=== PATIENT | male | born 1970 | race Caucasian/White ===

== ENCOUNTER 2017-04-02 12:58 | Inpatient (IN) | payer MEDICARE ==
[~2017-04-02] VITALS: Ht 152.4 cm; Wt 82.4 kg
[~2017-04-02 12:58] MED LIST: ARAVA10 MG PO; ASCORBIC ACID500 MG PO; CATAFLAM50 MG PO; DEXILANT60 MG PO; DULERA 100 MCG8.8 GM INH; ENBREL50 MG/ML SQ; EXALGO16 MG PO; GALZIN50 MG PO; HYDROCODONE-APA1 TAB PO; NIFEDIPINE ER60 MG PO; PREDNISONE5 MG PO; PROAIR HFA8.5 GM INH; RELPAX20 MG PO; SILVADENE CREAM50 GM TP; SOMA350 MG PO; TEKTURNA300 MG PO; VALIUM10 MG PO; VIBRAMYCIN 100100 MG PO; VITAMIN A10000 UNIT PO; VITAMIN B-12; ZESTRIL40 MG PO
[2017-04-02 14:36] LABS: UDS - AMPHET NEGATIVE QUAL (NEGATIVE); UDS - BARB NEGATIVE QUAL (NEGATIVE); UDS - BENZO POSITIVE QUAL (NEGATIVE); UDS - COCAINE NEGATIVE QUAL (NEGATIVE); UDS - METH NEGATIVE QUAL (NEGATIVE); UDS - OPIATE POSITIVE QUAL (NEGATIVE); UDS - PCP NEGATIVE QUAL (NEGATIVE); UDS - THC NEGATIVE QUAL (NEGATIVE)
[2017-04-02 14:37] LABS: INR 1.02 (0.85-1.17); PROTIME 13.3 SECONDS (11.6-15.0)
[2017-04-02 14:47] LABS: APPEARANCE CLEAR (CLEAR); BILIRUBIN NEGATIVE (NEGATIVE); COLOR DK YELLOW (YELLOW); GLUCOSE NEGATIVE (NEGATIVE); KETONE NEGATIVE (NEGATIVE); LEUKOCYTE ESTERASE TRACE (NEGATIVE); NITRITE NEGATIVE (NEGATIVE); PROTEIN NEGATIVE (NEGATIVE); SPECIFIC GRAVITY 1.015 (1.005-1.020); UROBILINOGEN NORMAL (NORMAL)
[2017-04-02 14:49] LABS: BACTERIA FEW /hpf (NONE SEEN); RED CELLS - URINE 0-5 /hpf (0-5); WHITE CELLS - URINE 0-5 /hpf (0-5)
[2017-04-02 14:59] LABS: ALBUMIN 3.3 g/dL (3.4-5.0); ALKALINE PHOSPHATASE 104 U/L (46-116); ALT (SGPT) 36 U/L (10-68); CALC OSMOLALITY 298 mosm/kg (275-300); CARBON DIOXIDE 23.4 mmol/L (21.0-32.0); CHLORIDE - SERUM 107 mmol/L (98-107); CREATININE - SERUM 2.7 mg/dL (0.6-1.3); POTASSIUM - SERUM 4.6 mmol/L (3.5-5.1); PROTEIN - SERUM 6.3 g/dL (6.4-8.2); SODIUM 143 mmol/L (136-145); UREA NITROGEN 58 mg/dL (7-18); eGFR NON AFRICAN AMERICAN 27 mL/min (90-120)
[2017-04-02 15:01] LABS: GLUCOSE 69 mg/dL (74-106)
[2017-04-02 15:19] LABS: ACETAMINOPHEN 0.4 ug/mL (10.0-30.0)
[2017-04-02 15:21] LABS: CREATINE KINASE 961 UL (21-232); TROPONIN-I < 0.017 ng/mL (0.000-0.060)
[2017-04-02 15:22] LABS: CKMB 9.8 U/L (0.0-3.6)
[2017-04-02 15:26] LABS: HEMATOCRIT 36.3 % (42.0-54.0); HEMOGLOBIN 12.1 g/dL (13.5-17.5); LYMPHOCYTES 11.3 % (15-50); MCH 31.8 pg (26.0-34.0); MCHC 33.3 g/dL (31.0-37.0); MCV 95.5 fL (80.0-100.0); MEAN PLATELET VOLUME 9.5 fL (7.4-10.4); NEUTROPHILS 81.5 % (40-80); PLATELET COUNT 306 10x3/uL (130-400); RDW 16.7 % (11.5-14.5); WBC 15.4 10x3/uL (4.8-10.8)
--- NOTE | 2017-04-02 18:15 | NUR ---
PT TO ROOM 2203 FROM ER. AT BEDSIDE.DR CRAFT HERE TO SEE PATIENT.ORIENTATION TO ROOM ,CALL LIGHT IN REACH.
--- NOTE | 2017-04-02 18:25 | NUR ---
REPORT TO GILBERTO IN ICU
--- NOTE | 2017-04-02 18:35 | NUR ---
PT TO ICU VIA BED ORDERED
[2017-04-02 19:15] VITALS: BP 125/80
--- NOTE | 2017-04-02 19:15 | NUR ---
PT ARRIEVED TO THE UNIT. HOOKED UP TO THE MONITOR AND POSITIONED FOR COMFORT.
--- NOTE | 2017-04-02 19:30 | NUR ---
ASSESSMENT COMPLETED. PT IS ALERT AND ORIENTATED X4. PUPILS 3 AND REACTIVE. LUNGS HAVE EXPIRATORY WHEEZESON THE KATIUSKA AND DINISHED IN BOTH LOWER LOBES.RUL ARE CLEAR TO ASCULTATION. AFIB RHYTHM WITH PALP PULSES IN THE UPPER EXTREMITIES. PT HAS HAD BILAT BKA'S. THE LEFT STUMP HAS A SORE ON IT WITH SOME SCABS AND YELLOWISH COLOR. VSS. WILL CONTINUE TO MONITOR PT.
[2017-04-02 20:00] VITALS: BP 110/90
[2017-04-02 21:00] VITALS: BP 115/88
--- NOTE | 2017-04-02 21:00 | NUR ---
FAMILY AT BEDSIDE. UPDATE GIVEN WILL CONTINUE TO MONITOR.
[2017-04-02 22:00] VITALS: BP 121/76
[2017-04-02 23:00] VITALS: BP 125/80
--- NOTE | 2017-04-02 23:00 | NUR ---
REASSESSMENT COMPLETED. NO CHANGES. VSS . WILL CONTINUE TO MONITOR.
[2017-04-03] VITALS (15 sets, daily range): BP systolic 103–128; BP diastolic 69–85; Ht 152.4 cm; Wt 82.4 kg
--- NOTE | 2017-04-03 01:00 | NUR ---
PT RESTING WITH NO APPEARENT STRESS. VSS. WILL CONTINUE TO MONITOR.
--- NOTE | 2017-04-03 03:00 | NUR ---
REASSESSMENT COMPLETED. PT POSITIONED FOR COMFORT WILL CONTINUE TO MONITOR.
[2017-04-03 04:13] LABS: BASOPHILS 0.2 % (0-2); HEMOGLOBIN 11.7 g/dL (13.5-17.5); LYMPHOCYTES 9.8 % (15-50); MCH 31.2 pg (26.0-34.0); MCHC 31.6 g/dL (31.0-37.0); MEAN PLATELET VOLUME 9.7 fL (7.4-10.4); MONOCYTES 9.2 % (2-11); NEUTROPHILS 78.8 % (40-80); PLATELET COUNT 326 10x3/uL (130-400); RBC 3.75 10x6/uL (4.20-6.10); RDW 17.2 % (11.5-14.5); WBC 12.5 10x3/uL (4.8-10.8)
[2017-04-03 04:17] LABS: MCV 98.7 fL (80.0-100.0)
[2017-04-03 04:52] LABS: CALCIUM 8.1 mg/dL (8.5-10.1); CARBON DIOXIDE 24.5 mmol/L (21.0-32.0); CHLORIDE - SERUM 108 mmol/L (98-107); MAGNESIUM - SERUM 2.4 mg/dL (1.8-2.4); PHOSPHOROUS 2.8 mg/dL (2.5-4.9); SODIUM 141 mmol/L (136-145)
[2017-04-03 04:57] LABS: CALC OSMOLALITY 287 mosm/kg (275-300); CKMB 3.6 U/L (0.0-3.6); CREATINE KINASE 495 UL (21-232); CREATININE - SERUM 1.2 mg/dL (0.6-1.3); GLUCOSE 120 mg/dL (74-106); POTASSIUM - SERUM 5.3 mmol/L (3.5-5.1); UREA NITROGEN 30 mg/dL (7-18); eGFR NON AFRICAN AMERICAN 69 mL/min (90-120)
--- NOTE | 2017-04-03 05:00 | NUR ---
PT ALSEEP WITH NO DISTRESS. VSS. WILL CONTINUE TO MONITOR.
--- NOTE | 2017-04-03 07:00 | NUR ---
PATIENT IS SLEEPING AT THIS TIME. CALL LIGHT WITHIN REACH, AND BED IN LOW POSITION.
[2017-04-03] MEDS ORDERED: PREDNISONE1 MG PO (07:29)
[2017-04-03] MEDS ORDERED: PROAIR HFA8.5 GM INH (07:35)
[2017-04-03] MEDS ORDERED: MYRBETRIQ50 MG PO (07:35)
[2017-04-03] MEDS ORDERED: ARAVA10 MG PO (07:36)
--- NOTE | 2017-04-03 08:45 | NUR ---
PATIENT COMPLAINT OF PAIN, 10 OUT OF 10 ON PAIN SCALE PATIENT STATES IT IS FROM HIS RHEUMATIOD ARTHRITIS. NORCO GIVEN PER ORDER.
--- NOTE | 2017-04-03 09:41 | NUR ---
PATIENT SLEEPING AROUSES EASILY TO VERBAL STIMULI. ADMIT ASSESSMENT COMPLETE. PATIENT IS AT BEDSIDE. PATIENT DENIES ANY PAIN RELIEF WITH PAIN MED. PATIENT REPOSISITONED SELF INTERVENTION FOR PAIN RELIEF.
--- NOTE | 2017-04-03 11:30 | NUR ---
PATIENT IS SLEEPING WITH SNORING RESPIRATION NOTED. CALL LIGHT WITHIN REACH AND BED IN LOW POSITION.
--- NOTE | 2017-04-03 12:10 | NUR ---
AT BEDSIDE. PATIENT IS SITTING UP IN BED. LUNCH TRAY GIVEN PAITENT HAS 6 20 OZ BOTTLES OF MT. DEW ON BEDSIDE TABLE. EXPLAINED TO PATIENT THAT THE CAFFINE IS NOT GOOD FOR HIS HEART RATE. PATIENT CONTINUES TO DRINK THEM.
[2017-04-03 13:36] LABS: CALC OSMOLALITY 284 mosm/kg (275-300); CALCIUM 8.1 mg/dL (8.5-10.1); CARBON DIOXIDE 26.7 mmol/L (21.0-32.0); CHLORIDE - SERUM 106 mmol/L (98-107); CREATININE - SERUM 1.1 mg/dL (0.6-1.3); GLUCOSE 115 mg/dL (74-106); POTASSIUM - SERUM 4.9 mmol/L (3.5-5.1); SODIUM 141 mmol/L (136-145); UREA NITROGEN 22 mg/dL (7-18); eGFR NON AFRICAN AMERICAN 77 mL/min (90-120)
--- NOTE | 2017-04-03 14:20 | NUR ---
PATIENT IS SLEEPING WITH SNORING RESPIRATIONS NOTED. V/S ARE WITHIN NORMAL LIMITS. CM IS SR @94. IV INFUSING WITHOUT REDNESS OR EDEMA NOTED.
--- NOTE | 2017-04-03 14:39 | NUR ---
SALINE LOCK FROM LEFT WRIST REMOVED DUE TO REDNESS AND TENDERNESS. PRESSURE APPLIED WITH 2X2 AND TAPE.
--- NOTE | 2017-04-03 17:15 | NUR ---
PATIENT STATES THAT THE PAIN IS NOT ANY BETTER. HAD PATIENT TO REPOSITION WITH PILLOWS.
--- NOTE | 2017-04-03 18:31 | NUR ---
PATIENT IS ASKING ABOUT HIS HYDROMORPHONE THAT HE TAKES AT HOME, AND IF IT IS ORDERED FOR HIM HERE. WILL CHECK ON THIS FOR PATIENT. PATIENT CONSUMED 100% OF DINNER.
--- NOTE | 2017-04-03 20:00 | NUR ---
SHIFT ASSESSMENT COMPLETED SEE FLOWSHEET. PT AAOX4. AWARE OF TRANSFER ORDERS AND PENDING TRANSFER. PT NOT WEARING O2 AT THIS TIME AND SPO2 98% ON ROOM AIR. STATES THE OXYGEN WAS OFF. NOTE O2 BEING DELIVERED AT 2L VIA N/C DRAPED ON BEDSIDE TABLE. TURNED OFF AND LEFT PT ON ROOM AIR. LEFT FA PIV DRESSING REMOVED AND IV SITE CLEANED WITH ALCOHOL AND NEW TELFA PLACED OVER SITE. IV POLE RELOCATED TO SIDE OF BED THAT IV IS ON TO REDUCE TENSION ON IV. NO LEAKAGE TENDERNESS OR REDNESS NOTED AT THIS TIME. PT DOES HAVE DRESSING TO LEFT STUMP AND HE STATES HE IS SUPPOSED TO HAVE STEM CELL SURGERY ON SUNDAY WITH DR. GILMAN. STATES HE HAD THIS PROCEDURE DONE ON THE RIGHT STUMP IN THE PAST YEAR. PT IS A BILAT BKA AMPUTEE. STATES HE HAS PROTHESIS AND W/C AT HOME AND DOES OWN TRANSFERS AND IS VERY INDEPENDENT. PT DOES NOT HAVE HIS EQUIPMENT HERE AT THE HOSPITAL AND IS AT THIS TIME CONFINED TO THE BED. PT GIVEN EXTRA PILLOWS FOR COMFORT AND DENIES ANY FURTHER NEEDS. PT IS BEING MONITORED PER STANDARD ICU PROTOCOL FOR PT'S WITH TRANSFER ORDERS. ALL LINES AND IVF VERIFIED AND ARE CURRENT LINES DUE TO BE CHANGED ON 04/04/17. ALL ALARMS SET AND VERIFIED
--- NOTE | 2017-04-03 21:00 | NUR ---
AT BEDSIDE UPDATE GIVEN AND CODE WORD ESTABLISHED.
--- NOTE | 2017-04-03 21:59 | NUR ---
NEW TUGING HUNG FOR ABT AND IVF. LABELED AND DATED
--- NOTE | 2017-04-03 22:44 | NUR ---
PT SITTING UP IN BED DOING RESPIRATORY TREATMENT.
--- NOTE | 2017-04-03 23:00 | NUR ---
PT SLEEPING AT THIS TIME. RESP REG AND NOISY. EASILY AWAKEN FOR VS. NO C/O NO EVIDENCE OF DISTRESS. CALL LIGHT IN REACH
--- NOTE | 2017-04-04 02:15 | NUR ---
CALL RECEIVED FROM SECURITY CODE VERIFIED UPDATE GIVEN. PT SLEEPING WELL AT THIS TIME
[2017-04-04 03:00] VITALS: BP 111/76
--- NOTE | 2017-04-04 03:02 | NUR ---
PT GIVEN MEDS FOR CHRONIC PAIN RECORDED ON NOV. PT STATES HE HASNT SLEPT ALL NIGHT BUT HAVE OBSERVED PT ASLEEP MOST OF THE NIGHT. HAS BEEN AWAKE FOR LAST 15-20 MIN.
--- NOTE | 2017-04-04 03:38 | NUR ---
RADIOLOGY AT BEDSIDE TO PERFORM AM PCXR.
[2017-04-04 04:23] LABS: BASOPHILS 0.2 % (0-2); EOSINOPHILS 1.2 % (0-7); HEMOGLOBIN 11.5 g/dL (13.5-17.5); IMMATURE GRANULOCYTES 1.5 % (0-5); LYMPHOCYTES 12.6 % (15-50); MCH 31.2 pg (26.0-34.0); MCHC 31.9 g/dL (31.0-37.0); MCV 97.6 fL (80.0-100.0); MEAN PLATELET VOLUME 9.5 fL (7.4-10.4); MONOCYTES 11.2 % (2-11); NEUTROPHILS 73.3 % (40-80); PLATELET COUNT 290 10x3/uL (130-400); RBC 3.69 10x6/uL (4.20-6.10); RDW 16.3 % (11.5-14.5); WBC 10.3 10x3/uL (4.8-10.8)
[2017-04-04 04:38] LABS: CALC OSMOLALITY 276 mosm/kg (275-300); CALCIUM 8.6 mg/dL (8.5-10.1); CARBON DIOXIDE 28.6 mmol/L (21.0-32.0); CHLORIDE - SERUM 102 mmol/L (98-107); CREATINE KINASE 182 UL (21-232); CREATININE - SERUM 0.9 mg/dL (0.6-1.3); GLUCOSE 159 mg/dL (74-106); MAGNESIUM - SERUM 1.9 mg/dL (1.8-2.4); PHOSPHOROUS 2.8 mg/dL (2.5-4.9); SODIUM 137 mmol/L (136-145); eGFR NON AFRICAN AMERICAN > 90 mL/min (90-120)
[2017-04-04 04:42] LABS: UREA NITROGEN 13 mg/dL (7-18)
--- NOTE | 2017-04-04 06:00 | NUR ---
IN ROOM WITH PT. UPDATE GIVEN QUESTIONS ANSWERED. PT DENIES FURTHER NEEDS. CALL LIGHT IN REACH
[2017-04-04 07:00] VITALS: BP 109/77
[2017-04-04 11:00] VITALS: BP 151/78
--- NOTE | 2017-04-04 13:16 | NUR ---
WOUND CARE CONSULT: PATIENT IS BILATERAL BKA, WEARS PROTHESIS WHEN UP AND ABOUT. NON HEALING WOUND TO LEFT STUMP AT HEALED INCISION LINE. PATIENT REPORTS THAT HE HAS BEEN DEALING WITH THIS SINCE APRIL 2016. WOUND IS 0.5 CM X 0.5 CM WITH TUNNELING 0.5 CM IN THE 6 OCLOCK POSITION. SKIN AROUND THE WOUND IS WHITE (LIKE IT HAS BEEN VERY WET). WOUND BED IS DRY, NO DRAINAGE. 4 X 4 PLACED OVER WOUND AND SECRUED WITH MEDIPORE TAPE UNTIL IODOFOAM COMES. WOUND CARE TO FOLLOW NEEDED.
--- NOTE | 2017-04-04 14:25 | NUR ---
WND CARE DONE TO L RESIDULE LYMB. PT JOVANY WELL.
[2017-04-04 15:00] VITALS: BP 135/84
[2017-04-04 20:00] VITALS: BP 122/86
--- NOTE | 2017-04-04 20:00 | NUR ---
REPORT WAS RECEIVED AND CARE ASSUMED. INITIAL SHIFT ASSESSMENT COMPLETED SEE FLOWSHEET. PT HAS BEEN ABLE TO TRANSFER SELF TO CHAIR AND WITH 'S ASSISTANCE HAS HAD COMPLETE BATH AND LINEN CHANGE. PT DOES HAVE TRANSFER ORDERS AND ICU PROTOCOL FOR PT'S WITH TRANSFER ORDERS IS BEING FOLLOWED. ALL ALARMS ARE SET AND VERIFIED. IVF AND IV LINES ARE DATED LABELED AND ARE CURRENT. IV TUBING DUE TO BE CHANGED 04/06/2017 IV SITE WNL AND WAS SITED TODAY PER TSERING MOLINA RN.
--- NOTE | 2017-04-04 21:00 | NUR ---
HS MEDS GIVEN WITHOUT DIFFICULTY NOTED. PT TEACHING DONE PRIOR TO ADMINISTRATION AND PT WAS ABLE TO CORRECTLY STATE REASON FOR EACH MEDICATION GIVEN. FSBS 115. HS SNACK PROVIDED AND PT ATE 100% REMAINS AT BEDSIDE
[2017-04-04 23:00] VITALS: BP 148/76
--- NOTE | 2017-04-04 23:00 | NUR ---
PT SLEEPING INTERMITTENTLY. HAS BEEN NOTIFIED NOT EXPECTING TRANSFER FROM ICU TONIGHT. PT VERBALIZES UNDERSTANDING. NO ACUTE DISTRESS. CONTINUE TO MONITOR PER PROTOCOL
--- NOTE | 2017-04-05 01:00 | NUR ---
RESP REG AND NONLABORED
--- NOTE | 2017-04-05 03:00 | NUR ---
PT SLEEPING WITH SNORING RESPIRATIONS. NONLABORED
[2017-04-05 03:15] VITALS: BP 113/91
--- NOTE | 2017-04-05 04:00 | NUR ---
ARTILLERY OFFICER AT BEDSIDE FOR AM LAB DRAW.
[2017-04-05 04:40] LABS: BASOPHILS 0.4 % (0-2); EOSINOPHILS 1.6 % (0-7); HEMATOCRIT 38.8 % (42.0-54.0); HEMOGLOBIN 12.5 g/dL (13.5-17.5); IMMATURE GRANULOCYTES 2.1 % (0-5); LYMPHOCYTES 10.7 % (15-50); MCH 31.6 pg (26.0-34.0); MCHC 32.2 g/dL (31.0-37.0); MEAN PLATELET VOLUME 10.1 fL (7.4-10.4); MONOCYTES 14.1 % (2-11); NEUTROPHILS 71.1 % (40-80); RBC 3.96 10x6/uL (4.20-6.10); RDW 16.1 % (11.5-14.5); WBC 9.4 10x3/uL (4.8-10.8)
[2017-04-05 04:44] LABS: PLATELET COUNT 354 10x3/uL (130-400)
[2017-04-05 04:49] LABS: CALC OSMOLALITY 275 mosm/kg (275-300); CALCIUM 8.9 mg/dL (8.5-10.1); CARBON DIOXIDE 25.3 mmol/L (21.0-32.0); CHLORIDE - SERUM 102 mmol/L (98-107); CREATININE - SERUM 0.8 mg/dL (0.6-1.3); GLUCOSE 128 mg/dL (74-106); POTASSIUM - SERUM 5.4 mmol/L (3.5-5.1); SODIUM 137 mmol/L (136-145); UREA NITROGEN 12 mg/dL (7-18); eGFR NON AFRICAN AMERICAN > 90 mL/min (90-120)
[2017-04-05 07:00] VITALS: BP 138/94
--- NOTE | 2017-04-05 10:38 | NUR ---
NUTRITION MONITORING & EVAL CHART REVIEWED, PT TOLERATING MECH SOFT DIET. WILL CONTINUE TO PROVIDE DIET, MONITOR PO INTAKE. RD FOLLOWING
[2017-04-05 11:00] VITALS: BP 146/102
[2017-04-05 15:00] VITALS: BP 146/98
--- NOTE | 2017-04-05 15:56 | NUR ---
B/P 150/100, CALLED TO DR CRAFT AND REC'D MED ORDERS FOR B/P.
--- NOTE | 2017-04-05 19:42 | NUR ---
REC FROM ICU VIA WC. ALERT/ORIENTED X 4. PROSTHETIC'S NOTED OF BOTH LOWER LEGS. AMBULATED WITH STEADY GAIT FROM WC TO BED AND AROUND ROOM. IV IN R FA INTACT SL. DENIES ANY NEEDS. HIS IS PRESENT IN ROOM.
[2017-04-05 20:00] VITALS: BP 128/83
[2017-04-06] VITALS: BP 134/83
--- NOTE | 2017-04-06 00:20 | NUR ---
SITTING ON SIDE OF BED. WANTING TO CHANGE LEFT STUMP WOUND HIMSELF.
--- NOTE | 2017-04-06 00:48 | NUR ---
REC FROM [facility], [place] VIA AMBULANCE/STRETCHER. ALERT/ORIENTED X 4. ON 02 AT 2L. RR 28, DEEP AND RAPID. IV IN RT AC SL. EMT STATED LEVAQUIN STARTED AT [facility] FINISHED EN ROUTE. DENIES PAIN. REQUESTED A SANDWICH/SODA. ORIENTED TO ROOM AND CALL LIGHT. ORDERS FAXED FROM [facility] NOTED.
--- NOTE | 2017-04-06 05:55 | NUR ---
SITTING UP IN BED. ADMIN PO SCHED MED. DENIES ANY NEEDS OR DISCOMFORTS.
[2017-04-06 06:02] LABS: BASOPHILS 1.1 % (0-2); EOSINOPHILS 1.8 % (0-7); HEMATOCRIT 39.5 % (42.0-54.0); HEMOGLOBIN 12.8 g/dL (13.5-17.5); LYMPHOCYTES 12.4 % (15-50); MCH 31.6 pg (26.0-34.0); MCHC 32.4 g/dL (31.0-37.0); MCV 97.5 fL (80.0-100.0); MONOCYTES 11.9 % (2-11); NEUTROPHILS 62.8 % (40-80); PLATELET COUNT 406 10x3/uL (130-400); RBC 4.05 10x6/uL (4.20-6.10); RDW 16.2 % (11.5-14.5)
[2017-04-06 06:06] LABS: WBC 14.1 10x3/uL (4.8-10.8)
[2017-04-06 06:22] LABS: ALBUMIN 3.2 g/dL (3.4-5.0); ALKALINE PHOSPHATASE 110 U/L (46-116); ALT (SGPT) 41 U/L (10-68); BILIRUBIN - TOTAL 0.29 mg/dL (0.2-1.3); CALCIUM 8.6 mg/dL (8.5-10.1); CARBON DIOXIDE 24.2 mmol/L (21.0-32.0); CHLORIDE - SERUM 102 mmol/L (98-107); GLUCOSE 123 mg/dL (74-106); POTASSIUM - SERUM 4.7 mmol/L (3.5-5.1); PROTEIN - SERUM 7.5 g/dL (6.4-8.2); SODIUM 137 mmol/L (136-145); eGFR NON AFRICAN AMERICAN 77 mL/min (90-120)
[2017-04-06 06:24] LABS: CALC OSMOLALITY 275 mosm/kg (275-300); CREATININE - SERUM 1.1 mg/dL (0.6-1.3); UREA NITROGEN 16 mg/dL (7-18)
--- NOTE | 2017-04-06 07:38 | NUR ---
PT SITTING UP IN BED CONVERSING WITH FAMILY MEMEBER AT BEDSIDE. DENIES NEEDS AT THIS TIME WILL CONTINUE TO MONITOR.
[2017-04-06 07:47] VITALS: BP 124/81
[2017-04-06 07:55] LABS: MAGNESIUM - SERUM 1.5 mg/dL (1.8-2.4); PHOSPHOROUS 3.4 mg/dL (2.5-4.9)
--- NOTE | 2017-04-06 10:49 | NUR ---
PT SLEEPING IN BED WITH SIG OTHER AND CHILD IN BED WITH HIM. RR EVEN AND UNLABORED. NO S/S DISTRESS NOTED.
[2017-04-06 11:43] VITALS: BP 121/58
[2017-04-06] MEDS ORDERED: LEVAQUIN500 MG PO (12:41)
[2017-04-06] MEDS ORDERED: LOPRESSOR25 MG PO (12:41)
--- NOTE | 2017-04-06 16:11 | NUR ---
WENT OVER DISCHARGE PAPER WORK WITH PT AND PT VERBALIZED UNDERSTANDING SCRIPTS PROVIDED TO PT REMOVED IV WITH CATHETER TIP INTACT WHEELED PT TO FRONT ENTRANCE WHERE HE WAS PICKED UP BY
== END 2017-04-06 16:15 | disposition home or self-care (01) | DRG 190 ==
LOC: D.ER 12:58 → D.ICU 16:30 → D.MS 16:30 → D.ICU 19:20 → D.M2 04-05 19:41
PROVIDERS: Emergency Medicine; Nurse Practitioner Family; ADMIT Family Medicine
DX: J44.0 Chronic obstructive pulmonary disease with (acute) lower respiratory infection (principal); G92 Toxic encephalopathy; J18.9 Pneumonia, unspecified organism; N17.9 Acute kidney failure, unspecified; F17.203 Nicotine dependence unspecified, with withdrawal; T50.995A Adverse effect of other drugs, medicaments and biological substances, initial encounter; I10 Essential (primary) hypertension; E16.2 Hypoglycemia, unspecified; F11.90 Opioid use, unspecified, uncomplicated; D64.9 Anemia, unspecified; T87.89 Other complications of amputation stump; Y83.8 Other surgical procedures as the cause of abnormal reaction of the patient, or of later complication, without mention of misadventure at the time of the procedure; M06.9 Rheumatoid arthritis, unspecified; J31.0 Chronic rhinitis; Z89.512 Acquired absence of left leg below knee; Z89.511 Acquired absence of right leg below knee

== ENCOUNTER → 2017-05-02 11:56 | Outpatient (CLI) | payer MEDICARE ==
[2017-04-03 10:49] VITALS: BMI 32.8
[~2017-05-02 11:56] MED LIST changes: +LEVAQUIN500 MG PO; +LOPRESSOR25 MG PO; +MYRBETRIQ50 MG PO; +PREDNISONE1 MG PO
== END | disposition home or self-care (01) ==
LOC: D.LAB 11:56
DX: T87.89 Other complications of amputation stump (principal)

== ENCOUNTER 2017-05-07 05:17 | Day surgery (SDC) | payer MEDICARE ==
[2017-05-02 12:28] LABS: BASOPHILS 0.2 % (0-2); EOSINOPHILS 0.5 % (0-7); HEMATOCRIT 42.1 % (42.0-54.0); IMMATURE GRANULOCYTES 4.5 % (0-5); LYMPHOCYTES 9.1 % (15-50); MCH 32.6 pg (26.0-34.0); MCHC 33.3 g/dL (31.0-37.0); MCV 97.9 fL (80.0-100.0); MEAN PLATELET VOLUME 9.3 fL (7.4-10.4); MONOCYTES 7.8 % (2-11); NEUTROPHILS 77.9 % (40-80); RDW 16.5 % (11.5-14.5); WBC 17.9 10x3/uL (4.8-10.8)
[2017-05-02 12:32] LABS: CALC OSMOLALITY 269 mosm/kg (275-300); CALCIUM 8.3 mg/dL (8.5-10.1); CARBON DIOXIDE 27.1 mmol/L (21.0-32.0); CHLORIDE - SERUM 98 mmol/L (98-107); CREATININE - SERUM 1.6 mg/dL (0.6-1.3); GLUCOSE 84 mg/dL (74-106); POTASSIUM - SERUM 4.2 mmol/L (3.5-5.1); SODIUM 133 mmol/L (136-145); UREA NITROGEN 27 mg/dL (7-18); eGFR NON AFRICAN AMERICAN 50 mL/min (90-120)
[2017-05-02 12:39] LABS: C-REACTIVE PROTEIN < 0.2 mg/dL (0.0-0.9)
[2017-05-02 12:42] LABS: PLATELET COUNT 283 10x3/uL (130-400)
[2017-05-02 13:47] LABS: ERYTHROCYTE SEDIMENTATION RATE 11 mm/hr (0-15)
[2017-05-04 11:01] LABS: BASOPHILS 0.2 % (0-2); EOSINOPHILS 0.6 % (0-7); HEMATOCRIT 42.3 % (42.0-54.0); HEMOGLOBIN 13.5 g/dL (13.5-17.5); LYMPHOCYTES 8.2 % (15-50); MCH 32.3 pg (26.0-34.0); MCHC 31.9 g/dL (31.0-37.0); MEAN PLATELET VOLUME 9.5 fL (7.4-10.4); PLATELET COUNT 250 10x3/uL (130-400); RBC 4.18 10x6/uL (4.20-6.10); RDW 16.8 % (11.5-14.5); WBC 13.8 10x3/uL (4.8-10.8)
[2017-05-04 11:12] LABS: MCV 101.2 fL (80.0-100.0)
[2017-05-04 11:23] LABS: ANION GAP 11.3 mmol/L (8-16); CALCIUM 8.2 mg/dL (8.5-10.1); CARBON DIOXIDE 27.2 mmol/L (21.0-32.0); CREATININE - SERUM 1.2 mg/dL (0.6-1.3); POTASSIUM - SERUM 4.5 mmol/L (3.5-5.1)
[~2017-05-07] VITALS: Ht 175.3 cm; Wt 82.6 kg
[~2017-05-07 05:17] MED LIST changes: +BACLOFEN10 MG PO; +CIALIS5 MG PO; +PEPCID AC20 MG PO; +VOLTAREN100 GM TOPICAL
[2017-05-07] MEDS ORDERED: ARAVA10 MG PO (09:20)
[2017-05-07 09:26] VITALS: BP 136/88; Ht 175.3 cm; Wt 82.6 kg
--- NOTE | 2017-05-07 11:56 | NUR ---
PT WARNED OF POSSIBILITY OF BOVIE BURN UNDER WEDDING RING BUT CHOSE TO KEEP IT ON
--- NOTE | 2017-05-10 19:16 | OP ---
PATIENT NAME: LYNETTE SHEETS JR MEDICAL RECORD: [id number] :72 LOCATION:D.OPS ADMISSION DATE: SURGEON: BRADFORD GILMAN MD DATE OF OPERATION: 05/07/2017 PREOPERATIVE DIAGNOSIS: Nonhealing ulcer, left below-knee amputation stump. POSTOPERATIVE DIAGNOSIS: Nonhealing ulcer, left below-knee amputation stump. PROCEDURES: 1. I&D of nonhealing ulcer. 2. Application of Neox graft into the nonhealing ulcer. SURGEON: Bradford Gilman MD. ANESTHESIA: General. INTRAOPERATIVE COMPLICATIONS: None. SUMMARY OF PATHOLOGIC FINDINGS: The patient had a nonhealing graft that undermined, did not appear overtly infected; however, this is not healed now for several months. OPERATIVE SUMMARY IN DETAIL: After obtaining the appropriate consents as well as anesthetic consultation, evaluation and clearance, the patient was brought to the operating room and placed on the operating table in supine position.. After general laryngeal mask was administered, the patient's left lower extremity and stump were prepped and draped in a routine sterile fashion. The small circular ulcer was incised to make it approximately 1.5 cm across and the underlying granulation tissue that had poor healing quality was excised in its entirety and then the wound was irrigated. Following this, the Neox graft was sewn in underneath the skin flaps made using 3-0 Monocryl. Having completed this, sterile dressings were applied. The patient was awakened, taken to recovery room in stable condition. All final needle and sponge counts were correct. TRANSINT:[id number] Voice Confirmation ID: [id number] DOCUMENT ID: [id number] BRADFORD GILMAN MD at 1916 CC: [id number] DICTATION DATE: 05/07/17 1153 TEACHERS ASSISTANT: 05/07/17 1311 [facility] 05/07/17 [id number] [place] [address]
== END 2017-05-07 13:45 | disposition home or self-care (01) ==
LOC: D.OPS 05:17 → D.PAN 11:00 → D.OPS 11:00
PROVIDERS: Anesthesiology; Orthopaedic Surgery
DX: T87.89 Other complications of amputation stump (principal); L97.821 Non-pressure chronic ulcer of other part of left lower leg limited to breakdown of skin; Z01.812 Encounter for preprocedural laboratory examination

== ENCOUNTER 2017-11-16 17:32 | Inpatient (IN) | payer MEDICARE ==
[~2017-11-16] VITALS: Ht 175.3 cm; Wt 72.7 kg
--- NOTE | ~2017-11-16 | OP ---
PATIENT NAME: LYNETTE SHEETS JR MEDICAL RECORD: [id number] :72 LOCATION:[facility] ADMISSION DATE:11/17/17 SURGEON: MAC CACERES MD DATE OF OPERATION: 11/19/2017 PROCEDURE: Left heart catheterization, selective coronary angiography, right femoral approach. CATHETERS: A 5-Chinese sheath, 5/4 left and right Mary, 5/4 pig. The procedure was well tolerated and the patient returned to rae, sheath removed. ExoSeal device was placed. FINDINGS: Left ventriculography in 30-degree STEINBERG view shows global hypokinesis. Overall, function mildly reduced to 40% to 45%. CORONARY ANATOMY: LEFT MAIN: Left main is free of disease. LAD: Free of disease in the diagonal system. CIRCUMFLEX: Free of disease in the marginal system. 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 PLAN: Intervention momentarily. DESCRIPTION OF PROCEDURE: A 5-Chinese sheath was changed for a 6-Chinese sheath. A hockey stick guide catheter provided excellent guide catheter support followed by 300 cm Whisper wire. Stent deployed was a 3.5 x 12 mm Integrity, nondrug-eluting stent, up to 18 atmospheres for 45 seconds. Final injection shows excellent resolution, no significant residual. Nice tacking of the dissection/fissured plaque. Sheath closed with ExoSeal device. Plavix was loaded in the lab. TRANSINT:[id number] Voice Confirmation ID: [id number] DOCUMENT ID: [id number] MAC CACERES MD at 0920 CC: [id number] DICTATION DATE: 11/19/17 1007 ASSISTANT PROFESSOR OF EDUCATION: 11/19/17 1122 [facility] IN 11/19/17 [facility] [address] [id number]
--- NOTE | ~2017-11-16 | EC ---
PATIENT:LYNETTE SHEETS JR DATE OF SERVICE: 11/17/17 SEX: M MEDICAL RECORD: [id number] DATE OF : 72 LOCATION:[facility] AGE OF PATIENT: 46 ADMISSION DATE: 11/17/17 REFERRING PHYSICIAN: INTERPRETING PHYSICIAN: MAC CACERES MD ECHOCARDIOGRAM REPORT ECHO CHARGES 4 ECHO COMPLETE CLINICAL DIAGNOSIS: CHEST PAIN /ABN EKG ECHOCARDIOGRAPHIC MEASUREMENTS (adult normal given) AC root (d.<3.7cm) 4.2 cm LV Septum d (<1.2 cm> 1.7 cm Valve Excursion 1.9 cm LV Septum (systole) 1.8 cm Left Atria (s.<4.0cm> 4.0 cm LVPW d(<1.2cm) 1.8 cm RV (d.<2.3cm) 3.7 cm LVPW (sytole) 2.0 cm LV diastole(<5.6CM) 5.9 cm MV E-F(>70mm/sec) cm LV systole 4.3 cm LVOT Diameter 2.3 cm MV exc.(>10mm) 1.8 cm Est.ejection fraction (50-75%) % Pericardial Effusion N DOPPLER: LVIT cm/sec A 57.0 cm/sec E 66.0 cm/sec LA cm/sec RVSP 23 mmHg LVOT 97 cm/sec AOP1/2T m/s Asc. Ao 112 cm/sec RVOT 85 cm/sec RA cm/sec PA 109 cm/sec AV Gradient Peak 5.02 mmHg AV Mean 2.54 mmHg AV Area 3.5 cm MV Gradient Peak 2.81 mmHg MV Mean 1.19 mmHg MV Area cm COMMENTS: Paunch Trimmer: 2 TYRA HERCULES Nail Mill Worker: 3 Dr. Miller TAPE# PACS DATE OF SERVICE: 11/17/2017 Adequate 2D echo, color flow and spectral Doppler, and M-mode. LVH is present. LV internal dimension is normal. Wall motion is normal. EF is greater than 55%. Aortic valve is tricuspid. No stenosis by Doppler interrogation. The left atrium is upper limits of normal at 4.0 cm. Mitral valve shows no prolapse. Trace MR. Right-sided chamber is grossly normal. Trace TR. ECHOCARDIOGRAM REPORT [id number] LYNETTE SHEETS JR TRANSINT:[id number] Voice Confirmation ID: [id number] DOCUMENT ID: [id number] MAC CACERES MD at 0919 CC: [id number] DICTATION DATE: 11/17/171421 WASTEWATER PROJECT ENGINEER: 11/17/17 2328 [facility] [place] 11/19/17 [id number] [place] [id number]
--- NOTE | ~2017-11-16 | HEMODYNAMI ---
PATIENT:LYNETTE SHEETS JR MEDICAL RECORD: [id number] : 72 [facility] [id number] ADMISSION DATE: 11/17/17 Generatedon:11/19/201710:05 Patient name: LYNETTE SHEETS Patient #: [id number] SSN: : 1970 Date of study: 11/19/2017 Page: Of Hemodynamic Procedure Report Patient Data Patient Demographics Procedure consent was obtained First Name: LYNETTE Gender: Male Last Name: SUDEEP Suffix: Jr Cordova Initial: GRADY : 1970 Patient #: [id number] Age: 46 year(s) Race: Unknown Additional ID: [id number] Contact details Address: [address] [place] [address] State: [place] City: [place] Zip code: [address] Past Medical History Allergies Allergen Reaction Date Comments Reported Morphine 11/19/2017 Sulfa drugs 11/19/2017 Codeine 11/19/2017 Other allergy 11/19/2017 See chart for full list Admission Admission Data Admission Date: 11/17/2017 Admission Time: 16:27 Room #: D.2101 Procedure Procedure Types Cath Procedure Diagnostic Procedure C [facility] w/Coronaries Sedation Charges Moderate Sedation up to 15 minutes PCI Procedure Coronary Stent Coronary Stent Initial Procedure Description Procedure Date Procedure Date: 11/19/2017 Procedure Start Time: 9:47 Procedure End Time: 10:05 Procedure Staff Name Function Pablito Cunha MD Performing Physician Lucia Piper RT Monitor Chadd Hector RN Nurse Brayan Curry RT Scrub Procedure Data Cath Procedure Fluoroscopy Diagnostic fluoroscopy Total fluoroscopy Time: 2.6 time: 2.6 min min Diagnostic fluoroscopy Total fluoroscopy dose: 695 dose: 695 mGy mGy Contrast Material Contrast Material Type Amount (ml) Isovue 300 102 Entry Location Entry Primary Successful Side Size Upsize Upsize Entry Closure Succes sful Closure Location (Fr) 1 (Fr) 2 (Fr) Remarks Device Remarks Femoral Right 5 Fr 6 Fr artery Short Estimated blood loss: 10 ml Diagnostic catheters Device Type Used For End Catheter Placement MULTIPACK JL 4.0 5Fr Left Coronary catheter Angiography MULTIPACK 3DRC 5Fr Right Coronary catheter Angiography MULTIPACK Pigtail 5 Fr LV Angiography catheter Procedure Complications No complications Procedure Medications Medication Administration Route Dosage 0.9% NaCl I.V. 100 ml/hr Oxygen NC 2 l/min Heparin Flush Bag added to field 2 bags (1000units/500ml NS) Lidocaine 2% added to field 20 Versed I.V. 2 mg Fentanyl I.V. 100 mcg Heparin Bolus I.V. 5000 units Integrilin (Bolus I.V. 7.9 ml 2mg/ml) Integrilin (Bolus wasted 2.1 ml 2mg/ml) Plavix P.O. 600 mg Hemodynamics Rest Heart Rate: 69 (bpm) Pressure Samples Time Site Value (mmHg) Purpose Heart Use Rate(bpm) 9:52 LV 119/19,20 EDP 69 9:52 AO 121/77(98) Pullback 69 9:52 LV 121/19,22 Pullback 69 Gradients Valve Time Site 1 Site 2 Mean SEP/DFP Peak To Heart Use (mmHg) (sec/min) Peak Rate (mmHg) (bpm) Aortic 9:52 LV AO 0 69 121/19,22 121/77(98) Calculations Valve P-P Mean Valve Index Valve Source Name Gradient Area Flow (cm2) Aortic 0 0 Snapshots Pre Cath Intra NCS Post Cath Vital Signs Time Heart Resp SPO2 etCO2 NIBP (mmHg) Rhythm Pain Sedation Rate (ipm) (%) (mmHg) Status Level (bpm) 9:16:56 68 19 98 0 122/82(104) NSR 0 (11) 10(A) , No pain 9:21:34 71 13 99 23.1 130/89(105) NSR 0 (11) 10(A) , No pain 9:26:17 68 13 99 35.8 126/84(102) NSR 0 (11) 10(A) , No pain 9:30:58 71 19 99 20.9 137/88(107) NSR 0 (11) 10(A) , No pain 9:35:40 64 15 92 0 141/85(106) NSR 0 (11) 10(A) , No pain 9:40:25 69 17 94 0 141/76(108) NSR 0 (11) 10(A) , No pain 9:45:49 68 18 93 0 125/96(114) NSR 0 (11) 10(A) , No pain 9:50:31 68 15 98 27.6 133/81(100) NSR 0 (11) 10(A) , No pain 9:55:16 72 15 98 22.4 137/81(108) NSR 0 (11) 10(A) , No pain 9:59:59 55 18 96 44 136/79(101) NSR 0 (11) 10(A) , No pain 10:04:43 71 8 99 28.3 137/87(106) NSR 0 (11) 10(A) , No pain Medications Time Medication Route Dose Verified Delivered Reason Notes Effectiveness by by 9:21:44 0.9% NaCl I.V. 100 Chadd Chadd Per physician ml/hr Krunal Hector RN, RN 9:21:54 Oxygen NC 2 Chadd Chadd Per physician l/min Krunal Hector RN, RN 9:22:08 Heparin Flush added 2 Chadd Chadd used for Bag to bags Krunal Hector procedure (1000units/500ml field BRODY RN NS) 9:22:22 Lidocaine 2% added 20ml Chadd Chadd for local to vial Krunal Hector anesthetic field RONN BRODY 9:34:59 Versed I.V. 2 mg Chadd Chadd for sedation Krunal Hector RN, RN 9:35:09 Fentanyl I.V. 100 Chadd Chadd for sedation mcg Krunal Hector RN, RN 9:54:59 Heparin Bolus I.V. 5000 Chadd Chadd for units Krunal Hector anticoagulation RN RN 9:56:12 Integrilin I.V. 7.9 Chadd Chadd for (Bolus 2mg/ml) ml Krunal Hector antiplatelet RN RN therapy 9:56:26 Integrilin wasted 2.1 Chadd Chadd to sharp's (Bolus 2mg/ml) ml Krunal Hector RN, RN 10:02:15 Plavix P.O. 600 Chadd Chadd for mg Krunal Hector antiplatelet RN RN therapy Procedure Log Time Note 8:06:25 Time tracking: Regular hours 8:06:29 Plan of Care:Hemodynamics will remain stable., Cardiac rhythm will remain stable., Comfort level will be maintained., Respiratory function will remain adequate., Patient/ family verbilizes understanding of procedure., Procedure tolerated without complication., Recovers from procedure without complications.. 8:58:11 Chadd Hector RN sent for patient. Start room use. 9:10:14 Patient received from PCU to CCL 1 Alert and oriented. Tansferred to table in Supine position. 9:10:15 Warm blankets applied, and hitesh hugger turned on for patient comfort. 9:10:15 Correct patient and procedure confirmed by team. 9:10:17 Signed procedure consent form obtained from patient. 9:10:18 ECG and BP/O2 sat monitors applied to patient. 9:10:19 Full Disclosure recording started 9:15:59 Vital chart was started 9:17:51 Baseline sample Acquired. 9:17:54 Rhythm: sinus rhythm 9:18:14 H&P Date Dictated: 11/18/2017 Within 30 days and on chart.. 9:18:16 Pre-procedure instructions explained to patient. 9:18:16 Pre-op teaching completed and patient verbalized understanding. 9:18:20 Family in waiting room. 9:18:21 Patient NPO since Midnight. 9:18:31 Patient allergic to Morphine 9:18:37 Patient allergic to Sulfa drugs 9:18:47 Patient allergic to Codeine 9:19:10 Patient allergic to Other allergySee chart for full list 9:19:15 Is the patient allergic to Iodine/contrast media? No. 9:19:16 Is patient on blood thinner?No 9:19:18 Patient diabetic? No. 9:19:21 Previous problem with sedation/anesthesia? No ? 9:19:21 Snore? Yes 9:19:22 Sleep apnea? No 9:19:23 Deviated septum? No 9:19:24 Opens mouth fully? Yes 9:19:25 Sticks out tongue? Yes 9:19:29 Airway obstruction? Yes Asthma 9:19:32 Dentures? No ? 9:19:53 Patient has bilateral AKAs. 9:19:57 Patient pain scale 0/10 ?. 9:20:07 IV patent on arrival in right wrist with 0.9% NaCl at KVO. 9:20:09 Lab results completed and on chart. 9:20:12 Right groin area was prepped with chlora-prep and draped in sterile fashion 9:20:13 Alarms reviewed by Diane Malagon 9:20:13 Sharps counted by scrub and verified by R.N. 9:20:16 Use device set Femoral Dx 9:20:17 ACIST Syringe (50957) opened to sterile field. 9:20:18 Bag Decanter (2002S) opened to sterile field. 9:20:18 Medline Cath Pack ([id number]) opened to sterile field. 9:20:18 SHEATH 5FR [place] (NIF316) opened to sterile field. 9:20:19 DIAGNOSTIC WIRE .035 260cm J wire (224977) opened to sterile field. 9:20:23 ACIST Hand Control (57178) opened to sterile field. 9:20:24 ACIST Manifold (31418) opened to sterile field. 9:20:25 DIAGNOSTIC Multipack 5Fr catheter set ([id number]) opened to sterile field. 9:20:25 Tegaderm 4 x 4 (1626W) opened to sterile field. 9:20:26 PERCUTANEOUS ENTRY 19GA needle opened to sterile field. 9:21:44 0.9% NaCl 100 ml/hr I.V. was administered by Chadd Hector RN; Per physician; 9:21:54 Oxygen 2 l/min NC was administered by Chadd Hector RN; Per physician; 9:22:08 Heparin Flush Bag (1000units/500ml NS) 2 bags added to field was administered by Chadd Hector RN; used for procedure; 9:22:22 Lidocaine 2% 20ml vial added to field was administered by Chadd Hector RN; for local anesthetic; 9:29:02 Final Timeout: patient, procedure, and site verified with staff and physician. All members of the team are in agreement. 9:29:05 Right groin site verified by team. 9:29:07 Physical assessment completed. ASA score P 2 - A patient with mild systemic disease as per Pablito Cunha MD. 9:29:10 Sedation plan: IV Moderate Sedation Medication:Versed, Fentanyl 9:30:19 Zero performed for pressure channel P1 9:34:59 Versed 2 mg I.V. was administered by Chadd Hector RN; for sedation; 9:35:09 Fentanyl 100 mcg I.V. was administered by Chadd Hector RN; for sedation; 9:47:51 Procedure started. 9:47:54 Local anesthetic to right femoral artery with Lidocaine 2% by Pablito Cunha MD.INITIAL ACCESS ONLY 9:48:22 A 5 Fr sheath was inserted into the Right Femoral artery 9:49:05 A MULTIPACK JL 4.0 5Fr catheter was advanced over the wire and used for Left Coronary Angiography. 9:49:52 Catheter removed. 9:49:58 A MULTIPACK 3DRC 5Fr catheter was advanced over the wire and used for Right Coronary Angiography. 9:50:59 Catheter removed. 9:51:[address] DALY PCI 9:51:10 INFLATOR Merit BasixCompak (PT0016) opened to sterile field. 9:51:10 SHEATH 6FR [place] (ESD231) opened to sterile field. 9:51:12 WHISPER 300cm guide wire ([id number]) opened to sterile field. 9:51:23 A MULTIPACK Pigtail 5 Fr catheter was advanced over the wire and used for LV Angiography. 9:52:25 LV gram done using STEINBERG 9:52:27 Injector settings: Ml/sec: 10, Volume: 20, 9:52:32 EF : 40 % 9:52:36 LV hemodynamics recorded. 9:52:39 Catheter removed. 9:54:05 GUIDE 6FR HS I catheter (LA6HSI) opened to sterile field. 9:54:15 Sheath upsized to a 6 Fr Short. 9:54:21 6 Fr HS I guide catheter was inserted over the wire 9:54:59 Heparin Bolus 5000 units I.V. was administered by Chadd Hector RN; for anticoagulation; 9:55:47 Whisper wire advanced. 9:56:12 Integrilin (Bolus 2mg/ml) 7.9 ml I.V. was administered by Chadd Hector RN; for antiplatelet therapy; 9:56:26 Integrilin (Bolus 2mg/ml) 2.1 ml wasted was administered by Chadd Hector RN; to sharp's; 9:57:34 Inflation Number: 1 A INTEGRITY OTW 3.5 X 12 stent ([id number]) was prepped and advanced across the Mid RCA. The stent was deployed at 14 SERGIO for 0:20 (min:sec). 9:58:28 Inflation number: 2 The stent balloon was then re-inflated across the Mid RCA to 18 SERGIO for 0:22 (min:sec). 9:58:52 Stent catheter was removed intact over wire. 9:58:57 Wire removed. 9:59:03 Guide catheter removed. 9:59:10 Procedure ended.(Physican Out) 9:59:20 Fluoroscopy time 02.60 minutes. 9:59:23 Flurop Dose total: 695 9:59:23 Fluoroscopy dose: 695 mGy 9:59:26 Contrast amount:Isovue 300 102ml. 9:59:27 Sharps counted by scrub and verified by R.N. 9:59:29 Insertion/operative site no bleeding no hematoma. 9:59:33 Post-op/insertion site Right Femoral artery dressed using a 4 x 4 and Tegaderm. 9:59:36 Post right femoral artery:stable, clean and dry 9:59:38 Post Procedure Pulses reassessed and unchanged 9:59:42 Post-procedure physical assessment completed. ASA score P 2 - A patient with mild systemic disease as per Pablito Cunha MD. 9:59:45 Post procedure rhythm: unchanged. 9:59:48 Estimated blood loss: 10 ml 10:00:46 Post procedure instruction explained to patient.Patient verbalizes understanding. 10:00:46 Patient needs reinforcement of post procedure teaching. 10:01:18 Procedure type changed to Cath procedure, Diagnostic procedure, LHC, LHC w/Coronaries, Sedation Charges, Moderate Sedation up to 15 minutes, PCI procedure, Coronary Stent, Coronary Stent Initial 10:01:24 Procedure Complication : No complications 10:01:28 See physician's report for complete and final results. 10:02:15 Plavix 600 mg P.O. was administered by Chadd Hector RN; for antiplatelet therapy; 10:02:17 EXOSEAL 6Fr (EX600) opened to sterile field. 10:02:48 Procedure and supply charges have been captured, reviewed, submitted and are correct. 10:04:58 Vital chart was stopped 10:05:00 Report given to Pre/Post Procedure Room. 10:05:05 Patient transfered to Pre/Post Procedure Room with Stretcher. 10:05:12 Procedure ended. 10:05:12 Full Disclosure recording stopped 10:05:18 End room use (Document Last) Intervention Summary Intervention Notes Time ActionType Lesion and Equipment Action# Pressure Duration Attributes Used 9:57:34 Place stent Mid RCA INTEGRITY 1 14 00:20 OTW 3.5 X 12 stent ([id number]) 9:58:28 Reinflate Mid RCA INTEGRITY 2 18 00:22 stent OTW 3.5 X balloon 12 stent ([id number]) Device Usage Item Name Manufacture Quantity Catalog Hospital Part Current Minimal Lot# / Number Charge Number Stock Stock Serial# Code ACIST Acist 1 81921 766741 594878 358968 20 Syringe Medical (68040) Systems Inc Bag Decanter Microtek 1 2001S 284426 80611 029495 5 () Medical Inc. Medline Cath Cardinal 1 [id number] 438007 25995 243486 5 Paice ([id number]) SHEATH 5FR Terumo 1 JYB089 399510 036915 780811 40 [place] (RVM954) DIAGNOSTIC St Terrance 1 023396 357440 950785 841296 30 WIRE .035 260cm J wire (795799) ACIST Hand Acist 1 21366 883966 135286 329459 5 Control Medical (74100) Systems Inc ACIST Acist 1 27051 017999 368787 374576 5 Manifold Medical (32898) Systems Inc DIAGNOSTIC Cardinal 1 BN5740 117943 62327 612099 30 Multipack Health 5Fr catheter set (KI4713) Tegaderm 4 x 3M 1 1626W 050517 091314 739334 5 4 (1626W) PERCUTANEOUS [facility] 1 V92880 035989 918739 5 ENTRY 19GA needle MULTIPACK JL Cardinal 1 685129 5 4.0 5Fr Health catheter MULTIPACK Cardinal 1 248748 5 3DRC 5Fr Health catheter INFLATOR Merit 1 QE2516 237684 218527 805327 15 [employer] Medical BasixCompak (ZP7838) SHEATH 6FR Terumo 1 XVU640 654190 442565 949890 40 [place] (IAU074) WHISPER Perez 1 [id number] 605629 289981 641118 5 300cm guide Vascular wire ([id number]) MULTIPACK Cardinal 1 878715 5 Pigtail 5 Fr Health catheter GUIDE 6FR HS Medtronic 1 LA6HSI 640618 54375 589280 1 I catheter (LA6HSI) INTEGRITY Medtronic 1 [id number] 293687 068388 7 [id number] OTW 3.5 X 12 stent ([id number]) EXOSEAL 6Fr Cardinal 1 EX600 890341 870061 507549 10 (EX600) Health Signature Audit [place] Stage Time Signature Unsigned Intra-Procedure 11/19/2017 Lucia 10:05:31 AM Counts RT(R) Signatures Monitor : Lucia Signature : Counts RT Date : Time : [address] [place] [address]
--- NOTE | ~2017-11-16 | EC ---
PATIENT:LYNETTE SHEETS JR DATE OF SERVICE: 11/17/17 SEX: M MEDICAL RECORD: [id number] DATE OF : [birth year] [facility]GE [facility] PATIENT: 46 ADMISSION DATE: 11/17/17 REFERRING PHYSICIAN: INTERPRETING PHYSICIAN: JEREMIE STEELE MD ECHOCARDIOGRAM REPORT ECHO CHARGES 4 ECHO COMPLETE CLINICAL DIAGNOSIS: CHEST PAIN /ABN EKG ECHOCARDIOGRAPHIC MEASUREMENTS (adult normal given) AC root (d.<3.7cm) 4.2 cm LV Septum d (<1.2 cm> 1.7 cm Valve Excursion 1.9 cm LV Septum (systole) 1.8 cm Left Atria (s.<4.0cm> 4.0 cm LVPW d(<1.2cm) 1.8 cm RV (d.<2.3cm) 3.7 cm LVPW (sytole) 2.0 cm LV diastole(<5.6CM) 5.9 cm MV E-F(>70mm/sec) cm LV systole 4.3 cm LVOT Diameter 2.3 cm MV exc.(>10mm) 1.8 cm Est.ejection fraction (50-75%) % Pericardial Effusion N DOPPLER: LVIT cm/sec A 57.0 cm/sec E 66.0 cm/sec LA cm/sec RVSP 23 mmHg LVOT 97 cm/sec AOP1/2T m/s Asc. Ao 112 cm/sec RVOT 85 cm/sec RA cm/sec PA 109 cm/sec AV Gradient Peak 5.02 mmHg AV Mean 2.54 mmHg AV Area 3.5 cm MV Gradient Peak 2.81 mmHg MV Mean 1.19 mmHg MV Area cm COMMENTS: Mutuel Clerk: 2 TYRA HERCULES Director Talent: 3 Dr. Miller TAPE# PACS DATE OF SERVICE: 11/19/2017 PROCEDURE: Transthoracic echocardiogram. FINDINGS: 1. Left ventricle is shown to have left ventricular hypertrophy, inflow characteristics are normal. There is no regional wall motion abnormalities. EF is 55% to 60%. 2. Left atrium is mildly dilated. 3. The aortic valve is normal. ECHOCARDIOGRAM REPORT [id number] LYNETTE SHEETS JR 4. The mitral valve is normal. 5. Tricuspid valve has mild tricuspid regurgitation. Normal RVSP. CONCLUSIONS: The patient has evidence of mild hypertensive heart disease. Otherwise normal echocardiogram. TRANSINT:[id number] Voice Confirmation ID: [id number] DOCUMENT ID: [id number] JEREMIE STEELE MD at 1214 CC: [id number] DICTATION DATE: 11/19/17 1200 COLD PRESS OPERATOR: 11/19/17 1212 DIS IN 11/19/17 [facility] [address] [place] [address]
--- NOTE | ~2017-11-16 | CN ---
PATIENT NAME:ELÍAS SHEETS JR MEDICAL RECORD: [id number] : 72 LOCATION:[facility] ADMIT DATE: 11/17/17 ACCOUNT: [id number] CONSULTING PHYSICIAN: MAC CACERES MD REFERRING PHYSICIAN: MARVIN DURAND MD DATE OF CONSULTATION: 11/18/2017 Cardiology Consultation HISTORY OF PRESENT ILLNESS: Elías Sheets is a 46-year-old gentleman with known history of coronary artery disease, has history of hypertension, bilateral AKAs and admitted with chest pain, abnormal ECG, has strong family history of coronary artery disease. He does have history of hypertension, history of obstructive pulmonary disease. We are asked to see him concerning his cardiovascular status. PAST MEDICAL HISTORY: Includes: 1. History of hypertension. 2. Bilateral AKAs. 3. Chronic pain. ALLERGIES: NEOSPORIN, BACITRACIN, POLYMYXIN, VIAGRA. MEDICATIONS: Include albuterol ProAir 2 puffs q.4 hours, baclofen 10 t.i.d., nifedipine 60 b.i.d., Cialis 30 every day, Bealeton 10/325 every day, Relpax 40 every day, Voltaren ointment, Valium 10 t.i.d., Dexilant 60 every day, prednisone 10 b.i.d., Arava 20 mg p.o. every day. REVIEW OF SYSTEMS: The patient reports easy bruising but reports no swollen glands. The patient reports no fever, no night sweats, no significant weight gain, no significant weight loss. No significant exercise tolerance. The patient reports no dry eyes, no irritation, no vision change. Patient reports no difficulty hearing and no ear pain. Patient reports no frequent nose bleeds or nose and sinus problems. Patient reports on arm pain on exertion. No shortness of breath while lying down. No history of heart murmur. Patient reports no cough, no wheezing or coughing up blood. Patient reports no abdominal pain, no vomiting. Normal appetite. No diarrhea and not vomiting blood. No nausea and no constipation. Patient reports no incontinence. No difficulty urinating. No hematuria. No increased frequency. Patient reports no muscle aches. No weakness, no arthralgias, no back pain. No swelling of the extremities. Patient reports no abnormal mole, no jaundice, no rashes. Reports no loss of consciousness. No weakness and no numbness. No seizures, dizziness, or headaches. The patient reports no depression, no sleep disturbance, feeling safe in a relationship and no alcohol abuse. Patient reports on fatigue. Reports no runny nose or sinus pressure. No itching, no hives, and no frequent sneezing. PHYSICAL EXAMINATION: GENERAL: Middle-aged gentleman in no acute distress. VITAL SIGNS: Blood pressure 112/67, pulse 78 and regular. HEENT: Normocephalic, atraumatic. NECK: No JVD or bruit. HEART: Regular. LUNGS: Mcknight are clear. ABDOMEN: Soft, nontender. CONSULT REPORT [id number] ELÍAS SHEETS JR EXTREMITIES: Lower extremity has well healed scars. IMPRESSION: Acute coronary syndrome, chest pain with ECG changes inferiorly. Enzymes negative at this point. PLAN: For angiography, intervention based on the above. TRANSINT:[id number] Voice Confirmation ID: [id number] DOCUMENT ID: [id number] MAC CACERES MD at 0920 CC: [id number] DICTATION DATE: 11/18/17 1017 DIGITAL MARKETER: 11/18/17 1446 DIS IN 11/19/17 [facility] [address] [place] [address]
[2017-11-16 18:39] LABS: ALBUMIN 3.7 g/dL (3.4-5.0); ALKALINE PHOSPHATASE 116 U/L (46-116); ALT (SGPT) 26 U/L (10-68); BILIRUBIN - TOTAL 0.48 mg/dL (0.2-1.3); CALC OSMOLALITY 272 mosm/kg (275-300); CALCIUM 8.5 mg/dL (8.5-10.1); CARBON DIOXIDE 24.3 mmol/L (21.0-32.0); CHLORIDE - SERUM 102 mmol/L (98-107); CREATININE - SERUM 1.2 mg/dL (0.6-1.3); GLUCOSE 129 mg/dL (74-106); POTASSIUM - SERUM 4.4 mmol/L (3.5-5.1); PROTEIN - SERUM 6.9 g/dL (6.4-8.2); SODIUM 135 mmol/L (136-145); UREA NITROGEN 16 mg/dL (7-18); eGFR NON AFRICAN AMERICAN 69 mL/min (90-120)
[2017-11-16 18:45] LABS: BASOPHILS 0.1 % (0-2); EOSINOPHILS 0.3 % (0-7); HEMATOCRIT 53.8 % (42.0-54.0); HEMOGLOBIN 17.9 g/dL (13.5-17.5); IMMATURE GRANULOCYTES 0.8 % (0-5); LYMPHOCYTES 5.2 % (15-50); MCH 32.3 pg (26.0-34.0); MCHC 33.3 g/dL (31.0-37.0); MCV 97.1 fL (80.0-100.0); MEAN PLATELET VOLUME 10.2 fL (7.4-10.4); MONOCYTES 7.8 % (2-11); NEUTROPHILS 85.8 % (40-80); PLATELET COUNT 244 10x3/uL (130-400); RBC 5.54 10x6/uL (4.20-6.10); RDW 14.6 % (11.5-14.5); WBC 18.4 10x3/uL (4.8-10.8)
[2017-11-16 18:51] LABS: CHOL - HDL RATIO 6.4 ratio (2.3-4.9); CHOLESTEROL, TOTAL 212 mg/dL (0-200); CKMB 2.6 U/L (0.0-3.6); CREATINE KINASE 127 UL (21-232); HDL CHOLESTEROL 33 mg/dL (32-96); LDL CHOLESTEROL 135 mg/dL (0-100); LDL-HDL RATIO 4.1 ratio (1.5-3.5); TRIGLYCERIDE 222 mg/dL (30-200)
[2017-11-16 18:52] LABS: TROPONIN-I < 0.017 ng/mL (0.000-0.060)
[2017-11-16 23:00] VITALS: BP 103/73
[2017-11-17 01:19] VITALS: BP 103/71; BMI 23.6
[2017-11-17 05:48] VITALS: BP 89/44
[2017-11-17 08:47] LABS: BASOPHILS 0.5 % (0-2); EOSINOPHILS 1.9 % (0-7); HEMATOCRIT 51.3 % (42.0-54.0); IMMATURE GRANULOCYTES 2.3 % (0-5); LYMPHOCYTES 22.8 % (15-50); MCH 32.4 pg (26.0-34.0); MCHC 33.1 g/dL (31.0-37.0); MCV 97.9 fL (80.0-100.0); MONOCYTES 10.3 % (2-11); NEUTROPHILS 62.2 % (40-80); PLATELET COUNT 236 10x3/uL (130-400); RBC 5.24 10x6/uL (4.20-6.10); RDW 14.7 % (11.5-14.5)
[2017-11-17 08:50] LABS: WBC 10.2 10x3/uL (4.8-10.8)
[2017-11-17 08:58] LABS: CALC OSMOLALITY 282 mosm/kg (275-300); CALCIUM 8.5 mg/dL (8.5-10.1); CARBON DIOXIDE 27.2 mmol/L (21.0-32.0); CHLORIDE - SERUM 106 mmol/L (98-107); CREATININE - SERUM 1.4 mg/dL (0.6-1.3); GLUCOSE 101 mg/dL (74-106); POTASSIUM - SERUM 4.3 mmol/L (3.5-5.1); SODIUM 141 mmol/L (136-145); UREA NITROGEN 17 mg/dL (7-18); eGFR NON AFRICAN AMERICAN 58 mL/min (90-120)
[2017-11-17 08:59] LABS: TROPONIN-I < 0.017 ng/mL (0.000-0.060)
[2017-11-17 09:08] VITALS: BP 115/84
[2017-11-17 10:24] VITALS: Ht 175.3 cm; Wt 72.7 kg
[2017-11-17 11:52] VITALS: BP 115/84
[2017-11-17] MEDS ORDERED: PREDNISONE10 MG PO (11:52)
[2017-11-17] MEDS ORDERED: DEXILANT60 MG PO (11:53)
[2017-11-17] MEDS ORDERED: VALIUM10 MG PO (11:55)
[2017-11-17] MEDS ORDERED: NIFEDIPINE ER60 MG PO (11:55)
[2017-11-17 14:11] LABS: APPEARANCE CLEAR (CLEAR); BILIRUBIN NEGATIVE (NEGATIVE); COLOR YELLOW (YELLOW); GLUCOSE NEGATIVE (NEGATIVE); KETONE NEGATIVE (NEGATIVE); NITRITE NEGATIVE (NEGATIVE); PH 5.5 (5.0-6.0); PROTEIN NEGATIVE (NEGATIVE); SPECIFIC GRAVITY 1.015 (1.005-1.020); UROBILINOGEN NORMAL (NORMAL)
[2017-11-17 14:15] LABS: BACTERIA FEW /hpf (NONE SEEN); EPITHELIAL CELLS OCC /hpf (0-5); RED CELLS - URINE 0-5 /hpf (0-5); WHITE CELLS - URINE OCC /hpf (0-5)
[2017-11-17 14:21] LABS: UDS - AMPHET NEGATIVE QUAL (NEGATIVE); UDS - BARB NEGATIVE QUAL (NEGATIVE); UDS - BENZO POSITIVE QUAL (NEGATIVE); UDS - COCAINE NEGATIVE QUAL (NEGATIVE); UDS - OPIATE POSITIVE QUAL (NEGATIVE); UDS - PCP NEGATIVE QUAL (NEGATIVE); UDS - THC NEGATIVE QUAL (NEGATIVE)
[2017-11-17 16:32] VITALS: BP 139/90
[2017-11-17 20:00] VITALS: BP 135/90
[2017-11-18 04:00] VITALS: BP 94/44
[2017-11-18 07:16] LABS: BASOPHILS 0.3 % (0-2); EOSINOPHILS 0.8 % (0-7); HEMATOCRIT 50.8 % (42.0-54.0); HEMOGLOBIN 17.1 g/dL (13.5-17.5); IMMATURE GRANULOCYTES 2.3 % (0-5); LYMPHOCYTES 10.2 % (15-50); MCH 32.6 pg (26.0-34.0); MCHC 33.7 g/dL (31.0-37.0); MCV 96.8 fL (80.0-100.0); MEAN PLATELET VOLUME 10.3 fL (7.4-10.4); MONOCYTES 9.1 % (2-11); NEUTROPHILS 77.3 % (40-80); PLATELET COUNT 232 10x3/uL (130-400); RBC 5.25 10x6/uL (4.20-6.10); RDW 14.4 % (11.5-14.5)
[2017-11-18 07:27] LABS: CALCIUM 8.2 mg/dL (8.5-10.1); CARBON DIOXIDE 24.4 mmol/L (21.0-32.0); CHLORIDE - SERUM 103 mmol/L (98-107); CREATININE - SERUM 1.1 mg/dL (0.6-1.3); POTASSIUM - SERUM 4.3 mmol/L (3.5-5.1); SODIUM 137 mmol/L (136-145); eGFR NON AFRICAN AMERICAN 77 mL/min (90-120)
[2017-11-18 07:37] LABS: CALC OSMOLALITY 275 mosm/kg (275-300); GLUCOSE 156 mg/dL (74-106); UREA NITROGEN 10 mg/dL (7-18)
[2017-11-18 08:59] VITALS: BP 112/67
[2017-11-18 13:10] VITALS: BP 109/69
[2017-11-18 15:55] VITALS: BP 109/69
[2017-11-18 20:15] VITALS: BP 141/94
[2017-11-19 01:33] VITALS: BP 119/80
[2017-11-19 05:53] VITALS: BP 107/75
[2017-11-19 07:25] LABS: BASOPHILS 0.6 % (0-2); EOSINOPHILS 1.5 % (0-7); HEMATOCRIT 51.6 % (42.0-54.0); HEMOGLOBIN 17.4 g/dL (13.5-17.5); IMMATURE GRANULOCYTES 2.1 % (0-5); LYMPHOCYTES 25.9 % (15-50); MCH 32.6 pg (26.0-34.0); MCHC 33.7 g/dL (31.0-37.0); MCV 96.8 fL (80.0-100.0); MEAN PLATELET VOLUME 10.1 fL (7.4-10.4); MONOCYTES 9.7 % (2-11); NEUTROPHILS 60.2 % (40-80); PLATELET COUNT 233 10x3/uL (130-400); RBC 5.33 10x6/uL (4.20-6.10); RDW 14.7 % (11.5-14.5); WBC 10.7 10x3/uL (4.8-10.8)
[2017-11-19 07:35] LABS: ANION GAP 12.6 mmol/L (8-16); CALCIUM 8.4 mg/dL (8.5-10.1); CARBON DIOXIDE 26.4 mmol/L (21.0-32.0); CREATININE - SERUM 1.2 mg/dL (0.6-1.3)
[2017-11-19 08:07] VITALS: BP 120/90
[2017-11-19] MEDS ORDERED: PLAVIX75 MG PO (10:41)
[2017-11-19] MEDS ORDERED: BAYER CHEWABLE81 MG PO (10:41)
== END 2017-11-19 14:40 | disposition home or self-care (01) | DRG 249 ==
LOC: D.ER 17:32 → D.EDHOLD 21:49 → OBSVTIME 21:49 → D.M2 21:49 → D.EDHOLD 21:49 → D.M2 22:47 → OBSVTIME 23:00 → D.M2 11-17 16:26 → D.CLR 11-19 10:46
PROVIDERS: Emergency Medicine; Internal Medicine Interventional Cardiology; Internal Medicine Nephrology
PROC: B2111ZZ Fluoroscopy of Multiple Coronary Arteries using Low Osmolar Contrast (ICD-10-PCS; 2017-11-19)
PROC: B2151ZZ Fluoroscopy of Left Heart using Low Osmolar Contrast (ICD-10-PCS; 2017-11-19)
PROC: 02703DZ Dilation of Coronary Artery, One Artery with Intraluminal Device, Percutaneous Approach (ICD-10-PCS; principal; 2017-11-19 08:58)
PROC: 4A023N7 Measurement of Cardiac Sampling and Pressure, Left Heart, Percutaneous Approach (ICD-10-PCS; 2017-11-19 08:58)
DX: I25.42 Coronary artery dissection (principal); N17.9 Acute kidney failure, unspecified; E87.1 Hypo-osmolality and hyponatremia; Z89.612 Acquired absence of left leg above knee; Z89.611 Acquired absence of right leg above knee; K21.9 Gastro-esophageal reflux disease without esophagitis; I10 Essential (primary) hypertension; I07.1 Rheumatic tricuspid insufficiency; E78.5 Hyperlipidemia, unspecified; Z87.891 Personal history of nicotine dependence

== ENCOUNTER 2018-02-15 23:11 | Emergency (ER) | payer MEDICARE ==
[2017-11-17 10:24] VITALS: BMI 23.6
[~2018-02-15 23:11] MED LIST changes: +BAYER CHEWABLE81 MG PO; +PLAVIX75 MG PO; +PREDNISONE10 MG PO
[2018-02-15 23:35] LABS: BASOPHILS 0.3 % (0-2); EOSINOPHILS 0.5 % (0-7); HEMOGLOBIN 16.5 g/dL (13.5-17.5); IMMATURE GRANULOCYTES 5.5 % (0-5); LYMPHOCYTES 5.1 % (15-50); MCV 96.9 fL (80.0-100.0); MEAN PLATELET VOLUME 9.4 fL (7.4-10.4); MONOCYTES 9.3 % (2-11); NEUTROPHILS 79.3 % (40-80); RBC 5.16 10x6/uL (4.20-6.10); RDW 14.5 % (11.5-14.5)
[2018-02-15 23:41] LABS: PLATELET COUNT 334 10x3/uL (130-400)
[2018-02-15 23:53] LABS: ALBUMIN 2.8 g/dL (3.4-5.0); ALKALINE PHOSPHATASE 109 U/L (46-116); ALT (SGPT) 55 U/L (10-68); BILIRUBIN - TOTAL 0.35 mg/dL (0.2-1.3); CALC OSMOLALITY 283 mosm/kg (275-300); CALCIUM 8.6 mg/dL (8.5-10.1); CARBON DIOXIDE 28.7 mmol/L (21.0-32.0); CHLORIDE - SERUM 105 mmol/L (98-107); CREATININE - SERUM 1.2 mg/dL (0.6-1.3); POTASSIUM - SERUM 3.9 mmol/L (3.5-5.1); PROTEIN - SERUM 7.4 g/dL (6.4-8.2); SODIUM 141 mmol/L (136-145); UREA NITROGEN 10 mg/dL (7-18); eGFR NON AFRICAN AMERICAN 69 mL/min (90-120)
[2018-02-15 23:54] LABS: GLUCOSE 167 mg/dL (74-106)
[2018-02-16 00:02] LABS: CHOL - HDL RATIO 6.5 ratio (2.3-4.9); CHOLESTEROL, TOTAL 176 mg/dL (0-200); CKMB 0.8 U/L (0.0-3.6); CREATINE KINASE 68 UL (21-232); HDL CHOLESTEROL 27 mg/dL (32-96); LDL CHOLESTEROL 121 mg/dL (0-100); LDL-HDL RATIO 4.5 ratio (1.5-3.5); TRIGLYCERIDE 141 mg/dL (30-200)
[2018-02-16 00:10] LABS: TROPONIN-I < 0.017 ng/mL (0.000-0.060)
== END 2018-02-16 00:51 | disposition home or self-care (01) ==
LOC: D.ER 23:11
PROVIDERS: Family Medicine
DX: R07.9 Chest pain, unspecified (principal); I44.4 Left anterior fascicular block; I10 Essential (primary) hypertension; Z89.512 Acquired absence of left leg below knee; Z89.511 Acquired absence of right leg below knee

== ENCOUNTER 2018-02-22 15:29 | Emergency (ER) | payer MEDICARE ==
[~2018-02-22] VITALS: Ht 175.3 cm; Wt 84.1 kg
[2018-02-22 15:38] VITALS: Ht 175.3 cm; Wt 84.1 kg
[2018-02-22 16:21] LABS: BASOPHILS 0.2 % (0-2); EOSINOPHILS 0.3 % (0-7); HEMATOCRIT 46.1 % (42.0-54.0); HEMOGLOBIN 15.1 g/dL (13.5-17.5); IMMATURE GRANULOCYTES 1.5 % (0-5); LYMPHOCYTES 11.7 % (15-50); MCH 31.1 pg (26.0-34.0); MCHC 32.8 g/dL (31.0-37.0); MCV 95.1 fL (80.0-100.0); MEAN PLATELET VOLUME 9.8 fL (7.4-10.4); MONOCYTES 9.7 % (2-11); NEUTROPHILS 76.6 % (40-80); PLATELET COUNT 350 10x3/uL (130-400); RBC 4.85 10x6/uL (4.20-6.10); RDW 14.3 % (11.5-14.5); WBC 8.9 10x3/uL (4.8-10.8)
[2018-02-22 16:49] LABS: ALBUMIN 2.7 g/dL (3.4-5.0); ALKALINE PHOSPHATASE 95 U/L (46-116); ALT (SGPT) 32 U/L (10-68); BILIRUBIN - TOTAL 0.28 mg/dL (0.2-1.3); C-REACTIVE PROTEIN 1.6 mg/dL (0.0-0.9); CALC OSMOLALITY 287 mosm/kg (275-300); CALCIUM 8.8 mg/dL (8.5-10.1); CARBON DIOXIDE 25.4 mmol/L (21.0-32.0); CHLORIDE - SERUM 108 mmol/L (98-107); CKMB 1.1 U/L (0.0-3.6); CREATINE KINASE 46 UL (21-232); CREATININE - SERUM 1.3 mg/dL (0.6-1.3); GLUCOSE 170 mg/dL (74-106); POTASSIUM - SERUM 3.4 mmol/L (3.5-5.1); PROTEIN - SERUM 7.1 g/dL (6.4-8.2); SODIUM 143 mmol/L (136-145); TROPONIN-I < 0.017 ng/mL (0.000-0.060); UREA NITROGEN 10 mg/dL (7-18); eGFR NON AFRICAN AMERICAN 63 mL/min (90-120)
[2018-02-22 18:05] LABS: APPEARANCE CLEAR (CLEAR); BILIRUBIN NEGATIVE (NEGATIVE); COLOR YELLOW (YELLOW); GLUCOSE NEGATIVE (NEGATIVE); KETONE NEGATIVE (NEGATIVE); NITRITE NEGATIVE (NEGATIVE); PROTEIN NEGATIVE (NEGATIVE); UROBILINOGEN NORMAL (NORMAL)
[2018-02-22 18:14] LABS: UDS - AMPHET NEGATIVE QUAL (NEGATIVE); UDS - BARB POSITIVE QUAL (NEGATIVE); UDS - BENZO POSITIVE QUAL (NEGATIVE); UDS - COCAINE NEGATIVE QUAL (NEGATIVE); UDS - OPIATE POSITIVE QUAL (NEGATIVE); UDS - PCP NEGATIVE QUAL (NEGATIVE); UDS - THC NEGATIVE QUAL (NEGATIVE)
[2018-02-22] MEDS ORDERED: ZOFRAN ODT4 MG/UDTAB PO (20:51)
[2018-02-23 06:12] VITALS: BP 159/89
== END 2018-02-22 21:16 | disposition home or self-care (01) ==
LOC: D.ER 15:29
PROVIDERS: Family Medicine
DX: R07.9 Chest pain, unspecified (principal); K21.9 Gastro-esophageal reflux disease without esophagitis; I10 Essential (primary) hypertension; Z89.512 Acquired absence of left leg below knee; Z89.511 Acquired absence of right leg below knee; N42.9 Disorder of prostate, unspecified; M06.9 Rheumatoid arthritis, unspecified

== ENCOUNTER 2018-03-04 09:17 | Outpatient (CLI) | payer MEDICARE ==
[~2018-03-04] VITALS: Ht 175.3 cm; Wt 85.0 kg
--- NOTE | ~2018-03-04 | OP ---
PATIENT NAME: LYNETTE SHEETS JR MEDICAL RECORD: [id number] :72 LOCATION:D[facility]CAT ADMISSION DATE: SURGEON: GOPI PINTO MD DATE OF OPERATION: 03/04/2018 PROCEDURES: 1. PTCA stent LAD. 2. Intravascular ultrasound. 3. Left heart catheterization. 4. Selective coronary angiography. 5. Left ventriculogram. INDICATION: Angina and coronary artery disease. PROCEDURE IN DETAIL: After informed consent was obtained and after a detailed description of the risks, benefits as well as alternative therapies, the patient elected to proceed with angiogram and angioplasty. The right femoral area was prepped and draped in normal sterile fashion. Right femoral artery was cannulated via modified Seldinger technique with placement of 6-Arabic sheath. All catheters exchanged through this sheath. FINDINGS: The left ventriculogram was performed in standard 30-degree STEINBERG view, reveals global hypokinesis throughout all segments. Overall ejection fraction in the 40% range. SELECTIVE CORONARY ANGIOGRAPHY: 1. Left main showed no significant angiographic disease. 2. Left anterior descending has a long area of greater than 75% stenosis confirmed by intravascular ultrasound. 3. Left circumflex has mild irregularities, but no flow-limiting stenosis. 4. The right coronary has previously placed stent that is widely patent with no significant restenosis. No disease elsewise. PTCA STENT OF THE LAD: The stent used was a 3.5 x 26 mm Integrity. Result was 0% residual stenosis. OVERALL IMPRESSION: Successful percutaneous transluminal coronary angioplasty stent of the left anterior descending going from 75% initial stenosis to 0% residual. TRANSINT:[id number] Voice Confirmation ID: [id number] DOCUMENT ID: [id number] GOPI PINTO MD at 1005 CC: [id number] DICTATION DATE: 03/04/18 1243 [employer]OWER [employer] CONTR[employer] SPECIALIST: 03/04/18 1512 [facility] CLI 03/04/18 [place] [id number]
--- NOTE | ~2018-03-04 | HEMODYNAMI ---
PATIENT:LYNETTE SHEETS JR MEDICAL RECORD: [id number] : 72 LOCATION:[facility] ADMISSION DATE: 03/04/18 Generatedon:03/04/201812:51 Patient name: LYNETTE SHEETS Patient #: [id number] SSN: : 1970 Date of study: 03/04/2018 Page: Of Hemodynamic Procedure Report Patient Data Patient Demographics Procedure consent was obtained First Name: LYNETTE Gender: Male Last Name: SUDEEP Suffix: Jr Cordova Initial: GRADY : 1970 Patient #: [id number] Age: 47 year(s) Race: Unknown Additional ID: [id number] Contact details Address: [address] [place] [address] State: [place] City: [place] Zip code: [address] Past Medical History Allergies Allergen Reaction Date Comments Reported Morphine 11/19/2017 Sulfa drugs 11/19/2017 Codeine 11/19/2017 Other allergy 11/19/2017 See chart for full list Admission Admission Data Admission Date: 03/04/2018 Admission Time: 9:17 Admit Source: Other Lab Results Lab Result Date: 03/04/2018 Lab Result Time: 6:00 Biochemistry Name Units Result Min Max BUN mg/dl 10 --(-*--)-- 7 18 Creatinine mg/dl 0.9 --(-*--)-- 0.6 1.3 CBC Name Units Result Min Max Hematocrit % 47.3 --(-*--)-- 42 54 Hemoglobin g/dl 15.3 --(-*--)-- 13.5 17.5 Procedure Procedure Types Cath Procedure Diagnostic Procedure LHC [facility] w/Coronaries FFR/IVUS Intra-Coronary IVUS Initial PCI Procedure Coronary Stent Coronary Stent Initial Procedure Description Procedure Date Procedure Date: 03/04/2018 Procedure Start Time: 12:30 Procedure Staff Name Function Aquiles Cerna MD Performing Physician Jean Claude Feldman RT Monitor Brayan Curry RT Scrub Kirk Quintanilla RN Nurse Procedure Data Cath Procedure Fluoroscopy Diagnostic fluoroscopy Total fluoroscopy Time: 2.1 time: 2.1 min min Diagnostic fluoroscopy Total fluoroscopy dose: dose: 321.38 mGy 321.38 mGy Contrast Material Contrast Material Type Amount (ml) Isovue 370 89 Entry Location Entry Primary Successful Side Size Upsize Upsize Entry Closure Succes sful Closure Location (Fr) 1 (Fr) 2 (Fr) Remarks Device Remarks Femoral Right 5 Fr 6 Fr Exoseal artery Short Estimated blood loss: 10 ml Diagnostic catheters Device Type Used For End Catheter Placement MULTIPACK Pigtail 5 Fr Procedure catheter MULTIPACK JL 4.0 5Fr Procedure catheter MULTIPACK 3DRC 5Fr Procedure catheter Procedure Complications No complications Procedure Medications Medication Administration Route Dosage Oxygen NC 2 l/min Lidocaine 2% added to field 20 Heparin Flush Bag added to field 2 bags (1000units/500ml NS) 0.9% NaCl I.V. 100 ml/hr Versed I.V. 2 mg Fentanyl I.V. 50 mcg Heparin Bolus I.V. 4000 units Versed I.V. 1 mg Fentanyl I.V. 50 mcg Hemodynamics Rest HGB: 15.3 (g/dl) Heart Rate: 72 (bpm) Snapshots Pre Cath Intra NCS Post Cath Vital Signs Time Heart Resp SPO2 etCO2 NIBP (mmHg) Rhythm Pain Sedation Rate (ipm) (%) (mmHg) Status Level (bpm) 12:25:35 70 22 97 20.3 Measuring NSR 0 (11) 10(A) , No pain 12:26:59 73 21 100 20 155/94(0) NSR 0 (11) 10(A) , No pain 12:31:17 67 15 99 24.9 149/89(110) NSR 0 (11) 10(A) , No pain 12:35:37 75 13 98 25.5 151/96(115) NSR 0 (11) 10(A) , No pain 12:39:53 77 19 98 38.3 141/98(118) NSR 0 (11) 10(A) , No pain 12:43:49 79 22 96 23.3 143/99(134) NSR 0 (11) 10(A) , No pain 12:48:05 74 9 96 33.8 145/94(132) NSR 0 (11) 10(A) , No pain Medications Time Medication Route Dose Verified Delivered Reason Notes Effectiveness by by 12:23:36 Oxygen NC 2 Aquiles Buffie used for l/min Eryn Quintanilla RN procedure 12:23:42 Lidocaine 2% added 20ml Aquiles Aqiules for local to vial Eryn Cerna MD anesthetic field 12:23:48 Heparin Flush added 2 Aquiles Aquiles used for Bag to bags Eryn Cerna MD procedure (1000units/500ml field NS) 12:23:59 0.9% NaCl I.V. 100 Aquiles Buffie Per physician ml/hr Eryn Quintanilla RN 12:29:37 Versed I.V. 2 mg Aquiles Buffie for sedation Eryn Quintanilla RN 12:29:44 Fentanyl I.V. 50 Aquiles Buffie for sedation mcg Eryn Quintanilla RN 12:35:34 Heparin Bolus I.V. 4000 Aquiles Buffie for verifi ed units Eryn Quintanilla RN anticoagulation with dr cerna 12:36:43 Versed I.V. 1 mg Aquiles Buffie for sedation Eryn Quintanilla RN 12:36:47 Fentanyl I.V. 50 Aquiles Buffie for sedation mcg Eryn Quintanilla RN Procedure Log Time Note 12:00:05 Informed consent obtained and on chart 12:00:10 Admit Source: Other 12:00:13 Brayan Curry RT(R) sent for patient. Start room use. 12:00:29 Diagnostic Cath status Elective 12:00:31 Time tracking: Regular hours (M-F 7:00 - 5:00) 12:00:34 Plan of Care:Hemodynamics will remain stable., Cardiac rhythm will remain stable., Comfort level will be maintained., Respiratory function will remain adequate., Patient/ family verbilizes understanding of procedure., Procedure tolerated without complication., Recovers from procedure without complications.. 12:00:49 H&P Date Dictated: 02/26/2018 Within 30 days and on chart., H&P Addendum completed by physician on day of procedure. (MUST COMPLETE FOR ALL OUTPATIENTS). 12:02:11 Lab Result : BUN 10 mg/dl 12:02:11 Lab Result : Creatinine 0.9 mg/dl 12:02:11 Lab Result : Hemoglobin 15.3 g/dl 12:02:11 Lab Result : Hematocrit 47.3 % 12:02:13 Lab results completed and on chart. 12:13:39 Patient received from Pre/Post Procedure Room to CCL 3 Alert and oriented. Tansferred to table in Supine position. 12:13:40 Warm blankets applied, and hitesh hugger turned on for patient comfort. 12:13:40 Correct patient and procedure confirmed by team. 12:13:41 ECG and BP/O2 sat monitors applied to patient. 12::42 Pre-procedure instructions explained to patient. 12::42 Pre-op teaching completed and patient verbalized understanding. 12:13:43 Family in waiting room. 12::44 Patient NPO since Midnight. 12:23:36 Oxygen 2 l/min NC was administered by Kirk Quintanilla RN; used for procedure; 12::42 Lidocaine 2% 20ml vial added to field was administered by Aquiles Cerna MD; for local anesthetic; ::46 Baseline sample Acquired. 12::46 Vital chart was started 12:23:48 Heparin Flush Bag (1000units/500ml NS) 2 bags added to field was administered by Aquiles Cerna MD; used for procedure; 12::49 Rhythm: sinus rhythm 12::49 Full Disclosure recording started 12:23:53 Is the patient allergic to Iodine/contrast media? No. 12::55 Is patient on blood thinner?Yes 12::57 ACC The patient was administered the following blood thiners within the last 24 hours: ACCPlavix 12:23:57 Patient diabetic? No. 12:23:59 0.9% NaCl 100 ml/hr I.V. was administered by Kirk Quintanilla RN; Per physician; 12:23:59 Previous problem with sedation/anesthesia? No ? 12:24:00 Snore? Yes 12:24:01 Sleep apnea? No 12:24:02 Deviated septum? No 12:24:03 Opens mouth fully? Yes 12:24:03 Sticks out tongue? Yes 12:24:05 Airway obstruction? No ? 12:24:07 Dentures? Yes out 12:24:20 Patient pain scale 0/10 ?. 12:24:23 IV patent on arrival in left antecubital with 0.9% NaCl at [facility]. 12:24:27 Right groin area was prepped with chlora-prep and draped in sterile fashion 12::28 Alarms reviewed by R. N. 12:24:28 Sharps counted by scrub and verified by R.N. 12:24:31 Use device set Femoral Dx 12:24:31 ACIST Syringe (49512) opened to sterile field. 12:24:32 Bag Decanter (2002S) opened to sterile field. 12:24:33 Medline Cath Pack ([id number]) opened to sterile field. 12:24:34 DIAGNOSTIC WIRE .035 260cm J wire ([id number]) opened to sterile field. 12:24:35 ACIST Hand Control (63871) opened to sterile field. 12:24:35 ACIST Manifold (85169) opened to sterile field. 12:24:37 Tegaderm 4 x 4 (1626W) opened to sterile field. 12:24:37 DIAGNOSTIC Multipack 5Fr catheter set ([id number]) opened to sterile field. 12:24:38 SHEATH Prelude 5Fr 0.035 ([id number]-5W-27-035) opened to sterile field. 12::44 Physician arrived :44 --------ALL STOP TIME OUT------ :44 Final Timeout: patient, procedure, and site verified with staff and physician. All members of the team are in agreement. 12::46 Right groin site verified by team. 12::48 Physical assessment completed. ASA score P 2 - A patient with mild systemic disease as per Aquiles Cerna MD. 12:24:50 Sedation plan: IV Moderate Sedation Medication:Versed, Fentanyl 12::37 Versed 2 mg I.V. was administered by Kirk Quintanilla RN; for sedation; ::44 Fentanyl 50 mcg I.V. was administered by Kirk Quintanilla RN; for sedation; 12:30:15 Zero performed for pressure channel P1 12::48 Local anesthetic to right femoral artery with Lidocaine 2% by Aquiles Cerna MD.INITIAL ACCESS ONLY 12:30:56 A 5 Fr sheath was inserted into the Right Femoral artery 12:31:03 A MULTIPACK Pigtail 5 Fr catheter was advanced over the wire and used for Procedure. 12:31:17 LV gram done using STEINBERG 12::19 Injector settings: Ml/sec: 10, Volume: 20, 12:31:39 EF : 35 % 12:31:44 A MULTIPACK JL 4.0 5Fr catheter was advanced over the wire and used for Procedure. 12:31:49 LCA angiography performed. 12:33:04 CHOICE PT Extra Support 182cm wire ([id number]) opened to sterile field. 12:33:05 INFLATOR Merit BasixCompak (ZC5217) opened to sterile field. 12:33:23 SHEATH Prelude 6Fr 0.035 (AGC-0O-96-035) opened to sterile field. 12:33:54 Catheter exchanged over wire. 12:34:16 A MULTIPACK 3DRC 5Fr catheter was advanced over the wire and used for Procedure. 12:34:21 RCA angiography performed. 12:34:22 Catheter removed. 12:34:30 Sheath upsized to a 6 Fr Short. 12:35:09 GUIDE 6FR EBU 3.5 catheter ([id number]) opened to sterile field. 12:35:17 6 Fr ebu 3.5 guide catheter was inserted over the wire 12:35:22 choice pt wire advanced. 12:35:23 Wire advanced across lesion. 12:35:28 IVUS catheter advanced over wire. 12:35:34 Heparin Bolus 4000 units I.V. was administered by Kirk Quintanilla RN; for anticoagulation; verified with dr cerna 12:35:49 [place] Telida Eagleye IVUS Catheter (46440M) opened to sterile field. 12:36:15 IVUS pass to LAD lesion performed. 12:36:43 Versed 1 mg I.V. was administered by Kirk Quintanilla RN; for sedation; 12:36:47 Fentanyl 50 mcg I.V. was administered by Kirk Quintanilla RN; for sedation; 12:36:52 IVUS catheter removed over wire. 12:38:52 Place stent Inflation Number: 1 A INTEGRITY RX 3.5 x 26 stent ([id number]) was prepped and advanced across the Mid LAD. The stent was deployed at 15 SERGIO for 0:10 (min:sec). 12:40:01 Stent catheter was removed intact over wire. 12:40:01 Wire removed. 12:40:03 Guide catheter removed. 12:40:08 EXOSEAL 6Fr (EX600) opened to sterile field. 12:42:58 Sheath removed intact; hemostasis achieved with Exoseal to the Right Femoral artery. 12:43:00 Procedure ended.(Physican Out) 12:46:10 Fluoroscopy time 02.10 minutes. 12:46:16 Flurop Dose total: 321.38 12:46:16 Fluoroscopy dose: 321.38 mGy 12:46:23 Contrast amount:Isovue 370 89ml. 12:46:27 Sharps counted by scrub and verified by R.N. 12:46:28 Insertion/operative site no bleeding no hematoma. 12:46:30 Post-op/insertion site Right Femoral artery dressed using a 4 x 4 and Tegaderm. 12:46:34 Post right femoral artery:stable, soft, clean and dry 12:46:35 Post Procedure Pulses reassessed and unchanged 12:46:38 Post-procedure physical assessment completed. ASA score P 2 - A patient with mild systemic disease as per Aquiles Cerna MD. 12:46:40 Post procedure rhythm: unchanged. 12:46:44 Estimated blood loss: 10 ml 12:46:45 Post procedure instruction explained to patient.Patient verbalizes understanding. 12:46:45 Patient needs reinforcement of post procedure teaching. 12:46:57 Procedure type changed to Cath procedure, Diagnostic procedure, LHC, LHC w/Coronaries, FFR/IVUS, Intra-Coronary IVUS Initial, PCI procedure, Coronary Stent, Coronary Stent Initial 12:48:29 Procedure and supply charges have been captured, reviewed, submitted and are correct. 12:49:32 Procedure Complication : No complications 12:49:33 Vital chart was stopped 12:49:34 See physician's report for complete and final results. 12:49:36 Report given to Pre/Post Procedure Room. 12:49:38 Patient transfered to Pre/Post Procedure Room with Stretcher. 12:49:48 End room use (Document Last) Intervention Summary Intervention Notes Time ActionType Lesion and Equipment Action# Pressure Duration Attributes Used 12:38:52 Place stent Mid LAD INTEGRITY RX 1 15 00:10 3.5 x 26 stent ([id number]) Device Usage Item Name Manufacture Quantity Catalog Number Hospital Part Current Minimal Lot# / Charge Number Stock Stock Serial# Code ACIST Syringe Acist 1 91854 593988 988746 208191 20 (17149) KitOrder Inc Bag Decanter Microtek 1 105292 05279 227803 5 () Medical Inc. Medline Cath Cardinal 1 [id number] 394492 93851 453955 5 Grupo A ([id number]) DIAGNOSTIC WIRE St Terrance 1 577656 560048 453970 949399 30 .035 260cm J wire (287958) ACIST Hand Acist 1 78868 606682 526013 411002 5 Control (92689) Medical Systems Inc ACIST Manifold Acist 1 53877 769353 416349 411188 5 (57013) Medical Systems Inc Tegaderm 4 x 4 3M 1 1626W 409253 886770 627469 5 (1626W) DIAGNOSTIC Cardinal 1 [id number] 381095 42526 518115 30 Multipack 5Fr Health catheter set (NJ4579) SHEATH Prelude Merit 1 OPI-8L-[id number] 103837 773511 082675 5 5Fr 0.035 Medical (QXS-8J-78-035) MULTIPACK Cardinal 1 002370 5 Pigtail 5 Fr Health catheter MULTIPACK JL Cardinal 1 845398 5 4.0 5Fr Health catheter CHOICE PT Extra [place] 1 [id number] 474932 448349 972531 5 Support 182cm Scientific wire ([id number]) INFLATOR Merit Merit 1 KG6264 439004 653699 735101 15 BasixCompak Medical (RC4438) SHEATH Prelude Merit 1 YMF-1J-63-35 291833 5593871 323952 5 6Fr 0.035 Medical (NXG-5N-09-035) MULTIPACK 3DRC Cardinal 1 838840 5 5Fr catheter Health GUIDE 6FR EBU Medtronic 1 [id number] 165385 68204 657393 3 3.5 catheter ([id number]) [place] 1 55442V 528427 134311 353016 8 Telida Eagleye IVUS Catheter (25282P) INTEGRITY RX Medtronic 1 [id number] 212304 904536 591008 5 [id number] 3.5 x 26 stent ([id number]) EXOSEAL 6Fr Cardinal 1 EX600 654578 682606 048891 10 (EX600) Health Signature Audit [place] Stage Time Signature Unsigned Intra-Procedure 03/04/2018 Jean Claude Feldman 12:50:59 PM RT(R) Signatures Monitor : Jean Claude Feldman RT Signature : Date : Time : [address] [place] [address]
[~2018-03-04 09:17] MED LIST changes: +ZOFRAN ODT4 MG/UDTAB PO
[2018-03-04] MEDS ORDERED: CARDURA2 MG PO (10:13)
[2018-03-04] MEDS ORDERED: FLOMAX0.4 MG PO (10:13)
[2018-03-04 10:19] VITALS: BP 138/67; Ht 175.3 cm; Wt 85.0 kg
[2018-03-04 10:36] LABS: BASOPHILS 0.4 % (0-2); EOSINOPHILS 0.2 % (0-7); HEMATOCRIT 47.3 % (42.0-54.0); HEMOGLOBIN 15.3 g/dL (13.5-17.5); IMMATURE GRANULOCYTES 5.8 % (0-5); LYMPHOCYTES 5.3 % (15-50); MCHC 32.3 g/dL (31.0-37.0); MCV 95.9 fL (80.0-100.0); MEAN PLATELET VOLUME 9.9 fL (7.4-10.4); NEUTROPHILS 76.3 % (40-80); PLATELET COUNT 294 10x3/uL (130-400); RBC 4.93 10x6/uL (4.20-6.10); RDW 15.3 % (11.5-14.5); WBC 15.7 10x3/uL (4.8-10.8)
[2018-03-04 10:58] LABS: CALC OSMOLALITY 277 mosm/kg (275-300); CALCIUM 8.7 mg/dL (8.5-10.1); CARBON DIOXIDE 27.1 mmol/L (21.0-32.0); CHLORIDE - SERUM 104 mmol/L (98-107); CREATININE - SERUM 0.9 mg/dL (0.6-1.3); SODIUM 139 mmol/L (136-145); UREA NITROGEN 10 mg/dL (7-18); eGFR NON AFRICAN AMERICAN > 90 mL/min (90-120)
[2018-03-04 11:05] LABS: GLUCOSE 118 mg/dL (74-106)
== END 2018-03-04 17:00 ==
LOC: D.CATH 09:17
PROVIDERS: Internal Medicine Interventional Cardiology
DX: I25.119 Atherosclerotic heart disease of native coronary artery with unspecified angina pectoris (principal); I10 Essential (primary) hypertension; Z01.812 Encounter for preprocedural laboratory examination

== ENCOUNTER → 2018-03-21 12:42 | Outpatient (CLI) | payer MEDICARE ==
[2018-03-04 10:19] VITALS: BMI 27.6
[~2018-03-21 12:42] MED LIST changes: +CARDURA2 MG PO; +FLOMAX0.4 MG PO
== END | disposition home or self-care (01) ==
LOC: D.MRI 12:42
DX: M54.5 Low back pain (principal)

== ENCOUNTER → 2018-10-29 14:35 | Outpatient (CLI) | payer MEDICARE ==
[2018-03-04 10:19] VITALS: BMI 27.6
== END | disposition home or self-care (01) ==
LOC: D.MRI 10-24 13:30
DX: S83.511A Sprain of anterior cruciate ligament of right knee, initial encounter (principal); X58.XXXA Exposure to other specified factors, initial encounter

== ENCOUNTER → 2019-01-29 17:04 | Outpatient (CLI) | payer MEDICARE ==
[2018-03-04 10:19] VITALS: BMI 27.6
== END | disposition home or self-care (01) ==
LOC: D.LABREF 17:04
PROVIDERS: ATTEND Urology
DX: D72.829 Elevated white blood cell count, unspecified (principal); R31.9 Hematuria, unspecified

== ENCOUNTER → 2019-02-03 13:02 | Outpatient (CLI) | payer MEDICARE ==
[2018-03-04 10:19] VITALS: BMI 27.6
== END | disposition home or self-care (01) ==
LOC: D.CT 13:02
PROVIDERS: ATTEND Urology
DX: R31.21 Asymptomatic microscopic hematuria (principal)

== ENCOUNTER → 2019-02-12 17:53 | Outpatient (CLI) | payer MEDICARE | END | disposition home or self-care (01) | LOC: D.LABREF 17:53 | DX: N39.0 Urinary tract infection, site not specified (principal) ==

== ENCOUNTER → 2019-02-26 17:54 | Outpatient (CLI) | payer MEDICARE ==
[2018-03-04 10:19] VITALS: BMI 27.6
== END | disposition home or self-care (01) ==
LOC: D.LABREF 17:54
PROVIDERS: ATTEND Urology
DX: D72.829 Elevated white blood cell count, unspecified (principal); R31.9 Hematuria, unspecified

== ENCOUNTER → 2019-03-07 17:56 | Outpatient (CLI) | payer MEDICAID ==
[2018-03-04 10:19] VITALS: BMI 27.6
[~2019-03-07 17:56] MED LIST changes: +CIPRO500 MG PO; +LISINOPRIL40 MG PO; +MOBIC7.5 MG PO; +NIFEDIPINE TAB 60M PO; +NITROQUICK0.4 MG SL; +NUCYNTA100 MG PO; +ROBAXIN500 MG PO
== END | disposition home or self-care (01) ==
LOC: D.LABREF 17:56
PROVIDERS: ATTEND Urology
DX: N39.0 Urinary tract infection, site not specified (principal)

== ENCOUNTER 2019-03-18 05:50 | Day surgery (SDC) | payer MEDICARE ==
[2019-03-17 11:36] LABS: CALC OSMOLALITY 280 mosm/kg (275-300); CALCIUM 8.9 mg/dL (8.5-10.1); CARBON DIOXIDE 27.6 mmol/L (21.0-32.0); CHLORIDE - SERUM 102 mmol/L (98-107); CREATININE - SERUM 1.1 mg/dL (0.6-1.3); GLUCOSE 99 mg/dL (74-106); POTASSIUM - SERUM 4.2 mmol/L (3.5-5.1); SODIUM 139 mmol/L (136-145); UREA NITROGEN 21 mg/dL (7-18); eGFR NON AFRICAN AMERICAN 76 mL/min (90-120)
[~2019-03-18] VITALS: Ht 175.3 cm; Wt 84.8 kg
[~2019-03-18 05:50] MED LIST changes: -CIPRO500 MG PO; -MOBIC7.5 MG PO; -NITROQUICK0.4 MG SL; -NUCYNTA100 MG PO; -ROBAXIN500 MG PO
[2019-03-18] MEDS ORDERED: MOBIC7.5 MG PO (06:23)
[2019-03-18 06:24] VITALS: BP 112/87; Ht 175.3 cm; Wt 84.8 kg
[2019-03-18 07:02] LABS: HEMATOCRIT 46.5 % (42.0-54.0); HEMOGLOBIN 15.8 g/dL (13.5-17.5); MCH 32.6 pg (26.0-34.0); MCV 96.1 fL (80.0-100.0); MEAN PLATELET VOLUME 9.9 fL (7.4-10.4); RBC 4.84 10x6/uL (4.20-6.10); RDW 16.1 % (11.5-14.5); WBC 10.7 10x3/uL (4.8-10.8)
--- NOTE | 2019-03-18 09:02 | NUR ---
0850 DR. LAKESHIA HORTON AND GIVES RESULTS 0900 URINAL PROVIDED TO VOID FL DIET SERVED.
--- NOTE | 2019-03-18 09:47 | OP ---
PATIENT NAME: LYNETTE SHEETS JR MEDICAL RECORD: [id number] :72 LOCATION:D.[facility] ADMISSION DATE: SURGEON: ALEXIS ASHER MD DATE OF OPERATION: 03/18/2019 SURGEON: Alexis Asher MD CNC MACHINIST: CHRISTINE Orozco CRNA DIAGNOSES: Microscopic hematuria, interstitial cystitis. PROCEDURE: Cystoscopy, hydrodistention of the bladder to 500 mL and intravesical Rimso instillation. FINDINGS: Single ureteral orifices bilaterally with no bladder tumors. Diffuse bladder inflammation. The prostatic urethra shows no obstruction and there are no urethral strictures. ESTIMATED BLOOD LOSS: None. CLINICAL HISTORY: This is a 48-year-old male with a rather confusing history suggestive of recurrent urinary tract infections. He did have a UTI at his initial visit with Klebsiella, which we treated with Cipro. The last urine culture showed no growth. He had a CT scan for microscopic hematuria, which showed some renal cysts in both kidneys, but otherwise no abnormalities in the kidneys. He has a history of a previous TURP and urethritis. He complains of a slow urine flow as well as urinary frequency and symptoms of a UTI. Therefore, I brought him to the OR with the view to performing cystoscopy to check for any bladder outlet obstruction such as a urethral stricture or bladder neck stenosis. He is allergic to large number of medications, but he is not allergic to Ancef. He was given Ancef electrician front to the OR. DESCRIPTION OF PROCEDURE: The patient was given IV sedation. He was then placed into lithotomy position and prepped and draped. A 17-Hungarian cystoscope with 30-degree lens was used for visualization. The findings are as outlined above. It is clear that he does not have any obstruction at all. His problem seems to be from bladder inflammation. I continued to distend the bladder to 500-600 mL of normal saline. After about 2 minutes, the bladder was emptied. The scope was removed. We then inserted a 14-Hungarian red rubber catheter into the bladder and through the lumen of the catheter we instilled 50 mL of Rimso solution. The catheter was then removed, leaving the solution in the bladder. I will see the patient in followup in 2 weeks' time. TRANSINT:[id number] Voice Confirmation ID: [id number] DOCUMENT ID: [id number] ALEXIS ASHER MD at 0947 CC: [id number] DICTATION DATE: 03/18/19 0841 COMPENSATOR: 03/18/19 0927 REG [facility] [address] [id number]
== END 2019-03-18 10:00 | disposition home or self-care (01) ==
LOC: D.OPS 05:50 → D.PAN 07:55 → D.OPS 07:55 → D.PAN 08:00 → D.OPS 08:00
PROVIDERS: Anesthesiology; ATTEND Urology
DX: N30.81 Other cystitis with hematuria (principal); Z01.812 Encounter for preprocedural laboratory examination

== ENCOUNTER → 2019-04-09 10:14 | Outpatient (CLI) | payer MEDICARE ==
[2019-03-18 06:24] VITALS: BMI 27.6
[~2019-04-09 10:14] MED LIST changes: +CIPRO500 MG PO; +MOBIC7.5 MG PO
== END | disposition home or self-care (01) ==
LOC: D.HCCARDIO 10:00
PROVIDERS: ATTEND Internal Medicine Interventional Cardiology
DX: I25.10 Atherosclerotic heart disease of native coronary artery without angina pectoris (principal)

== ENCOUNTER 2019-04-10 16:07 | Emergency (ER) | payer MEDICARE ==
[~2019-04-10] VITALS: Ht 175.3 cm; Wt 87.7 kg
[~2019-04-10 16:07] MED LIST changes: -CIPRO500 MG PO
[2019-04-10 16:25] VITALS: Ht 175.3 cm; Wt 87.7 kg
[2019-04-10 16:53] LABS: BASOPHILS 0.1 % (0-2); EOSINOPHILS 0.2 % (0-7); HEMATOCRIT 46.2 % (42.0-54.0); HEMOGLOBIN 15.4 g/dL (13.5-17.5); IMMATURE GRANULOCYTES 4.4 % (0-5); LYMPHOCYTES 6.6 % (15-50); MCH 32.4 pg (26.0-34.0); MCHC 33.3 g/dL (31.0-37.0); MCV 97.3 fL (80.0-100.0); MEAN PLATELET VOLUME 9.6 fL (7.4-10.4); MONOCYTES 7.2 % (2-11); NEUTROPHILS 81.5 % (40-80); RBC 4.75 10x6/uL (4.20-6.10); RDW 15.5 % (11.5-14.5); WBC 14.3 10x3/uL (4.8-10.8)
[2019-04-10 16:59] LABS: PLATELET COUNT 211 10x3/uL (130-400)
[2019-04-10 17:07] LABS: APPEARANCE CLEAR (CLEAR); BILIRUBIN NEGATIVE (NEGATIVE); COLOR STRAW (YELLOW); GLUCOSE NEGATIVE (NEGATIVE); KETONE NEGATIVE (NEGATIVE); NITRITE NEGATIVE (NEGATIVE); PROTEIN NEGATIVE (NEGATIVE); SPECIFIC GRAVITY 1.005 (1.005-1.020); UROBILINOGEN NORMAL (NORMAL)
[2019-04-10 17:08] LABS: BACTERIA MANY /hpf (NONE SEEN); EPITHELIAL CELLS 0-5 /hpf (0-5); WHITE CELLS - URINE 25-50 /hpf (0-5)
[2019-04-10 17:14] LABS: ALBUMIN 3.2 g/dL (3.4-5.0); ANION GAP 12.9 mmol/L (8-16); BILIRUBIN - TOTAL 0.4 mg/dL (0.2-1.3); CARBON DIOXIDE 26.9 mmol/L (21.0-32.0); CREATININE - SERUM 1.4 mg/dL (0.6-1.3); POTASSIUM - SERUM 4.8 mmol/L (3.5-5.1); PROTEIN - SERUM 6.6 g/dL (6.4-8.2)
[2019-04-10 17:21] LABS: LIPASE 315 U/L (73-393); PRO BNP 39 pg/mL (0-125); THYROID STIMULATING HORMONE 0.12 uIU/mL (0.36-3.74)
[2019-04-10 17:22] LABS: TROPONIN-I < 0.017 ng/mL (0.000-0.060)
[2019-04-10 17:50] LABS: UDS - AMPHET NEGATIVE QUAL (NEGATIVE); UDS - BARB NEGATIVE QUAL (NEGATIVE); UDS - BENZO POSITIVE QUAL (NEGATIVE); UDS - COCAINE NEGATIVE QUAL (NEGATIVE); UDS - OPIATE POSITIVE QUAL (NEGATIVE); UDS - PCP NEGATIVE QUAL (NEGATIVE); UDS - THC NEGATIVE QUAL (NEGATIVE)
[2019-04-10 18:30] LABS: T4 THYROXIN - FREE 0.69 ng/dL (0.76-1.46)
[2019-04-10] MEDS ORDERED: CIPRO500 MG PO (18:36)
[2019-04-10 19:35] VITALS: BP 121/74
--- NOTE | 2019-04-22 08:35 | ST ---
PATIENT:LYNETTE SHEETS JR MEDICAL RECORD: [id number] SEX: M LOCATION:D.ER ORDER #: ADMISSION DATE: 04/10/19 AGE OF PATIENT: 48 REFERRING PHYSICIAN: INTERPRETING PHYSICIAN: GOPI PINTO MD DATE OF SERVICE: 04/10/2019 PROCEDURE: Nuclear stress test. INDICATION: Angina and coronary artery disease, hypertension, and shortness of breath. He was exercised on standard Lexiscan protocol with 33 mCi of sestamibi injected at peak stress, 11 mCi were used previously for rest images. FINDINGS: Gated SPECT reveals preserved ejection fraction at 57% with good wall thickening and brightening throughout all segments. SPECT imaging Cardiolite was used as myocardial perfusion agent. There is reversible ischemia anteriorly, inferiorly, and laterally. There is moderate degree of reversibility in the basal, mid, apical anterior segments as well of the basal, mid, apical inferior segments and mild amount of reversibility throughout the lateral segments. OVERALL IMPRESSION: This is a high risk markedly abnormal nuclear stress test, reversible ischemia anteriorly, inferiorly as well as laterally suggestive of multivessel coronary artery disease. We will proceed with coronary angiography as followup study. TRANSINT:[id number] Voice Confirmation ID: [id number] DOCUMENT ID: [id number] GOPI PINTO MD at 0835 CC: KELSIE KELLOGG [id number] DICTATION DATE: 04/11/19 1512 CONDITIONING COACH: 04/12/19 0442 [facility] [place] [facility] 04/10/19 [facility] [address] [place] [id number]
== END 2019-04-10 19:32 | disposition home or self-care (01) ==
LOC: D.ER 16:07
PROVIDERS: Family Medicine
DX: N39.0 Urinary tract infection, site not specified (principal); N28.9 Disorder of kidney and ureter, unspecified; E03.9 Hypothyroidism, unspecified; I10 Essential (primary) hypertension

== ENCOUNTER 2019-04-20 20:43 | Inpatient (IN) | payer MEDICARE ==
[~2019-04-20] VITALS: Ht 175.3 cm; Wt 86.6 kg
--- NOTE | ~2019-04-20 | HEMODYNAMI ---
PATIENT:LYNETTE SHEETS JR MEDICAL RECORD: [id number] : 72 LOCATION:[facility] [id number] [facility] [id number] ADMISSION DATE: 04/20/19 Generatedon:04/22/20198:39 Patient name: LYNETTE SHEETS Patient #: [id number] SSN: [id number] : 1970 Date of study: 04/22/2019 Page: Of Hemodynamic Procedure Report Patient Data Patient Demographics Procedure consent was obtained First Name: LYNETTE Gender: Male Last Name: SUDEEP Suffix: Jr Cordova Initial: GRADY : 1970 Patient #: [id number] Age: 48 year(s) Race: SSN: [id number] Additional ID: [id number] Contact details [address]: [address] [place] [address] State: [place] City: [place] Zip code: [address] Past Medical History Allergies Allergen Reaction Date Comments Reported Morphine 11/19/2017 Sulfa drugs 11/19/2017 Codeine 11/19/2017 Other allergy 11/19/2017 See chart for full list Admission Admission Data Admission Date: 04/20/2019 Admission Time: 22:56 Arrival Date: 04/20/2019 Arrival Time: 22:56 Admit Source: Emergency Insurance Payor: Medicare, department Medicaid Room #: D.2112 Height (in.): 69 BSA: 2.03 (m2) Height (cm.): 175.26 BMI: 28.5 (kg/m2) Weight (lbs.): 193 Weight (kg.): 87.54 Lab Results Lab Result Date: 04/22/2019 Lab Result Time: 0:00 Biochemistry Name Units Result Min Max BUN mg/dl 18 --(---*)-- 7 18 Creatinine mg/dl 1.1 --(--*-)-- 0.6 1.3 CBC Name Units Result Min Max Hemoglobin g/dl 14.7 --(-*--)-- 13.5 17.5 Procedure Procedure Types Cath Procedure Diagnostic Procedure [facility] Procedure Description Procedure Date Procedure Date: 04/22/2019 Procedure Start Time: 8:28 Procedure End Time: 8:39 Procedure Staff Name Function Aquiles Cerna MD Performing Physician Virginia Arizmendi RT Monitor Brayan Curry RT Scrub Génesis Browne RT Scrub Abiola Parry RN Nurse Procedure Data Cath Procedure Fluoroscopy Diagnostic fluoroscopy Total fluoroscopy Time: 0.8 time: 0.8 min min Diagnostic fluoroscopy Total fluoroscopy dose: 345 dose: 345 mGy mGy Contrast Material Contrast Material Type Amount (ml) Isovue 300 47 Entry Location Entry Primary Successful Side Size Upsize Upsize Entry Closure Succes sful Closure Location (Fr) 1 (Fr) 2 (Fr) Remarks Device Remarks Femoral Right 6 Fr Exoseal artery Short Estimated blood loss: 10 ml Diagnostic catheters Device Type Used For End Catheter Placement MULTIPACK Pigtail 5 Fr Procedure catheter MULTIPACK JL 4.0 5Fr Procedure catheter MULTIPACK 3DRC 5Fr Procedure catheter Procedure Complications No complications Procedure Medications Medication Administration Route Dosage 0.9% NaCl I.V. 100 ml/hr Oxygen etCO2 Nasal cannula 2 l/min Lidocaine 2% added to field 20 Heparin Flush Bag added to field 2 bags (1000units/500ml NS) Benadryl I.V. 50 mg Plavix P.O. 75 mg Versed I.V. 2 mg Fentanyl I.V. 50 mcg Fentanyl I.V. 50 mcg Hemodynamics Rest BSA: 2.03 (m2) O2 Consumption: Estimated: 237.94 (ml/min) O2 Consumption indexed : Estimated:117.21 (ml/min/m) Heart Rate: 62 (bpm) Pressure Samples Time Site Value (mmHg) Purpose Heart Use Rate(bpm) 8:31 AO 149/85(111) Snapshot 64 Snapshots Pre Cath Intra NCS Post Cath Vital Signs Time Heart Resp SPO2 etCO2 NIBP (mmHg) Rhythm Pain Sedation Rate (ipm) (%) (mmHg) Status Level (bpm) 8:11:30 61 14 100 29.2 151/94(114) NSR 0 (11) 10(A) , No pain 8:15:30 62 13 98 25 147/92(117) NSR 0 (11) 10(A) , No pain 8:19:27 62 10 97 11.9 156/93(114) NSR 0 (11) 10(A) , No pain 8:23:29 62 11 98 24.7 159/94(119) NSR 0 (11) 10(A) , No pain 8:27:28 63 10 98 28.5 141/90(122) NSR 0 (11) 10(A) , No pain 8:31:57 64 10 99 35.9 159/95(124) NSR 0 (11) 10(A) , No pain 8:35:54 62 9 94 35.2 160/91(120) NSR 0 (11) 10(A) , No pain Medications Time Medication Route Dose Verified Delivered Reason Notes Ef fectiveness by by 8:10:18 0.9% NaCl I.V. 100 Aquiles Abiola used for ml/hr Eryn Parry hedge fund trader 8:10:25 Oxygen etCO2 2 Aquiles Abiola used for Nasal l/min Eryn Parry procedure cannula RN 8:10:30 Lidocaine 2% added 20ml Aquiles Aquiles for local to vial Eryn Cerna MD anesthetic field 8:10:35 Heparin Flush added 2 Aquiles Aquiles used for Bag to bags Eryn Cerna MD procedure (1000units/500ml field NS) 8:10:42 Benadryl I.V. 50 mg Aquiles Abiola used for Eryn Parry hedge fund trader 8:10:53 Plavix P.O. 75 mg Aquiles Abiola for Eryn Parry antiplatelet RN therapy 8:22:43 Versed I.V. 2 mg Aquiles Abiola for sedation Eryn Parry RN 8:22:55 Fentanyl I.V. 50 Aquiles Abiola for sedation mcg Eryn Parry RN 8:27:04 Fentanyl I.V. 50 Aquiles Abiola for sedation mcg Eryn Parry orthopedics teacher Log Time Note 7:32:15 Informed consent obtained and on chart 7:32:38 Diagnostic Cath Status : Elective 7:35:21 Admit Source: Emergency department 7:35:26 Arrival Date: 04/20/2019 10:56:00 PM 7:35:39 Insurance Payor : Medicare, Medicaid 7:35:47 Patient Height : 69 inches 7:36:00 Patient Weight : 193 lbs 7:38:51 Lab Result : BUN 18 mg/dl 7:38:51 Lab Result : Hemoglobin 14.7 g/dl 7:38:51 Lab Result : Creatinine 1.1 mg/dl 7:39:22 ACC Patient presents with Stable Angina CCS Anginal Class 3--Marked limitation of physical activity, angina occurs with ordinary activity.. 7:39:31 Procedure Status Urgent Heart Cath (IP). 7:39:44 Brayan Curry RT(R) sent for patient. Start room use. 7:39:45 Time tracking: Regular hours (M-F 7:00 - 5:00) 7:39:51 Plan of Care:Hemodynamics will remain stable., Cardiac rhythm will remain stable., Comfort level will be maintained., Respiratory function will remain adequate., Patient/ family verbilizes understanding of procedure., Procedure tolerated without complication., Recovers from procedure without complications.. 8:02:11 Patient received from Med II to CCL 2 Alert and oriented. Tansferred to table in Supine position. 8:02:16 Warm blankets applied, and hitesh hugger turned on for patient comfort. 8:02:16 Correct patient and procedure confirmed by team. 8:02:17 ECG and BP/O2 sat monitors applied to patient. 8:10:18 0.9% NaCl 100 ml/hr I.V. was administered by Abiola Parry RN; used for procedure; 8:10:25 Oxygen 2 l/min etCO2 Nasal cannula was administered by Abiola Parry RN; used for procedure; 8:10:30 Lidocaine 2% 20ml vial added to field was administered by Aquiles Cerna MD; for local anesthetic; 8:10:35 Heparin Flush Bag (1000units/500ml NS) 2 bags added to field was administered by Aquiles Cerna MD; used for procedure; 8:10:39 Vital chart was started 8:10:42 Benadryl 50 mg I.V. was administered by Abiola Parry RN; used for procedure; 8:10:53 Plavix 75 mg P.O. was administered by Abiola Parry RN; for antiplatelet therapy; 8:19:13 Baseline sample Acquired. 8:19:17 Rhythm: sinus rhythm 8:19:19 Full Disclosure recording started 8:19:51 H&P Date Dictated: 04/20/2019 Within 30 days and on chart.. 8:19:52 Pre-procedure instructions explained to patient. 8:19:52 Pre-op teaching completed and patient verbalized understanding. 8:19:53 Family in patients room. 8:19:54 Patient NPO since Midnight. 8:19:56 Is the patient allergic to Iodine/contrast media? No. 8:19:58 Is patient on blood thinner?Yes 8:20:00 ACC The patient was administered the following blood thiners within the last 24 hours: ACCPlavix 8:20:03 Patient diabetic? No. 8:20:05 Previous problem with sedation/anesthesia? No ? 8:20:05 Snore? Yes 8:20:07 Sleep apnea? No 8:20:07 Deviated septum? No 8:20:08 Opens mouth fully? Yes 8:20:09 Sticks out tongue? Yes 8:20:11 Airway obstruction? No ? 8:20:14 Dentures? Yes OUT 8:20:20 Unable to obtain distal pulses due to below the knee amputee. 8:20:22 Patient pain scale 0/10 ?. 8:20:29 IV patent on arrival in left forearm with 0.9% NaCl at O. 8:20:31 Lab results completed and on chart. 8:20:35 Right groin area was prepped with chlora-prep and draped in sterile fashion 8:20:36 Alarms reviewed by R. N. 8:20:36 Sharps counted by scrub and verified by R.N. 8:20:45 Use device set Femoral Dx 8:20:48 Tegaderm 4 x 4 (1626W) opened to sterile field. 8:20:49 ACIST Manifold (94524) opened to sterile field. 8:20:49 ACIST Hand Control (44103) opened to sterile field. 8:20:51 ACIST Syringe (14171) opened to sterile field. 8:20:51 Bag Decanter (2001S) opened to sterile field. 8:20:52 Medline Cath Pack ([id number]) opened to sterile field. 8:20:54 DIAGNOSTIC Multipack 5Fr catheter set (GJ1797) opened to sterile field. 8:20:55 EMERALD Guide Wire (408-482) opened to sterile field. 8:21:31 2) 60-89 Mildly reduced kidney function, and other findings (as for stage 1) point to kidney disease. 8:21:36 Maximum allowable contrast dose (3.7 X eGFR X 0.75)211 ml. 8:: --------ALL STOP TIME OUT------ :: Final Timeout: patient, procedure, and site verified with staff and physician. All members of the team are in agreement. 8::43 Right groin site verified by team. 8::47 Fire Safety Assessment: A--An alcohol-based skin anteseptic being used preoperatively., C--Open oxygen or nitrous oxide is being used., D--An ESU, laser, or fiber-optic light is being used. 8::51 Sedation plan: IV Moderate Sedation Medication:Versed, Fentanyl 8::43 Versed 2 mg I.V. was administered by Abiola Parry RN; for sedation; 8::55 Fentanyl 50 mcg I.V. was administered by Abiola Parry RN; for sedation; 8:27:04 Fentanyl 50 mcg I.V. was administered by Abiola Parry RN; for sedation; 8:28:39 Procedure started. 8:28:45 Local anesthetic to right femoral artery with Lidocaine 2% by Aquiles Cerna MD.INITIAL ACCESS ONLY 8:29:25 A 6 Fr Short sheath was inserted into the Right Femoral artery 8:29:48 SHEATH 6FR [place] (OPG654) opened to sterile field. 8:30:04 A MULTIPACK Pigtail 5 Fr catheter was advanced over the wire and used for Procedure. 8:30:05 Zero performed for pressure channel P1 8:30:43 LV angiography performed. 8:30:45 LV gram done using STEINBERG 8:30:52 EF : 50 % 8:30:55 Injector settings: Ml/sec: 10, Volume: 20, 8:30:58 Catheter removed. 8:31:02 A MULTIPACK JL 4.0 5Fr catheter was advanced over the wire and used for Procedure. 8:31:26 LCA angiography performed. 8:31:49 Catheter removed. 8:31:55 A MULTIPACK 3DRC 5Fr catheter was advanced over the wire and used for Procedure. 8:32:22 RCA angiography performed. 8:33:40 Catheter removed. 8:33:47 EXOSEAL 6Fr (EX600) opened to sterile field. 8:34:00 Sheath removed intact; hemostasis achieved with Exoseal to the Right Femoral artery. 8:34:08 Procedure ended.(Physican Out) 8:34:23 Fluoroscopy time 00.80 minutes. 8:34:28 Flurop Dose total: 345 8:34:28 Fluoroscopy dose: 345 mGy 8:34:32 Dose Area Product 52037 mGy/cm. 8:34:35 Contrast amount:Isovue 300 47ml. 8:34:37 Maximum allowable dose exceeded? No. 8:34:38 Sharps counted by scrub and verified by R.N. 8:34:41 Insertion/operative site no bleeding no hematoma. 8:34:43 Post-op/insertion site Right Femoral artery dressed using a 4 x 4 and Tegaderm. 8:34:46 Post Procedure Pulses reassessed and unchanged 8:35:30 Post-procedure physical assessment completed. ASA score P 2 - A patient with mild systemic disease as per Aquiles Cerna MD. 8:35:32 Post procedure rhythm: unchanged. 8:37:59 Estimated blood loss: 10 ml 8:38:02 Post procedure instruction explained to patient.Patient verbalizes understanding. 8:38:02 Patient needs reinforcement of post procedure teaching. 8:38:21 Procedure and supply charges have been captured, reviewed, submitted and are correct. 8:38:24 Procedure Complication : No complications 8:38:54 Vital chart was stopped 8:38:54 See physician's report for complete and final results. 8:38:57 Report given to Pre/Post Procedure Room. 8:39:02 Patient transfered to Pre/Post Procedure Room with Stretcher. 8:39:09 Procedure ended. 8:39:09 Full Disclosure recording stopped 8:39:12 End room use (Document Last) Device Usage Item Name Manufacture Quantity Catalog Hospital Part Current Minimal L ot# / Number Charge Number Stock Stock Serial# Code Tegaderm 4 3M 1 1626W [id number] 780304 209258 5 x 4 (1626W) ACIST Acist 1 69980 491761 482617 927618 5 Manifold Medical (44063) Systems Inc ACIST Hand Acist 1 99361 649003 236511 528859 5 Control Medical (21960) Systems Inc ACIST Acist 1 98839 529070 281125 340383 20 Syringe Medical (82207) Systems Inc Bag Microtek 1 2001S 080833 43110 972574 5 Decanter Medical Inc. () Medline Medline 1 [id number] 358576 14003 352755 5 Cath Pack ([id number]) DIAGNOSTIC Cardinal 1 FR3725 394428 88089 824774 30 Multipack Health 5Fr catheter set (OZ0846) EMERALD Cardinal 1 960-304 238751 650664 706141 5 Guide Wire Health (269-187) SHEATH 6FR Terumo 1 BFU606 122277 857552 342465 40 [place] (ZTV609) MULTIPACK Cardinal 1 083753 5 Pigtail 5 Health Fr catheter MULTIPACK Cardinal 1 594059 5 JL 4.0 5Fr Health catheter MULTIPACK Cardinal 1 185879 5 3DRC 5Fr Health catheter EXOSEAL 6Fr Cardinal 1 EX600 006855 567144 765289 10 (EX600) Health Signature Audit [place] Stage Time Signature Unsigned Intra-Procedure 04/22/2019 Brayan Curry 8:39:52 AM RT(R) Signatures Performing Physician : Signature : Aquiles Cerna MD Date : Time : Monitor : Virginia Arizmendi RT Signature : Date : Time : Nurse : Abiola Parry RN Signature : Date : Time : [facility] [address] [place] [address]
[~2019-04-20 20:43] MED LIST changes: +CIPRO500 MG PO
[2019-04-20] MEDS ORDERED: PLAVIX75 MG PO (20:56)
[2019-04-20 21:13] VITALS: BP 115/69
[2019-04-20 21:18] LABS: BASOPHILS 0.3 % (0-2); EOSINOPHILS 0.8 % (0-7); HEMATOCRIT 44.5 % (42.0-54.0); HEMOGLOBIN 14.7 g/dL (13.5-17.5); IMMATURE GRANULOCYTES 4.5 % (0-5); LYMPHOCYTES 12.4 % (15-50); MCV 96.7 fL (80.0-100.0); MEAN PLATELET VOLUME 9.2 fL (7.4-10.4); MONOCYTES 7.9 % (2-11); NEUTROPHILS 74.1 % (40-80); PLATELET COUNT 204 10x3/uL (130-400)
[2019-04-20 21:24] LABS: APTT 26.2 SECONDS (22.8-39.4); INR 1.09 (0.85-1.17); PROTIME 13.6 SECONDS (11.6-15.0)
--- NOTE | 2019-04-20 21:34 | NUR ---
PT STATES HAS ALREADY HAD HIS ASA AND PLAVIX TODAY. PT DENIES CHEST PAINS AT THIS TIME.
[2019-04-20 21:37] LABS: ALKALINE PHOSPHATASE 81 U/L (46-116); ALT (SGPT) 27 U/L (10-68); BILIRUBIN - TOTAL 0.43 mg/dL (0.2-1.3); CALC OSMOLALITY 279 mosm/kg (275-300); CALCIUM 8.2 mg/dL (8.5-10.1); CARBON DIOXIDE 26.4 mmol/L (21.0-32.0); CHLORIDE - SERUM 103 mmol/L (98-107); CREATININE - SERUM 1.1 mg/dL (0.6-1.3); GLUCOSE 170 mg/dL (74-106); POTASSIUM - SERUM 4.1 mmol/L (3.5-5.1); PROTEIN - SERUM 6.4 g/dL (6.4-8.2); SODIUM 137 mmol/L (136-145); UREA NITROGEN 18 mg/dL (7-18); eGFR NON AFRICAN AMERICAN 76 mL/min (90-120)
[2019-04-20 21:47] LABS: CKMB 1.8 U/L (0.0-3.6); CREATINE KINASE 78 UL (21-232); MAGNESIUM - SERUM 1.9 mg/dL (1.8-2.4)
[2019-04-20 21:50] LABS: TROPONIN-I 0.116 ng/mL (0.000-0.060)
--- NOTE | 2019-04-20 22:15 | NUR ---
PT CON'T TO DENY PAIN AT THIS TIME. WILL MONITOR.
[2019-04-20 22:22] VITALS: BP 121/71
--- NOTE | 2019-04-20 22:43 | NUR ---
PT GIVEN NITRO X 1 FOR CHEST PAINS THAT HAVE "STARTED BACK".
--- NOTE | 2019-04-20 22:48 | NUR ---
DR PINTO IN TO SEE PATIENT.
--- NOTE | 2019-04-20 22:58 | NUR ---
PT STATES NOW NOT HAVING PAIN.
--- NOTE | 2019-04-21 00:10 | NUR ---
RECEIVED FROM ER, PT IS A&O, BILATERAL BKA, PT AMBULATES WITH PROSTHETICS, TELEMTRY IS ON PT, IV-L.WRIST-SL, DENIES ANY NEEDS AT THIS TIME, BED IS LOW, SRX1, CALL LIGHT IN REACH. WILL CONTINUE PLAN OF CARE
--- NOTE | 2019-04-21 01:25 | NUR ---
CONSENTS FOR CATH AND BLOOD SIGNED
[2019-04-21] MEDS ORDERED: BACLOFEN10 MG PO (02:49)
[2019-04-21 03:23] VITALS: BP 147/81; Ht 175.3 cm; Wt 86.6 kg
[2019-04-21 04:00] VITALS: BP 110/74
[2019-04-21 09:42] VITALS: BP 140/93
[2019-04-21 20:00] VITALS: BP 105/66
--- NOTE | 2019-04-21 20:30 | NUR ---
FAMILY MEMBERS VISITING. CALL LIGHT IN REACH.
[2019-04-22] VITALS: BP 141/76
--- NOTE | 2019-04-22 01:50 | NUR ---
REST IN BED, FAMILY MEMBERS AT BED SIDE. CALL LIGHT IN REACH.
--- NOTE | 2019-04-22 02:15 | NUR ---
PT C/O CHEST PAIN, AT A LEVEL OF 6. 0.4MG NITROGLYCERIN GIVEN ORDERED. CONTINUE MONITOR CLOSELY.
--- NOTE | 2019-04-22 02:20 | NUR ---
PT STATES:" HE HAS NO CHEST PAIN, AFTER 0.4MG NITROGLYCERIN GIVEN." CONTINUE MONITOR CLOSELY.
[2019-04-22 04:00] VITALS: BP 145/85
--- NOTE | 2019-04-22 07:05 | NUR ---
BEDSIDE SHIFT REPORTING, PATIENT IS SLEEPING IN THE BED, THE SPOUSE IS ALSO IN THE BED, VISITOR ASLEEP IN BEDSIDE CHAIR. LIGHTS OFF, RADIO AND FAN ON. URINAL ON BEDSIDE TABLE
--- NOTE | 2019-04-22 08:40 | NUR ---
PT RECEIVED VIA STRETCHER FROM SLING OPERATOR FOR RECOVERY. PT SLEEPING BUT AWAKES TO VERBAL STIMULI. IV PATENT INFUSING VIA L ARM PER ORDERS. HR NSR RATE 63, BP128/86, O2 SAT 97 ON 2L/NC. R GROIN W 6FR EXOCELE, DRESSING CDI NO BLEEDING OR HEMATOMA NOTED. LEG PINK AND WARM. PT BILATERAL BTK AMPUTEE. PT INSTRUCTED TO KEEP R LEG STRAIGHT AND HEAD ON PILLOW, HE VERBALIZED UNDERSTANDING. DENIES PAIN OR DISCOMFORT AT THIS TIME. CALL LIGHT IN REACH.
--- NOTE | 2019-04-22 09:00 | NUR ---
PT SLEEPING, SIPS OF WATER GIVEN, DENIES NAUSEA. HR 61, BP 134/92. R GROIN DRESSING CDI NO BLEEDING OR SWELLING NOTED. NO FAMILY AT BEDSIDE AT PRESENT. CALL LIGHT IN REACH
--- NOTE | 2019-04-22 09:31 | NUR ---
PT RESTING COMFORTABLY W/O COMPLAINTS. R GROIN SOFT, DRESSING CDI NO BLEEDING OR SWELLING NOTED. CALL LIGHT IN REACH
--- NOTE | 2019-04-22 09:44 | NUR ---
02 REMOVED, SAT 98 ON ROOM AIR. R GROIN SOFT, DRESSING CDI NO BLEEDING OR SWELLING NOTED. HOB ELEVATED SLIGHTLY. SANDWICH AND COFFEE SERVED. PT DENIES PAIN OR OTHER NEEDS AT THIS TIME. CALL LIGHT IN REACH
--- NOTE | 2019-04-22 09:53 | HP ---
PATIENT: LYNETTE SHEETS JR MEDICAL RECORD: [id number] ACCOUNT: [id number] LOCATION:[facility] : 72 ADMISSION DATE: 04/22/19 PCP: ADDY KELLOGG MD HISTORY AND PHYSICAL EXAMINATION DIAGNOSES: 1. Non-Q-wave myocardial infarction. 2. Coronary artery disease. 3. Recent percutaneous transluminal coronary angioplasty stent left anterior descending. 4. Hypertension. 5. Smoking history. 6. Chronic obstructive pulmonary disease. HISTORY OF PRESENT ILLNESS: Mr. Sheets presents with continued episodes of chest discomfort. He presented last week with unstable anginal symptomatology, found to have significant disease of the LAD. In review of his cath film, he has a very unusual place in his RCA that very well be an ulcerated plaque. He continues to have episodes of chest pain, multiple episodes each day. His troponin is positive. His EKG is with no acute changes. PHYSICAL EXAMINATION: GENERAL APPEARANCE: Well-nourished, well-developed, appears stated age. Level of distress, comfortable. PSYCHIATRIC: Mental status, alert, normal affect. Orientation, oriented to time, place and person. EYES: Lids and conjunctiva, noninjected. No discharge, no pallor. ENT: Lips, teeth, gums, normal dentition. Oropharynx, no cyanosis, no pallor. NECK: Carotid arteries, bilateral normal upstroke, no bruits, no thrills. JUGULAR VEINS: No jugular venous pressure or distention. CERVICAL LYMPH NODES: Nontender, nonenlarged. THYROID: Not enlarged. Nontender. No nodules. LUNGS: Respiratory effort, unlabored. CHEST: Normal curvature. No thoracic deformity. No chest wall tenderness. Percussion, resonant. Auscultation, clear. No wheezes, no rales, no rhonchi. CARDIOVASCULAR: Precordial exam, nondisplaced. No heaves or pericardial thrills. Rate and rhythm, regular. Heart sounds, normal S1, normal S2. No S3, no gallop, no rub. Systolic murmur, not heard. Diastolic murmur, not heard. EXTREMITIES: No cyanosis, no edema. Peripheral pulses, full and equal in all extremities, except as noted. No bruits appreciated. ABDOMEN: Soft, nondistended. Normal aorta. No bruit. Nontender. No masses. Liver, nontender, no hepatomegaly. Spleen, nontender, no splenomegaly. MUSCULOSKELETAL: No joint tenderness. No joint swelling. No erythema. NEUROLOGICAL: Normal gait, normal strength, normal tone. SKIN: Warm and dry. OVERALL IMPRESSION: Non-Q-wave myocardial infarction with continued chest pain despite PTCA stent of the LAD. He very well may have an ulcerated plaque in the RCA. At this time, we will repeat coronary angiography with intravascular ultrasound, evaluation of the RCA to see if this is hemodynamically significant. It does not appear to be significant angiographically, but this very well may be a complex ulcerated plaque. If that is the case, we will proceed with transcatheter revascularization of the RCA due to continued symptomatology and a non-Q-wave myocardial infarction. HISTORY AND PHYSICAL [id number] LYNETTE SHEETS JR TRANSINT:[id number] Voice Confirmation ID: [id number] DOCUMENT ID: [id number] GOPI PINTO MD at 0953 CC: [id number] DICTATION DATE: 04/20/192353 COATING MIXER: 04/21/19 0040 ADM IN [facility] [address] [place] [address]
--- NOTE | 2019-04-22 09:53 | DS ---
PATIENT:LYNETTE LIU JR :72 MEDICAL RECORD: [id number] DISCHARGE SUMMARY ADMISSION DATE: 04/22/19 DISCHARGE DATE: DISCHARGE DIAGNOSES: 1. Angina. 2. Elevated troponin. 3. Coronary artery disease. 4. Previous multivessel percutaneous transluminal coronary angioplasty stent. 5. Hypertension. 6. Chronic obstructive pulmonary disease. HOSPITAL COURSE: Mr. Liu presents with continued chest discomfort. He recently underwent PTCA stent of the RCA, relook coronary angiography revealed no significant new disease, wide patency of the previously placed stents. Discharged home to continue medical management of the coronary artery disease and cardiac risk factors. TRANSINT:[id number] Voice Confirmation ID: [id number] DOCUMENT ID: [id number] GOPI PINTO MD at 0953 CC: [id number] DICTATION DATE: 04/22/19 0839 PROPOSAL WRITER: 04/22/19 0928 ADM IN [place] [id number] [place] [address]
--- NOTE | 2019-04-22 09:53 | OP ---
PATIENT NAME: LYNETTE SHEETS JR MEDICAL RECORD: [id number] :72 LOCATION:[facility] ADMISSION DATE:04/22/19 SURGEON: GOPI PINTO MD DATE OF OPERATION: 04/22/2019 PROCEDURES: 1. Left heart catheterization. 2. Selective coronary angiography. 3. Left ventriculogram. INDICATION: Angina, elevated troponin, coronary artery disease, previous multivessel PTCA stent, COPD, hypertension. PROCEDURE IN DETAIL: After informed consent was obtained and after a detailed description of risks, benefits as well as alternative therapies, the patient elected to proceed with angiogram and heart catheterization. The right femoral area was prepped and draped in normal sterile fashion. Right femoral artery was cannulated via modified Seldinger technique with placement of 6-Kyrgyz sheath. All catheters exchanged through this sheath. FINDINGS: Left ventriculogram was performed in standard 30-degree STEINBERG view, reveals good cardiac wall motion throughout all segments. Overall ejection fraction 50%. SELECTIVE CORONARY ANGIOGRAPHY: 1. Left main is with no significant angiographic disease. 2. Left anterior descending has previously placed stents, these are widely patent. 3. Left circumflex has moderate irregularities, but no flow-limiting stenosis. 4. The right coronary artery has previously placed stents, these are widely patent. OVERALL IMPRESSION: Wide patency of the previously placed stents with no significant restenosis. No disease elsewise. Continue medical management of the coronary artery disease and cardiac risk factors. TRANSINT:[id number] Voice Confirmation ID: [id number] DOCUMENT ID: [id number] GOPI PITNO MD at 0953 CC: [id number] DICTATION DATE: 04/22/19 0838 MATERIAL SCHEDULER: 04/22/19 0854 ADM IN [facility] [address] [id number]
--- NOTE | 2019-04-22 10:20 | NUR ---
IV REMOVED W CATH INTACT. MONITORS REMOVED. R GROIN SOFT, DRESSING CDI NO BLEEDING OR SWELLING NOTED. DR PINTO IN ROOM DISCUSSING PROCEDURE RESULTS AND PLAN OF CARE. PT UP TO DRESS FOR DISCHARGE W ASSIST OF . 700CC URINE EMPTIED FROM URINAL.
--- NOTE | 2019-04-22 10:39 | NUR ---
PT DISCHARGED TO PRIVATE VEHICLE WITH ALL BELONGINGS.
== END 2019-04-22 10:35 | disposition home or self-care (01) | DRG 282 ==
LOC: D.ER 20:43 → D.M2 22:56 → OBSVTIME 22:56 → D.CLR 04-22 08:45
PROVIDERS: Emergency Medicine; ADMIT Internal Medicine Interventional Cardiology; ATTEND Internal Medicine Interventional Cardiology
PROC: B2151ZZ Fluoroscopy of Left Heart using Low Osmolar Contrast (ICD-10-PCS; 2019-04-22)
PROC: 4A023N7 Measurement of Cardiac Sampling and Pressure, Left Heart, Percutaneous Approach (ICD-10-PCS; 2019-04-22)
PROC: B2111ZZ Fluoroscopy of Multiple Coronary Arteries using Low Osmolar Contrast (ICD-10-PCS; principal; 2019-04-22 11:30)
DX: I21.4 Non-ST elevation (NSTEMI) myocardial infarction (principal); I10 Essential (primary) hypertension; J44.9 Chronic obstructive pulmonary disease, unspecified; Z87.891 Personal history of nicotine dependence; I25.119 Atherosclerotic heart disease of native coronary artery with unspecified angina pectoris

== ENCOUNTER 2019-05-31 15:48 | Emergency (ER) | payer MEDICARE ==
[~2019-05-31] VITALS: Ht 175.3 cm; Wt 85.5 kg
[2019-05-31 15:52] VITALS: Ht 175.3 cm; Wt 85.5 kg
[2019-05-31 17:03] VITALS: BP 152/90
== END 2019-05-31 17:03 | disposition home or self-care (01) ==
LOC: D.ER 15:48
DX: M54.5 Low back pain (principal); Q05.9 Spina bifida, unspecified

== ENCOUNTER 2019-06-18 08:57 | Emergency (ER) | payer MEDICARE ==
[~2019-06-18] VITALS: Ht 175.3 cm; Wt 85.5 kg
[2019-06-18 09:00] VITALS: Ht 175.3 cm; Wt 85.5 kg
[2019-06-18 09:32] LABS: ALBUMIN 3.5 g/dL (3.4-5.0); ALKALINE PHOSPHATASE 97 U/L (46-116); ALT (SGPT) 30 U/L (10-68); BILIRUBIN - TOTAL 0.76 mg/dL (0.2-1.3); CALC OSMOLALITY 289 mosm/kg (275-300); CALCIUM 8.2 mg/dL (8.5-10.1); CARBON DIOXIDE 27.1 mmol/L (21.0-32.0); CHLORIDE - SERUM 106 mmol/L (98-107); CREATININE - SERUM 2.2 mg/dL (0.6-1.3); GLUCOSE 66 mg/dL (74-106); PROTEIN - SERUM 6.8 g/dL (6.4-8.2); SODIUM 142 mmol/L (136-145); UREA NITROGEN 39 mg/dL (7-18); eGFR NON AFRICAN AMERICAN 34 mL/min (90-120)
[2019-06-18 09:36] LABS: APTT 23.7 SECONDS (22.8-39.4); BASOPHILS 0.3 % (0-2); EOSINOPHILS 0.6 % (0-7); HEMATOCRIT 50.1 % (42.0-54.0); HEMOGLOBIN 16.4 g/dL (13.5-17.5); IMMATURE GRANULOCYTES 2.2 % (0-5); INR 0.98 (0.85-1.17); LYMPHOCYTES 8.1 % (15-50); MCH 31.1 pg (26.0-34.0); MCHC 32.7 g/dL (31.0-37.0); MCV 95.1 fL (80.0-100.0); MEAN PLATELET VOLUME 9.9 fL (7.4-10.4); MONOCYTES 6.5 % (2-11); NEUTROPHILS 82.3 % (40-80); PLATELET COUNT 218 10x3/uL (130-400); PROTIME 12.5 SECONDS (11.6-15.0); RBC 5.27 10x6/uL (4.20-6.10); RDW 15.9 % (11.5-14.5); WBC 11.8 10x3/uL (4.8-10.8)
[2019-06-18 09:43] LABS: CKMB 7.5 U/L (0.0-3.6); CREATINE KINASE 508 UL (21-232); MAGNESIUM - SERUM 2.8 mg/dL (1.8-2.4); TROPONIN-I 0.052 ng/mL (0.000-0.060)
[2019-06-18] MEDS ORDERED: ROBAXIN500 MG PO (10:37)
[2019-06-18] MEDS ORDERED: ARAVA10 MG PO (10:38)
[2019-06-18] MEDS ORDERED: CARDURA2 MG PO (10:39)
[2019-06-18] MEDS ORDERED: NITROQUICK0.4 MG SL (10:41)
[2019-06-18] MEDS ORDERED: NUCYNTA100 MG PO (11:09)
[2019-06-18 12:02] VITALS: BP 121/75
== END 2019-06-18 12:00 | disposition home or self-care (01) ==
LOC: D.ER 08:57
PROVIDERS: Emergency Medicine
DX: R07.9 Chest pain, unspecified (principal)

== ENCOUNTER 2019-06-19 11:11 | Inpatient (IN) | payer MEDICARE ==
[2019-06-19] VITALS (25 sets, daily range): BP systolic 67–101; BP diastolic 50–79; BMI 26.2
[~2019-06-19] VITALS: Ht 175.3 cm; Wt 83.6 kg
[~2019-06-19 11:11] MED LIST changes: +NITROQUICK0.4 MG SL; +NUCYNTA100 MG PO; +ROBAXIN500 MG PO
[2019-06-19 12:01] LABS: BASOPHILS 0.1 % (0-2); EOSINOPHILS 0 % (0-7); HEMOGLOBIN 16.6 g/dL (13.5-17.5); IMMATURE GRANULOCYTES 1.1 % (0-5); LYMPHOCYTES 4.6 % (15-50); MCH 31.4 pg (26.0-34.0); MCHC 33.2 g/dL (31.0-37.0); MCV 94.5 fL (80.0-100.0); MEAN PLATELET VOLUME 9.9 fL (7.4-10.4); MONOCYTES 3.7 % (2-11); NEUTROPHILS 90.5 % (40-80); PLATELET COUNT 196 10x3/uL (130-400); RBC 5.29 10x6/uL (4.20-6.10); RDW 16.4 % (11.5-14.5); WBC 11.4 10x3/uL (4.8-10.8)
[2019-06-19 12:16] LABS: APPEARANCE CLEAR (CLEAR); BILIRUBIN NEGATIVE (NEGATIVE); COLOR YELLOW (YELLOW); GLUCOSE NEGATIVE (NEGATIVE); KETONE NEGATIVE (NEGATIVE); NITRITE NEGATIVE (NEGATIVE); PROTEIN 1+ mg/dL (NEGATIVE); SPECIFIC GRAVITY 1.025 (1.005-1.020); UROBILINOGEN NORMAL (NORMAL)
[2019-06-19 12:18] LABS: BACTERIA MODERATE /hpf (NEGATIVE); EPITHELIAL CELLS NSEEN /hpf (0-5); RED CELLS - URINE 0-5 /hpf (0-5); WHITE CELLS - URINE 0-5 /hpf (NEGATIVE)
[2019-06-19 12:19] LABS: AMORPHOUS SEDIMENT >1+ /lpf (NONE SEEN)
[2019-06-19 12:37] LABS: ALBUMIN 2.9 g/dL (3.4-5.0); BILIRUBIN - TOTAL 0.59 mg/dL (0.2-1.3); CARBON DIOXIDE 20.6 mmol/L (21.0-32.0); PROTEIN - SERUM 5.7 g/dL (6.4-8.2)
[2019-06-19 12:41] LABS: ANION GAP 22.6 mmol/L (8-16)
[2019-06-19 12:43] LABS: POTASSIUM - SERUM 6.2 mmol/L (3.5-5.1); TROPONIN-I 0.074 ng/mL (0.000-0.060)
--- NOTE | 2019-06-19 13:11 | NUR ---
LACTIC ACID 2.[address] MCCLELLAN
[2019-06-19 13:59] LABS: CHOL - HDL RATIO 1.8 ratio (2.3-4.9); LDL-HDL RATIO 0.5 ratio (1.5-3.5)
--- NOTE | 2019-06-19 14:00 | NUR ---
K+ REPORTED TO MD. 6.6.
[2019-06-19 14:01] LABS: POTASSIUM - SERUM 6.6 mmol/L (3.5-5.1)
[2019-06-19 14:25] LABS: CKMB 2.8 U/L (0.0-3.6); CREATINE KINASE 258 UL (21-232)
[2019-06-19 14:26] LABS: TROPONIN-I 0.073 ng/mL (0.000-0.060)
--- NOTE | 2019-06-19 15:17 | NUR ---
REPORT TO RONN Villalta
--- NOTE | 2019-06-19 15:50 | NUR ---
PT RECEIVED. FROM THE ER AT THIS TIME. DR BARTON AT BEDSIDE NEW ORDERS RECIEVED. VSS WILL CONTINUE TO MONITOR
[2019-06-19 15:55] LABS: APTT 29.7 SECONDS (22.8-39.4); INR 1.3 (0.85-1.17); PROTIME 15.6 SECONDS (11.6-15.0)
--- NOTE | 2019-06-19 15:59 | NUR ---
CARDIOLOGY PAGED REGAURDING CONSULT. AWAITING CALL BACK.
--- NOTE | 2019-06-19 16:04 | NUR ---
PT RECEIVED TO ROOM 2303. FAMILY AT BEDSIDE. ASSESSMENT COMPLETED PER FLOWSHEET, SEE FLOWSHEET FOR ADDITIONAL INFORMATION. WILL CONT TO MONITOR.
--- NOTE | 2019-06-19 16:14 | NUR ---
FAMILY CALLED GIVEN RAEATE.
--- NOTE | 2019-06-19 16:18 | MORECARE ---
CASE MANAGEMENT DISCHARGE SUMMARY PATIENT: LYNETTE SHEETS JR UNIT: [id number] ADM DATE: 06/19/19 AGE: 48 : 72 SEX: M ROOM/BED: D.2303 AUTHOR: EDOUARD CHANEL PHYSICIAN: REFERRING PHYSICIAN: AYLA BARTON DO DATE OF SERVICE: 06/19/19 Discharge Plan Patient Name: LYNETTE SHEETS [facility] [facility] 1970 Planned Disposition: Anticipated Discharge Date: 06/23/19 Discharge Date: Expected LOS: 4 Initial Reviewer: [email or web address] Initial Review Date: 06/19/2019 Generated: 06/19/19 5:17 pm Patient Name: LYNETTE SHEETS Page [phone] at 1618 All edits/amendments must be made on the electronic document DICTATION DATE: 06/19/191616 VENEER SPLICER: SALAS 06/19/191616 RPT#: [id number] DC DATE: STATUS: ADM IN [facility] [address] [place] [address] END OF REPORT
--- NOTE | 2019-06-19 16:27 | MORECARE ---
CASE MANAGEMENT DISCHARGE SUMMARY PATIENT: LYNETTE SHEETS JR UNIT: [id number] ADM DATE: 06/19/19 AGE: 48 : 72 SEX: M ROOM/BED: D.2303 AUTHOR: EDOUARD CHANEL PHYSICIAN: REFERRING PHYSICIAN: AYLA BARTON DO DATE OF SERVICE: 06/19/19 Discharge Plan Patient Name: LYNETTE SHEETS Facility: [facility]:[place] : 1970 Planned Disposition: Anticipated Discharge Date: 06/23/19 Discharge Date: Expected LOS: 4 Initial Reviewer: [email or web address] Initial Review Date: 06/19/2019 Generated: 06/19/19 5:26 pm DCP- Discharge Planning Updated by [email or web address]: Dania Graham on 06/19/19 3:[address] DC PLAN: Return home with his . ANTICIPATED DC NEEDS: Denied known dc needs at time of assessment in the ER. CM met with patient and his to complete initial dc planning assessment. CM educated patient on the CM role and verbal consent given by patient to complete assessment. CM verified patient's address, phone number, and emergency contact phone numbers. Patient lives at home with his who assists him with cooking meals. Patient's in room unable to stay awake during assessment, continuously falling asleep. At discharge patient plans to return home and feels this is a safe discharge. CM discussed availability of home health, rehab services, and medical equipment. Patient denied known discharge needs at this time. Patient reports his will transport him home at time of discharge. CM will continue to follow and will assist as needed with dc plans/needs. DCPIA - Discharge Planning Initial Assessment Updated by [email or web address]: Dania Graham on 06/19/19 4:18 pm * Is the patient Alert and Oriented? Yes * PCP Dr. Joseph * Pharmacy [facility] * Preadmission Environment Home with Family * ADLs Partial Dependent * Equipment Glucometer Nebulizer Shower Chair Wheelchair * List name and contact numbers for known caregivers / representatives who currently or will assist patient after discharge: Lisa Sheets - - [phone] * Verbal permission to speak to the caregivers and representatives has been obtained from the patient. Yes * Community resources currently utilized None * Additional services required to return to the preadmission environment? No * Can the patient safely return to the preadmission environment? Yes * Has this patient been hospitalized within the prior 30 days at any hospital? No Last DP export: 06/19/19 3:18 p Patient Name: LYNETTE SHEETS Page [phone] at 1627 All edits/amendments must be made on the electronic document DICTATION DATE: 06/19/191625 ASSISTANT NEWS DIRECTOR: SALAS 06/19/191625 RPT#: [id number] DC DATE: STATUS: ADM IN [facility] [address] [place] [address] END OF REPORT
--- NOTE | 2019-06-19 17:00 | NUR ---
ORAL CARE GIVEN. NO NEEDS AT THIS TIME. WILL CONT TO MONITOR.
--- NOTE | 2019-06-19 19:00 | NUR ---
REPORT REC'D, ASSUMED PT'S CARE. ASSESSMENT COMPLETED PER FLOW SHEETS. PT ALERT AND ORIENTED TO NAME, PLACE, CONFUSED TO TIME AND SITUATION. REORIENTED. ST ON CM WITH HR TO 110BPM, LUNG SOUNDS CLEAR TO ULB WITH DIMINISHED TO LLB, TACHEPNIC TO 28RR, UNLABORED. O2SAT 97% VIA 2L NC. C/O PAIN TO ABD 8/10 ON SCALE. REPOSIIONED FOR COMFORT. ABD DISTENDED AND TIGHT. BILAT BKA NOTED. WILL CONT TO MONITOR.
[2019-06-19 19:37] LABS: CALC OSMOLALITY 301 mosm/kg (275-300); CHLORIDE - SERUM 107 mmol/L (98-107); CREATINE KINASE 196 UL (21-232); CREATININE - SERUM 4.8 mg/dL (0.6-1.3); GLUCOSE 139 mg/dL (74-106); SODIUM 141 mmol/L (136-145); TROPONIN-I 0.053 ng/mL (0.000-0.060); UREA NITROGEN 66 mg/dL (7-18); eGFR NON AFRICAN AMERICAN 14 mL/min (90-120)
[2019-06-19 19:42] LABS: POTASSIUM - SERUM 5.4 mmol/L (3.5-5.1)
--- NOTE | 2019-06-19 21:15 | NUR ---
PT C/O THAT NEED TO VOID, BUT UNABLE. BLADDER SCAN SHOWS 46ML. PT REQUESTED VALENCIA CATH TO BE ABLE TO URINATE. MD WILL NOTIFIED OF PT'S CONCERN.
[2019-06-19 23:00] LABS: UDS - AMPHET NEGATIVE QUAL (NEGATIVE); UDS - BARB POSITIVE QUAL (NEGATIVE); UDS - BENZO POSITIVE QUAL (NEGATIVE); UDS - COCAINE NEGATIVE QUAL (NEGATIVE); UDS - OPIATE POSITIVE QUAL (NEGATIVE); UDS - PCP NEGATIVE QUAL (NEGATIVE); UDS - THC NEGATIVE QUAL (NEGATIVE)
--- NOTE | 2019-06-19 23:00 | NUR ---
REASSESSMENT COMPLETED PER FLOWSHEETS. PT RESTING QUIETLY AT THIS TIME. NO ACUTE CHANGED NOTED IN PT'S CONDITION. CONT TO MONITOR.
[2019-06-20] VITALS (92 sets, daily range): BP systolic 74–125; BP diastolic 50–107; Ht 175.3 cm; Wt 83.6 kg
--- NOTE | 2019-06-20 01:00 | NUR ---
PT RESTING QUIETLY WITHOUT DISTRESS, CONT LEVOPHED DRIP PER ORDER TO KEEP SBP> 90S. NO NEEDS VOICES AT THIS TIME. CPOC.
[2019-06-20 02:34] LABS: BASOPHILS 0.1 % (0-2); EOSINOPHILS 0.3 % (0-7); HEMATOCRIT 45.8 % (42.0-54.0); HEMOGLOBIN 15.1 g/dL (13.5-17.5); IMMATURE GRANULOCYTES 1.9 % (0-5); LYMPHOCYTES 7.4 % (15-50); MCH 30.9 pg (26.0-34.0); MCV 93.7 fL (80.0-100.0); NEUTROPHILS 85.3 % (40-80); PLATELET COUNT 198 10x3/uL (130-400); RBC 4.89 10x6/uL (4.20-6.10); RDW 16.3 % (11.5-14.5); WBC 11.7 10x3/uL (4.8-10.8)
--- NOTE | 2019-06-20 03:00 | NUR ---
REASSESSMENT COMPLETED. SEE FLOWSHEETS FOR ALL FINDINGS. NO ACUTE CHANGES IN PT'S STATUS NOTED. CONT TO MONITOR.
[2019-06-20 03:11] LABS: ALBUMIN 2.2 g/dL (3.4-5.0); ALKALINE PHOSPHATASE 67 U/L (46-116); BILIRUBIN - TOTAL 0.52 mg/dL (0.2-1.3); CALCIUM 7.1 mg/dL (8.5-10.1); CARBON DIOXIDE 24.6 mmol/L (21.0-32.0); CHLORIDE - SERUM 105 mmol/L (98-107); CKMB 1.2 U/L (0.0-3.6); CREATINE KINASE 156 UL (21-232); CREATININE - SERUM 4.7 mg/dL (0.6-1.3); MAGNESIUM - SERUM 2.2 mg/dL (1.8-2.4); PHOSPHOROUS 5.8 mg/dL (2.5-4.9); PROTEIN - SERUM 5.6 g/dL (6.4-8.2); SODIUM 140 mmol/L (136-145); TROPONIN-I 0.034 ng/mL (0.000-0.060); UREA NITROGEN 71 mg/dL (7-18); eGFR NON AFRICAN AMERICAN 14 mL/min (90-120)
[2019-06-20 03:14] LABS: ALT (SGPT) 16 U/L (10-68); CALC OSMOLALITY 305 mosm/kg (275-300); GLUCOSE 208 mg/dL (74-106)
--- NOTE | 2019-06-20 03:35 | NUR ---
PT C/O PAIN TO ABDOMEN 8/10 ON SCALE. DILAUDID 0.5MG IVP GIVEN PER ORDER. REPOSITIONED FOR COMFORT. CPOC.
--- NOTE | 2019-06-20 04:15 | NUR ---
I&O COMPLETED TO CHART.
--- NOTE | 2019-06-20 07:22 | NUR ---
BEDSIDE REPORT RECEIVED. ASSESSMENT COMPLETED PER FLOWSHEET, SEE FLOWSHEET FOR ADDITIONAL INFORMATION. VSS. NO NEEDS NOTED AT THIS TIME. WILL CONT TO MONITOR.
[2019-06-20 08:21] LABS: LIPASE 881 U/L (73-393)
[2019-06-20 08:25] LABS: AMYLASE - SERUM 417 U/L (25-115)
--- NOTE | 2019-06-20 09:00 | NUR ---
ORAL CARE GIVEN, AT BEDSIDE. NO NEEDS OR DISTRESS NOTED AT THIS TIME. VSS. WILL CONT TO MONITOR.
--- NOTE | 2019-06-20 11:00 | NUR ---
PT TURNED INDEPENDENTLY TO RIGHT SIDE. PT C/O DRY MOUTH, LEMON SWABS GIVEN. AT BEDSIDE. NO NEEDS OR DISTRESS NOTED AT THIS TIME. VSS. WILL CONT TO MONITOR.
--- NOTE | 2019-06-20 13:00 | NUR ---
PT STATES "GIVE ME MY PAPERS, I'M LEAVING THIS PLACE AMA. GIVE ME MY PAPERS". PLAN CONSULTANT AND NOTIFIED. WILL CONT TO MONITOR.
--- NOTE | 2019-06-20 13:30 | NUR ---
SPOKE WITH PT ABOUT ALL OPTIONS, PT HAS DECIDED TO STAY. NO NEEDS OR DISTRESS NOTED AT THIS TIME. VSS. WILL CONT TO MONITOR.
[2019-06-20 13:47] LABS: INR 1.34 (0.85-1.17)
--- NOTE | 2019-06-20 15:00 | NUR ---
PT DID OWN ORAL CARE, NO NEEDS OR DISTRESS NOTED AT THIS TIME. VSS. WILL CONT TO MONITOR.
--- NOTE | 2019-06-20 17:00 | NUR ---
CHG BEDBATH GIVEN, COMPLETE LINEN CHANGE COMPLETED. NO NEEDS OR DISTRESS NOTED AT THIS TIME. VSS. WILL CONT TO MONITOR.
--- NOTE | 2019-06-20 20:21 | NUR ---
PATIENT RESTLESS, SLURRING WORDS AND IS DISORIENTED TO TIME. SPOUSE AT BEDSIDE. PATIENT PULLED OFF STAT LOCK TO VALENCIA THAT WAS REPLACED AT BEGINNING OF SHIFT. PATIENT DENIES DOING THIS. VSS. DRESSING TO IV IN LT FOREARM REPLACED. IVS INFUSING WITHOUT SIGNS OF INFILTRATION. BED LOWERED/LOCKED. VALENCIA SECURED BELOW BLADDER AND TUBING FREE OF LOOPS. WILL CONTINUE TO MONITOR.
[2019-06-21] VITALS (41 sets, daily range): BP systolic 93–161; BP diastolic 55–101
--- NOTE | 2019-06-21 04:45 | NUR ---
WENT TO PATIENT ROOM, PATIENT HAD RIPPED IV OUT, LEVOPHED MEDICATION WAS NOT INFUSING. PATIENT HAD PULLED ACTUARIAL CONSULTANT LEADS OFF AND PULSE OXIMETRY OFF. REORIENTED PATIENT, REPOSITIONED PATIENT, IV MEDICATION SWITCHED TO OTHER IV SITE TO INFUSE. PATIENT WAS PLACED BACK ON ACTUARIAL CONSULTANT. LINENS WERE CHANGED. PATIENT TOLERATED WELL. INFILTRATED IV CATHETER REMOVED, CATHETER INTACT, NO BLEEDING NOTED AND BANDAGE APPLIED. ANOTHER BLOOD PRESSURE WAS TAKEN, READING HIGHER THAN PREVIOUS BLOOD PRESSURES. IV MEDICATION LEVOPHED DRIP WAS TITRATED DOWN ACCORDING TO PROTOCOL. CALL LIGHT WITHIN REACH. WILL CONTINUE TO MONITOR.
[2019-06-21 05:03] LABS: BASOPHILS 0.2 % (0-2); EOSINOPHILS 0.1 % (0-7); HEMATOCRIT 43.4 % (42.0-54.0); HEMOGLOBIN 14.2 g/dL (13.5-17.5); IMMATURE GRANULOCYTES 0.7 % (0-5); LYMPHOCYTES 2.2 % (15-50); MCH 31.3 pg (26.0-34.0); MCHC 32.7 g/dL (31.0-37.0); MEAN PLATELET VOLUME 10.5 fL (7.4-10.4); MONOCYTES 5.4 % (2-11); NEUTROPHILS 91.4 % (40-80); PLATELET COUNT 178 10x3/uL (130-400); RBC 4.53 10x6/uL (4.20-6.10); RDW 16.6 % (11.5-14.5); WBC 13.8 10x3/uL (4.8-10.8)
[2019-06-21 05:13] LABS: MCV 95.8 fL (80.0-100.0)
[2019-06-21 05:25] LABS: ANION GAP 12.9 mmol/L (8-16); BILIRUBIN - TOTAL 0.49 mg/dL (0.2-1.3); CALCIUM 7.9 mg/dL (8.5-10.1); CARBON DIOXIDE 29.1 mmol/L (21.0-32.0); MAGNESIUM - SERUM 2.3 mg/dL (1.8-2.4); PHOSPHOROUS 5.4 mg/dL (2.5-4.9); PROTEIN - SERUM 5.7 g/dL (6.4-8.2)
[2019-06-21 05:27] LABS: ALBUMIN 1.8 g/dL (3.4-5.0); CREATININE - SERUM 2.5 mg/dL (0.6-1.3)
--- NOTE | 2019-06-21 07:00 | NUR ---
REPORT RECIEVED FROM THE OFF GOING RN. SEE ASSESSMENT IN THE PTS FLOW SHEET. PT ALERT AND ORIENTED BUT VERY DROWSEY AND HAS SLURRED SPEECH. PT KEEPS TRYING TO GET OUT OF HIS BED AND PULLING AT HIS LINES. PT EASILY REORIENTED. IV NOTED TO RIGHT FC AND LEFT FA. RIGHT FA SL. SKIN TEAR NOTED TO LEFT AC AREA. FC NOTED WITH CLEAR, YELLOW URINE. REDNESS NOTED TO GROIN AND BLE. PT BILATERAL BKA. VSS. CALL LIGHT IN REACH. WILL CONT POC.
--- NOTE | 2019-06-21 09:00 | NUR ---
PT STATING THAT HE IS WANTING TO LEAVE AMA. DR BARTON AT THE BEDSIDE. DR BARTON ESTABLISHED THAT THE PT IS A&O X4 AND ABLE TO MAKE HIS OWN DECISIONS. DR BARTON AT THE PTS BEDSIDE EXPLAINING THE BENIFITS OF STAYING IN THE HOSPTIAL AND THE RISKS OF LEAVING AMA WHICH INCLUDED POSSIBLE . PT STILL STATING THAT HE WANTED TO LEAVE AMA. WHENEVER I WENT TO TAKE OUT HIS IV, DR BARTON ASKED HIM ONE MORE TIME IF HE WANTED TO LEAVE AMA AND ASKED WHO WAS GOING TO TAKE HIM HOME DUE TO HIM HAVING BILATERAL BKA. PT STATED HE WILL STAY ONE MORE DAY. AFTER ABOUT 10 MINUTES, PT RIPPED OUT HIS RIGHT FA IV. I ASKED HIM WHY HE DID IT AND HE DIDNT RESPOND. AFTER ABOUT ANOTHER 30 MINUTES, THE PT HAD RIPPED OUT HIS OTHER IV. PT STATED "I FELT LIKE IT WAS REALLY DUG IN THERE." THE IV WAS NOT INFILTRATED. I EXPLAINED TO DR BARTON THAT HE HAS NO IV ACCESS AND IS BEING NON COMPLIANT. PT THEN PULLED THE MONITOR BOX FROM MONITOR. HE STATED THAT "HE DID MEAN TO DO IT. DR BARTON NOTIFIED AND UPDATED ON THE PTS NON COMPLIANCE. WILL CONT POC.
--- NOTE | 2019-06-21 10:40 | NUR ---
HAVE PAGED DR SIMMONS PER REQUEST OF DR BARTON. AWAITING RETURN CALL.
--- NOTE | 2019-06-21 12:51 | NUR ---
THE CAME OUT OF THE PTS ROOM. SHE SPOKE WITH THE PT FOR QUITE SOME TIME AND TALKED THE PT INTO GETTING AN IV AND HIM NOT RIPPING IT OUT. IV PLACED TO LEFT WRIST. PATENT. DRESSING C/D/I.
--- NOTE | 2019-06-21 14:26 | NUR ---
DR BARTON CALLED AND CHECKED ON THE PT. UPDATED HIM THAT THE TALKED THE PT INTO RECEIVING AN IV AND GETTING IVBT.
--- NOTE | 2019-06-21 14:52 | NUR ---
PT HAS PULLED OUT NEWEST PLACED IV. TRYING TO GET OUT OF BED. NOW PULLING AT VALENCIA CATHETER. PRIMARY NURSE AT BEDSIDE ATTEMPTING TO REDIRECT PT ATTENTION TO LEAVE VALENCIA ALONE. PT ONCE AGAIN PULLED UP IN THE BED AND DRAPED WITH SHEET.
--- NOTE | 2019-06-21 14:59 | NUR ---
PT PULLED OUT IV AGAIN. CATHETER TIP INTACT. DR BARTON NOTIFIED. DO NOT PUT AN IV AGAIN AND DR BARTON WILL COME SEE THE PT SOON.
--- NOTE | 2019-06-21 15:00 | NUR ---
PT PULLING AT FC. ATTEMPTED TO REORIENT AND TELL HIM NOT TO PULL AND TUG AT THE FC. LEFT THE PTS ROOM AND PT ENDED UP PULLING THE FC FROM THE FC TO THE DRAIAGE TUBE. BULB WAS DEFLATTED ONCE THE PT PULLED APART THE FC FROM THE DRAIANGE TUBE. FC WAS REMOVED THE REST OF THE WAY. CALL LIGHT IN REACH. WILL CONT POC.
--- NOTE | 2019-06-21 15:09 | NUR ---
PRIMARY NURSE REMOVED VALENCIA PT HAD PULLED OFF STAT-LOCK AND WAS PULLING AT CATHETER. REMOVED WITH TIP INTACT. ONCE NURSE HAD LEFT THE ROOM PT AGAIN SCOOTED TO EDGE OF BED AND WAS HANGING AND AT RISK OF FALL. PT WAS AGAIN PULLED UP IN THE BED AND REMINDED TO NOT TRY TO GET OUT. BED ALARM IS ENGAGED. SIDE RAILS X3.
--- NOTE | 2019-06-21 15:27 | NUR ---
PT ONCE AGAIN ATTEMPTING TO LEAVE BED. NURSE AT BEDSIDE AND PT REFUSING TO STAY SAFE. SCOOTED TO EDGE OF BED AND PROCEEDED TO PULL SELF TO EDGE AND WHEN ASKED NOT TO ADVANCE ANY FURTHER FOR RISK OF FALL HE ASKED 'WHAT ARE YOU GOING TO DO' AND ATTEMPTED TO SLIDE OUT INTO FLOOR. SECOND NURSE WAS AT BEDSIDE AT THIS TIME AND PT WAS CAUGHT IN HIS SLIDE DOWN TO FLOOR AND WAS PULLED BACK UP TO MIDDLE OF BED
--- NOTE | 2019-06-21 16:50 | NUR ---
DR BARTON AT THE PTS BEDSIDE. PT INSISTS THAT HE LEAVES AMA. AMA PAPER WORK SIGNED BY THE PT. PT IS ALERT AND ORIEINTED TO PERSON, PLACE, SITUATION, AND TIME. LEFT TO SENIOR ORACLE [address] SQL DEVELOPER CLOTHES.
--- NOTE | 2019-06-21 17:00 | NUR ---
BACK IN THE UNIT. PT BROUGHT CLOTHES AND PROSTETIC LEGS. ASSISTED THE PT GETTING DRESSED AND TRANSFERING TO THE . PT LEFT A&O X4 AMA. LEFT WITH NO S/SX OF DISTRESS/DISCOMFORT NOTED.
--- NOTE | 2019-06-21 17:22 | NUR ---
BACK IN THE UNIT.SHE ASSISTED DRESSING, PUTTING ON THE PROSTETICS AND TRANSFERING HIM TO THE . PT LEFT AMA ALERT, ORIENTED AND VSS.
--- NOTE | 2019-06-22 09:56 | EC ---
PATIENT:LYNETTE SHEETS JR DATE OF SERVICE: 06/19/19 SEX: M MEDICAL RECORD: [id number] DATE OF : [birth year] LOCATION:[facility] D230 AGE OF PATIENT: 48 ADMISSION DATE: 06/19/19 REFERRING PHYSICIAN: INTERPRETING PHYSICIAN: MAC CACERES MD ECHOCARDIOGRAM REPORT ECHO CHARGES 4 ECHO COMPLETE Date: 06/20/19 CLINICAL DIAGNOSIS: CHINA/HTN (CHRONIC) SEPSIS ABD PAIN AND CHEST PAIN, HX CAD ECHOCARDIOGRAPHIC MEASUREMENTS (adult normal given) AC root (d.<3.7cm) 3.5 cm LV Septum d (<1.2 cm> 1.0 cm Valve Excursion 0.9 cm LV Septum (systole) 1.1 cm Left Atria (s.<4.0cm> 3.6 cm LVPW d(<1.2cm) 1.3 cm RV (d.<2.3cm) 3.4 cm LVPW (sytole) 1.4 cm LV diastole(<5.6CM) 5.0 cm MV E-F(>70mm/sec) cm LV systole 4.0 cm LVOT Diameter 2.1 cm MV exc.(>10mm) 1.8 cm Est.ejection fraction (50-75%) % DOPPLER: LVIT cm/sec A 51.0 cm/sec E 35.0 cm/sec LA cm/sec RVSP 34 mmHg LVOT 79 cm/sec AOP1/2T m/s Asc. Ao 112 cm/sec RVOT 76 cm/sec RA cm/sec PA 109 cm/sec AV Gradient Peak 5.06 mmHg AV Mean 3.03 mmHg AV Area 1.8 cm MV Gradient Peak 2.76 mmHg MV Mean 1.25 mmHg MV Area cm COMMENTS: Nurse Rn Bsn: 2 [employer]YRA [employer] Sales Office Manager: 3 Dr. Miller TAPE# PACS Pericardial Effusion Y DATE OF SERVICE: 06/21/2019 Adequate 2D echo, color flow imaging, spectral Doppler, and M-Mode. No LVH. LV internal dimensions are normal. Wall motion is normal. EF is greater than or equal to 55%. Aortic valve is tricuspid. No evidence of stenosis by Doppler interrogation. The left atrium is normal. Mitral valve shows no prolapse. Trace MR. Right-sided chambers are grossly normal. Trace TR. ECHOCARDIOGRAM REPORT [id number] LYNETTE SHEETS JR TRANSINT:[id number] Voice Confirmation ID: [id number] DOCUMENT ID: [id number] MAC CACERES MD at 0956 CC: [id number] DICTATION DATE: 06/21/1949 WORKERS COMPENSATION PARALEGAL: 06/21/19 1116 DIS IN 06/21/19 [facility] [address] [facility]
--- NOTE | 2019-06-23 09:18 | MORECARE ---
CASE MANAGEMENT DISCHARGE SUMMARY PATIENT: LYNETTE SHEETS JR UNIT: [id number] ADM DATE: 06/19/19 AGE: 48 : 72 SEX: M ROOM/BED: D.2303 AUTHOR: EDOUARD CHANEL PHYSICIAN: REFERRING PHYSICIAN: AYLA BARTON DO DATE OF SERVICE: 06/23/19 Discharge Plan Patient Name: LYNETTE SHEETS Facility: [facility]:[place] : 1970 Planned Disposition: Anticipated Discharge Date: 06/23/19 Discharge Date: 06/21/2019 Expected LOS: 4 Initial Reviewer: [email or web address] Initial Review Date: 06/19/2019 Generated: 06/23/19 10:18 am DCP- Discharge Planning Updated by [email or web address]: Dania Graham on 06/19/19 3:[address] DC PLAN: Return home with his . ANTICIPATED DC NEEDS: Denied known dc needs at time of assessment in the ER. CM met with patient and his to complete initial dc planning assessment. CM educated patient on the CM role and verbal consent given by patient to complete assessment. CM verified patient's address, phone number, and emergency contact phone numbers. Patient lives at home with his who assists him with cooking meals. Patient's in room unable to stay awake during assessment, continuously falling asleep. At discharge patient plans to return home and feels this is a safe discharge. CM discussed availability of home health, rehab services, and medical equipment. Patient denied known discharge needs at this time. Patient reports his will transport him home at time of discharge. CM will continue to follow and will assist as needed with dc plans/needs. DCPIA - Discharge Planning Initial Assessment Updated by [email or web address]: Dania Graham on 06/19/19 4:18 pm * Is the patient Alert and Oriented? Yes * PCP Dr. Joseph * Pharmacy [facility] * Preadmission Environment Home with Family * ADLs Partial Dependent * Equipment Glucometer Nebulizer Shower Chair Wheelchair * List name and contact numbers for known caregivers / representatives who currently or will assist patient after discharge: Lisa Sheets - - [phone] * Verbal permission to speak to the caregivers and representatives has been obtained from the patient. Yes * Community resources currently utilized None * Additional services required to return to the preadmission environment? No * Can the patient safely return to the preadmission environment? Yes * Has this patient been hospitalized within the prior 30 days at any hospital? No Last DP export: 06/19/19 3:27 p Patient Name: LYNETTE SHEETS Page [phone] at 0918 All edits/amendments must be made on the electronic document DICTATION DATE: 06/23/19917 BOOSTER STATION OPERATOR: SALAS 06/23/19917 RPT#: [id number] DC DATE:06/21/19 STATUS: DIS IN [facility] [address] [place] [address] END OF REPORT
--- NOTE | 2019-07-08 09:34 | NUR ---
10.3.19 STOP TIME FOR MEROPENEM = 2399
== END 2019-06-21 17:36 | disposition short-term general hospital (02) | DRG 871 ==
LOC: D.ER 11:11 → D.ICU 14:29
PROVIDERS: Emergency Medicine; Internal Medicine Nephrology; Surgery; ADMIT Family Medicine; ATTEND Family Medicine
DX: A41.9 Sepsis, unspecified organism (principal); K85.90 Acute pancreatitis without necrosis or infection, unspecified; N17.0 Acute kidney failure with tubular necrosis; R65.21 Severe sepsis with septic shock; K57.80 Diverticulitis of intestine, part unspecified, with perforation and abscess without bleeding; F17.213 Nicotine dependence, cigarettes, with withdrawal; K57.20 Diverticulitis of large intestine with perforation and abscess without bleeding; E87.5 Hyperkalemia; I25.10 Atherosclerotic heart disease of native coronary artery without angina pectoris; I10 Essential (primary) hypertension; J44.9 Chronic obstructive pulmonary disease, unspecified; M06.9 Rheumatoid arthritis, unspecified; Z66 Do not resuscitate; Z89.612 Acquired absence of left leg above knee; Z89.611 Acquired absence of right leg above knee

== ENCOUNTER 2019-08-04 10:00 | Day surgery (SDC) | payer MEDICARE ==
[2019-08-01 10:59] LABS: HEMATOCRIT 42.7 % (42.0-54.0); HEMOGLOBIN 13.5 g/dL (13.5-17.5); LYMPHOCYTES 8.6 % (15-50); MCH 29.3 pg (26.0-34.0); MCHC 31.6 g/dL (31.0-37.0); MCV 92.6 fL (80.0-100.0); MEAN PLATELET VOLUME 9.3 fL (7.4-10.4); RBC 4.61 10x6/uL (4.20-6.10); RDW 16.3 % (11.5-14.5); WBC 11.6 10x3/uL (4.8-10.8)
[2019-08-01 11:03] LABS: PLATELET COUNT 258 10x3/uL (130-400)
[2019-08-01 11:14] LABS: CALC OSMOLALITY 281 mosm/kg (275-300); CALCIUM 8.2 mg/dL (8.5-10.1); CARBON DIOXIDE 31.8 mmol/L (21.0-32.0); CHLORIDE - SERUM 104 mmol/L (98-107); GLUCOSE 95 mg/dL (74-106); POTASSIUM - SERUM 3.5 mmol/L (3.5-5.1); SODIUM 142 mmol/L (136-145); UREA NITROGEN 10 mg/dL (7-18); eGFR NON AFRICAN AMERICAN 85 mL/min (90-120)
[~2019-08-04] VITALS: Ht 175.3 cm; Wt 78.5 kg
[2019-08-04] MEDS ORDERED: CLEOCIN HCL300 MG PO (10:34)
[2019-08-04] MEDS ORDERED: PROTONIX40 MG PO (10:35)
[2019-08-04] MEDS ORDERED: FLUTICASONE PRO16 GM NASAL (10:36)
[2019-08-04] MEDS ORDERED: IPRAT-ALBUT 0.5-3 ML UPD (10:37)
[2019-08-04 10:50] VITALS: Ht 175.3 cm; Wt 78.5 kg
--- NOTE | 2019-08-04 12:54 | NUR ---
PT HAS BILAT BKA SO SCD'S ARE NOT ON
--- NOTE | 2019-08-04 13:41 | NUR ---
PT AWAKE, REQUESTS URINAL
--- NOTE | 2019-08-04 14:56 | NUR ---
1455 IV REMOVED AND PRESSURE HELD, BS PER FINGER STICK DONE AFTER PT ATE FULL LIQ TRAY 140 PER FINGER STICK
--- NOTE | 2019-08-05 15:11 | OP ---
PATIENT NAME: LYNETTE SHEETS JR MEDICAL RECORD: [id number] :72 LOCATION:D.OPS ADMISSION DATE: SURGEON: BRADFORD GILMAN MD DATE OF OPERATION: 08/04/2019 PREOPERATIVE DIAGNOSIS: Open wound of the left antecubital fossa. POSTOPERATIVE DIAGNOSIS: Open wound of the left antecubital fossa. PROCEDURE: 1. Excisional debridement of skin, subcutaneous tissue, portions of fat and fascia. The estimated size is 3 cm x 3 cm by approximately 0.1 cm deep. 2. Application of Restrata allograft skin graft. 3. Application of platelet rich plasma. SURGEON: Bradford Gilman MD INDEPENDENT CROP CONSULTANT: YULIET Gómez INTRAOPERATIVE COMPLICATIONS: None. SUMMARY OF PATHOLOGIC FINDINGS: The patient had a relatively good wound bed with some tissue that needed debriding as it was nonviable and this was done with curettage, rongeur as well as scalpel. Good bleeding bed then gave rise to irrigation. This was then followed by application of the Restrata graft. OPERATIVE SUMMARY IN DETAIL: After obtaining appropriate preoperative orthopedic consent as well as anesthetic consultation, evaluation and clearance, the patient was brought to the operating room and placed on the operating table in supine position. After adequate general laryngeal mask airway was administered, the patient's left upper extremity was prepped and draped in routine sterile fashion using Betadine as the wound was opened. Serial and sequential rongeur, scalpel and curettage debridement was utilized to debride all of nonviable appearing tissue down to muscle and fascia in the parameters as outlined above. This was then irrigated as a fresh clean bleeding bed. The 2 x 4 Restrata graft was meshed using a 1-1.5 mesher. It was then allowed to soak in PRP for approximately 10 minutes. It was then sewn over the wound with 4-0 Prolene in all quadrants. The remainder of the PRP was placed directly on the graft and approximately 1 cc of it was injected circumferentially about the wound to aid in healing. Having completed this, the Cameron and Nephew wound veil dressing nonstick was applied. This was then covered with 4 x 4s and a pressure bandage. The patient was then awakened and taken to the recovery room in stable condition. All final needle and sponge counts were correct. TRANSINT:[id number] Voice Confirmation ID: [id number] DOCUMENT ID: [id number] KALINA RING, BRADFORD WALLS at 1511 CC: [id number] DICTATION DATE: 08/04/19 1315 POKER DEALER: 08/04/19 1337 [facility] [place] 08/04/19 [facility] [address] [place] [address]
== END 2019-08-04 15:20 | disposition home or self-care (01) ==
LOC: D.OPS 10:00 → D.PAN 13:00 → D.OPS 13:00
PROVIDERS: Anesthesiology; ATTEND Orthopaedic Surgery
DX: S51.002A Unspecified open wound of left elbow, initial encounter (principal); W45.8XXA Other foreign body or object entering through skin, initial encounter; J43.9 Emphysema, unspecified; F17.200 Nicotine dependence, unspecified, uncomplicated
CPT/HCPCS: 11043; G0460

== ENCOUNTER 2019-11-03 10:12 | Day surgery (SDC) | payer MEDICARE ==
[2019-10-31 13:38] LABS: BASOPHILS 0.4 % (0-2); EOSINOPHILS 1.1 % (0-7); HEMATOCRIT 43.4 % (42.0-54.0); HEMOGLOBIN 13.6 g/dL (13.5-17.5); IMMATURE GRANULOCYTES 4.8 % (0-5); LYMPHOCYTES 17.6 % (15-50); MCH 29.4 pg (26.0-34.0); MCHC 31.3 g/dL (31.0-37.0); MCV 93.7 fL (80.0-100.0); MONOCYTES 10.1 % (2-11); RBC 4.63 10x6/uL (4.20-6.10); RDW 16.8 % (11.5-14.5); WBC 12.3 10x3/uL (4.8-10.8)
[2019-10-31 13:40] LABS: PLATELET COUNT 336 10x3/uL (130-400)
[~2019-11-03] VITALS: Ht 175.3 cm; Wt 79.4 kg
--- NOTE | ~2019-11-03 | OP ---
PATIENT NAME: ELÍAS SHEETS JR MEDICAL RECORD: [id number] :[birth year] LOCATION:D.OPS ADMISSION DATE: SURGEON: BRADFORD GILMAN MD DATE OF OPERATION: 11/03/2019 PREOPERATIVE DIAGNOSIS: Painful left olecranon bursitis. POSTOPERATIVE DIAGNOSIS: Painful left olecranon bursitis. PROCEDURE: Left olecranon bursectomy. SURGEON: Bradford Gilman MD HOUSETRAILER SERVICER: TAMIKA Lopez INTRAOPERATIVE COMPLICATIONS: None. SUMMARY OF PATHOLOGIC FINDINGS: The patient was indeed found to have a very large bulbous olecranon bursa. Upon dissecting on the back table, it did appear to have mostly just rheumatoid phlegmon. INDICATIONS: Elías is a 48-year-old gentleman who has been plagued by rheumatoid arthritis. He has had bilateral lower extremity amputations along with multiple other complications. He presented with a very large painful olecranon bursa decision made to proceed with excision. Office aspiration did show the patient to have yeast, which he has been treated since; however, I think that it is more likely that this represents a rheumatoid inflammation and it does not yeast infection. We will continue him on his Diflucan. OPERATIVE SUMMARY IN DETAIL: After obtaining the appropriate preoperative orthopedic surgery consent as well as anesthetic consultation, evaluation, and clearance, the patient was brought to the operating room and placed on the operating table in the supine position. After adequate general laryngeal mask airway was administered, the patient's left upper extremity was prepped and draped in routine sterile fashion. Incision was made directly over the large bursal mass. Dissection was carried out proximally and distally, medially, and laterally. The entire bulbous bursa was excised en bloc taken to the back table and then incised to reveal the above findings. No cultures were taken at this point as the patient has already been on Diflucan and multiple antibiotics. The wound was then copiously irrigated and closed using 2-0 Vicryl and 4-0 Prolene. Pressure dressing was applied. The patient was awakened and taken to the recovery room in stable condition. All final needle and sponge counts were correct. TRANSINT:[id number] Voice Confirmation ID: [id number] DOCUMENT ID: [id number] 11/10/2019 Edited for left/right, dmm. OPERATIVE REPORT [id number] ELÍAS SHEETS JR BRADFORD GILMAN MD CC: [id number] DICTATION DATE: 11/07/19 1056 STAFF DEVELOPER: 11/07/192048 [facility] [place] 11/03/19 [facility] [address] [place] [address]
[~2019-11-03 10:12] MED LIST changes: +CLEOCIN HCL300 MG PO; +FLUTICASONE PRO16 GM NASAL; +IPRAT-ALBUT 0.5-3 ML UPD; +PROTONIX40 MG PO
[2019-11-03 11:08] VITALS: BP 89/54; Ht 175.3 cm; Wt 79.4 kg
[2019-11-03] MEDS ORDERED: ISOSORBIDE MONO30 M1 PO (11:08)
[2019-11-03] MEDS ORDERED: PERCOCET 10-321 EAC1 PO (12:33)
== END 2019-11-03 15:25 | disposition home or self-care (01) ==
LOC: D.OPS 10:12 → D.PAN 11:45 → D.OPS 12:45 → D.PAN 15:00 → D.OPS 15:25
PROVIDERS: Anesthesiology; ATTEND Orthopaedic Surgery
DX: M70.22 Olecranon bursitis, left elbow (principal); S51.032A Puncture wound without foreign body of left elbow, initial encounter; X58.XXXA Exposure to other specified factors, initial encounter

== ENCOUNTER → 2019-11-19 18:17 | Outpatient (CLI) | payer MEDICARE ==
[2019-11-03 11:08] VITALS: BMI 25.9
[~2019-11-19 18:17] MED LIST changes: +ISOSORBIDE MONO30 M1 PO; +PERCOCET 10-321 EAC1 PO
[2019-11-19 19:43] LABS: PROTEIN - BODY FLUID 3.9 G/DL
[2019-11-19 20:08] LABS: MACROPHAGES BF 8 %; NEUT - BF 52 %
== END | disposition home or self-care (01) ==
LOC: D.LABREF 18:17
PROVIDERS: ATTEND Orthopaedic Surgery
DX: M25.442 Effusion, left hand (principal)

== ENCOUNTER 2019-11-23 18:07 | Inpatient (IN) | payer MEDICARE ==
[~2019-11-23] VITALS: Ht 175.3 cm; Wt 79.8 kg
--- NOTE | ~2019-11-23 | HEMODYNAMI ---
PATIENT:LYNETTE SHEETS JR MEDICAL RECORD: [id number] : 72 [id number] ADMISSION DATE: 11/24/19 Generatedon:12/04/201913:31 Patient name: LYNETTE SHEETS Patient #: [id number] SSN: [id number] : 1970 Date of study: 12/04/2019 Page: Of Hemodynamic Procedure Report Patient Data Patient Demographics Procedure consent was obtained First Name: LYNETTE Gender: Male Last Name: SUDEEP Suffix: Jr Cordova Initial: GRADY : 1970 Patient #: [id number] Age: 48 year(s) Race: SSN: [id number] Additional ID: [id number] Contact details Address: [address] [place] [address] State: [place] [facility] [place] code: [address] Past Medical History Allergies Allergen Reaction Date Comments Reported Morphine 11/19/2017 Sulfa drugs 11/19/2017 Codeine 11/19/2017 Other allergy 12/04/2019 See chart for full list Admission Admission Data Admission Date: 11/24/2019 Admission Time: 13:56 Arrival Date: 12/04/2019 Arrival Time: 0:00 Admit Source: Other Insurance Payor: Medicare Room #: D.2231 Height (in.): 68.9 BSA: 1.95 (m2) Height (cm.): 175 BMI: 25.8 (kg/m2) Weight (lbs.): 174.17 Weight (kg.): 79 Lab Results Lab Result Date: 12/04/2019 Lab Result Time: 0:00 Biochemistry Name Units Result Min Max BUN mg/dl 26 --(----)-* 7 18 Creatinine mg/dl 1.1 --(--*-)-- 0.6 1.3 CBC Name Units Result Min Max Hemoglobin g/dl 11.7 *-(----)-- 13.5 17.5 Procedure Procedure Types Cath Procedure Diagnostic Procedure AJAY Procedure Description Procedure Date Procedure Date: 12/04/2019 Procedure Start Time: 13:15 Procedure End Time: 13:26 Procedure Staff Name Function Pablito Cunha MD Performing Physician Chadd Hcetor RN Nurse Abiola Parry RN Monitor Kirk Quintanilla RN Nurse Nai Weiss CRNA Additional personnel Corey Joshi Morning [employer] Anchor Procedure Data Procedure Complications No complications Procedure Medications Medication Administration Route Dosage Oxygen etCO2 Nasal cannula 2 l/min Refer to Anesthesia Notes for Sedation Medications Hurricaine [place] P[address]O. 1 Sprays Hemodynamics Rest BSA: 1.95 (m2) HGB: 11.7 (g/dl) O2 Consumption: Estimated: 225.59 (ml/min) O2 Consumption indexed: Estimated:115.69 (ml/min/m) Heart Rate: 58 (bpm) Snapshots Pre Cath Intra NCS Post Cath Vital Signs Time Heart Resp SPO2 etCO2 NIBP (mmHg) Rhythm Pain Sedation Rate (ipm) (%) (mmHg) Status Level (bpm) 13:10:31 60 11 100 33.7 Measuring NSR (Missing) 10(A) 13:13:04 57 11 100 23.9 131/86(105) NSR (Missing) 10(A) 13:17:14 61 10 100 31.4 127/85(118) NSR (Missing) 9(A) 13:22:19 84 10 99 28.4 185/106(144) NSR (Missing) 10(A) 13:27:18 76 12 98 42.6 Measuring NSR (Missing) 10(A) 13:27:41 80 16 99 29.9 179/104(148) NSR (Missing) 10(A) Medications Time Medication Route Dose Verified Delivered Reason Notes Effectiv eness by by 13:09:37 Oxygen etCO2 2 Pablito Bradley used for Nasal l/min St Mike Quintanilla RN procedure cannula 13:09:46 Refer to Pablito Bradley Anesthesia St Mike Quintanilla RN Notes for MD Sedation Medications 13:14:25 Hurricaine [address] Pablito Bradley Per [place] Sprays St Mike Quintanilla RN physician Procedure Log Time Note 12:13:04 Arrival Date: 12/04/2019 12:00:00 AM 12:13:21 Patient Height : 68.9 inches 12:13:24 Patient Weight : 174.17 lbs 12:13:27 Admit Source: Other 12:13:51 Lab Result : Hemoglobin 11.7 g/dl 12::51 Lab Result : Creatinine 1.1 mg/dl 12:13:51 Lab Result : BUN 26 mg/dl 12:14:28 Procedure Status Elective Heart Cath (OP). 12:39:53 Time tracking: Regular hours (M-F 7:00 - 5:00) 12:40:09 Plan of Care:Hemodynamics will remain stable., Cardiac rhythm will remain stable., Comfort level will be maintained., Respiratory function will remain adequate., Patient/ family verbilizes understanding of procedure., Procedure tolerated without complication., Recovers from procedure without complications.. 12:40:14 Signed procedure consent form obtained from patient. 12:40:18 Full Disclosure recording started 12:40:21 H&P Date Dictated: 12/04/2019 Within 30 days and on chart.. 12:43:10 Patient allergic to Other allergySee chart for full list 12:43:18 Insurance Payor : Medicare 12:52:46 Kirk Quintanilla RN sent for patient. Start room use. 12:55:16 Patient NPO since Midnight. 12:55:20 Is the patient allergic to Iodine/contrast media? No. 12:55:21 Was the patient premedicated? N/A 12:55:24 Is patient on blood thinner?No 12:55:26 ACC The patient was administered the following blood thiners within the last 24 hours: None 12:55:46 Patient diabetic? Yes. 12:55:48 If diabetic: On Metformin? No 12:56:43 Nai Weiss CRNA present and monitoring patient for TIVA. 13:03:58 Warm blankets applied, and hitesh hugger turned on for patient comfort. 13:03:59 Correct patient and procedure confirmed by team. 13:03:59 ECG and BP/O2 sat monitors applied to patient. 13:04:13 Pre-procedure instructions explained to patient. 13:04:13 Pre-op teaching completed and patient verbalized understanding. 13:04:17 Family in patients room. 13:04:37 IV patent on arrival in right hand with 0.9% NaCl at KVO. 13:05:33 Stress Test: no; N/A ? 13:05:37 Alarms reviewed by R. N. 13:08:42 Vital chart was started 13:09:29 Baseline sample Acquired. 13:09:34 Rhythm: sinus bradycardia 13:09:37 Oxygen 2 l/min etCO2 Nasal cannula was administered by Kirk Quintanilla RN; used for procedure; Verbal order read back and verified. 13:09:46 Refer to Anesthesia Notes for Sedation Medications was administered by Kirk Quintanilla RN; ; Verbal order read back and verified. 13:10:18 Airway obstruction? Yes ASTHMA 13:10:31 Previous problem with sedation/anesthesia? Yes PROPOFOL ALLERGY 13:10:33 Snore? Yes 13:10:35 Sleep apnea? No 13:10:37 Deviated septum? No 13:10:38 Opens mouth fully? Yes 13:10:39 Sticks out tongue? Yes 13:10:42 Dentures? No ? 13:12:36 Corey Joshi Flexographic Press Plate Setter present for AJAY. 13:14:25 Hurricaine [place] 1 Sprays P.O. was administered by Kirk Quintanilla RN; Per physician; Verbal order read back and verified. 13:15:12 --------ALL STOP TIME OUT------ 13:15:13 Final Timeout: patient, procedure, and site verified with staff and physician. All members of the team are in agreement. 13:15:24 Fire Safety Assessment: C--Open oxygen or nitrous oxide is being used., E--There are other possible contributors. 13:15:31 Physical assessment completed. ASA score P 4 - A patient with severe systemic disease that is a constant threat to life as per Pablito Cunha MD. 13:15:42 4) 15-29 Severley reduced kidney function. 13:15:49 Sedation plan: TIVA Medication:General Anesthesia 13:15:58 Procedure started. 13:19:04 AJAY started. 13:25:29 AJAY completed. 13:26:16 AJAY Findings: no vegetation noted 13::31 Procedure ended. 13:26:31 Full Disclosure recording stopped 13::53 Procedure Complication : No complications 13::58 Operative report dictated upon procedure completion. 13:26:59 See physician's report for complete and final results. 13:29:18 Vital chart was stopped 13:29:21 Report given to Pre/Post Procedure Room. 13:29:25 Patient transfered to Pre/Post Procedure Room with Bed. 13:29:26 End room use (Document Last) 13:29:55 End room use (Document Last) 13:30:27 End room use (Document Last) Signature Audit Hermann Stage Time Signature Unsigned Intra-Procedure 12/04/2019 Abiola Parry 1:29:55 PM RN Intra-Procedure 12/04/2019 Kirk Quintanilla RN 1:30:27 PM Intra-Procedure 12/04/2019 Pablito Martinez 1:31:11 PM Mike RING [facility] [address] [place] [address]
[2019-11-23 19:05] LABS: BASOPHILS 0.3 % (0-2); EOSINOPHILS 0.2 % (0-7); HEMATOCRIT 43.3 % (42.0-54.0); HEMOGLOBIN 13.8 g/dL (13.5-17.5); IMMATURE GRANULOCYTES 4.3 % (0-5); LYMPHOCYTES 11.3 % (15-50); MCH 29.4 pg (26.0-34.0); MCHC 31.9 g/dL (31.0-37.0); MCV 92.1 fL (80.0-100.0); MEAN PLATELET VOLUME 10.4 fL (7.4-10.4); MONOCYTES 8.5 % (2-11); NEUTROPHILS 75.4 % (40-80); PLATELET COUNT 322 10x3/uL (130-400); RDW 16.2 % (11.5-14.5); WBC 19.5 10x3/uL (4.8-10.8)
[2019-11-23 19:10] LABS: BILIRUBIN NEGATIVE (NEGATIVE); GLUCOSE NEGATIVE (NEGATIVE); KETONE NEGATIVE (NEGATIVE); NITRITE NEGATIVE (NEGATIVE); UROBILINOGEN NORMAL (NORMAL)
[2019-11-23 19:12] LABS: ANION GAP 18.4 mmol/L (8-16); CALCIUM 8.6 mg/dL (8.5-10.1); CARBON DIOXIDE 22.8 mmol/L (21.0-32.0); CREATININE - SERUM 1.9 mg/dL (0.6-1.3); POTASSIUM - SERUM 4.2 mmol/L (3.5-5.1)
[2019-11-23 19:19] LABS: ALBUMIN 3.4 g/dL (3.4-5.0); BILIRUBIN - TOTAL 0.27 mg/dL (0.2-1.3); PROTEIN - SERUM 6.4 g/dL (6.4-8.2)
[2019-11-23 20:48] LABS: APTT 24.1 SECONDS (22.8-39.4); INR 0.96 (0.85-1.17); PROTIME 12.8 SECONDS (11.6-15.0)
[2019-11-23 21:07] LABS: C-REACTIVE PROTEIN 4.2 mg/dL (0.0-0.9); CKMB 2.2 U/L (0.0-3.6); CREATINE KINASE 109 UL (21-232)
[2019-11-23 21:11] LABS: TROPONIN-I < 0.017 ng/mL (0.000-0.060)
[2019-11-23 22:04] LABS: ERYTHROCYTE SEDIMENTATION RATE 29 mm/hr (0-15)
[2019-11-23 22:31] VITALS: BP 118/69
--- NOTE | 2019-11-23 23:17 | NUR ---
ZOSYN 3.37/50ML STARTED AT 2244 FINISHED AT 2314.
--- NOTE | 2019-11-23 23:47 | NUR ---
RECEIVED FROM ER VIA WHEELCHAIR. ALERT.ORIENTED. LEFT ELBOW RED AND EDEMATOUS. STERI STRIPS INTACT. DRESSING APPLIED PER PATIENT REQUEST DUE TO DRAINAGE.. SL TO RAC INTACT WITHOUT REDNESS OR EDEMA NOTED. CL IN REACH
[2019-11-24 01:12] VITALS: BP 126/61; BMI 26.0
[2019-11-24 04:00] VITALS: BP 122/67
--- NOTE | 2019-11-24 07:37 | NUR ---
ALERT AND ORIENTED. LUNGS CLEAR BILATERALLY. HEART SOUNDS S1 AND S2 HEARD IN ALL BARRETT. BOWEL SOUNDS ACTIVE X 4. DRSG TO LEFT ELBOW C/D/I. ASKIN ABOUT TIME FOR SURGERY. NO ORDERS FOR CONSENTS. NO CONSENTS ON CHART. IV TO RIGHT AC PATENT WITHOUT REDNESS. DENIES NEEDS. BED LOW. CALL BEAL AND PERSONAL ITEMS IN REACH. WILL CONTINUE TO MONITOR.
[2019-11-24 09:14] VITALS: BP 126/72
--- NOTE | 2019-11-24 12:03 | NUR ---
RESTING IN BED. AT BEDSIDE. DENIES NEEDS. WILL CONTINUE TO MONITOR.
--- NOTE | 2019-11-24 13:33 | NUR ---
NOTIFIED GRAIN OILSEED OR PASTURE GROWER TECH OF TELE NEEDED.
[2019-11-24 13:51] VITALS: BMI 26.0
--- NOTE | 2019-11-24 14:32 | NUR ---
NEW IV PLACED TO RIGHT WRIST.
[2019-11-24 14:37] LABS: ERYTHROCYTE SEDIMENTATION RATE 15 mm/hr (0-15)
[2019-11-24 15:43] LABS: BILIRUBIN NEGATIVE (NEGATIVE); GLUCOSE NEGATIVE (NEGATIVE); KETONE NEGATIVE (NEGATIVE); NITRITE NEGATIVE (NEGATIVE); UROBILINOGEN NORMAL (NORMAL)
[2019-11-24 15:56] LABS: UDS - AMPHET NEGATIVE QUAL (NEGATIVE); UDS - BARB NEGATIVE QUAL (NEGATIVE); UDS - BENZO POSITIVE QUAL (NEGATIVE); UDS - COCAINE NEGATIVE QUAL (NEGATIVE); UDS - OPIATE POSITIVE QUAL (NEGATIVE); UDS - PCP NEGATIVE QUAL (NEGATIVE); UDS - THC NEGATIVE QUAL (NEGATIVE)
[2019-11-24 17:13] VITALS: BP 150/81
[2019-11-24 20:00] VITALS: BP 161/82
[2019-11-25] VITALS: BP 158/84
[2019-11-25 04:00] VITALS: BP 102/45; BP 137/74
[2019-11-25 05:45] LABS: BASOPHILS 0.2 % (0-2); EOSINOPHILS 0.4 % (0-7); HEMOGLOBIN 12.2 g/dL (13.5-17.5); IMMATURE GRANULOCYTES 3.2 % (0-5); LYMPHOCYTES 4.8 % (15-50); MCH 28.6 pg (26.0-34.0); MCHC 31.3 g/dL (31.0-37.0); MCV 91.5 fL (80.0-100.0); MEAN PLATELET VOLUME 10.3 fL (7.4-10.4); MONOCYTES 10.1 % (2-11); NEUTROPHILS 81.3 % (40-80); PLATELET COUNT 289 10x3/uL (130-400); RBC 4.26 10x6/uL (4.20-6.10); RDW 16.5 % (11.5-14.5)
--- NOTE | 2019-11-25 05:46 | NUR ---
I have reviewed this patient and I concur with the Shift Assessment completed by the Licensed Practical Nurse today this shift.
[2019-11-25 06:23] LABS: ANION GAP 19.5 mmol/L (8-16); CALCIUM 8.3 mg/dL (8.5-10.1); CARBON DIOXIDE 23.9 mmol/L (21.0-32.0); POTASSIUM - SERUM 4.4 mmol/L (3.5-5.1); WBC 13.1 10x3/uL (4.8-10.8)
[2019-11-25 06:25] LABS: CREATININE - SERUM 1.3 mg/dL (0.6-1.3)
[2019-11-25 09:42] VITALS: BP 130/73
[2019-11-25 13:01] VITALS: BP 172/92
--- NOTE | 2019-11-25 15:43 | NUR ---
I have reviewed this patient and I concur with the Shift Assessment completed by the Licensed Practical Nurse today this shift.
[2019-11-25 17:24] VITALS: BP 141/76
[2019-11-25 20:00] VITALS: BP 110/80
[2019-11-26 04:00] VITALS: BP 147/97
[2019-11-26 06:50] LABS: BASOPHILS 0.2 % (0-2); HEMATOCRIT 37.3 % (42.0-54.0); HEMOGLOBIN 11.6 g/dL (13.5-17.5); IMMATURE GRANULOCYTES 4.2 % (0-5); LYMPHOCYTES 8.5 % (15-50); MCH 28.6 pg (26.0-34.0); MCHC 31.1 g/dL (31.0-37.0); MCV 91.9 fL (80.0-100.0); MEAN PLATELET VOLUME 10.6 fL (7.4-10.4); NEUTROPHILS 77.1 % (40-80); PLATELET COUNT 278 10x3/uL (130-400); RBC 4.06 10x6/uL (4.20-6.10); RDW 16.5 % (11.5-14.5); WBC 10.8 10x3/uL (4.8-10.8)
[2019-11-26 07:20] LABS: ANION GAP 15.1 mmol/L (8-16); CALCIUM 8.1 mg/dL (8.5-10.1); CARBON DIOXIDE 25.1 mmol/L (21.0-32.0); CREATININE - SERUM 1.2 mg/dL (0.6-1.3); POTASSIUM - SERUM 4.2 mmol/L (3.5-5.1)
[2019-11-26 09:32] VITALS: BP 125/74
[2019-11-26 09:39] LABS: ERYTHROCYTE SEDIMENTATION RATE 29 mm/hr (0-15)
[2019-11-26 12:40] VITALS: BP 128/78
--- NOTE | 2019-11-26 13:47 | NUR ---
I have reviewed this patient and I concur with the Shift Assessment completed by the Licensed Practical Nurse today this shift.
[2019-11-26 16:53] VITALS: BP 142/80
[2019-11-26 20:00] VITALS: BP 162/98
--- NOTE | 2019-11-27 02:52 | NUR ---
I have reviewed this patient and I concur with the Shift Assessment completed by the Licensed Practical Nurse today this shift.
[2019-11-27 04:00] VITALS: BP 139/837
[2019-11-27 04:26] LABS: BASOPHILS 0.1 % (0-2); EOSINOPHILS 0.2 % (0-7); HEMATOCRIT 37.5 % (42.0-54.0); HEMOGLOBIN 11.9 g/dL (13.5-17.5); LYMPHOCYTES 9.1 % (15-50); MCH 28.5 pg (26.0-34.0); MCHC 31.7 g/dL (31.0-37.0); MCV 89.9 fL (80.0-100.0); MEAN PLATELET VOLUME 9.7 fL (7.4-10.4); MONOCYTES 6.7 % (2-11); NEUTROPHILS 81.9 % (40-80); PLATELET COUNT 280 10x3/uL (130-400); RBC 4.17 10x6/uL (4.20-6.10); RDW 16.6 % (11.5-14.5)
[2019-11-27 04:46] LABS: CALC OSMOLALITY 282 mosm/kg (275-300); CALCIUM 8.9 mg/dL (8.5-10.1); CARBON DIOXIDE 27.7 mmol/L (21.0-32.0); CHLORIDE - SERUM 107 mmol/L (98-107); GLUCOSE 115 mg/dL (74-106); POTASSIUM - SERUM 3.6 mmol/L (3.5-5.1); SODIUM 141 mmol/L (136-145); UREA NITROGEN 16 mg/dL (7-18); eGFR NON AFRICAN AMERICAN 85 mL/min (90-120)
[2019-11-27 08:17] VITALS: BP 167/95
--- NOTE | 2019-11-27 09:54 | MORECARE ---
CASE MANAGEMENT DISCHARGE SUMMARY PATIENT: LYNETTE SHEETS JR UNIT: [id number] ADM DATE: 11/24/19 AGE: 48 : 72 SEX: M ROOM/BED: D.2231 AUTHOR: EDOUARD CHANEL PHYSICIAN: REFERRING PHYSICIAN: MARVIN DURAND MD DATE OF SERVICE: 11/27/19 Discharge Plan Patient Name: LYNETTE SHEETS [facility] [facility] 1970 Planned Disposition: Home with Home Health Anticipated Discharge Date: Discharge Date: Expected LOS: Initial Reviewer: [email or web address] Initial Review Date: 11/27/2019 Generated: 11/27/19 10:54 am DCPIA - Discharge Planning Initial Assessment Updated by [email or web address]: Haven Miller on 11/27/19 9:53 am * Is the patient Alert and Oriented? Yes * How many steps to enter\exit or inside your home? 2/0 * PCP Dr. Joseph * Pharmacy [facility] * Preadmission Environment Home with Family * ADLs Partial Dependent * Partial ADLs (Assistance needed) Ambulation Bathing * Equipment Glucometer Nebulizer Other Shower Chair Wheelchair * Other Equipment Bilateral leg prosthesis * List name and contact numbers for known caregivers / representatives who currently or will assist patient after discharge: Lisa Sheets - [facility] - [phone] * Verbal permission to speak to the caregivers and representatives has been obtained from the patient. Yes * Community resources currently utilized Home Health * Please name any agencies selected above. [facility] * Additional services required to return to the preadmission environment? No * Can the patient safely return to the preadmission environment? Yes * Has this patient been hospitalized within the prior 30 days at any hospital? No Patient Name: LYNETTE SHEETS Page [id number] at 0954 All edits/amendments must be made on the electronic document DICTATION DATE: 11/27/19953 AREA FIELD WORKER: SALAS 11/27/19953 RPT#: [id number] DC DATE: STATUS: ADM IN [facility] [address] [place] [address] END OF REPORT
--- NOTE | 2019-11-27 10:01 | MORECARE ---
CASE MANAGEMENT DISCHARGE SUMMARY PATIENT: LYNETTE SHEETS JR UNIT: [id number] ADM DATE: 11/24/19 AGE: 48 : 72 SEX: M ROOM/BED: D.2231 AUTHOR: DARÍO,DOC PHYSICIAN: REFERRING PHYSICIAN: MARVIN DURAND MD DATE OF SERVICE: 11/27/19 Discharge Plan Patient Name: LYNETTE SHEETS Facility[facility]:[place] : 1970 Planned Disposition: Home with Home Health Anticipated Discharge Date: Discharge Date: Expected LOS: Initial Reviewer: [email or web address] Initial Review Date: 11/27/2019 Generated: 11/27/19 11:01 am Comments DCP- Discharge Planning Updated by [email or web address]: Haven Miller on 11/27/19 8:[address] Patient Name: LYNETTE SHEETS Admission Status: ER Accout number: [id number] Admission Date: 11-24-2019 : 1970 Admission Diagnosis: Attending: MARVIN DURAND Current LOS: 3 Anticipated DC Date: Planned Disposition: Home with Home Health Primary Insurance: MEDICARE A & B Discharge Planning Comments: CM met with patient to complete initial dc planning assessment. CM educated patient on the CM role and verbal consent given by patient to complete assessment. His spouse is in the room and verbal permission received to discuss discharge planning with present. Patient lives at home with his spouse. At discharge patient plans to return and feels this is a safe discharge. CM discussed availability of home health, rehab services, and medical equipment. Patient states he has had [facility] coming 2-3 times a week for dressing changes and would like to continue this on discharge. CONRAD for [facility] signed. CM will continue to follow and will assist as needed with dc plans/needs. Lead Business Systems Analyst: Haven Miller DCPIA - Discharge Planning Initial Assessment Updated by [email or web address]: Haven Miller on 11/27/19 9:53 am * Is the patient Alert and Oriented? Yes * How many steps to enter\exit or inside your home? 2/0 * PCP Dr. Joseph * Pharmacy [facility] * Preadmission Environment Home with Family * ADLs Partial Dependent * Partial ADLs (Assistance needed) Ambulation Bathing * Equipment Glucometer Nebulizer Other Shower Chair Wheelchair * Other Equipment Bilateral leg prosthesis * List name and contact numbers for known caregivers / representatives who currently or will assist patient after discharge: Lisa Sheets - spouse - [phone] * Verbal permission to speak to the caregivers and representatives has been obtained from the patient. Yes * Community resources currently utilized Home Health * Please name any agencies selected above. [facility] * Additional services required to return to the preadmission environment? No * Can the patient safely return to the preadmission environment? Yes * Has this patient been hospitalized within the prior 30 days at any hospital? No Coverage Notice Reviewer: [id number] Maxx Miller Notice Issued Date-Time: 11/27/2019 9:57 Notice Type: IM Discharge Notice Notice Delivered To: Patient Relationship to Patient: Self Golf Course Architect Name: Delivery Method: HAND - Hand Delivered Linh Days: Prior Verbal Notification: Recipient Understood Notice: Yes Recipient Signature: Yes Med Rec Note Co-signed by Attending: Coverage Notice Comment: Anaya [facility] Last DP export: 11/27/19 8:54 a Patient Name: LYNETTE SHEETS Page [phone] at 1001 All edits/amendments must be made on the electronic document DICTATION DATE: 11/27/19 1001 DIRECTOR OF SCIENCE: SALAS 11/27/19 1001 RPT#: [id number] DC DATE: STATUS: ADM IN [facility] [address] [place] [address] END OF REPORT
--- NOTE | 2019-11-27 13:17 | NUR ---
NUTRITION F/U PT CURRENTLY IN SURGERY. WILL PROVIDE DIET WHEN RESUMED, MONITOR PO INTAKE. RD FOLLOWING
[2019-11-27 13:52] VITALS: BP 164/84
[2019-11-27 14:37] VITALS: BP 119/72
--- NOTE | 2019-11-27 14:49 | EC ---
PATIENT:LYNETTE SHEETS JR DATE OF SERVICE: 11/24/19 SEX: M MEDICAL RECORD: [id number] DATE OF : 72 LOCATION:D.MS [place] AGE OF PATIENT: 48 ADMISSION DATE: 11/24/19 REFERRING PHYSICIAN: INTERPRETING PHYSICIAN: MAC CACERES MD ECHOCARDIOGRAM REPORT ECHO CHARGES 4 ECHO COMPLETE Date: 11/26/19 CLINICAL DIAGNOSIS: +BLOOD CULTURES ECHOCARDIOGRAPHIC MEASUREMENTS (adult normal given) AC root (d.<3.7cm) 3.0 cm LV Septum d (<1.2 cm> 1.3 cm Valve Excursion 1.7 cm LV Septum (systole) 1.6 cm Left Atria (s.<4.0cm> 3.5 cm LVPW d(<1.2cm) 1.2 cm RV (d.<2.3cm) 2.9 cm LVPW (sytole) 1.4 cm LV diastole(<5.6CM) 5.7 cm MV E-F(>70mm/sec) cm LV systole 4.5 cm LVOT Diameter 2.2 cm MV exc.(>10mm) cm Est.ejection fraction (50-75%) % DOPPLER: LVIT cm/sec A 75 cm/sec E 69 cm/sec LA cm/sec RVSP 20.0 mmHg LVOT 158 cm/sec AOP1/2T m/s Asc. Ao 156 cm/sec RVOT 87 cm/sec RA cm/sec PA 113 cm/sec AV Gradient Peak 9.7 mmHg AV Mean 5.0 mmHg AV Area 3.5 cm MV Gradient Peak 3.0 mmHg MV Mean 1.7 mmHg MV Area cm COMMENTS: Geosciences Associate Professor: Guillermo MÁRQUEZ Director Of Security: 3 Dr. Miller TAPE# PACS Pericardial Effusion Y DATE OF SERVICE: Adequate 2D, color flow imaging, spectral Doppler, and M-Mode. LVH is present. LV internal dimension is normal. Wall motion is normal. EF is greater than or equal to 55%. Aortic valve is tricuspid. No evidence of stenosis by Doppler interrogation. Left atrium is normal is 3.5 cm. Mitral valve shows no prolapse. Trace MR. Right-sided chambers are grossly normal. Trace TR. ECHOCARDIOGRAM REPORT [id number] LYNETTE SHEETS JR TRANSINT:[id number] Voice Confirmation ID: [id number] DOCUMENT ID: [id number] MAC CACERES MD at 1449 CC: [id number] DICTATION DATE: 11/26/19 1450 CLEAN UP SUPERVISOR: 11/26/19 1516 ADM IN [place] [id number] [place] [id number]
[2019-11-27 22:55] VITALS: BP 122/83
--- NOTE | 2019-11-28 00:20 | NUR ---
alert and orented able to voice needs to staff. IV infilltrated and resited to right AC, per protol
[2019-11-28 04:00] VITALS: BP 152/84
[2019-11-28 05:33] LABS: BASOPHILS 0.1 % (0-2); EOSINOPHILS 0.1 % (0-7); HEMOGLOBIN 12.4 g/dL (13.5-17.5); IMMATURE GRANULOCYTES 2.6 % (0-5); LYMPHOCYTES 6.9 % (15-50); MCH 28.9 pg (26.0-34.0); MCHC 31.8 g/dL (31.0-37.0); MCV 90.9 fL (80.0-100.0); MEAN PLATELET VOLUME 10.1 fL (7.4-10.4); MONOCYTES 6.5 % (2-11); NEUTROPHILS 83.8 % (40-80); PLATELET COUNT 288 10x3/uL (130-400); RBC 4.29 10x6/uL (4.20-6.10); RDW 16.5 % (11.5-14.5); WBC 13.8 10x3/uL (4.8-10.8)
[2019-11-28 05:41] LABS: CALC OSMOLALITY 283 mosm/kg (275-300); CALCIUM 8.6 mg/dL (8.5-10.1); CARBON DIOXIDE 24.1 mmol/L (21.0-32.0); CHLORIDE - SERUM 107 mmol/L (98-107); CREATININE - SERUM 1.1 mg/dL (0.6-1.3); GLUCOSE 149 mg/dL (74-106); SODIUM 140 mmol/L (136-145); UREA NITROGEN 18 mg/dL (7-18); eGFR NON AFRICAN AMERICAN 76 mL/min (90-120)
[2019-11-28 05:45] LABS: POTASSIUM - SERUM 4.4 mmol/L (3.5-5.1)
--- NOTE | 2019-11-28 08:00 | NUR ---
ALERT AND ORIENTED. LUNGS CLEAR BIALTERALLY. HEART SOUNDS S1 AND S2 HEARD IN ALL BARRETT. DRSG TO LEFT ELBOW C/D/I. IV TO RIGHT HAND PATENT WITHOUT REDNESS. DENIES NEEDS. BED LOW. CALL BEAL AND PERSONAL ITEMS IN REACH. WILL CONTINUE TO MONITOR.
[2019-11-28 08:47] VITALS: BP 130/80
[2019-11-28 12:38] VITALS: BP 144/79
[2019-11-28 17:16] VITALS: BP 149/88
--- NOTE | 2019-11-28 17:25 | NUR ---
RESTING IN BED. DENIES NEEDS. WILL CONTINUE TO MONITOR.
[2019-11-28 20:00] VITALS: BP 125/75
--- NOTE | 2019-11-28 20:00 | NUR ---
PATIENT RESTING IN BED WITH EYES OPEN. NO S/S OF DISTRESS. NO C/O AT THIS TIME. PATIENT HAS IV IN RIGHT FOREARM NORMAL SALINE @10 ML/HR. IV IS PATENT WITHOUT REDNESS, SWELLING, OR TENDERNESS. PATIENT HAS TELEMETRY: 89 BPM NORMAL SINUS RYTHM. PATIENT HAS A DRESSING TO THE LEFT ELBOW FROM A I&D DONE YESTERDAY. DRESSING IS C/D/I. PATIENT IS A BILATERAL BKA WITH PROSTHETICS. PATIENT CAN PUT ON AND USE PROSTHETICS MOSTLY BY SELF. CALL LIGHT IN PLACE. WILL CONTINUE TO MONITOR.
--- NOTE | 2019-11-29 01:28 | NUR ---
I have reviewed this patient and I concur with the Shift Assessment completed by the Licensed Practical Nurse today this shift.
[2019-11-29 04:00] VITALS: BP 138/80
[2019-11-29 05:57] LABS: BASOPHILS 0.3 % (0-2); EOSINOPHILS 0.8 % (0-7); HEMATOCRIT 39.6 % (42.0-54.0); HEMOGLOBIN 12.4 g/dL (13.5-17.5); IMMATURE GRANULOCYTES 3.4 % (0-5); LYMPHOCYTES 11.8 % (15-50); MCH 28.6 pg (26.0-34.0); MCHC 31.3 g/dL (31.0-37.0); MCV 91.5 fL (80.0-100.0); MEAN PLATELET VOLUME 10.6 fL (7.4-10.4); MONOCYTES 7.5 % (2-11); NEUTROPHILS 76.2 % (40-80); PLATELET COUNT 283 10x3/uL (130-400); RBC 4.33 10x6/uL (4.20-6.10); RDW 16.6 % (11.5-14.5); WBC 13.5 10x3/uL (4.8-10.8)
[2019-11-29 06:13] LABS: ANION GAP 13.8 mmol/L (8-16); CALCIUM 8.3 mg/dL (8.5-10.1); CREATININE - SERUM 1.2 mg/dL (0.6-1.3); POTASSIUM - SERUM 3.8 mmol/L (3.5-5.1)
[2019-11-29 08:33] VITALS: BP 145/80
--- NOTE | 2019-11-29 10:18 | OP ---
PATIENT NAME: ELÍAS SHEETS JR MEDICAL RECORD: [id number] :[birth year] LOCATION:D.MS [place] ADMISSION DATE:11/24/19 SURGEON: BRADFORD GILMAN MD DATE OF OPERATION: 11/27/2019 PREOPERATIVE DIAGNOSIS: Septic olecranon bursitis of the left elbow. POSTOPERATIVE DIAGNOSIS: Septic olecranon bursitis of the left elbow. PROCEDURES: 1. Excisional debridement of the left elbow septic olecranon bursitis. 2. Open packing of the wound. SURGEON: Bradford iGlman MD FIREMAN: TAMIKA Lopez INTRAOPERATIVE COMPLICATIONS: Essentially none. SUMMARY OF PATHOLOGIC FINDINGS: While the patient did have serous drainage of the olecranon bursa, I am very hesitant to say it has caused his borderline sepsis. INDICATIONS: Mr. Elías Sheets has a longtime history of immunosuppression; however, he had excision of an olecranon bursa that has now become draining and infected. He presented to the hospital in what was thought to be near complete sepsis and was started on antibiotics and began to improve; however, within the last 24 hours, his improvement has essentially stopped. At today's debridement, again I am concerned that this is not the overwhelming factor causing his illness. OPERATIVE SUMMARY IN DETAIL: After obtaining the appropriate preoperative orthopedic surgery consent as well as anesthetic consultation, evaluation, and clearance, the patient was brought to the operating room and placed on the operating room table in supine position. After adequate general laryngeal mask airway was administered, the patient's left upper extremity was prepped and draped in a sterile fashion. Upon inspection, the patient had a very small punctate area of drainage. This was opened up in its entirety. Serial and sequential curettage, rongeur as well as scalpel removal of any nonviable appearing tissue was done along with multiple cultures taken. When the final lavage had been completed, the wound was packed with 1-inch Kerlix gauze soaked in Betadine. Sterile dressings were applied. The patient was awakened and taken to recovery room in stable condition. All final needle and sponge counts were correct. TRANSINT:[id number] Voice Confirmation ID: [id number] DOCUMENT ID: [id number] OPERATIVE REPORT [id number] ELÍAS SHEETS JR KALINA RING, BRADFORD WALLS at 1018 CC: [id number] DICTATION DATE: 11/28/19621 SOCIAL ECONOMIST: 11/28/19922 ADM IN [facility] [address] [place] [id number]
--- NOTE | 2019-11-29 10:24 | NUR ---
RESTING IN BED, NO DISTRESS NOTED, ELBOW DRESSING DRY AND INTACT, IN ROOM, IV INFUSING, CONT TO MONITOR PAIN
[2019-11-29 12:28] VITALS: BP 115/84
--- NOTE | 2019-11-29 15:04 | NUR ---
pt refused dressing change to elbow, states that the dr told him to change the dressing every 3 days, orders are for daily, but will clarify
--- NOTE | 2019-11-29 16:12 | NUR ---
NO VASCULAR ACCESS NURSE HERE TODAY, CLARIFIED WITH GLAZE SPRAYER
[2019-11-29 16:39] VITALS: BP 129/87
--- NOTE | 2019-11-29 17:54 | NUR ---
DRESSING CHANGED AFTER INFORMING PT THAT DR GILMAN IS NOT PROP DRAWER, NO S/S OF INFECTION, CLEANED WITH NS AND REDRESSED WITH 4X4 ABD AND BHARGAVI
[2019-11-29 19:46] VITALS: BP 138/87
--- NOTE | 2019-11-29 20:00 | NUR ---
PATIENT RESTING IN BED WITH IN BED ALSO. NO S/S OF DISTRESS. PATIENT COMPLAINS OF PAIN, AND WAS GIVEN PRECOCET-10. PATIENT HAS IV IN RIGHT FOREARM NORMAL SALINE @ 10 ML/HR. IV IS PATENT WITHOUT REDNESS, SWELLING, OR TENDERNESS. PATIENT HAS DRESSING ON LEFT ELBOW, DRESSING C/D/I, FROM I&D 2 DAYS AGO. PATIENT IS A BILATERAL BKA. CALL LIGHT IN PLACE. WILL CONTINUE TO MONITOR.
[2019-11-30 01:20] VITALS: BP 142/91
--- NOTE | 2019-11-30 04:54 | NUR ---
I have reviewed this patient and I concur with the Shift Assessment completed by the Licensed Practical Nurse today this shift.
[2019-11-30 05:12] VITALS: BP 139/70
[2019-11-30 07:11] LABS: BILIRUBIN NEGATIVE (NEGATIVE); GLUCOSE NEGATIVE (NEGATIVE); KETONE NEGATIVE (NEGATIVE); NITRITE NEGATIVE (NEGATIVE); SPECIFIC GRAVITY 1.015 (1.005-1.020); UROBILINOGEN NORMAL (NORMAL)
[2019-11-30 08:21] VITALS: BP 156/89
--- NOTE | 2019-11-30 10:17 | NUR ---
RESTING IN BED, NO DISTRESS NOTED, IV INFUSING, DRESSING TO ELBOW DRY AND INTACT, IN ROOM
[2019-11-30 11:59] VITALS: BP 113/82
[2019-11-30 15:25] LABS: BASOPHILS 0.6 % (0-2); EOSINOPHILS 0.3 % (0-7); HEMATOCRIT 42.1 % (42.0-54.0); HEMOGLOBIN 13.1 g/dL (13.5-17.5); IMMATURE GRANULOCYTES 7.9 % (0-5); LYMPHOCYTES 8.1 % (15-50); MCH 28.7 pg (26.0-34.0); MCHC 31.1 g/dL (31.0-37.0); MCV 92.3 fL (80.0-100.0); MEAN PLATELET VOLUME 10.3 fL (7.4-10.4); MONOCYTES 8.5 % (2-11); NEUTROPHILS 74.6 % (40-80); PLATELET COUNT 318 10x3/uL (130-400); RBC 4.56 10x6/uL (4.20-6.10); RDW 16.3 % (11.5-14.5); WBC 15.9 10x3/uL (4.8-10.8)
[2019-11-30 15:43] LABS: CALCIUM 8.4 mg/dL (8.5-10.1); CARBON DIOXIDE 23.1 mmol/L (21.0-32.0); CHLORIDE - SERUM 104 mmol/L (98-107); CREATININE - SERUM 1.1 mg/dL (0.6-1.3); SODIUM 137 mmol/L (136-145); eGFR NON AFRICAN AMERICAN 76 mL/min (90-120)
[2019-11-30 15:52] LABS: CALC OSMOLALITY 277 mosm/kg (275-300); GLUCOSE 98 mg/dL (74-106); POTASSIUM - SERUM 4.7 mmol/L (3.5-5.1); UREA NITROGEN 24 mg/dL (7-18)
[2019-11-30 16:06] VITALS: BP 133/82
--- NOTE | 2019-11-30 19:34 | NUR ---
RPEORT RECIEVED AND ROUNDING COMPLETE. PATIENT SITTING UP IN BED IN JANAK FOWLERS POSITION. AURELIOTENT STATES HE THINKS HIS RIGHT FOREARM PIV IS LEAKING, WHEN FLUSHED NO LEAKING NOTED. PATIENT DOES NOT HAVE ANY IV MEDICATIONS AT THIS TIME AND STATES HE DOES NOT WANT TO BE STUCK AGAIN. PIV IS SALINE LOCKED A THIS TIME. VASCULAR CONSULT IN FOR LINE PLACEMENT. KTAHY HAS A BHARGAVI BANDAGE TO HIS LEFT ELBOW, DRESSIGN IS C/D/I WITH DAILY DRESSING CHANGES DURING DAY SHIFT, DAY NURSE STATES THIS WAS DONR TODAY AND IT IS A WET TO DRY DRESSING. PATIENT HAS BILATERAL BKA, KATHY HAS NO OTHER NEEDS AT THIS TIME, CALL LIGHT WITHIN REACH AND BED IN LOWEST LOCKED POSITION.
[2019-11-30 20:00] VITALS: BP 139/97
[2019-12-01] VITALS: BP 138/83
--- NOTE | 2019-12-01 00:39 | NUR ---
I have reviewed this patient and I concur with the Shift Assessment completed by the Licensed Practical Nurse today this shift.
[2019-12-01 04:00] VITALS: BP 137/84
--- NOTE | 2019-12-01 05:58 | NUR ---
PATIENT LAYING IN BED WITH HIS GIRLFRIEND IN THE BED WELL, A CHILD IS SLEEPING IN CHAIR. PATIENT STATES HE HAS NO NEEDS AT THIS TIME, GIRLFRIEND WANTED TO KNOW WHRN THE DOCTOR WILL BE IN. CALL LIGHT WITHIN REACH AND BED IN LOWEST LOCKED POSITION.
[2019-12-01 07:02] LABS: CALC OSMOLALITY 283 mosm/kg (275-300); CALCIUM 8.6 mg/dL (8.5-10.1); CARBON DIOXIDE 25.3 mmol/L (21.0-32.0); CHLORIDE - SERUM 105 mmol/L (98-107); CREATININE - SERUM 1.1 mg/dL (0.6-1.3); GLUCOSE 132 mg/dL (74-106); MAGNESIUM - SERUM 2.1 mg/dL (1.8-2.4); POTASSIUM - SERUM 4.9 mmol/L (3.5-5.1); SODIUM 140 mmol/L (136-145); UREA NITROGEN 21 mg/dL (7-18); eGFR NON AFRICAN AMERICAN 76 mL/min (90-120)
[2019-12-01 08:16] LABS: BASOPHILS 0.4 % (0-2); EOSINOPHILS 0.5 % (0-7); HEMATOCRIT 39.6 % (42.0-54.0); HEMOGLOBIN 12.5 g/dL (13.5-17.5); IMMATURE GRANULOCYTES 9.2 % (0-5); LYMPHOCYTES 14.5 % (15-50); MCHC 31.6 g/dL (31.0-37.0); MCV 91.9 fL (80.0-100.0); MEAN PLATELET VOLUME 10.9 fL (7.4-10.4); MONOCYTES 6.8 % (2-11); NEUTROPHILS 68.6 % (40-80); PLATELET COUNT 329 10x3/uL (130-400); RBC 4.31 10x6/uL (4.20-6.10); RDW 16.4 % (11.5-14.5); WBC 15.7 10x3/uL (4.8-10.8)
[2019-12-01 09:16] VITALS: BP 139/84
--- NOTE | 2019-12-01 09:33 | NUR ---
PT ALERT X 4. BREATH SOUNDS CLEAR BILAT. TELEMETRY IN PLACE. IV TO RIGHT HAND, SALINE LOCKED. BHARGAVI TO LEFT ELBOW. PT REPORTING PAIN OF 10/10, WILL MONITOR. BOWEL SOUNDS HYPOACTIVE X 4. PRE-EXISTING BILAT BKA. FAMILY AT BEDSIDE. BED LOW, CALL LIGHT IN REACH. NO OTHER NEEDS AT THIS TIME.
[2019-12-01 12:26] VITALS: BP 120/64
[2019-12-01 17:28] VITALS: BP 141/87
[2019-12-01 21:48] VITALS: BP 146/92
[2019-12-02 01:07] VITALS: BP 128/90
[2019-12-02 05:43] LABS: ANION GAP 14.2 mmol/L (8-16); CALCIUM 8.3 mg/dL (8.5-10.1); CARBON DIOXIDE 23.5 mmol/L (21.0-32.0); POTASSIUM - SERUM 4.7 mmol/L (3.5-5.1)
[2019-12-02 05:50] LABS: CREATININE - SERUM 1.4 mg/dL (0.6-1.3)
[2019-12-02 06:00] VITALS: BP 116/91
--- NOTE | 2019-12-02 07:20 | NUR ---
REC'D IN BED AWAKE AND ALERT. RESP EVEN AND UNALBORED WITH NO DISTRESS NOTED NOTED. CAN MAKE NEEDS AND WANTS KNOWN. C/O PAIN RATING 8/10 ON PAIN SCALE. BUT IS NOT CURRENTLY TIME FOR PAIN MEDICATION. THIS NURSE INFORMED PT OF THIS. ASSESSMENT COMPLETED. C/L IN REACH AT BEDSIDE.
[2019-12-02 07:38] LABS: HEMOGLOBIN 12.5 g/dL (13.5-17.5); MCH 28.8 pg (26.0-34.0); MCHC 30.5 g/dL (31.0-37.0); MEAN PLATELET VOLUME 10.8 fL (7.4-10.4); PLATELET COUNT 303 10x3/uL (130-400); RBC 4.34 10x6/uL (4.20-6.10); RDW 16.8 % (11.5-14.5); WBC 14.7 10x3/uL (4.8-10.8)
[2019-12-02 07:39] LABS: MCV 94.5 fL (80.0-100.0)
--- NOTE | 2019-12-02 08:54 | NUR ---
WAS MEDICATED WITH OXY PER ORDERS FOR C/O PAIN RATING 8/10 ON PAIN SCALE TO LEFT ELBOW. IS WANTING PAIN MEDICATION DECREASE. THIS NURSE INFORMED HER THAT I WILL INFORM THE MD OF HER REQUEST.
[2019-12-02 09:05] LABS: ANISOCYTOSIS OCC; EOSINOPHILS 1 % (0-7); LYMPHOCYTES 13 % (15-50); MONOCYTES 12 % (2-11); NEUTROPHILS 72 % (40-80); PLATELET ESTIMATE NORMAL
[2019-12-02 09:12] VITALS: BP 124/72
[2019-12-02 13:06] VITALS: BP 113/91
--- NOTE | 2019-12-02 13:29 | NUR ---
I have reviewed this patient and I concur with the Shift Assessment completed by the Licensed Practical Nurse today this shift.
--- NOTE | 2019-12-02 19:35 | NUR ---
PATIENT RESTING IN BED WITH GUEST AT BEDSIDE AND NO S/S OF DISTRESS. BED IN LOWEST POSITION AND CALL LIGHT WITHIN REACH. ENCOURAGED THE PATIENT TO CALL IF HE HAS NEEDS. WILL CONTINUE TO MONITOR.
[2019-12-02 20:00] VITALS: BP 135/87
--- NOTE | 2019-12-02 20:21 | NUR ---
ADMINISTERED MEDS PER ORDERS. PATIENT REQUESTED PAIN MED. PATIENT DENIES OTHER NEEDS AT THIS TIME. BED IN LOWEST POSITION AND CALL LIGHT WITHIN REACH. ENCOURAGED THE PATIENT TO CALL IF HE HAS NEEDS.
[2019-12-03 04:00] VITALS: BP 134/68
[2019-12-03 06:35] LABS: ANION GAP 12.6 mmol/L (8-16); CALCIUM 8.3 mg/dL (8.5-10.1); CARBON DIOXIDE 22.2 mmol/L (21.0-32.0); CREATININE - SERUM 1.4 mg/dL (0.6-1.3); MAGNESIUM - SERUM 2.2 mg/dL (1.8-2.4); POTASSIUM - SERUM 4.8 mmol/L (3.5-5.1); VANCOMYCIN - TROUGH 12.9 ug/mL (10.0-20.0)
[2019-12-03 06:36] LABS: BASOPHILS 0.5 % (0-2); EOSINOPHILS 0.7 % (0-7); HEMATOCRIT 40.4 % (42.0-54.0); HEMOGLOBIN 12.4 g/dL (13.5-17.5); IMMATURE GRANULOCYTES 8.2 % (0-5); LYMPHOCYTES 9.1 % (15-50); MCHC 30.7 g/dL (31.0-37.0); MCV 94.6 fL (80.0-100.0); NEUTROPHILS 73.5 % (40-80); PLATELET COUNT 281 10x3/uL (130-400); RBC 4.27 10x6/uL (4.20-6.10); RDW 16.7 % (11.5-14.5); WBC 16.4 10x3/uL (4.8-10.8)
--- NOTE | 2019-12-03 07:39 | NUR ---
RESTING IN BED, NO DISTRESS NOTED, DRESSING TO LEFT ELBOW, TELE IN PLACE, SL IN PLACE
[2019-12-03 09:06] VITALS: BP 138/103
--- NOTE | 2019-12-03 09:15 | MORECARE ---
CASE MANAGEMENT DISCHARGE SUMMARY PATIENT: LYNETTE SHEETS JR UNIT: [id number] ADM DATE: 11/24/19 AGE: 48 : 72 SEX: M ROOM/BED: D.2231 AUTHOR: DARÍO,DOC PHYSICIAN: REFERRING PHYSICIAN: MARVIN DURAND MD DATE OF SERVICE: 12/03/19 Discharge Plan Patient Name: LYNETTE SHEETS Facility: [facility]:[place] : 1970 Planned Disposition: Home with Home Health Anticipated Discharge Date: Discharge Date: Expected LOS: Initial Reviewer: [email or web address] Initial Review Date: 11/27/2019 Generated: 12/03/19 10:14 am DCP- Discharge Planning Updated by [id number]: Haven Miller on 11/27/19 8:[address] Patient Name: LYNETTE SHEETS Admission Status: ER Accout number: [id number] Admission Date: 11-24-2019 : 1970 Admission Diagnosis: Attending: MARVIN DURAND Current LOS: 3 Anticipated DC Date: Planned Disposition: Home with Home Health Primary Insurance: MEDICARE A & B Discharge Planning Comments: CM met with patient to complete initial dc planning assessment. CM educated patient on the CM role and verbal consent given by patient to complete assessment. His spouse is in the room and verbal permission received to discuss discharge planning with present. Patient lives at home with his spouse. At discharge patient plans to return and feels this is a safe discharge. CM discussed availability of home health, rehab services, and medical equipment. Patient states he has had [facility] coming 2-3 times a week for dressing changes and would like to continue this on discharge. CONRAD for [facility] signed. CM will continue to follow and will assist as needed with dc plans/needs. Manager Of Applications Development: Haven Miller DCPIA - Discharge Planning Initial Assessment Updated by [email or web address]: Haven Miller on 11/27/19 9:53 am * Is the patient Alert and Oriented? Yes * How many steps to enter\exit or inside your home? 2/0 * PCP Dr. Joseph * Pharmacy [facility] * Preadmission Environment Home with Family * ADLs Partial Dependent * Partial ADLs (Assistance needed) Ambulation Bathing * Equipment Glucometer Nebulizer Other Shower Chair Wheelchair * Other Equipment Bilateral leg prosthesis * List name and contact numbers for known caregivers / representatives who currently or will assist patient after discharge: Lisa Sheets - spouse - [phone] * Verbal permission to speak to the caregivers and representatives has been obtained from the patient. Yes * Community resources currently utilized Home Health * Please name any agencies selected above. [facility] * Additional services required to return to the preadmission environment? No * Can the patient safely return to the preadmission environment? Yes * Has this patient been hospitalized within the prior 30 days at any hospital? No External Providers External Provider: [facility] Next Contact Date: Service Request Date: Service Type: Resolution: Reviewer: Comments: Coverage Notice Reviewer: [email or web address] Maxx Miller Notice Issued Date-Time: 11/27/2019 9:57 Notice Type: IM Discharge Notice Notice Delivered To: Patient Relationship to Patient: Self Care Coordinator Name: Delivery Method: HAND - Hand Delivered Linh Days: Prior Verbal Notification: Recipient Understood Notice: Yes Recipient Signature: Yes Med Rec Note Co-signed by Attending: Coverage Notice Comment: [facility] Last DP export: 11/27/19 9:02 a Patient Name: LYNETTE SHEETS Page [id number] at 0915 All edits/amendments must be made on the electronic document DICTATION DATE: 12/03/19913 MANAGER OF DRILLING: SALAS 12/03/19913 RPT#: [id number] DC DATE: STATUS: ADM IN [facility] [address] [place] [address] END OF REPORT
--- NOTE | 2019-12-03 09:22 | MORECARE ---
CASE MANAGEMENT DISCHARGE SUMMARY PATIENT: LYNETTE SHEETS JR UNIT: [id number] ADM DATE: 11/24/19 AGE: 48 : 71 SEX: M ROOM/BED: D.2231 AUTHOR: EDOUARD CHANEL PHYSICIAN: REFERRING PHYSICIAN: MARVIN UDRAND MD DATE OF SERVICE: 12/03/19 Discharge Plan Patient Name: LYNETTE SHEETS Facility: [facility]:[place] : 1970 Planned Disposition: Home with Home Health Anticipated Discharge Date: Discharge Date: Expected LOS: Initial Reviewer: [email or web address] Initial Review Date: 11/27/2019 Generated: 12/03/19 10:22 am Comments DCP- Discharge Planning Updated by [email or web address]: Josefina Boyce on 12/03/19 8:[address] RECEIVED A CALL FROM SHELLIE CARBALLO [facility], WANTING TO TRANSFER PATIENT TO [facility] FOR ID. I HAVE CALLED THE TRANSFER CENTER ([phone]) SPOKE WITH CARLOS TO INITIATE THE TRANSFER. FACESHEET AND MICRO FAXED TO [phone] DR GILMAN TO DO THE DOC TO DOC CM WILL CONTIUE TO FOLLOW AND ASSIST WITH DC PLANNING DCP- Discharge Planning Updated by [email or web address]: Haven Miller on 11/27/19 8:[address] Patient Name: LYNETTE SHEETS Admission Status: ER Accout number: [id number] Admission Date: 11-24-2019 : 1970 Admission Diagnosis: Attending: MARVIN DURAND Current LOS: 3 Anticipated DC Date: Planned Disposition: Home with Home Health Primary Insurance: MEDICARE A & B Discharge Planning Comments: CM met with patient to complete initial dc planning assessment. CM educated patient on the CM role and verbal consent given by patient to complete assessment. His spouse is in the room and verbal permission received to discuss discharge planning with present. Patient lives at home with his spouse. At discharge patient plans to return and feels this is a safe discharge. CM discussed availability of home health, rehab services, and medical equipment. Patient states he has had [facility] coming 2-3 times a week for dressing changes and would like to continue this on discharge. CONRAD for [facility] signed. CM will continue to follow and will assist as needed with dc plans/needs. Clerk Cashier: Haven Miller DCPIA - Discharge Planning Initial Assessment Updated by [email or web address]: Haven Miller on 11/27/19 9:53 am * Is the patient Alert and Oriented? Yes * How many steps to enter\exit or inside your home? 2/0 * PCP Dr. Joseph * Pharmacy [facility] * Preadmission Environment Home with Family * ADLs Partial Dependent * Partial ADLs (Assistance needed) Ambulation Bathing * Equipment Glucometer Nebulizer Other Shower Chair Wheelchair * Other Equipment Bilateral leg prosthesis * List name and contact numbers for known caregivers / representatives who currently or will assist patient after discharge: Lisa Sheets - spouse - [phone] * Verbal permission to speak to the caregivers and representatives has been obtained from the patient. Yes * Community resources currently utilized Home Health * Please name any agencies selected above. [facility] * Additional services required to return to the preadmission environment? No * Can the patient safely return to the preadmission environment? Yes * Has this patient been hospitalized within the prior 30 days at any hospital? No Coverage Notice Reviewer: [id number] - Haven Miller Notice Issued Date-Time: 11/27/2019 9:57 Notice Type: IM Discharge Notice Notice Delivered To: Patient Relationship to Patient: Self Roller Skates Assembler Name: Delivery Method: HAND - Hand Delivered Linh Days: Prior Verbal Notification: Recipient Understood Notice: Yes Recipient Signature: Yes Med Rec Note Co-signed by Attending: Coverage Notice Comment: [facility] Last DP export: 12/03/19 8:15 a Patient Name: LYNETTE SHEETS Page [phone] at 0922 All edits/amendments must be made on the electronic document DICTATION DATE: 12/03/19921 BAGGAGE PORTER: SALAS 12/03/19921 RPT#: [id number] DC DATE: STATUS: ADM IN [facility] [address] [place] [address] END OF REPORT
--- NOTE | 2019-12-03 10:05 | NUR ---
I have reviewed this patient and I concur with the Shift Assessment completed by the Licensed Practical Nurse today this shift.
--- NOTE | 2019-12-03 12:37 | NUR ---
NUTRITION F/U CHART REVIEWED, PT VISIT. TOLERATING REG DIET WITH GOOD INTAKE RECENT MEALS. NOTE NPO STATUS AFTER MN. WILL CONTINUE TO MONITOR. RD FOLLOWING
[2019-12-03 12:50] VITALS: BP 131/98
--- NOTE | 2019-12-03 13:32 | MORECARE ---
CASE MANAGEMENT DISCHARGE SUMMARY PATIENT: LYNETTE SHEETS JR UNIT: [id number] ADM DATE: 11/24/19 AGE: 48 : 72 SEX: M ROOM/BED: D.2231 AUTHOR: EDOUARD CHANEL PHYSICIAN: REFERRING PHYSICIAN: MARVIN DURAND MD DATE OF SERVICE: 12/03/19 Discharge Plan Patient Name: LYNETTE SHEETS Facility: [facility]:[place] : 1970 Planned Disposition: Home with Home Health Anticipated Discharge Date: Discharge Date: Expected LOS: Initial Reviewer: [email or web address] Initial Review Date: 11/27/2019 Generated: 12/03/19 2:32 pm Comments DCP- Discharge Planning Updated by [email or web address]: Josefina Boyce on 12/03/19 12:[address] PER PATIENTS NURSE, [facility] HAS GIVEN RECOMMENDATIONS FOR FOR ABX AND HE WILL STAY HERE FOR THE TIME BEING. DCP- Discharge Planning Updated by [email or web address]: Josefina Boyce on 12/03/19 8:[address] RECEIVED A CALL FROM SHELLIE CARBALLO APN, WANTING TO TRANSFER PATIENT TO [facility] FOR ID. I HAVE CALLED THE TRANSFER CENTER ([phone]) SPOKE WITH CARLOS TO INITIATE THE TRANSFER. FACESHEET AND MICRO FAXED TO [phone] DR GILMAN TO DO THE DOC TO DOC CM WILL CONTIUE TO FOLLOW AND ASSIST WITH DC PLANNING DCP- Discharge Planning Updated by [email or web address]: Haven Miller on 11/27/19 8:[address] Patient Name: LYNETTE SHEETS Admission Status: ER Accout number: [id number] Admission Date: 11-24-2019 : 1970 Admission Diagnosis: Attending: MARVIN DURAND Current LOS: 3 Anticipated DC Date: Planned Disposition: Home with Home Health Primary Insurance: MEDICARE A & B Discharge Planning Comments: CM met with patient to complete initial dc planning assessment. CM educated patient on the CM role and verbal consent given by patient to complete assessment. His spouse is in the room and verbal permission received to discuss discharge planning with present. Patient lives at home with his spouse. At discharge patient plans to return and feels this is a safe discharge. CM discussed availability of home health, rehab services, and medical equipment. Patient states he has had [facility] coming 2-3 times a week for dressing changes and would like to continue this on discharge. CONRAD for [facility] signed. CM will continue to follow and will assist as needed with dc plans/needs. Director Mission: Haven Miller DCPIA - Discharge Planning Initial Assessment Updated by [email or web address]: Haven Miller on 11/27/19 9:53 am * Is the patient Alert and Oriented? Yes * How many steps to enter\exit or inside your home? 2/0 * PCP Dr. Joseph * Pharmacy [facility] * Preadmission Environment Home with Family * ADLs Partial Dependent * Partial ADLs (Assistance needed) Ambulation Bathing * Equipment Glucometer Nebulizer Other Shower Chair Wheelchair * Other Equipment Bilateral leg prosthesis * List name and contact numbers for known caregivers / representatives who currently or will assist patient after discharge: Lisa Sheets - [facility] - [phone] * Verbal permission to speak to the caregivers and representatives has been obtained from the patient. Yes * Community resources currently utilized Home Health * Please name any agencies selected above. [facility] * Additional services required to return to the preadmission environment? No * Can the patient safely return to the preadmission environment? Yes * Has this patient been hospitalized within the prior 30 days at any hospital? No Coverage Notice Reviewer: [id number] - Haven Miller Notice Issued Date-Time: 11/27/2019 9:57 Notice Type: IM Discharge Notice Notice Delivered To: Patient Relationship to Patient: Self Lavatory Attendant Name: Delivery Method: HAND - Hand Delivered Linh Days: Prior Verbal Notification: Recipient Understood Notice: Yes Recipient Signature: Yes Med Rec Note Co-signed by Attending: Coverage Notice Comment: [facility] Last DP export: 12/03/19 8:22 a Patient Name: LYNETTE SHEETS Page [phone] at 1332 All edits/amendments must be made on the electronic document DICTATION DATE: 12/03/192 TERRITORY SALES REPRESENTATIVE: SALAS 12/03/192 RPT#: [id number] DC DATE: STATUS: ADM IN [facility] [address] [place] [address] END OF REPORT
--- NOTE | 2019-12-03 14:28 | NUR ---
DRESSING CHANGED TO LEFT ELBOW, NO S/S OF INFECTION, PACKED WITH GAUZE AND COVERED WITH ABD AND BHARGAVI, JOVANY WELL
[2019-12-03 14:55] VITALS: Ht 175.3 cm; Wt 79.8 kg
[2019-12-03 16:44] VITALS: BP 138/80
[2019-12-03 20:00] VITALS: BP 160/89
--- NOTE | 2019-12-03 20:00 | NUR ---
PT SITTING UP IN BED WITHOUT DISTRESS, AOX4. IV RIGHT WRIST SL, NO REDNESS OR SWELLING. DRESSING TO LEFT ELBOW CDI. BILAT LEG AMP WITH PROSTHESIS IN PLACE. PT REMINDED HE NPO AFTER MN, VERBALIZED UNDERSTANDING. DENIES OTHER NEEDS. CL IN REACH, WILL CTM
[2019-12-04] VITALS (7 sets, daily range): BP systolic 122–150; BP diastolic 72–100
[2019-12-04 06:36] LABS: HEMATOCRIT 38.2 % (42.0-54.0); HEMOGLOBIN 11.7 g/dL (13.5-17.5); MCH 28.4 pg (26.0-34.0); MCHC 30.6 g/dL (31.0-37.0); MCV 92.7 fL (80.0-100.0); MEAN PLATELET VOLUME 9.7 fL (7.4-10.4); PLATELET COUNT 301 10x3/uL (130-400); RBC 4.12 10x6/uL (4.20-6.10); RDW 16.7 % (11.5-14.5); WBC 20.8 10x3/uL (4.8-10.8)
[2019-12-04 06:57] LABS: CALC OSMOLALITY 284 mosm/kg (275-300); CALCIUM 8.6 mg/dL (8.5-10.1); CHLORIDE - SERUM 106 mmol/L (98-107); CREATININE - SERUM 1.1 mg/dL (0.6-1.3); GLUCOSE 136 mg/dL (74-106); MAGNESIUM - SERUM 2.2 mg/dL (1.8-2.4); POTASSIUM - SERUM 4.6 mmol/L (3.5-5.1); SODIUM 139 mmol/L (136-145); UREA NITROGEN 26 mg/dL (7-18); VANCOMYCIN - TROUGH 11.5 ug/mL (10.0-20.0); eGFR NON AFRICAN AMERICAN 76 mL/min (90-120)
--- NOTE | 2019-12-04 08:10 | NUR ---
ALERT AND ORIENTED. LUNGS CLEAR BILATERALLY. HEART SOUNDS S1 AND S2 HEARD IN ALL BARRETT. BOWEL SOUNDS ACTIVE X 4. DRSG TO LEFT ELBOW C/D/I. BILATERAL BKA NOTED. IV TO RIGHT WRIST PATENT WITHOUT REDNESS. DENIES NEEDS. AT BS. BED LOW. CALL BEAL AND PERSONAL ITEMS IN REACH. WILL CONTINUE TO MONITOR.
[2019-12-04 08:41] LABS: ERYTHROCYTE SEDIMENTATION RATE 25 mm/hr (0-15)
[2019-12-04 08:42] LABS: APTT 25.1 SECONDS (22.8-39.4); INR 0.98 (0.85-1.17); PROTIME 12.9 SECONDS (11.6-15.0)
[2019-12-04 08:55] LABS: ALKALINE PHOSPHATASE 116 U/L (30-120); ALT (SGPT) 34 U/L (10-68); BILIRUBIN - TOTAL 0.19 mg/dL (0.2-1.3); PROTEIN - SERUM 6.3 g/dL (6.4-8.2)
[2019-12-04 09:09] LABS: ANISOCYTOSIS OCC; LYMPHOCYTES 9 % (15-50); MONOCYTES 14 % (2-11); NEUTROPHILS 76 % (40-80)
[2019-12-04 09:12] LABS: PLATELET ESTIMATE NORMAL
--- NOTE | 2019-12-04 11:00 | NUR ---
DRSG CHANGED TO LEFT ELBOW PER ORDER.
--- NOTE | 2019-12-04 12:47 | NUR ---
CONSENTS OBTAINED FOR AJAY.
--- NOTE | 2019-12-04 13:40 | NUR ---
PT ARRIVED BY BED. PLACED ON MONITORS. RESTING COMFORTABLY. AWAKENS TO VOICE AND FOLLOWS COMMANDS. HR 67 NSR. BP 162/88. RESP 8. O2 SAT 99% ON 2LNC. NO NEEDS AT THIS TIME. NPO AT THIS TIME.
--- NOTE | 2019-12-04 13:43 | NUR ---
OSBALDO BEAL RN CALLED PT'S ROOM AND NOTIFIED PT'S OF NEED TO BE MONITORED POST OP FOR APPROX 20 MINUTES. SHE VOICED UNDERSTANDING.
--- NOTE | 2019-12-04 14:04 | NUR ---
PT RESTING COMFORTABLY. VSS. HR 65 NSR. BP 168/84. AWAKENS EASILY TO VOICE AND FOLLOWS COMMANDS. RESP 10. O2 SAT 99% ON 2LNC.
--- NOTE | 2019-12-04 14:13 | NUR ---
PT TAKEN DOWN TO ROOM BY BED. NOTIFIED NURSE OF ARRIVAL. PT SLEEPING, BUT EASILY AROUSED FROM SLEEP AND FOLLOWS COMMANDS. RESP 10. O2 SAT 99% ON 2LNC.
--- NOTE | 2019-12-04 14:25 | NUR ---
PATIENT RETURNED FROM PROCEDURE. STILL DROWSY. VITALS STABLE. WILL CONTINUE TO MONITOR.
--- NOTE | 2019-12-04 16:56 | NUR ---
RESTING IN BED. DENIES NEEDS. WILL CONTINUE TO MONITOR.
--- NOTE | 2019-12-04 17:27 | NUR ---
PATIENT SLEEPING. VITALS REMAIN STABLE. WILL CONTINUE TO MONITOR.
[2019-12-05 05:57] LABS: BASOPHILS 0.3 % (0-2); EOSINOPHILS 0.8 % (0-7); HEMATOCRIT 38.3 % (42.0-54.0); HEMOGLOBIN 11.8 g/dL (13.5-17.5); IMMATURE GRANULOCYTES 5.4 % (0-5); LYMPHOCYTES 9.5 % (15-50); MCH 28.6 pg (26.0-34.0); MCHC 30.8 g/dL (31.0-37.0); MEAN PLATELET VOLUME 10.2 fL (7.4-10.4); MONOCYTES 7.3 % (2-11); NEUTROPHILS 76.7 % (40-80); PLATELET COUNT 306 10x3/uL (130-400); RBC 4.12 10x6/uL (4.20-6.10); RDW 16.9 % (11.5-14.5)
[2019-12-05 05:58] LABS: WBC 10.5 10x3/uL (4.8-10.8)
[2019-12-05 06:14] LABS: CALC OSMOLALITY 285 mosm/kg (275-300); CALCIUM 8.2 mg/dL (8.5-10.1); CARBON DIOXIDE 25.8 mmol/L (21.0-32.0); CHLORIDE - SERUM 103 mmol/L (98-107); MAGNESIUM - SERUM 1.9 mg/dL (1.8-2.4); SODIUM 139 mmol/L (136-145); UREA NITROGEN 20 mg/dL (7-18); eGFR NON AFRICAN AMERICAN 85 mL/min (90-120)
[2019-12-05 06:15] LABS: GLUCOSE 184 mg/dL (74-106)
[2019-12-05 08:24] VITALS: BP 156/84
--- NOTE | 2019-12-05 08:48 | TEE ---
PATIENT:LYNETTE SHEETS JR MEDICAL RECORD: [id number] LOCATION:D.[facility] AGE OF PATIENT: 48 ADMISSION DATE: 11/24/19 SEX: M REFERRING PHYSICIAN: INTERPRETING PHYSICIAN: MAC CACERES MD TRANSESOPHAGEAL ECHOCARDIOGRAM Date: 12/04/19 AJAY CHARGE Y INDICATIONS: ASSESS FOR VEGATATIONS HX OF SEPIS PREMEDICATIONS: PATIENT'S RESPONSE PROCEDURE DOPPLER MEASUREMENTS: LVIT LA PA 113 RA LVOT 158 RVOT 87 Asc. Ao 156 AV Gradient Peak 9.7 AV Mean 5.0 AV Area 3.5 MV Gradient Peak 3.0 MV Mean 1.7 MV Area INTERPRETATION: Doppler: 2-D: COLOR FLOW DOPPLER NORMAL SALINE STUDY: MISCELLANOUS: DIAGNOSIS: PLAN: Yard Clerk:3 Dr. Miller Travel Accommodations Rater: Malka HERCULES COMMENTS: DATE OF SERVICE: 12/04/2019 PROCEDURE: Transesophageal Note SUMMARY OF PROCEDURE: After general sedation via TIVA via anesthesia, transesophageal Omniplane probe was placed in the distal esophagus and the proximal stomach without difficulty. Grossly, LVH appears present. LV internal dimension is normal. Wall motion is TRANSESOPHAGEAL ECHOCARDIOGRAM REPORT [id number] LYNETTE SHEETS normal. EF is greater than or equal to 55%. Aortic valve is tricuspid with good valve excursion, mild AI, no evidence of vegetation noted. Left atrium is visualized, appears of normal dimensions. Left atrial appendage is well visualized with good contractility. Rosalba valve appears structurally normal with no evidence no prolapse. Trace MR, no evidence of vegetation. RA and RV internal dimensions appeared normal. Tricuspid valve is well visualized. Trivial TR. No evidence of vegetation. Pulmonic valve shows trivial PI. TRANSINT:[id number] Voice Confirmation ID: [id number] DOCUMENT ID: [id number] at [id number] CC: [id number] DICTATION DATE: 12/04/19 1329 ENERGY AUDIT ADVISOR: 12/05/19 0017 ADM IN [place] [id number] [place] [address]
--- NOTE | 2019-12-05 09:00 | NUR ---
ASSESSMENT PER FLOW SHEET. PATIENT IS WITHOUT DISTRESS.CALL LIGHT IN REACH
[2019-12-05 12:10] VITALS: BP 143/91
--- NOTE | 2019-12-05 13:16 | NUR ---
MANI HERE TO PLACE PICC LINE
[2019-12-05 16:35] VITALS: BP 144/78
[2019-12-05 20:00] VITALS: BP 151/84
[2019-12-06] VITALS: BP 157/105
[2019-12-06 04:00] VITALS: BP 136/82
[2019-12-06 06:30] LABS: BASOPHILS 0.3 % (0-2); EOSINOPHILS 0.6 % (0-7); HEMATOCRIT 40.1 % (42.0-54.0); HEMOGLOBIN 12.2 g/dL (13.5-17.5); IMMATURE GRANULOCYTES 4.5 % (0-5); LYMPHOCYTES 10.3 % (15-50); MCH 28.4 pg (26.0-34.0); MCHC 30.4 g/dL (31.0-37.0); MCV 93.5 fL (80.0-100.0); MEAN PLATELET VOLUME 10.1 fL (7.4-10.4); MONOCYTES 8.5 % (2-11); NEUTROPHILS 75.8 % (40-80); PLATELET COUNT 322 10x3/uL (130-400); RBC 4.29 10x6/uL (4.20-6.10); RDW 16.7 % (11.5-14.5); WBC 10.6 10x3/uL (4.8-10.8)
[2019-12-06 06:50] LABS: ALKALINE PHOSPHATASE 113 U/L (30-120); ALT (SGPT) 36 U/L (10-68); BILIRUBIN - TOTAL 0.22 mg/dL (0.2-1.3); C-REACTIVE PROTEIN 1.3 mg/dL (0.0-0.9); CALCIUM 8.7 mg/dL (8.5-10.1); CARBON DIOXIDE 25.4 mmol/L (21.0-32.0); CHLORIDE - SERUM 104 mmol/L (98-107); POTASSIUM - SERUM 4.9 mmol/L (3.5-5.1); PROTEIN - SERUM 6.2 g/dL (6.4-8.2); SODIUM 138 mmol/L (136-145); UREA NITROGEN 19 mg/dL (7-18); eGFR NON AFRICAN AMERICAN 85 mL/min (90-120)
[2019-12-06 06:52] LABS: CALC OSMOLALITY 279 mosm/kg (275-300); GLUCOSE 135 mg/dL (74-106)
[2019-12-06 07:01] VITALS: BP 145/95
--- NOTE | 2019-12-06 07:28 | NUR ---
PT SITTING UP IN BED RECEIVING BREATHING TREATMENT, PT SPOUSE ADAMANT ABOUT SEEING DR THIS MORNING, ADVISED GOLF MANAGER WILL BE AROUND THIS MORNING. NO OTHER NEEDS AT THIS TIME, CONTINUE WITH PLAN OF CARE
[2019-12-06 07:49] LABS: ERYTHROCYTE SEDIMENTATION RATE 37 mm/hr (0-15)
--- NOTE | 2019-12-06 10:07 | NUR ---
I have reviewed this patient and I concur with the Shift Assessment completed by the Licensed Practical Nurse today this shift.
--- NOTE | 2019-12-06 10:29 | NUR ---
PT ON CL REQUESTING A BIG CUP OF COFFEE, NO OTHER NEEDS VOICED AT THIS TIME, PT LYING IN BED WITH SPOUSE AT BEDSIDE, NO S/SX OF DISTRESS, CONTINUE WITH PLAN OF CARE
--- NOTE | 2019-12-06 12:42 | MORECARE ---
CASE MANAGEMENT DISCHARGE SUMMARY PATIENT: LYNETTE SHEETS JR UNIT: [id number] ADM DATE: 11/24/19 AGE: 48 : 72 SEX: M ROOM/BED: D.2231 AUTHOR: EDOUARD CHANEL PHYSICIAN: REFERRING PHYSICIAN: MARVIN DURAND MD DATE OF SERVICE: 12/06/19 Discharge Plan Patient Name: LYNETTE SHEETS Facility: [facility]:[place] : 1970 Planned Disposition: Home with Home Health Anticipated Discharge Date: Discharge Date: Expected LOS: Initial Reviewer: [email or web address] Initial Review Date: 11/27/2019 Generated: 12/06/19 1:42 pm Comments DCP- Discharge Planning Updated by [email or web address]: Charlee Alba on 12/06/19 11:[address] GILMAN ADVISED CM THAT HE WOULD LIKE TO DISCHARGE THE PATIENT TODAY OR TOMORROW. THE PATIENT IS RECEIVING TRIPLE IV ANTIBIOTIC THERAPY AND WOUND CARE. VANCOMYCIN 1.25 MGM Q12H, ROCEPHIN 2 GMS IV QD AND MICAFUNGIN [address] GILMAN STATES HE HAS SPOKEN WITH ID AT [facility]. REPORTEDLY [facility] ADVISED HE CONTINUE CARE AT PRESENT SITE. DCP- Discharge Planning Updated by [email or web address]: Josefina Boyce on 12/03/19 12:[address] PER PATIENTS NURSE, [facility] HAS GIVEN RECOMMENDATIONS FOR FOR ABX AND HE WILL STAY HERE FOR THE TIME BEING. DCP- Discharge Planning Updated by [id number]: Josefina Boyce on 12/03/19 8:[address] RECEIVED A CALL FROM SHELLIE CARBALLO APN, WANTING TO TRANSFER PATIENT TO [facility] FOR ID. I HAVE CALLED THE TRANSFER CENTER ([phone]) SPOKE WITH CARLOS TO INITIATE THE TRANSFER. FACESHEET AND MICRO FAXED TO [phone] DR GILMAN TO DO THE DOC TO DOC CM WILL CONTIUE TO FOLLOW AND ASSIST WITH DC PLANNING DCP- Discharge Planning Updated by [email or web address]: Haven Miller on 11/27/19 8:[address] Patient Name: LYNETTE SHEETS Admission Status: ER Accout number: [id number] Admission Date: 11-24-2019 : 1970 Admission Diagnosis: Attending: MARVIN DURAND Current LOS: 3 Anticipated DC Date: Planned Disposition: Home with Home Health Primary Insurance: MEDICARE A & B Discharge Planning Comments: CM met with patient to complete initial dc planning assessment. CM educated patient on the CM role and verbal consent given by patient to complete assessment. His spouse is in the room and verbal permission received to discuss discharge planning with present. Patient lives at home with his spouse. At discharge patient plans to return and feels this is a safe discharge. CM discussed availability of home health, rehab services, and medical equipment. Patient states he has had [facility] coming 2-3 times a week for dressing changes and would like to continue this on discharge. CONRAD for [facility] signed. CM will continue to follow and will assist as needed with dc plans/needs. Stain Sprayer: Haven Miller DCPIA - Discharge Planning Initial Assessment Updated by [email or web address]: Haven Miller on 11/27/19 9:53 am * Is the patient Alert and Oriented? Yes * How many steps to enter\exit or inside your home? 2/0 * PCP Dr. Joseph * Pharmacy [facility] * Preadmission Environment Home with Family * ADLs Partial Dependent * Partial ADLs (Assistance needed) Ambulation Bathing * Equipment Glucometer Nebulizer Other Shower Chair Wheelchair * Other Equipment Bilateral leg prosthesis * List name and contact numbers for known caregivers / representatives who currently or will assist patient after discharge: Lisa Sheets - spouse - [phone] * Verbal permission to speak to the caregivers and representatives has been obtained from the patient. Yes * Community resources currently utilized Home Health * Please name any agencies selected above. [facility] * Additional services required to return to the preadmission environment? No * Can the patient safely return to the preadmission environment? Yes * Has this patient been hospitalized within the prior 30 days at any hospital? No Coverage Notice Reviewer: [id number] - Haven Miller Notice Issued Date-Time: 11/27/2019 9:57 Notice Type: IM Discharge Notice Notice Delivered To: Patient Relationship to Patient: Self Dust Box Tender Name: Delivery Method: HAND - Hand Delivered Linh Days: Prior Verbal Notification: Recipient Understood Notice: Yes Recipient Signature: Yes Med Rec Note Co-signed by Attending: Coverage Notice Comment: [facility] Last DP export: 3/18/20 12:32 p Patient Name: LYNETTE SHEETS Page [phone] at 1242 All edits/amendments must be made on the electronic document DICTATION DATE: 12/06/191241 TECHNICAL SUPPORT ASSOCIATE: SALAS 12/06/191241 RPT#: [id number] DC DATE: STATUS: ADM IN [facility] [address] [place] [address] END OF REPORT
[2019-12-06] MEDS ORDERED: MYCAMINE 100MG100 M1 IV (14:09)
[2019-12-06] MEDS ORDERED: Vancomycin 1.25 GM/N IV (14:09)
[2019-12-06] MEDS ORDERED: FLORAJEN3 CAPS460 MG PO (14:10)
[2019-12-06] MEDS ORDERED: ROCEPHIN 2 GM/D5W 50 IV (14:10)
[2019-12-06] MEDS ORDERED: CARAFATE1 G PO (14:11)
[2019-12-06 17:17] VITALS: BP 197/89
[2019-12-06 20:14] VITALS: BP 182/94
[2019-12-07 01:20] VITALS: BP 144/98
--- NOTE | 2019-12-07 01:30 | NUR ---
REMOVED DRESSING FROM LEFT ELBOW. MODERATE YELLOW DRAINAGE. CLEANED WOUND WITH NORMAL SALINE. PACKED AND DRESSED PER ORDER. NO OTHER NEEDS. WILL CONTINUE TO MONITOR.
[2019-12-07 05:16] VITALS: BP 114/70
[2019-12-07 06:17] LABS: BASOPHILS 0.4 % (0-2); HEMATOCRIT 41.7 % (42.0-54.0); HEMOGLOBIN 12.7 g/dL (13.5-17.5); IMMATURE GRANULOCYTES 3.7 % (0-5); LYMPHOCYTES 11.2 % (15-50); MCH 28.3 pg (26.0-34.0); MCHC 30.5 g/dL (31.0-37.0); MCV 92.9 fL (80.0-100.0); MEAN PLATELET VOLUME 9.8 fL (7.4-10.4); MONOCYTES 9.9 % (2-11); NEUTROPHILS 73.8 % (40-80); PLATELET COUNT 312 10x3/uL (130-400); RBC 4.49 10x6/uL (4.20-6.10); RDW 16.8 % (11.5-14.5); WBC 10.1 10x3/uL (4.8-10.8)
[2019-12-07 06:32] LABS: ALBUMIN 3.2 g/dL (3.4-5.0); ALKALINE PHOSPHATASE 112 U/L (30-120); ALT (SGPT) 36 U/L (10-68); BILIRUBIN - TOTAL 0.22 mg/dL (0.2-1.3); CALC OSMOLALITY 277 mosm/kg (275-300); CALCIUM 8.8 mg/dL (8.5-10.1); CARBON DIOXIDE 25.1 mmol/L (21.0-32.0); CHLORIDE - SERUM 102 mmol/L (98-107); CREATININE - SERUM 1.1 mg/dL (0.6-1.3); GLUCOSE 140 mg/dL (74-106); POTASSIUM - SERUM 5.1 mmol/L (3.5-5.1); PROTEIN - SERUM 6.7 g/dL (6.4-8.2); SODIUM 137 mmol/L (136-145); UREA NITROGEN 17 mg/dL (7-18); eGFR NON AFRICAN AMERICAN 76 mL/min (90-120)
--- NOTE | 2019-12-07 07:10 | NUR ---
PT RESTING IN BED. NO SIGNS OF DISTRESS. IV TO RIGHT UPPER PICC LINE PATENT NO REDNESS OR TENDERNESS. INCISION TO LEFT ELBOW. DRESSING CLEAN AND INTACT. ON TELEMETRY 93 SR. DENIES ANY FURTHER NEED AT THIS TIME. CALL LIGHT IN REACH. FAMILY AT BEDSIDE AT THIS TIME.
[2019-12-07 09:22] VITALS: BP 117/75
--- NOTE | 2019-12-07 12:06 | MORECARE ---
CASE MANAGEMENT DISCHARGE SUMMARY PATIENT: LYNETTE SHEETS JR UNIT: [id number] ADM DATE: 11/24/19 AGE: 48 : 72 SEX: M ROOM/BED: D.2231 AUTHOR: DARÍO,DOC PHYSICIAN: REFERRING PHYSICIAN: MARVIN DURAND MD DATE OF SERVICE: 12/07/19 Discharge Plan Patient Name: LYNETTE SHEETS Facility: [facility]:[place] : 1970 Planned Disposition: Home with Home Health Anticipated Discharge Date: Discharge Date: Expected LOS: Initial Reviewer: [id number] Initial Review Date: 11/27/2019 Generated: 12/07/19 1:06 pm Comments DCP- Discharge Planning Updated by [email or web address]: Charlee Alba on 12/07/19 11:[address] CM SPOKE WITH PATIENT THIS AM. HE WISHES TO CONTINUE [place]/ [employer] FOR HOME HEALTH AND CANNOT REMEMBER WHICH COMPANY HE HAD FOR HOME IV THERAPY PREVIOUSLY. 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 TC TO [employer]. CM SPOKE WITH THE ON-CALL NURSE, ARIELLA. THEY WOULD NOT BE ABLE TO STAFF FOR IVAB THERAPY UNTIL SUNDAY. IF PATIENT COULD ADMINISTER IVAB HIMSELF TONIGHT, THEY COULD RESUME CARE IN THE AM. WILL SEARCH FOR INFUSION COMPANY . PATIENT HAS NO PREFERRED PROVIDER. DR GILMAN CALLED. UPDATED ON PROGRESS. HE WISHES TO SPEAK WITH FAMILY PRACTICE CATARINA STEPHENS. ASSISTANT HALL DIRECTOR PROVIDED HIM WITH HER PHONE NUMBER. DCP- Discharge Planning Updated by [id number]: Charlee Alba on 12/06/19 11:[address] GILMAN ADVISED CM THAT HE WOULD LIKE TO DISCHARGE THE PATIENT TODAY OR TOMORROW. THE PATIENT IS RECEIVING TRIPLE IV ANTIBIOTIC THERAPY AND WOUND CARE. VANCOMYCIN 1.25 MGM Q12H, ROCEPHIN 2 GMS IV QD AND MICAFUNGIN [address] GILMAN STATES HE HAS SPOKEN WITH ID AT [facility]. REPORTEDLY [facility] ADVISED HE CONTINUE CARE AT PRESENT SITE. DCP- Discharge Planning Updated by [email or web address]: Josefina Boyce on 12/03/19 12:[address] PER PATIENTS NURSE, [facility] HAS GIVEN RECOMMENDATIONS FOR FOR ABX AND HE WILL STAY HERE FOR THE TIME BEING. DCP- Discharge Planning Updated by [email or web address]: Josefina Boyce on 12/03/19 8:[address] RECEIVED A CALL FROM SHELLIE CARBALLO [facility], WANTING TO TRANSFER PATIENT TO [facility] FOR ID. I HAVE CALLED THE TRANSFER CENTER ([phone]) SPOKE WITH CARLOS TO INITIATE THE TRANSFER. FACESHEET AND MICRO FAXED TO [phone] DR GILMAN TO DO THE DOC TO DOC CM WILL CONTIUE TO FOLLOW AND ASSIST WITH DC PLANNING DCP- Discharge Planning Updated by [email or web address]: Haven Miller on 11/27/19 8:[address] Patient Name: LYNETTE SHEETS Admission Status: ER Accout number: [id number] Admission Date: 11-24-2019 : 1970 Admission Diagnosis: Attending: MARVIN DURAND Current LOS: 3 Anticipated DC Date: Planned Disposition: Home with Home Health Primary Insurance: MEDICARE A & B Discharge Planning Comments: CM met with patient to complete initial dc planning assessment. CM educated patient on the CM role and verbal consent given by patient to complete assessment. His spouse is in the room and verbal permission received to discuss discharge planning with present. Patient lives at home with his spouse. At discharge patient plans to return and feels this is a safe discharge. CM discussed availability of home health, rehab services, and medical equipment. Patient states he has had [facility] coming 2-3 times a week for dressing changes and would like to continue this on discharge. CONRAD for [facility] signed. CM will continue to follow and will assist as needed with dc plans/needs. Assistant At Surgery: Haven Miller DCPIA - Discharge Planning Initial Assessment Updated by [email or web address]: Haven Miller on 11/27/19 9:53 am * Is the patient Alert and Oriented? Yes * How many steps to enter\exit or inside your home? 2/0 * PCP Dr. Joseph * Pharmacy [facility] * Preadmission Environment Home with Family * ADLs Partial Dependent * Partial ADLs (Assistance needed) Ambulation Bathing * Equipment Glucometer Nebulizer Other Shower Chair Wheelchair * Other Equipment Bilateral leg prosthesis * List name and contact numbers for known caregivers / representatives who currently or will assist patient after discharge: Lisa Sheets - spouse - [phone] * Verbal permission to speak to the caregivers and representatives has been obtained from the patient. Yes * Community resources currently utilized Home Health * Please name any agencies selected above. [facility] * Additional services required to return to the preadmission environment? No * Can the patient safely return to the preadmission environment? Yes * Has this patient been hospitalized within the prior 30 days at any hospital? No Coverage Notice Reviewer: [id number] Maxx Miller Notice Issued Date-Time: 11/27/2019 9:57 Notice Type: IM Discharge Notice Notice Delivered To: Patient Relationship to Patient: Self Multilith Operator Name: Delivery Method: HAND - Hand Delivered Linh Days: Prior Verbal Notification: Recipient Understood Notice: Yes Recipient Signature: Yes Med Rec Note Co-signed by Attending: Coverage Notice Comment: [facility] Last DP export: 12/06/19 11:42 a Patient Name: LYNETTE SHEETS Page [id number] at 1206 All edits/amendments must be made on the electronic document DICTATION DATE: 12/07/19 1206 PHARMACY INTAKE COORDINATOR: SALAS 12/07/19 1206 RPT#: [id number] DC DATE: STATUS: ADM IN [facility] [address] [place] [address] END OF REPORT
--- NOTE | 2019-12-07 12:57 | MORECARE ---
CASE MANAGEMENT DISCHARGE SUMMARY PATIENT: LYNETTE SHEETS JR UNIT: [id number] ADM DATE: 11/24/19 AGE: 48 : 72 SEX: M ROOM/BED: D.2231 AUTHOR: DARÍO,DOC PHYSICIAN: REFERRING PHYSICIAN: MARVIN DURAND MD DATE OF SERVICE: 12/07/19 Discharge Plan Patient Name: LYNETTE SHEETS Facility: [facility]:[place] : 1970 Planned Disposition: Home with Home Health Anticipated Discharge Date: Discharge Date: Expected LOS: Initial Reviewer: [id number] Initial Review Date: 11/27/2019 Generated: 12/07/19 1:57 pm Comments DCP- Discharge Planning Updated by [id number]: Charlee Alba on 12/07/19 11:[address] TC TO [facility]. CM REC CB FROM N CALL NURSEJENNIFER. DISCUSSION MD ORDERS. SHE WILL CHECK WITH THE PHARMACY DEPT PERINATAL SOCIAL WORKER. LIKELY WILL NOT BE ABLE TO VERIFY INSURANCE AND DETERMINE COPAYS UNTIL THE AM. [facility] CONTACT PHONE NUMBER [phone] FAX NUMBER [phone] OR [phone]. DCP- Discharge Planning Updated by [id number]: Charlee Alba on 12/07/19 11:[address] CM SPOKE WITH PATIENT THIS AM. HE WISHES TO CONTINUE [employer]/ [employer] FOR HOME HEALTH AND CANNOT REMEMBER WHICH COMPANY HE HAD FOR HOME IV THERAPY PREVIOUSLY. 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 TC TO [employer] [facility]. CM SPOKE WITH THE ON-CALL NURSE, ARIELLA. THEY WOULD NOT BE ABLE TO STAFF FOR IVAB THERAPY UNTIL SUNDAY. IF PATIENT COULD ADMINISTER IVAB HIMSELF TONIGHT, THEY COULD RESUME CARE IN THE AM. WILL SEARCH FOR INFUSION COMPANY . PATIENT HAS NO PREFERRED PROVIDER. DR GILMAN CALLED. UPDATED ON PROGRESS. HE WISHES TO SPEAK WITH FAMILY PRACTICE CATARINA STEPHENS. SECOND WATCH SERGEANT PROVIDED HIM WITH HER PHONE NUMBER. DCP- Discharge Planning Updated by [id number]: Charlee Alba on 12/06/19 11:[address] GILMAN ADVISED CM THAT HE WOULD LIKE TO DISCHARGE THE PATIENT TODAY OR TOMORROW. THE PATIENT IS RECEIVING TRIPLE IV ANTIBIOTIC THERAPY AND WOUND CARE. VANCOMYCIN 1.25 MGM Q12H, ROCEPHIN 2 GMS IV QD AND MICAFUNGIN [address] GILMAN STATES HE HAS SPOKEN WITH ID AT [facility]. REPORTEDLY [facility] ADVISED HE CONTINUE CARE AT PRESENT SITE. DCP- Discharge Planning Updated by [id number]: Josefina Boyce on 12/03/19 12:[address] PER PATIENTS NURSE, [facility] HAS GIVEN RECOMMENDATIONS FOR FOR ABX AND HE WILL STAY HERE FOR THE TIME BEING. DCP- Discharge Planning Updated by [email or web address]: Josefina Boyce on 12/03/19 8:[address] RECEIVED A CALL FROM SHELLIE CARBALLO AP[facility], WANTING TO TRANSFER PATIENT TO [facility] FOR ID. I HAVE CALLED THE TRANSFER CENTER ([phone]) SPOKE WITH CARLOS TO INITIATE THE TRANSFER. FACESHEET AND MICRO FAXED TO [phone] DR GILMAN TO DO THE DOC TO DOC CM WILL CONTIUE TO FOLLOW AND ASSIST WITH DC PLANNING DCP- Discharge Planning Updated by [email or web address]: Haven Miller on 11/27/19 8:[address] Patient Name: LYNETTE SHEETS Admission Status: ER Accout number: [id number] Admission Date: 11-24-2019 : 1970 Admission Diagnosis: Attending: MARVIN DURAND Current LOS: 3 Anticipated DC Date: Planned Disposition: Home with Home Health Primary Insurance: MEDICARE A & B Discharge Planning Comments: CM met with patient to complete initial dc planning assessment. CM educated patient on the CM role and verbal consent given by patient to complete assessment. His spouse is in the room and verbal permission received to discuss discharge planning with present. Patient lives at home with his spouse. At discharge patient plans to return and feels this is a safe discharge. CM discussed availability of home health, rehab services, and medical equipment. Patient states he has had [facility] coming 2-3 times a week for dressing changes and would like to continue this on discharge. [facility] for [facility] signed. CM will continue to follow and will assist as needed with dc plans/needs. Virtual Classroom Manager: Haven Miller DCPIA - Discharge Planning Initial Assessment Updated by [email or web address]: Haven Miller on 11/27/19 9:53 am * Is the patient Alert and Oriented? Yes * How many steps to enter\exit or inside your home? 2/0 * PCP Dr. Joseph * Pharmacy [facility] * Preadmission Environment Home with Family * ADLs Partial Dependent * Partial ADLs (Assistance needed) Ambulation Bathing * Equipment Glucometer Nebulizer Other Shower Chair Wheelchair * Other Equipment Bilateral leg prosthesis * List name and contact numbers for known caregivers / representatives who currently or will assist patient after discharge: Lisa Sheets - spouse - [phone] * Verbal permission to speak to the caregivers and representatives has been obtained from the patient. Yes * Community resources currently utilized Home Health * Please name any agencies selected above. [facility] * Additional services required to return to the preadmission environment? No * Can the patient safely return to the preadmission environment? Yes * Has this patient been hospitalized within the prior 30 days at any hospital? No Coverage Notice Reviewer: [id number] Maxx Miller Notice Issued Date-Time: 11/27/2019 9:57 Notice Type: IM Discharge Notice Notice Delivered To: Patient Relationship to Patient: Self Rotary Surface Grinder Name: Delivery Method: HAND - Hand Delivered Linh Days: Prior Verbal Notification: Recipient Understood Notice: Yes Recipient Signature: Yes Med Rec Note Co-signed by Attending: Coverage Notice Comment: [facility] Last DP export: 12/07/19 11:06 a Patient Name: LYNETTE SHEETS Page [phone] at 1257 All edits/amendments must be made on the electronic document DICTATION DATE: 12/07/19 1257 EGG CRATER: SALAS 12/07/19 1257 RPT#: [id number] DC DATE: STATUS: ADM IN [facility] [address] [place] [address] END OF REPORT
--- NOTE | 2019-12-07 13:27 | NUR ---
I have reviewed this patient and I concur with the Shift Assessment completed by the Licensed Practical Nurse today this shift.
[2019-12-07 13:57] VITALS: BP 167/104
[2019-12-07 16:42] VITALS: BP 179/107
--- NOTE | 2019-12-07 19:11 | MORECARE ---
CASE MANAGEMENT DISCHARGE SUMMARY PATIENT: LYNETTE SHEETS JR UNIT: [id number] ADM DATE: 11/24/19 AGE: 48 : 72 SEX: M ROOM/BED: D.2231 AUTHOR: DARÍO,DOC PHYSICIAN: REFERRING PHYSICIAN: MARVIN DURAND MD DATE OF SERVICE: 12/07/19 Discharge Plan Patient Name: LYNETTE SHEETS Facility: [facility]:[place] : 1970 Planned Disposition: Home with Home Health Anticipated Discharge Date: Discharge Date: Expected LOS: Initial Reviewer: [id number] Initial Review Date: 11/27/2019 Generated: 12/07/19 8:10 pm Comments DCP- Discharge Planning Updated by [id number]: Charlee Alba on 12/07/19 6:[address] DISCHARGE ORDERS AND D/C MED LIST W/ CLINICAL FAXED TO [facility] ( [facility] [place], [place]). JENNIFER TO FOLLOW. D/C ORDERS, MEDLIST, CLINICAL FAXED TO [facility]. CLARIFICATION OF ROCEPHIN ORDER. DR GILMAN HAD STATED PATIENT WOULD BE ON DAILY ROCEPHIN HOWEVER HE HAS ORDERED ROCEPHIN Q12H. PICC HAD BEEN INSERTED 12/05/2019. EMERITA TO COMMUNICATE W/ WEEKDAY FLY MAKER REGARDING COST AND/ OR CO/PAYS. CM TO FOLLOW UP IN THE AM. [facility] AWAIT COMPLETION OF INFUSION MEDICATION AND SUPPLIES. [facility] CAN ARRANGE FOR CARE ON SUNDAY PER WEEKEND BARBERING TEACHER NURSE. PATIENT HAS BEEN INFORMED PREVIOUSLY OF PROGRESS AND ISSUES RELATED TO DISCHARGE. DCP- Discharge Planning Updated by [id number]: Charlee Alba on 12/07/19 11:[address] TC TO [facility], [facility]. CM REC CB FROM N CALL NURSE, JENNIFER. DISCUSSION MD ORDERS. SHE WILL CHECK WITH THE PHARMACY DEPT BARBERING TEACHER. LIKELY WILL NOT BE ABLE TO VERIFY INSURANCE AND DETERMINE COPAYS UNTIL THE AM. [facility] CONTACT PHONE NUMBER [phone] FAX NUMBER [phone] OR . DCP- Discharge Planning Updated by [id number]: Charlee Alba on 12/07/19 11:[address] CM SPOKE WITH PATIENT THIS AM. HE WISHES TO CONTINUE [employer] FOR HOME HEALTH AND CANNOT REMEMBER WHICH COMPANY HE HAD FOR HOME IV THERAPY PREVIOUSLY. PATIENT HAS BEEN ON SERVICE WITH [facility] FOR DRESSING CHANGES. TC TO [facility]. CM SPOKE WITH THE ON-CALL NURSE, ARIELLA. THEY WOULD NOT BE ABLE TO STAFF FOR IVAB THERAPY UNTIL SUNDAY. IF PATIENT COULD ADMINISTER IVAB HIMSELF TONIGHT, THEY COULD RESUME CARE IN THE AM. WILL SEARCH FOR INFUSION COMPANY . PATIENT HAS NO PREFERRED PROVIDER. DR GILMAN CALLED. UPDATED ON PROGRESS. HE WISHES TO SPEAK WITH FAMILY PRACTICE CATARINA STEPHENS. LOAN SERVICING REPRESENTATIVE PROVIDED HIM WITH HER PHONE NUMBER. DCP- Discharge Planning Updated by [id number]: Charleethony Alba on 12/06/19 11:[address] GILMAN ADVISED CM THAT HE WOULD LIKE TO DISCHARGE THE PATIENT TODAY OR TOMORROW. THE PATIENT IS RECEIVING TRIPLE IV ANTIBIOTIC THERAPY AND WOUND CARE. VANCOMYCIN 1.25 MGM Q12H, ROCEPHIN 2 GMS IV QD AND MICAFUNGIN [address] GILMAN STATES HE HAS SPOKEN WITH ID AT [facility]. REPORTEDLY [facility] ADVISED HE CONTINUE CARE AT PRESENT SITE. DCP- Discharge Planning Updated by [email or web address]: Josefina Boyce on 12/03/19 12:[address] PER PATIENTS NURSE, [facility] HAS GIVEN RECOMMENDATIONS FOR FOR ABX AND HE WILL STAY HERE FOR THE TIME BEING. DCP- Discharge Planning Updated by [id number]: Josefina Boyce on 12/03/19 8:[address] RECEIVED A CALL FROM SHELLIE CARBALLO APN, WANTING TO TRANSFER PATIENT TO [facility] FOR ID. I HAVE CALLED THE TRANSFER CENTER ([phone]) SPOKE WITH CARLOS TO INITIATE THE TRANSFER. FACESHEET AND MICRO FAXED TO [phone] DR GILMAN TO DO THE DOC TO DOC CM WILL CONTIUE TO FOLLOW AND ASSIST WITH DC PLANNING DCP- Discharge Planning Updated by [id number]: Haven Miller on 11/27/19 8:[address] Patient Name: LYNETTE SHEETS Admission Status: ER Accout number: [id number] Admission Date: 11-24-2019 : 1970 Admission Diagnosis: Attending: MARVIN DURAND Current LOS: 3 Anticipated DC Date: Planned Disposition: Home with Home Health Primary Insurance: MEDICARE A & B Discharge Planning Comments: CM met with patient to complete initial dc planning assessment. CM educated patient on the CM role and verbal consent given by patient to complete assessment. His spouse is in the room and verbal permission received to discuss discharge planning with present. Patient lives at home with his spouse. At discharge patient plans to return and feels this is a safe discharge. CM discussed availability of home health, rehab services, and medical equipment. Patient states he has had [facility] coming 2-3 times a week for dressing changes and would like to continue this on discharge. CONRAD for [facility] signed. CM will continue to follow and will assist as needed with dc plans/needs. Building Illuminating Engineer: Haven Miller DCPIA - Discharge Planning Initial Assessment Updated by [id number]: Haven Miller on 11/27/19 9:53 am * Is the patient Alert and Oriented? Yes * How many steps to enter\exit or inside your home? 2/0 * PCP Dr. Joseph * Pharmacy [facility] * Preadmission Environment Home with Family * ADLs Partial Dependent * Partial ADLs (Assistance needed) Ambulation Bathing * Equipment Glucometer Nebulizer Other Shower Chair Wheelchair * Other Equipment Bilateral leg prosthesis * List name and contact numbers for known caregivers / representatives who currently or will assist patient after discharge: Lisa Sheets - spouse - [phone] * Verbal permission to speak to the caregivers and representatives has been obtained from the patient. Yes * Community resources currently utilized Home Health * Please name any agencies selected above. [facility] * Additional services required to return to the preadmission environment? No * Can the patient safely return to the preadmission environment? Yes * Has this patient been hospitalized within the prior 30 days at any hospital? No Coverage Notice Reviewer: [id number] - Haven Miller Notice Issued Date-Time: 11/27/2019 9:57 Notice Type: IM Discharge Notice Notice Delivered To: Patient Relationship to Patient: Self Quality System Manager Name: Delivery Method: HAND - Hand Delivered Linh Days: Prior Verbal Notification: Recipient Understood Notice: Yes Recipient Signature: Yes Med Rec Note Co-signed by Attending: Coverage Notice Comment: [facility] Last DP export: 12/07/19 11:57 a Patient Name: LYNETTE SHEETS Page [id number] at 1911 All edits/amendments must be made on the electronic document DICTATION DATE: 12/07/191909 PERCUSSION INSTRUMENT REPAIRER: SALAS 12/07/191909 RPT#: [id number] DC DATE: STATUS: ADM IN [facility] [address] [place] [address] END OF REPORT
[2019-12-07 20:00] VITALS: BP 125/92
[2019-12-08] VITALS: BP 118/81
[2019-12-08 04:00] VITALS: BP 97/60
[2019-12-08 05:09] LABS: ALBUMIN 3.1 g/dL (3.4-5.0); ALKALINE PHOSPHATASE 108 U/L (30-120); ALT (SGPT) 28 U/L (10-68); BASOPHILS 0.7 % (0-2); BILIRUBIN - TOTAL 0.17 mg/dL (0.2-1.3); CALC OSMOLALITY 273 mosm/kg (275-300); CALCIUM 8.5 mg/dL (8.5-10.1); CARBON DIOXIDE 23.6 mmol/L (21.0-32.0); CHLORIDE - SERUM 103 mmol/L (98-107); CREATININE - SERUM 1.1 mg/dL (0.6-1.3); GLUCOSE 112 mg/dL (74-106); HEMATOCRIT 40.5 % (42.0-54.0); HEMOGLOBIN 12.5 g/dL (13.5-17.5); IMMATURE GRANULOCYTES 3.7 % (0-5); LYMPHOCYTES 11.2 % (15-50); MCH 28.5 pg (26.0-34.0); MCHC 30.9 g/dL (31.0-37.0); MCV 92.3 fL (80.0-100.0); MEAN PLATELET VOLUME 10.3 fL (7.4-10.4); MONOCYTES 11.4 % (2-11); PLATELET COUNT 304 10x3/uL (130-400); POTASSIUM - SERUM 4.6 mmol/L (3.5-5.1); PROTEIN - SERUM 6.5 g/dL (6.4-8.2); RBC 4.39 10x6/uL (4.20-6.10); RDW 16.8 % (11.5-14.5); SODIUM 135 mmol/L (136-145); UREA NITROGEN 21 mg/dL (7-18); WBC 11.1 10x3/uL (4.8-10.8); eGFR NON AFRICAN AMERICAN 76 mL/min (90-120)
--- NOTE | 2019-12-08 08:52 | MORECARE ---
CASE MANAGEMENT DISCHARGE SUMMARY PATIENT: LYNETTE SHEETS JR UNIT: [id number] ADM DATE: 11/24/19 AGE: 48 : 72 SEX: M ROOM/BED: D.2231 AUTHOR: DARÍO,DOC PHYSICIAN: REFERRING PHYSICIAN: MARIVN DURAND MD DATE OF SERVICE: 12/08/19 Discharge Plan Patient Name: LYNETTE SHEETS Facility: [facility]:[place] : 1970 Planned Disposition: Home with Home Health Anticipated Discharge Date: Discharge Date: Expected LOS: Initial Reviewer: [id number] Initial Review Date: 11/27/2019 Generated: 12/08/19 9:51 am Comments DCP- Discharge Planning Updated by [id number]: Charlee Alba on 12/07/19 6:[address] DISCHARGE ORDERS AND D/C MED LIST W/ CLINICAL FAXED TO [facility] ( FORMERLY [facility] IN [place], [place]). JENNIFER TO FOLLOW. D/C ORDERS, MEDLIST, CLINICAL FAXED TO [facility]. CLARIFICATION OF ROCEPHIN ORDER. DR GILMAN HAD STATED PATIENT WOULD BE ON DAILY ROCEPHIN HOWEVER HE HAS ORDERED ROCEPHIN Q12H. PICC HAD BEEN INSERTED 12/05/2019. EM[facility] TO COMMUNICATE W/ WEEKDAY HEEL PAINTER REGARDING COST AND/ OR CO/PAYS. CM TO FOLLOW UP IN THE AM. [facility] AWAIT COMPLETION OF INFUSION MEDICATION AND SUPPLIES. [facility] CAN ARRANGE FOR CARE ON SUNDAY PER WEEKEND SUPERVISOR COSTUMING NURSE. PATIENT HAS BEEN INFORMED PREVIOUSLY OF PROGRESS AND ISSUES RELATED TO DISCHARGE. DCP- Discharge Planning Updated by [email or web address]: Charlee Alba on 12/07/19 11:[address] TC TO [facility], [facility]. CM REC CB FROM N CALL NURSE, JENNIFER. DISCUSSION MD ORDERS. SHE WILL CHECK WITH THE PHARMACY DEPT SUPERVISOR COSTUMING. LIKELY WILL NOT BE ABLE TO VERIFY INSURANCE AND DETERMINE COPAYS UNTIL THE AM. [facility] CONTACT PHONE NUMBER [phone] FAX NUMBER [phone] OR [phone]. DCP- Discharge Planning Updated by [id number]: Charlee Alba on 12/07/19 11:[address] CM SPOKE WITH PATIENT THIS AM. HE WISHES TO CONTINUE [facility] FOR HOME HEALTH AND CANNOT REMEMBER WHICH COMPANY HE HAD FOR HOME IV THERAPY PREVIOUSLY. PATIENT HAS BEEN ON SERVICE WITH [facility] FOR DRESSING CHANGES. TC TO [facility]. CM SPOKE WITH THE ON-CALL NURSE, ARIELLA. THEY WOULD NOT BE ABLE TO STAFF FOR IVAB THERAPY UNTIL SUNDAY. IF PATIENT COULD ADMINISTER IVAB HIMSELF TONIGHT, THEY COULD RESUME CARE IN THE AM. WILL SEARCH FOR INFUSION COMPANY . PATIENT HAS NO PREFERRED PROVIDER. DR GILMAN CALLED. UPDATED ON PROGRESS. HE WISHES TO SPEAK WITH FAMILY PRACTICE CATARINA STEPHENS. LABORATORY PHLEBOTOMIST PROVIDED HIM WITH HER PHONE NUMBER. DCP- Discharge Planning Updated by [id number]: Charleethony Alba on 12/06/19 11:[address] GILMAN ADVISED CM THAT HE WOULD LIKE TO DISCHARGE THE PATIENT TODAY OR TOMORROW. THE PATIENT IS RECEIVING TRIPLE IV ANTIBIOTIC THERAPY AND WOUND CARE. VANCOMYCIN 1.25 MGM Q12H, ROCEPHIN 2 GMS IV QD AND MICAFUNGIN [address] GILMAN STATES HE HAS SPOKEN WITH ID AT [facility]. REPORTEDLY [facility] ADVISED HE CONTINUE CARE AT PRESENT SITE. DCP- Discharge Planning Updated by [id number]: Josefina Boyce on 12/03/19 12:[address] PER PATIENTS NURSE, [facility] HAS GIVEN RECOMMENDATIONS FOR FOR ABX AND HE WILL STAY HERE FOR THE TIME BEING. DCP- Discharge Planning Updated by [id number]: Josefina Boyce on 12/03/19 8:[address] RECEIVED A CALL FROM SHELLIE CARBALLO [facility], WANTING TO TRANSFER PATIENT TO [facility] FOR ID. I HAVE CALLED THE TRANSFER CENTER ([phone]) SPOKE WITH CARLOS TO INITIATE THE TRANSFER. FACESHEET AND MICRO FAXED TO [phone] DR GILMAN TO DO THE DOC TO DOC CM WILL CONTIUE TO FOLLOW AND ASSIST WITH DC PLANNING DCP- Discharge Planning Updated by [id number]: Haven Miller on 11/27/19 8:[address] Patient Name: LYNETTE SHEETS Admission Status: ER Accout number: [id number] Admission Date: 11-24-2019 : 1970 Admission Diagnosis: Attending: MARVIN DURAND Current LOS: 3 Anticipated DC Date: Planned Disposition: Home with Home Health Primary Insurance: MEDICARE A & B Discharge Planning Comments: CM met with patient to complete initial dc planning assessment. CM educated patient on the CM role and verbal consent given by patient to complete assessment. His spouse is in the room and verbal permission received to discuss discharge planning with present. Patient lives at home with his spouse. At discharge patient plans to return and feels this is a safe discharge. CM discussed availability of home health, rehab services, and medical equipment. Patient states he has had [facility] coming 2-3 times a week for dressing changes and would like to continue this on discharge. CONRAD for [facility] signed. CM will continue to follow and will assist as needed with dc plans/needs. Technical Marketing Consultant: Haven Miller DCPIA - Discharge Planning Initial Assessment Updated by [id number]: Haven Miller on 11/27/19 9:53 am * Is the patient Alert and Oriented? Yes * How many steps to enter\exit or inside your home? 2/0 * PCP Dr. Joseph * Pharmacy [facility] * Preadmission Environment Home with Family * ADLs Partial Dependent * Partial ADLs (Assistance needed) Ambulation Bathing * Equipment Glucometer Nebulizer Other Shower Chair Wheelchair * Other Equipment Bilateral leg prosthesis * List name and contact numbers for known caregivers / representatives who currently or will assist patient after discharge: Lisa Sheets - spouse - [phone] * Verbal permission to speak to the caregivers and representatives has been obtained from the patient. Yes * Community resources currently utilized Home Health * Please name any agencies selected above. [facility] * Additional services required to return to the preadmission environment? No * Can the patient safely return to the preadmission environment? Yes * Has this patient been hospitalized within the prior 30 days at any hospital? No External Providers External Provider: OTHER-OTHER Next Contact Date: Service Request Date: Service Type: Resolution: Reviewer: Comments: Coverage Notice Reviewer: [id number] - Haven Miller Notice Issued Date-Time: 11/27/2019 9:57 Notice Type: IM Discharge Notice Notice Delivered To: Patient Relationship to Patient: Self Medical Program Specialist Name: Delivery Method: HAND - Hand Delivered Linh Days: Prior Verbal Notification: Recipient Understood Notice: Yes Recipient Signature: Yes Med Rec Note Co-signed by Attending: Coverage Notice Comment: [facility] Last DP export: 12/07/19 6:11 p Patient Name: LYNETTE SHEETS Page 44731 at 0852 All edits/amendments must be made on the electronic document DICTATION DATE: 12/08/19850 PRINCIPAL JAVA SOFTWARE ENGINEER: SALAS 12/08/19850 RPT#: [id number] DC DATE: STATUS: ADM IN [facility] [address] [place] [address] END OF REPORT
[2019-12-08 08:55] VITALS: BP 116/71
--- NOTE | 2019-12-08 09:07 | MORECARE ---
CASE MANAGEMENT DISCHARGE SUMMARY PATIENT: LYNETTE SHEETS JR UNIT: [id number] ADM DATE: 11/24/19 AGE: 48 : 72 SEX: M ROOM/BED: D.2231 AUTHOR: DARÍO,DOC PHYSICIAN: REFERRING PHYSICIAN: MARVIN DURAND MD DATE OF SERVICE: 12/08/19 Discharge Plan Patient Name: LYNETTE SHEETS Facility: [facility]:[place] : 1970 Planned Disposition: Home with Home Health Anticipated Discharge Date: Discharge Date: Expected LOS: Initial Reviewer: [id number] Initial Review Date: 11/27/2019 Generated: 12/08/19 10:06 am Comments DCP- Discharge Planning Updated by [id number]: Haven Miller on 12/08/19 8:[address] CM spoke with Dr. Gilman and TO obtained for antibiotics and last day is 14 days from today. I spoke with Shilpa with [facility] infusion company and orders faxed. I spoke with Amparo with [facility] and informed of discharging today and orders faxed. CM will continue to follow and assist with discharge planning/needs. DCP- Discharge Planning Updated by [id number]: Charlee Alba on 12/07/19 6:[address] DISCHARGE ORDERS AND D/C MED LIST W/ CLINICAL FAXED TO [facility] ( FORMERLY [facility] IN [place], [place]). JENNIFER TO FOLLOW. D/C ORDERS, MEDLIST, CLINICAL FAXED TO [facility]. CLARIFICATION OF ROCEPHIN ORDER. DR GILMAN HAD STATED PATIENT WOULD BE ON DAILY ROCEPHIN HOWEVER HE HAS ORDERED ROCEPHIN Q12H. PICC HAD BEEN INSERTED 12/05/2019. [facility] TO COMMUNICATE W/ WEEKDAY ELECTRONIC INSTRUMENT TRADES WORKER REGARDING COST AND/ OR CO/PAYS. CM TO FOLLOW UP IN THE AM. [facility] AWAIT COMPLETION OF INFUSION MEDICATION AND SUPPLIES. [facility] CAN ARRANGE FOR CARE ON SUNDAY PER WEEKEND PRINTING MACHINE OPERATOR NURSE. PATIENT HAS BEEN INFORMED PREVIOUSLY OF PROGRESS AND ISSUES RELATED TO DISCHARGE. DCP- Discharge Planning Updated by [email or web address]: Charlee Alba on 12/07/19 11:[address] TC TO [facility], [facility]. CM REC CB FROM N CALL NURSE, JENNIFER. DISCUSSION MD ORDERS. SHE WILL CHECK WITH THE PHARMACY DEPT PRINTING MACHINE OPERATOR. LIKELY WILL NOT BE ABLE TO VERIFY INSURANCE AND DETERMINE COPAYS UNTIL THE AM. [facility] CONTACT PHONE NUMBER [phone] FAX NUMBER [phone] OR . DCP- Discharge Planning Updated by [id number]: Charlee Alba on 12/07/19 11:[address] CM SPOKE WITH PATIENT THIS AM. HE WISHES TO CONTINUE [facility] FOR HOME HEALTH AND CANNOT REMEMBER WHICH COMPANY HE HAD FOR HOME IV THERAPY PREVIOUSLY. PATIENT HAS BEEN ON SERVICE WITH [facility] FOR DRESSING CHANGES. TC TO [facility]. CM SPOKE WITH THE ON-CALL NURSE, ARIELLA. THEY WOULD NOT BE ABLE TO STAFF FOR IVAB THERAPY UNTIL SUNDAY. IF PATIENT COULD ADMINISTER IVAB HIMSELF TONIGHT, THEY COULD RESUME CARE IN THE AM. WILL SEARCH FOR INFUSION COMPANY . PATIENT HAS NO PREFERRED PROVIDER. DR GILMAN CALLED. UPDATED ON PROGRESS. HE WISHES TO SPEAK WITH FAMILY PRACTICE CATARINA STEPHENS. FENCE REPAIRMAN PROVIDED HIM WITH HER PHONE NUMBER. DCP- Discharge Planning Updated by [id number]: Charlee Alba on 12/06/19 11:[address] GILMAN ADVISED CM THAT HE WOULD LIKE TO DISCHARGE THE PATIENT TODAY OR TOMORROW. THE PATIENT IS RECEIVING TRIPLE IV ANTIBIOTIC THERAPY AND WOUND CARE. VANCOMYCIN 1.25 MGM Q12H, ROCEPHIN 2 GMS IV QD AND MICAFUNGIN [address] GILMAN STATES HE HAS SPOKEN WITH ID AT [facility]. REPORTEDLY [facility] ADVISED HE CONTINUE CARE AT PRESENT SITE. DCP- Discharge Planning Updated by [id number]: Josefina Boyce on 12/03/19 12:[address] PER PATIENTS NURSE, [facility] HAS GIVEN RECOMMENDATIONS FOR FOR ABX AND HE WILL STAY HERE FOR THE TIME BEING. DCP- Discharge Planning Updated by [id number]: Josefina Boyce on 12/03/19 8:[address] RECEIVED A CALL FROM SHELLIE CARBALLO AP[facility], WANTING TO TRANSFER PATIENT TO [facility] FOR ID. I HAVE CALLED THE TRANSFER CENTER ([phone]) SPOKE WITH CARLOS TO INITIATE THE TRANSFER. FACESHEET AND MICRO FAXED TO [phone] DR GILMAN TO DO THE DOC TO DOC CM WILL CONTIUE TO FOLLOW AND ASSIST WITH DC PLANNING DCP- Discharge Planning Updated by [id number]: Haven Angela on 11/27/19 8:[address] Patient Name: LYNETTE SHEETS Admission Status: ER Accout number: [id number] Admission Date: 11-24-2019 : 1970 Admission Diagnosis: Attending: MARVIN DURAND Current LOS: 3 Anticipated DC Date: Planned Disposition: Home with Home Health Primary Insurance: MEDICARE A & B Discharge Planning Comments: CM met with patient to complete initial dc planning assessment. CM educated patient on the CM role and verbal consent given by patient to complete assessment. His spouse is in the room and verbal permission received to discuss discharge planning with present. Patient lives at home with his spouse. At discharge patient plans to return and feels this is a safe discharge. CM discussed availability of home health, rehab services, and medical equipment. Patient states he has had [facility] coming 2-3 times a week for dressing changes and would like to continue this on discharge. CONRAD for [facility] signed. CM will continue to follow and will assist as needed with dc plans/needs. Multimedia Teacher: Haven Angela DCPIA - Discharge Planning Initial Assessment Updated by [id number]: Haven Angela on 11/27/19 9:53 am * Is the patient Alert and Oriented? Yes * How many steps to enter\exit or inside your home? 2/0 * PCP Dr. Joseph * Pharmacy [facility] * Preadmission Environment Home with Family * ADLs Partial Dependent * Partial ADLs (Assistance needed) Ambulation Bathing * Equipment Glucometer Nebulizer Other Shower Chair Wheelchair * Other Equipment Bilateral leg prosthesis * List name and contact numbers for known caregivers / representatives who currently or will assist patient after discharge: Lisa Sheets - spouse - [phone] * Verbal permission to speak to the caregivers and representatives has been obtained from the patient. Yes * Community resources currently utilized Home Health * Please name any agencies selected above. [facility] * Additional services required to return to the preadmission environment? No * Can the patient safely return to the preadmission environment? Yes * Has this patient been hospitalized within the prior 30 days at any hospital? No External Providers [facility] Next Contact Date: Service Request Date: Service Type: Resolution: Reviewer: Comments: Coverage Notice Reviewer: [id number] Maxx Haven Miller Notice Issued Date-Time: 11/27/2019 9:57 Notice Type: IM Discharge Notice Notice Delivered To: Patient Relationship to Patient: Self Surgical Technologist Name: Delivery Method: HAND - Hand Delivered Linh Days: Prior Verbal Notification: Recipient Understood Notice: Yes Recipient Signature: Yes Med Rec Note Co-signed by Attending: Coverage Notice Comment: [facility] Last DP export: 12/08/19 7:52 a Patient Name: LYNETTE SHEETS Page [id number] at 0907 All edits/amendments must be made on the electronic document DICTATION DATE: 12/08/19905 FLASK CARRIER: SALAS 12/08/19905 RPT#: [id number] DC DATE: STATUS: ADM IN [facility] [address] [place] [address] END OF REPORT
--- NOTE | 2019-12-08 10:59 | NUR ---
REQUESTED AND GIVNE ONE PERCOCET PO FOR C/O LEFT ELBOW PAIN LEVEL 12. WILL MONITOR.
[2019-12-08 11:51] VITALS: BP 117/79
--- NOTE | 2019-12-08 12:13 | MORECARE ---
CASE MANAGEMENT DISCHARGE SUMMARY PATIENT: LYNETTE SHEETS JR UNIT: [id number] ADM DATE: 11/24/19 AGE: 48 : 72 SEX: M ROOM/BED: D.2231 AUTHOR: DARÍO,DOC PHYSICIAN: REFERRING PHYSICIAN: MARVIN DURAND MD DATE OF SERVICE: 12/08/19 Discharge Plan Patient Name: LYNETTE SHEETS Facility: [facility]:[place] : 1970 Planned Disposition: Home with Home Health Anticipated Discharge Date: Discharge Date: Expected LOS: Initial Reviewer: [id number] Initial Review Date: 11/27/2019 Generated: 12/08/19 1:12 pm Comments DCP- Discharge Planning Updated by [id number]: Haven Miller on 12/08/19 11:[address] I spoke with Amparo with [facility], they will see the patient tomorrow morning for IV antibiotic and dressing change. I spoke with Shilpa with [facility] and they will do his first teaching at 4PM today. Discharging home today with home health and infusion services. DCP- Discharge Planning Updated by [id number]: Haven Miller on 12/08/19 8:[address] CM spoke with Dr. Gilman and TO obtained for antibiotics and last day is 14 days from today. I spoke with Shilpa with [facility] infusion company and orders faxed. I spoke with Amparo with [facility] and informed of discharging today and orders faxed. CM will continue to follow and assist with discharge planning/needs. DCP- Discharge Planning Updated by [id number]: Charlee Alba on 12/07/19 6:[address] DISCHARGE ORDERS AND D/C MED LIST W/ CLINICAL FAXED TO [facility] ( FOR[facility]LY [facility] IN [place], [place]). JENNIFER TO FOLLOW. D/C ORDERS, MEDLIST, CLINICAL FAXED TO [facility]. CLARIFICATION OF ROCEPHIN ORDER. DR GILMAN HAD STATED PATIENT WOULD BE ON DAILY ROCEPHIN HOWEVER HE HAS ORDERED ROCEPHIN Q12H. PICC HAD BEEN INSERTED 12/05/2019. EM[facility] TO COMMUNICATE W/ WEEKDAY SIDE SAWYER REGARDING COST AND/ OR CO/PAYS. CM TO FOLLOW UP IN THE AM. [facility] AWAIT COMPLETION OF INFUSION MEDICATION AND SUPPLIES. [facility] CAN ARRANGE FOR CARE ON SUNDAY PER WEEKEND UNIT TENDER NURSE. PATIENT HAS BEEN INFORMED PREVIOUSLY OF PROGRESS AND ISSUES RELATED TO DISCHARGE. DCP- Discharge Planning Updated by [id number]: Charlee Alba on 12/07/19 11:[address] TC TO [facility], [facility]. CM REC CB FROM N CALL NURSEJENNIFER. DISCUSSION MD ORDERS. SHE WILL CHECK WITH THE PHARMACY DEPT UNIT TENDER. LIKELY WILL NOT BE ABLE TO VERIFY INSURANCE AND DETERMINE COPAYS UNTIL THE AM. [facility] CONTACT PHONE NUMBER [phone] FAX NUMBER [phone] OR . DCP- Discharge Planning Updated by [id number]: Charlee Alba on 12/07/19 11:[address] CM SPOKE WITH PATIENT THIS AM. HE WISHES TO CONTINUE [employer] FOR HOME HEALTH AND CANNOT REMEMBER WHICH COMPANY HE HAD FOR HOME IV THERAPY PREVIOUSLY. PATIENT HAS BEEN ON SERVICE WITH [facility] FOR DRESSING CHANGES. TC TO [facility]. CM SPOKE WITH THE ON-CALL NURSE, ARIELLA. THEY WOULD NOT BE ABLE TO STAFF FOR IVAB THERAPY UNTIL SUNDAY. IF PATIENT COULD ADMINISTER IVAB HIMSELF TONIGHT, THEY COULD RESUME CARE IN THE AM. WILL SEARCH FOR INFUSION COMPANY . PATIENT HAS NO PREFERRED PROVIDER. DR GILMAN CALLED. UPDATED ON PROGRESS. HE WISHES TO SPEAK WITH FAMILY PRACTICE CATARINA STEPHENS. ASSISTANT MEN'S LACROSSE COACH PROVIDED HIM WITH HER PHONE NUMBER. DCP- Discharge Planning Updated by [id number]: Charlee Alba on 12/06/19 11:[address] GILMAN ADVISED CM THAT HE WOULD LIKE TO DISCHARGE THE PATIENT TODAY OR TOMORROW. THE PATIENT IS RECEIVING TRIPLE IV ANTIBIOTIC THERAPY AND WOUND CARE. VANCOMYCIN 1.25 MGM Q12H, ROCEPHIN 2 GMS IV QD AND MICAFUNGIN [address] GILMAN STATES HE HAS SPOKEN WITH ID AT [facility]. REPORTEDLY [facility] ADVISED HE CONTINUE CARE AT PRESENT SITE. DCP- Discharge Planning Updated by [id number]: Josefina Boyce on 12/03/19 12:[address] PER PATIENTS NURSE, [facility] HAS GIVEN RECOMMENDATIONS FOR FOR ABX AND HE WILL STAY HERE FOR THE TIME BEING. DCP- Discharge Planning Updated by [id number]: Josefina Boyce on 12/03/19 8:[address] RECEIVED A CALL FROM SHELLIE CARBALLO [facility], WANTING TO TRANSFER PATIENT TO [facility] FOR ID. I HAVE CALLED THE TRANSFER CENTER ([phone]) SPOKE WITH CARLOS TO INITIATE THE TRANSFER. FACESHEET AND MICRO FAXED TO [phone] DR GILMAN TO DO THE DOC TO DOC CM WILL CONTIUE TO FOLLOW AND ASSIST WITH DC PLANNING DCP- Discharge Planning Updated by [id number]: Haven Miller on 11/27/19 8:[address] Patient Name: LYNETTE SHEETS Admission Status: ER Accout number: [id number] Admission Date: 11-24-2019 : 1970 Admission Diagnosis: Attending: MARVIN DURAND Current LOS: 3 Anticipated DC Date: Planned Disposition: Home with Home Health Primary Insurance: MEDICARE A & B Discharge Planning Comments: CM met with patient to complete initial dc planning assessment. CM educated patient on the CM role and verbal consent given by patient to complete assessment. His spouse is in the room and verbal permission received to discuss discharge planning with present. Patient lives at home with his spouse. At discharge patient plans to return and feels this is a safe discharge. CM discussed availability of home health, rehab services, and medical equipment. Patient states he has had [facility] coming 2-3 times a week for dressing changes and would like to continue this on discharge. CONRAD for [facility] signed. CM will continue to follow and will assist as needed with dc plans/needs. Bakery Worker Conveyor Line: Haven Miller DCPIA - Discharge Planning Initial Assessment Updated by [id number]: Haven Miller on 11/27/19 9:53 am * Is the patient Alert and Oriented? Yes * How many steps to enter\exit or inside your home? 2/0 * PCP Dr. Joseph * Pharmacy [facility] * Preadmission Environment Home with Family * ADLs Partial Dependent * Partial ADLs (Assistance needed) Ambulation Bathing * Equipment Glucometer Nebulizer Other Shower Chair Wheelchair * Other Equipment Bilateral leg prosthesis * List name and contact numbers for known caregivers / representatives who currently or will assist patient after discharge: Lisa Sheets - spouse - [phone] * Verbal permission to speak to the caregivers and representatives has been obtained from the patient. Yes * Community resources currently utilized Home Health * Please name any agencies selected above. [facility] * Additional services required to return to the preadmission environment? No * Can the patient safely return to the preadmission environment? Yes * Has this patient been hospitalized within the prior 30 days at any hospital? No Coverage Notice Reviewer: [id number] Maxx Miller Notice Issued Date-Time: 11/27/2019 9:57 Notice Type: IM Discharge Notice Notice Delivered To: Patient Relationship to Patient: Self Art Director Name: Delivery Method: HAND - Hand Delivered Linh Days: Prior Verbal Notification: Recipient Understood Notice: Yes Recipient Signature: Yes Med Rec Note Co-signed by Attending: Coverage Notice Comment: [facility] Reviewer: [id number] Maxx Miller Notice Issued Date-Time: 12/08/2019 9:56 Notice Type: IM Discharge Notice Notice Delivered To: Patient Relationship to Patient: Self Art Director Name: Delivery Method: HAND - Hand Delivered Linh Days: Prior Verbal Notification: Recipient Understood Notice: Yes Recipient Signature: Yes Med Rec Note Co-signed by Attending: Coverage Notice Comment: IMM explained, signed, given, copy placed in MR Last DP export: 12/08/19 8:07 a Patient Name: LYNETTE SHEETS Page [id number] at 1213 All edits/amendments must be made on the electronic document DICTATION DATE: 12/08/19 1212 [employer]IV[employer]ITY INTER[employer]: SALAS 12/08/19 1212 RPT#: [id number] DC DATE: STATUS: ADM IN [facility] [address] [place] [address] END OF REPORT
--- NOTE | 2019-12-08 16:23 | MORECARE ---
CASE MANAGEMENT DISCHARGE SUMMARY PATIENT: LYNETTE SHEETS JR UNIT: [id number] ADM DATE: 11/24/19 AGE: 48 : 72 SEX: M ROOM/BED: D.2231 AUTHOR: DARÍO,DOC PHYSICIAN: REFERRING PHYSICIAN: MARVIN DURAND MD DATE OF SERVICE: 12/08/19 Discharge Plan Patient Name: LYNETTE SHEETS Facility: [facility]:[place] : 1970 Planned Disposition: Home with Home Health Anticipated Discharge Date: Discharge Date: Expected LOS: Initial Reviewer: [id number] Initial Review Date: 11/27/2019 Generated: 12/08/19 5:22 pm Comments DCP- Discharge Planning Updated by [id number]: Haven Miller on 12/08/19 3:[address] Tennille from [employer] ([employer] has educated patient and on IV infusions. Tennille states they are ok to discharge and have her number if needed for questions and assistance. [facility] will see in the morning. Patient and voice understanding that [facility] will give next administered dose of IV antibiotic in the am. DCP- Discharge Planning Updated by [id number]: Haven Miller on 12/08/19 11:[address] I spoke with Amparo with [employer] [facility], they will see the patient tomorrow morning for IV antibiotic and dressing change. I spoke with Shilpa with [employer] (formerly [employer]) and they will do his first teaching at 4PM today. Discharging home today with home health and infusion services. DCP- Discharge Planning Updated by [id number]: Haven Miller on 12/08/19 8:[address] CM spoke with Dr. Gilman and TO obtained for antibiotics and last day is 14 days from today. I spoke with Shilpa with [facility] infusion company and orders faxed. I spoke with Amparo with [employer] [facility] and informed of discharging today and orders faxed. CM will continue to follow and assist with discharge planning/needs. DCP- Discharge Planning Updated by [id number]: Charlee Alba on 12/07/19 6:[address] DISCHARGE ORDERS AND D/C MED LIST W/ CLINICAL FAXED TO [employer] ( [facility] IN [place], [place]). JENNIFER TO FOLLOW. D/C ORDERS, MEDLIST, CLINICAL FAXED TO [facility]. CLARIFICATION OF ROCEPHIN ORDER. DR GILMAN HAD STATED PATIENT WOULD BE ON DAILY ROCEPHIN HOWEVER HE HAS ORDERED ROCEPHIN Q12H. PICC HAD BEEN INSERTED 12/05/2019. EMERITA TO COMMUNICATE W/ WEEKDAY DENTAL TECHNICIAN APPRENTICE REGARDING COST AND/ OR CO/PAYS. CM TO FOLLOW UP IN THE AM. [facility] AWAIT COMPLETION OF INFUSION MEDICATION AND SUPPLIES. [facility] CAN ARRANGE FOR CARE ON SUNDAY PER WEEKEND CHRONOMETER ADJUSTER NURSE. PATIENT HAS BEEN INFORMED PREVIOUSLY OF PROGRESS AND ISSUES RELATED TO DISCHARGE. DCP- Discharge Planning Updated by [id number]: Charlee Alba on 12/07/19 11:[address] TC TO [facility], [facility]. CM REC CB FROM N CALL NURSE, JENNIFER. DISCUSSION MD ORDERS. SHE WILL CHECK WITH THE PHARMACY DEPT CHRONOMETER ADJUSTER. LIKELY WILL NOT BE ABLE TO VERIFY INSURANCE AND DETERMINE COPAYS UNTIL THE AM. [facility] CONTACT PHONE NUMBER [phone] FAX NUMBER [phone] OR . DCP- Discharge Planning Updated by [id number]: Charlee Alba on 12/07/19 11:[address] CM SPOKE WITH PATIENT THIS AM. HE WISHES TO CONTINUE W/ [facility] FOR HOME HEALTH AND CANNOT REMEMBER WHICH COMPANY HE HAD FOR HOME IV THERAPY PREVIOUSLY. PATIENT HAS BEEN ON SERVICE WITH [facility] FOR DRESSING CHANGES. TC TO [facility]. CM SPOKE WITH THE ON-CALL NURSE, ARIELLA. THEY WOULD NOT BE ABLE TO STAFF FOR IVAB THERAPY UNTIL SUNDAY. IF PATIENT COULD ADMINISTER IVAB HIMSELF TONIGHT, THEY COULD RESUME CARE IN THE AM. WILL SEARCH FOR INFUSION COMPANY . PATIENT HAS NO PREFERRED PROVIDER. DR GILMAN CALLED. UPDATED ON PROGRESS. HE WISHES TO SPEAK WITH FAMILY PRACTICE CATARINA STEPHENS. TRAFFIC RATE COMPUTER PROVIDED HIM WITH HER PHONE NUMBER. DCP- Discharge Planning Updated by [email or web address]: Charlee Alba on 12/06/19 11:[address] GILMAN ADVISED CM THAT HE WOULD LIKE TO DISCHARGE THE PATIENT TODAY OR TOMORROW. THE PATIENT IS RECEIVING TRIPLE IV ANTIBIOTIC THERAPY AND WOUND CARE. VANCOMYCIN 1.25 MGM Q12H, ROCEPHIN 2 GMS IV QD AND MICAFUNGIN [address] GILMAN STATES HE HAS SPOKEN WITH ID AT [facility]. REPORTEDLY [facility] ADVISED HE CONTINUE CARE AT PRESENT SITE. DCP- Discharge Planning Updated by [email or web address]: Josefina Boyce on 12/03/19 12:[address] PER PATIENTS NURSE, [facility] HAS GIVEN RECOMMENDATIONS FOR FOR ABX AND HE WILL STAY HERE FOR THE TIME BEING. DCP- Discharge Planning Updated by [id number]: Josefina Boyce on 12/03/19 8:[address] RECEIVED A CALL FROM [facility], WANTING TO TRANSFER PATIENT TO [facility] FOR ID. I HAVE CALLED THE TRANSFER CENTER ([phone]) SPOKE WITH CARLOS TO INITIATE THE TRANSFER. FACESHEET AND MICRO FAXED TO [phone] DR GILMAN TO DO THE DOC TO DOC CM WILL CONTIUE TO FOLLOW AND ASSIST WITH DC PLANNING DCP- Discharge Planning Updated by [email or web address]: Haven Miller on 11/27/19 8:[address] Patient Name: LYNETTE SHEETS Admission Status: ER Accout number: [id number] Admission Date: 11-24-2019 : 1970 Admission Diagnosis: Attending: MARVIN DURAND Current LOS: 3 Anticipated DC Date: Planned Disposition: Home with Home Health Primary Insurance: MEDICARE A & B Discharge Planning Comments: CM met with patient to complete initial dc planning assessment. CM educated patient on the CM role and verbal consent given by patient to complete assessment. His spouse is in the room and verbal permission received to discuss discharge planning with present. Patient lives at home with his spouse. At discharge patient plans to return and feels this is a safe discharge. CM discussed availability of home health, rehab services, and medical equipment. Patient states he has had [facility] coming 2-3 times a week for dressing changes and would like to continue this on discharge. CONRAD for [facility] signed. CM will continue to follow and will assist as needed with dc plans/needs. Stockroom Associate: Haven Miller DCPIA - Discharge Planning Initial Assessment Updated by [id number]: Haven Miller on 11/27/19 9:53 am * Is the patient Alert and Oriented? Yes * How many steps to enter\exit or inside your home? 2/0 * PCP Dr. Joseph * Pharmacy [facility] * Preadmission Environment Home with Family * ADLs Partial Dependent * Partial ADLs (Assistance needed) Ambulation Bathing * Equipment Glucometer Nebulizer Other Shower Chair Wheelchair * Other Equipment Bilateral leg prosthesis * List name and contact numbers for known caregivers / representatives who currently or will assist patient after discharge: Lisa Sheets - spouse - [phone] * Verbal permission to speak to the caregivers and representatives has been obtained from the patient. Yes * Community resources currently utilized Home Health * Please name any agencies selected above. [facility] * Additional services required to return to the preadmission environment? No * Can the patient safely return to the preadmission environment? Yes * Has this patient been hospitalized within the prior 30 days at any hospital? No Coverage Notice Reviewer: [id number] Maxx Miller Notice Issued Date-Time: 11/27/2019 9:57 Notice Type: IM Discharge Notice Notice Delivered To: Patient Relationship to Patient: Self Director Of Religious Activities Name: Delivery Method: HAND - Hand Delivered Linh Days: Prior Verbal Notification: Recipient Understood Notice: Yes Recipient Signature: Yes Med Rec Note Co-signed by Attending: Coverage Notice Comment: [facility] Reviewer: [id number] Maxx Miller Notice Issued Date-Time: 12/08/2019 9:56 Notice Type: IM Discharge Notice Notice Delivered To: Patient Relationship to Patient: Self Director Of Religious Activities Name: Delivery Method: HAND - Hand Delivered Linh Days: Prior Verbal Notification: Recipient Understood Notice: Yes Recipient Signature: Yes Med Rec Note Co-signed by Attending: Coverage Notice Comment: IMM explained, signed, given, copy placed in MR Last DP export: 12/08/19 11:13 a Patient Name: LYNETTE SHEETS Page [id number] at 1623 All edits/amendments must be made on the electronic document DICTATION DATE: 12/08/19 162 CONCHE LOADER AND UNLOADER: SALAS 12/08/19 162 RPT#: [id number] [place] DATE: STATUS: ADM IN [facility] [address] [place] [address] END OF REPORT
--- NOTE | 2019-12-08 17:25 | NUR ---
DISCHARGE PAPER WORK DONE OVER WITH PATIENT, QUESTIONS ANSWERED. LEAVING WITH A RIGHT PICC LINE- FOR ASSISTED ANTIBIOTICS.
--- NOTE | 2019-12-08 18:40 | NUR ---
LEFT VIA WHEELCHAIR. PICC LINE TO THE RIGHT ARM FLUSHED AND ORANGE CAPS APPLIED. WITH THE PATIENT.
--- NOTE | 2019-12-09 07:51 | MORECARE ---
CASE MANAGEMENT DISCHARGE SUMMARY PATIENT: LYNETTE SHEETS JR UNIT: [id number] ADM DATE: 11/24/19 AGE: 48 : 72 SEX: M ROOM/BED: D.2231 AUTHOR: DARÍO,DOC PHYSICIAN: REFERRING PHYSICIAN: MARVIN DURAND MD DATE OF SERVICE: 12/09/19 Discharge Plan Patient Name: LYNETTE SHEETS Facility: [facility]:[place] : 1970 Planned Disposition: Home with Home Health Anticipated Discharge Date: Discharge Date: 12/08/2019 Expected LOS: 0 Initial Reviewer: [id number] Initial Review Date: 11/27/2019 Generated: 12/09/19 8:50 am Comments DCP- Discharge Planning Updated by [email or web address]: Haven Miller on 12/08/19 3:[address] Tennille from [employer] ([employer]) has educated patient and on IV infusions. Tennille states they are ok to discharge and have her number if needed for questions and assistance. [facility] will see in the morning. Patient and voice understanding that [facility] will give next administered dose of IV antibiotic in the am. DCP- Discharge Planning Updated by [id number]: Haven Miller on 12/08/19 11:[address] I spoke with Amparo with [facility], they will see the patient tomorrow morning for IV antibiotic and dressing change. I spoke with Shilpa with [employer] (formerly [employer]) and they will do his first teaching at 4PM today. Discharging home today with home health and infusion services. DCP- Discharge Planning Updated by [id number]: Haven Miller on 12/08/19 8:[address] CM spoke with Dr. Gilman and TO obtained for antibiotics and last day is 14 days from today. I spoke with Shilpa with [employer] company and orders faxed. I spoke with Amparo with [facility] and informed of discharging today and orders faxed. CM will continue to follow and assist with discharge planning/needs. DCP- Discharge Planning Updated by [id number]: Charlee Alba on 12/07/19 6:[address] DISCHARGE ORDERS AND D/C MED LIST W/ CLINICAL FAXED TO [facility] ( [facility] IN [place], [place]). JENNIFER TO FOLLOW. D/C ORDERS, MEDLIST, CLINICAL FAXED TO [facility]. CLARIFICATION OF ROCEPHIN ORDER. DR GILMAN HAD STATED PATIENT WOULD BE ON DAILY ROCEPHIN HOWEVER HE HAS ORDERED ROCEPHIN Q12H. PICC HAD BEEN INSERTED 12/05/2019. EMERITA TO COMMUNICATE W/ WEEKDAY RESEARCH AND DEVELOPMENT DIRECTOR REGARDING COST AND/ OR CO/PAYS. CM TO FOLLOW UP IN THE AM. [facility] AWAIT COMPLETION OF INFUSION MEDICATION AND SUPPLIES. [facility] CAN ARRANGE FOR CARE ON SUNDAY PER WEEKEND BIOMETRIC SCREENER NURSE. PATIENT HAS BEEN INFORMED PREVIOUSLY OF PROGRESS AND ISSUES RELATED TO DISCHARGE. DCP- Discharge Planning Updated by [id number]: Charlee Alba on 12/07/19 11:[address] TC TO [facility], [facility]. CM REC CB FROM N CALL NURSE, JENNIFER. DISCUSSION MD ORDERS. SHE WILL CHECK WITH THE PHARMACY DEPT BIOMETRIC SCREENER. LIKELY WILL NOT BE ABLE TO VERIFY INSURANCE AND DETERMINE COPAYS UNTIL THE AM. [facility] CONTACT PHONE NUMBER [phone] FAX NUMBER [phone] OR . DCP- Discharge Planning Updated by [id number]: Charlee Alba on 12/07/19 11:[address] CM SPOKE WITH PATIENT THIS AM. HE WISHES TO CONTINUE W/ [facility] FOR HOME HEALTH AND CANNOT REMEMBER WHICH COMPANY HE HAD FOR HOME IV THERAPY PREVIOUSLY. PATIENT HAS BEEN ON SERVICE WITH [facility] FOR DRESSING CHANGES. TC TO [facility]. CM SPOKE WITH THE ON-CALL NURSE, ARIELLA. THEY WOULD NOT BE ABLE TO STAFF FOR IVAB THERAPY UNTIL SUNDAY. IF PATIENT COULD ADMINISTER IVAB HIMSELF TONIGHT, THEY COULD RESUME CARE IN THE AM. WILL SEARCH FOR INFUSION COMPANY . PATIENT HAS NO PREFERRED PROVIDER. DR GILMAN CALLED. UPDATED ON PROGRESS. HE WISHES TO SPEAK WITH FAMILY PRACTICE CATARINA STEPHENS. CANNON PINION ADJUSTER PROVIDED HIM WITH HER PHONE NUMBER. DCP- Discharge Planning Updated by [id number]: Charlee Alba on 12/06/19 11:[address] GILMAN ADVISED CM THAT HE WOULD LIKE TO DISCHARGE THE PATIENT TODAY OR TOMORROW. THE PATIENT IS RECEIVING TRIPLE IV ANTIBIOTIC THERAPY AND WOUND CARE. VANCOMYCIN 1.25 MGM Q12H, ROCEPHIN 2 GMS IV QD AND MICAFUNGIN [address] GILMAN STATES HE HAS SPOKEN WITH ID AT [facility]. REPORTEDLY [facility] ADVISED HE CONTINUE CARE AT PRESENT SITE. DCP- Discharge Planning Updated by [id number]: Josefina Boyce on 12/03/19 12:[address] PER PATIENTS NURSE, [facility] HAS GIVEN RECOMMENDATIONS FOR FOR ABX AND HE WILL STAY HERE FOR THE TIME BEING. DCP- Discharge Planning Updated by [id number]: Josefina Boyce on 12/03/19 8:[address] RECEIVED A CALL FROM [facility], WANTING TO TRANSFER PATIENT TO [facility] FOR ID. I HAVE CALLED THE TRANSFER CENTER ([phone]) SPOKE WITH CARLOS TO INITIATE THE TRANSFER. FACESHEET AND MICRO FAXED TO [phone] DR GILMAN TO DO THE DOC TO DOC CM WILL CONTIUE TO FOLLOW AND ASSIST WITH DC PLANNING DCP- Discharge Planning Updated by [email or web address]: Haven Miller on 11/27/19 8:[address] Patient Name: LYNETTE SHEETS Admission Status: ER Accout number: [id number] Admission Date: 11-24-2019 : 1970 Admission Diagnosis: Attending: MARVIN DURAND Current LOS: 3 Anticipated DC Date: Planned Disposition: Home with Home Health Primary Insurance: MEDICARE A & B Discharge Planning Comments: CM met with patient to complete initial dc planning assessment. CM educated patient on the CM role and verbal consent given by patient to complete assessment. His spouse is in the room and verbal permission received to discuss discharge planning with present. Patient lives at home with his spouse. At discharge patient plans to return and feels this is a safe discharge. CM discussed availability of home health, rehab services, and medical equipment. Patient states he has had [facility] coming 2-3 times a week for dressing changes and would like to continue this on discharge. CONRAD for [facility] signed. CM will continue to follow and will assist as needed with dc plans/needs. Pigment Making Supervisor: Haven Miller DCPIA - Discharge Planning Initial Assessment Updated by [id number]: Haven Miller on 11/27/19 9:53 am * Is the patient Alert and Oriented? Yes * How many steps to enter\exit or inside your home? 2/0 * PCP Dr. Joseph * Pharmacy [facility] * Preadmission Environment Home with Family * ADLs Partial Dependent * Partial ADLs (Assistance needed) Ambulation Bathing * Equipment Glucometer Nebulizer Other Shower Chair Wheelchair * Other Equipment Bilateral leg prosthesis * List name and contact numbers for known caregivers / representatives who currently or will assist patient after discharge: Lisa Sheets - spouse - [phone] * Verbal permission to speak to the caregivers and representatives has been obtained from the patient. Yes * Community resources currently utilized Home Health * Please name any agencies selected above. [facility] * Additional services required to return to the preadmission environment? No * Can the patient safely return to the preadmission environment? Yes * Has this patient been hospitalized within the prior 30 days at any hospital? No Coverage Notice Reviewer: [id number] Maxx Miller Notice Issued Date-Time: 11/27/2019 9:57 Notice Type: IM Discharge Notice Notice Delivered To: Patient Relationship to Patient: Self Wireless Sales Representative Name: Delivery Method: HAND - Hand Delivered Linh Days: Prior Verbal Notification: Recipient Understood Notice: Yes Recipient Signature: Yes Med Rec Note Co-signed by Attending: Coverage Notice Comment: [facility] Reviewer: [id number] Maxx Miller Notice Issued Date-Time: 12/08/2019 9:56 Notice Type: IM Discharge Notice Notice Delivered To: Patient Relationship to Patient: Self Wireless Sales Representative Name: Delivery Method: HAND - Hand Delivered Linh Days: Prior Verbal Notification: Recipient Understood Notice: Yes Recipient Signature: Yes Med Rec Note Co-signed by Attending: Coverage Notice Comment: IMM explained, signed, given, copy placed in MR Last DP export: 12/08/19 3:23 p Patient Name: LYNETTE SHEETS Page [id number] at 0751 All edits/amendments must be made on the electronic document DICTATION DATE: 12/09/19749 CNC SERVICE ENGINEER: SALAS 12/09/19749 RPT#: [id number] DC DATE:12/08/19 STATUS: DIS IN [facility] [address] [place] [address] END OF REPORT
[2019-12-11 15:09] LABS: AMPHOTERICIN B MIC 0.5 ug/mL (())
== END 2019-12-08 18:42 | disposition home health service (06) | DRG 855 ==
LOC: D.ER 18:07 → D.M3 21:26 → OBSVTIME 21:26 → D.M3 21:26 → D.MS 21:27
PROVIDERS: Emergency Medicine; Family Medicine; Orthopaedic Surgery; ADMIT Internal Medicine Nephrology; ATTEND Internal Medicine Nephrology
PROC: 0MB40ZZ Excision of Left Elbow Bursa and Ligament, Open Approach (ICD-10-PCS; principal; 2019-11-27 10:45)
PROC: 05HY33Z Insertion of Infusion Device into Upper Vein, Percutaneous Approach (ICD-10-PCS; 2019-12-05)
DX: A41.9 Sepsis, unspecified organism (principal); M71.122 Other infective bursitis, left elbow; I25.10 Atherosclerotic heart disease of native coronary artery without angina pectoris; I10 Essential (primary) hypertension; K21.9 Gastro-esophageal reflux disease without esophagitis; N40.0 Benign prostatic hyperplasia without lower urinary tract symptoms; I48.91 Unspecified atrial fibrillation; M06.9 Rheumatoid arthritis, unspecified; F43.10 Post-traumatic stress disorder, unspecified; I48.0 Paroxysmal atrial fibrillation; B95.7 Other staphylococcus as the cause of diseases classified elsewhere; B96.89 Other specified bacterial agents as the cause of diseases classified elsewhere

== ENCOUNTER → 2019-12-11 11:45 | Outpatient (CLI) | payer MEDICARE ==
[2019-12-03 14:55] VITALS: BMI 26.0
[~2019-12-11 11:45] MED LIST changes: +CARAFATE1 G PO; +FLORAJEN3 CAPS460 MG PO; +MYCAMINE 100MG100 M1 IV; +ROCEPHIN 2 GM/D5W 50 IV; +Vancomycin 1.25 GM/N IV
[2019-12-11 13:08] LABS: BASOPHILS 0.4 % (0-2); HEMATOCRIT 43.6 % (42.0-54.0); HEMOGLOBIN 12.9 g/dL (13.5-17.5); IMMATURE GRANULOCYTES 5.7 % (0-5); MCH 27.5 pg (26.0-34.0); MCHC 29.6 g/dL (31.0-37.0); MEAN PLATELET VOLUME 9.9 fL (7.4-10.4); MONOCYTES 11.2 % (2-11); NEUTROPHILS 59.7 % (40-80); PLATELET COUNT 340 10x3/uL (130-400); RBC 4.69 10x6/uL (4.20-6.10); RDW 16.4 % (11.5-14.5)
[2019-12-11 13:31] LABS: ALKALINE PHOSPHATASE 103 U/L (30-120); ALT (SGPT) 36 U/L (10-68); BILIRUBIN - TOTAL 0.24 mg/dL (0.2-1.3); CALC OSMOLALITY 283 mosm/kg (275-300); CALCIUM 8.3 mg/dL (8.5-10.1); CARBON DIOXIDE 27.2 mmol/L (21.0-32.0); CHLORIDE - SERUM 105 mmol/L (98-107); POTASSIUM - SERUM 4.2 mmol/L (3.5-5.1); PROTEIN - SERUM 6.1 g/dL (6.4-8.2); SODIUM 142 mmol/L (136-145); UREA NITROGEN 20 mg/dL (7-18); VANCOMYCIN - TROUGH 12.8 ug/mL (10.0-20.0); eGFR NON AFRICAN AMERICAN 85 mL/min (90-120)
[2019-12-11 13:40] LABS: GLUCOSE 57 mg/dL (74-106)
== END | disposition home or self-care (01) ==
LOC: D.LABREF 11:45
PROVIDERS: ATTEND Emergency Medicine
DX: M70.22 Olecranon bursitis, left elbow (principal)

== ENCOUNTER → 2019-12-15 10:16 | Outpatient (CLI) | payer MEDICARE ==
[2019-12-03 14:55] VITALS: BMI 26.0
[2019-12-15 10:54] LABS: BASOPHILS 0.2 % (0-2); EOSINOPHILS 0.9 % (0-7); HEMATOCRIT 40.4 % (42.0-54.0); HEMOGLOBIN 12.1 g/dL (13.5-17.5); IMMATURE GRANULOCYTES 1.7 % (0-5); LYMPHOCYTES 18.4 % (15-50); MCH 28.1 pg (26.0-34.0); MCV 93.7 fL (80.0-100.0); MEAN PLATELET VOLUME 10.4 fL (7.4-10.4); MONOCYTES 9.6 % (2-11); NEUTROPHILS 69.2 % (40-80); PLATELET COUNT 305 10x3/uL (130-400); RBC 4.31 10x6/uL (4.20-6.10); RDW 16.2 % (11.5-14.5); WBC 8.9 10x3/uL (4.8-10.8)
[2019-12-15 11:03] LABS: ALBUMIN 2.7 g/dL (3.4-5.0); ALKALINE PHOSPHATASE 89 U/L (30-120); ALT (SGPT) 25 U/L (10-68); CALC OSMOLALITY 286 mosm/kg (275-300); CARBON DIOXIDE 27.9 mmol/L (21.0-32.0); CHLORIDE - SERUM 108 mmol/L (98-107); MAGNESIUM - SERUM 1.7 mg/dL (1.8-2.4); POTASSIUM - SERUM 3.4 mmol/L (3.5-5.1); PROTEIN - SERUM 5.8 g/dL (6.4-8.2); SODIUM 142 mmol/L (136-145); UREA NITROGEN 20 mg/dL (7-18); VANCOMYCIN - TROUGH 11.5 ug/mL (10.0-20.0); eGFR NON AFRICAN AMERICAN 85 mL/min (90-120)
[2019-12-15 11:04] LABS: GLUCOSE 116 mg/dL (74-106)
== END | disposition home or self-care (01) ==
LOC: D.LABREF 10:16
PROVIDERS: ATTEND Emergency Medicine
DX: M70.22 Olecranon bursitis, left elbow (principal)

== ENCOUNTER → 2019-12-22 14:11 | Outpatient (CLI) | payer MEDICARE ==
[2019-12-03 14:55] VITALS: BMI 26.0
[2019-12-22 14:23] LABS: HEMATOCRIT 41.8 % (42.0-54.0); HEMOGLOBIN 12.4 g/dL (13.5-17.5); MCH 27.7 pg (26.0-34.0); MCHC 29.7 g/dL (31.0-37.0); MCV 93.3 fL (80.0-100.0); MEAN PLATELET VOLUME 11.1 fL (7.4-10.4); PLATELET COUNT 302 10x3/uL (130-400); RBC 4.48 10x6/uL (4.20-6.10); RDW 16.2 % (11.5-14.5)
[2019-12-22 14:31] LABS: ANION GAP 13.5 mmol/L (8-16); BILIRUBIN - TOTAL 0.29 mg/dL (0.2-1.3); CALCIUM 8.3 mg/dL (8.5-10.1); CARBON DIOXIDE 24.9 mmol/L (21.0-32.0); CREATININE - SERUM 1.2 mg/dL (0.6-1.3); POTASSIUM - SERUM 3.4 mmol/L (3.5-5.1); PROTEIN - SERUM 6.3 g/dL (6.4-8.2); VANCOMYCIN - TROUGH 14.5 ug/mL (10.0-20.0)
[2019-12-22 14:53] LABS: EOSINOPHILS 2 % (0-7); LYMPHOCYTES 10 % (15-50); NEUTROPHILS 83 % (40-80)
[2019-12-22 14:54] LABS: PLATELET ESTIMATE NORMAL
[2019-12-22 14:55] LABS: PLATELET MORPHOLOGY NORMAL PLT MORPH
== END | disposition home or self-care (01) ==
LOC: D.LABREF 14:11
PROVIDERS: ATTEND Orthopaedic Surgery
DX: M70.22 Olecranon bursitis, left elbow (principal)

== ENCOUNTER 2020-02-12 09:42 | Day surgery (SDC) | payer MEDICARE ==
[~2020-02-12] VITALS: Ht 175.3 cm; Wt 81.6 kg
[~2020-02-12 09:42] MED LIST changes: +ANDROGEL5 GM IM
[2020-02-12 10:00] LABS: HEMOGLOBIN 12.1 g/dL (13.5-17.5); MCH 26.2 pg (26.0-34.0); MCHC 30.3 g/dL (31.0-37.0); MCV 86.8 fL (80.0-100.0); MEAN PLATELET VOLUME 9.7 fL (7.4-10.4); RBC 4.61 10x6/uL (4.20-6.10); RDW 17.2 % (11.5-14.5)
[2020-02-12 10:07] LABS: CALCIUM 8.1 mg/dL (8.5-10.1); CARBON DIOXIDE 27.5 mmol/L (21.0-32.0); CREATININE - SERUM 1.2 mg/dL (0.6-1.3); POTASSIUM - SERUM 3.5 mmol/L (3.5-5.1)
[2020-02-12 10:41] VITALS: Ht 175.3 cm; Wt 81.6 kg
--- NOTE | 2020-02-12 11:18 | NUR ---
DR. WHYTE NOTIFIED AND REVIEWED PT'S BEHAVIOR AND ASSESSMENT RESULTS. PT IS A LOW RISK PER DR. WHYTE. DR. WHYTE STATED TO GIVE RESOURCES TO PT AT TIME OF DISCHARGE. NO FURTHER ORDERS AT THIS TIME. RESOURCES REVIEWED WITH PT AND HE VERBALIZIED UNDERSTANDING.
[2020-02-12] MEDS ORDERED: PERCOCET 10-321 EAC1 PO (13:23)
--- NOTE | 2020-02-12 13:53 | NUR ---
ET TUBE IN AIRWAY ON ADMIT
--- NOTE | 2020-02-12 13:54 | NUR ---
ET TUBE REMOVED @0809
--- NOTE | 2020-02-16 08:45 | OP ---
PATIENT NAME: LYNETTE SHEETS JR MEDICAL RECORD: [id number] :[birth year] LOCATION:D.OPS ADMISSION DATE: SURGEON: BRADFORD GILMAN MD DATE OF OPERATION: 02/12/2020 PREOPERATIVE DIAGNOSIS: Open wound, left olecranon, elbow. POSTOPERATIVE DIAGNOSIS: Open wound, left olecranon, elbow. PROCEDURE: 1. Irrigation and debridement of the open wound. 2. Application of Restrata graft. SURGEON: Bradford Gilman MD ACCOUNTING MACHINE MECHANIC: TAMIKA Lopez INTRAOPERATIVE COMPLICATIONS: None. SUMMARY OF PATHOLOGIC FINDINGS: While the wound did undermined somewhat proximally, result was excellent for positioning. The Restrata into the recesses and then up to the distal aspect of the wound where it was not undermining. OPERATIVE SUMMARY IN DETAIL: After obtaining the appropriate preoperative orthopedic surgery consent as well as anesthetic consultation, evaluation, and clearance, the patient was brought to the operating room and placed on the operating table in supine position. After laryngeal mask airway was administered, the patient's left elbow was prepped and draped in routine sterile fashion. The entire wound bed had good granulation tissue; however undermining had been the issue. Curettage and lavage were utilized to completely clean and debride the recesses and undermining about the proximal aspect of the wound while the rest of the granular tissue was curettaged to create bleeding. At this point, the Restrata was meshed using 1-1/2 mesher. It was then gently stretched and applied into the recesses and the wound stapled into place. Having completed this, nonstick dressing was applied. The patient was awakened and taken to recovery room in stable condition. All final needle and sponge counts were correct. TRANSINT:[id number] Voice Confirmation ID: [id number] DOCUMENT ID: [id number] BRADFORD GILMAN MD at 0845 CC: [id number] DICTATION DATE: 02/12/20 1336 INSTRUCTIONAL CONSULTANT: 02/12/20 1801 [facility] 02/12/20 [facility] [address] [place] [address]
== END 2020-02-12 15:20 | disposition home or self-care (01) ==
LOC: D.OPS 09:42 → D.PAN 11:30 → D.OPS 15:00 → D.PAN 15:00 → D.OPS 15:20
PROVIDERS: Anesthesiology; ATTEND Orthopaedic Surgery
DX: S51.032A Puncture wound without foreign body of left elbow, initial encounter (principal); M70.22 Olecranon bursitis, left elbow; X58.XXXA Exposure to other specified factors, initial encounter; J45.909 Unspecified asthma, uncomplicated; Z72.0 Tobacco use; I10 Essential (primary) hypertension; K21.9 Gastro-esophageal reflux disease without esophagitis; I25.2 Old myocardial infarction

== ENCOUNTER 2020-02-26 08:55 | Day surgery (SDC) | payer MEDICARE ==
[2020-02-25 17:10] LABS: BASOPHILS 0.2 % (0-2); EOSINOPHILS 0.6 % (0-7); HEMATOCRIT 41.9 % (42.0-54.0); HEMOGLOBIN 12.6 g/dL (13.5-17.5); IMMATURE GRANULOCYTES 1.1 % (0-5); LYMPHOCYTES 8.7 % (15-50); MCH 25.5 pg (26.0-34.0); MCHC 30.1 g/dL (31.0-37.0); MCV 84.6 fL (80.0-100.0); MEAN PLATELET VOLUME 9.4 fL (7.4-10.4); MONOCYTES 8.2 % (2-11); NEUTROPHILS 81.2 % (40-80); RBC 4.95 10x6/uL (4.20-6.10); RDW 16.4 % (11.5-14.5); WBC 17.1 10x3/uL (4.8-10.8)
[2020-02-25 17:11] LABS: PLATELET COUNT 351 10x3/uL (130-400)
[2020-02-25 17:36] LABS: ANION GAP 7.7 mmol/L (8-16); CALCIUM 8.2 mg/dL (8.5-10.1); CARBON DIOXIDE 30.3 mmol/L (21.0-32.0); CREATININE - SERUM 1.3 mg/dL (0.6-1.3)
[~2020-02-26] VITALS: Ht 175.3 cm; Wt 81.6 kg
[2020-02-26 09:26] VITALS: Ht 175.3 cm; Wt 81.6 kg
--- NOTE | 2020-02-26 13:51 | NUR ---
1315 IV DC'D. CATHETER TIP INTACT. PRESSURE HELD UNTIL BLEEDING CEASED. BANDAID APPLIED.
--- NOTE | 2020-02-26 13:55 | NUR ---
1330 PT SITTING ON SIDE OF BED TRYING TO GET PROSTHETIC LEGS ON AND HAVING DIFFICULTY ENGAGING LEGS INTO PROSTHESIS. HEART RATE UP SLIGHTLY BUT BP IS STABLE.
--- NOTE | 2020-02-28 11:34 | OP ---
PATIENT NAME: LYNETTE SHEETS JR MEDICAL RECORD: [id number] :[birth year] LOCATION:D.OPS ADMISSION DATE: SURGEON: BRADFORD GILMAN MD DATE OF OPERATION: 02/26/2020 PREOPERATIVE DIAGNOSIS: Nonhealing wound of the left olecranon bursa. POSTOPERATIVE DIAGNOSIS: Nonhealing wound of the left olecranon bursa. PROCEDURE: 1. Irrigation and debridement of the open wound. 2. Application of synthetic Restrata skin grafting. SURGEON: Bradford Gilman MD ANESTHESIA: General. INTRAOPERATIVE COMPLICATIONS: None. SUMMARY OF PATHOLOGIC FINDINGS: While the previous Restrata skin graft had helped substantially, the patient had hyper-mobilized and dislodge the remainder of it. Therefore, revision of such was needed. Today, he will be placed in a posterior splint to try and help retention of the graft. OPERATIVE SUMMARY IN DETAIL: After obtaining the appropriate preoperative orthopedic surgery consent as well as anesthetic consultation, evaluation and clearance, the patient was brought to the operating room and placed on the operating table in supine position. After adequate general laryngeal mask airway was administered, the patient's left upper extremity and shoulder were then prepped and draped in routine sterile fashion. The wound was measured, it measures approximately 3 cm x 3 cm with undermining superiorly, laterally and medially of approximately 1 cm. After curettage, rongeur as well as scalpel debridement and recreating a good bleeding bone bed, Restrata 5 x 5 graft was meshed in a 1:1.5 basis. It was soaked and allowed to become flexible and pliable and then it was placed in an undermined position and held in place with multiple priscilla. At this point, nonadherent dressing was placed, and after the nonadherent dressing was placed a posterior splint was placed. Having completed this, the patient was awakened and taken to the recovery room in stable condition. All final needle and sponge counts were correct. TRANSINT:[id number] Voice Confirmation ID: [id number] DOCUMENT ID: [id number] BRADFORD GILMAN MD at 1134 CC: [id number] DICTATION DATE: 02/27/20 1118 CDL DEDICATED TRUCK DRIVER: 02/27/20 1706 [facility] 02/26/20 [place] [address]
== END 2020-02-26 12:48 | disposition home or self-care (01) ==
LOC: D.OPS 08:55
PROVIDERS: Anesthesiology; ATTEND Orthopaedic Surgery
DX: S51.032A Puncture wound without foreign body of left elbow, initial encounter (principal); J45.909 Unspecified asthma, uncomplicated; I25.2 Old myocardial infarction; X58.XXXA Exposure to other specified factors, initial encounter; F17.200 Nicotine dependence, unspecified, uncomplicated

== ENCOUNTER 2020-06-15 21:44 | Inpatient (IN) | payer MEDICARE ==
[~2020-06-15] VITALS: Ht 175.3 cm; Wt 70.8 kg
--- NOTE | 2020-06-15 22:46 | NUR ---
DR. GUZMAN AT BEDSIDE REQUESTING 1MG ATIVAN FOR PT HAVING A SEIZURE.
[2020-06-15 23:12] LABS: BASOPHILS 0.9 % (0-2); EOSINOPHILS 4.3 % (0-7); HEMATOCRIT 29.9 % (42.0-54.0); HEMOGLOBIN 8.8 g/dL (13.5-17.5); IMMATURE GRANULOCYTES 0.3 % (0-5); LYMPHOCYTES 21.5 % (15-50); MCH 23.6 pg (26.0-34.0); MCHC 29.4 g/dL (31.0-37.0); MCV 80.2 fL (80.0-100.0); MEAN PLATELET VOLUME 9.8 fL (7.4-10.4); MONOCYTES 5.2 % (2-11); NEUTROPHILS 67.8 % (40-80); PLATELET COUNT 327 10x3/uL (130-400); RBC 3.73 10x6/uL (4.20-6.10); RDW 18.1 % (11.5-14.5); WBC 9.4 10x3/uL (4.8-10.8)
[2020-06-15 23:26] LABS: ANION GAP 9.8 mmol/L (8-16); CALCIUM 11.3 mg/dL (8.5-10.1); CARBON DIOXIDE 27.8 mmol/L (21.0-32.0); CREATININE - SERUM 1.7 mg/dL (0.6-1.3); POTASSIUM - SERUM 3.6 mmol/L (3.5-5.1)
[2020-06-15 23:36] LABS: INR 1.02 (0.85-1.17); PROTIME 13.3 SECONDS (11.6-15.0)
[2020-06-15 23:40] LABS: ALBUMIN 2.4 g/dL (3.4-5.0); BILIRUBIN - TOTAL 0.21 mg/dL (0.2-1.3); PROTEIN - SERUM 8.1 g/dL (6.4-8.2)
[2020-06-16] VITALS (9 sets, daily range): BP systolic 88–116; BP diastolic 60–81
[2020-06-16 01:17] LABS: BILIRUBIN NEGATIVE (NEGATIVE); KETONE NEGATIVE (NEGATIVE); NITRITE NEGATIVE (NEGATIVE); UROBILINOGEN NORMAL mg/dL (< 2)
[2020-06-16 01:18] LABS: BACTERIA FEW HPF (NONE SEEN); EPITHELIAL CELLS 0-5 /hpf (0-5)
[2020-06-16 01:23] LABS: UDS - AMPHET NEGATIVE QUAL (NEGATIVE); UDS - BARB NEGATIVE QUAL (NEGATIVE); UDS - BENZO POSITIVE QUAL (NEGATIVE); UDS - COCAINE NEGATIVE QUAL (NEGATIVE); UDS - OPIATE POSITIVE QUAL (NEGATIVE); UDS - PCP NEGATIVE QUAL (NEGATIVE); UDS - THC NEGATIVE QUAL (NEGATIVE)
--- NOTE | 2020-06-16 02:34 | NUR ---
PT ROLLED TO RIGHT SIDE LYING AND REPOSITIONED IN BED.
--- NOTE | 2020-06-16 03:51 | NUR ---
PT REPORTS THAT SHE DOZED OFF AND PT TOOK OUT HIS IV. CATHETER INTACT AND DRESSING PLACED. NEW IV STARTED, SEE DOCUMENTATION.
--- NOTE | 2020-06-16 04:58 | NUR ---
COVID SWAB SENT TO LAB
--- NOTE | 2020-06-16 05:35 | NUR ---
PT ROLLED TO LEFT SIDE LYING POSITION.
--- NOTE | 2020-06-16 06:50 | NUR ---
PT INCONTINENT OF URINE, LINEN CHANGE AND GOWN PLACED AT THIS TIME. RODRICK CARE PROVIDED.
--- NOTE | 2020-06-16 07:08 | NUR ---
REPORT GIVEN TO RONN BARKER AT THIS TIME.
[2020-06-16 10:43] LABS: BASOPHILS 0.8 % (0-2); EOSINOPHILS 3.3 % (0-7); HEMOGLOBIN 8.3 g/dL (13.5-17.5); IMMATURE GRANULOCYTES 0.1 % (0-5); LYMPHOCYTES 24.4 % (15-50); MCH 23.6 pg (26.0-34.0); MCHC 29.6 g/dL (31.0-37.0); MCV 79.5 fL (80.0-100.0); MEAN PLATELET VOLUME 9.1 fL (7.4-10.4); MONOCYTES 7.2 % (2-11); NEUTROPHILS 64.2 % (40-80); PLATELET COUNT 471 10x3/uL (130-400); RBC 3.52 10x6/uL (4.20-6.10); RDW 18.2 % (11.5-14.5); WBC 8.4 10x3/uL (4.8-10.8)
--- NOTE | 2020-06-16 14:33 | NUR ---
[facility] COMPLETED AND LINE FLUSHED
--- NOTE | 2020-06-17 01:06 | NUR ---
PT DISCHARGED TO FLOOR REPORT GIVEN TO BLACK.
[2020-06-17 02:05] VITALS: BP 104/73; BMI 23.1
[2020-06-17 04:00] VITALS: BP 170/60
[2020-06-17 07:10] LABS: BASOPHILS 0.9 % (0-2); HEMATOCRIT 24.1 % (42.0-54.0); IMMATURE GRANULOCYTES 0.1 % (0-5); LYMPHOCYTES 28.8 % (15-50); MCH 23.2 pg (26.0-34.0); MCV 79.8 fL (80.0-100.0); MEAN PLATELET VOLUME 9.3 fL (7.4-10.4); MONOCYTES 7.4 % (2-11); NEUTROPHILS 55.8 % (40-80); PLATELET COUNT 466 10x3/uL (130-400); RBC 3.02 10x6/uL (4.20-6.10); RDW 18.3 % (11.5-14.5); WBC 7.7 10x3/uL (4.8-10.8)
[2020-06-17 07:23] LABS: ANION GAP 9.4 mmol/L (8-16); CALCIUM 10.1 mg/dL (8.5-10.1); CARBON DIOXIDE 25.5 mmol/L (21.0-32.0); CREATININE - SERUM 1.4 mg/dL (0.6-1.3); MAGNESIUM - SERUM 1.7 mg/dL (1.8-2.4); PHOSPHOROUS 3.4 mg/dL (2.5-4.9)
--- NOTE | 2020-06-17 07:28 | NUR ---
PT HGB IS 7.0 THIS MORNING, HAD ECLSO DOLLYMAN FOR IVON MERCER
[2020-06-17 07:40] LABS: POTASSIUM - SERUM 2.9 mmol/L (3.5-5.1)
--- NOTE | 2020-06-17 07:41 | NUR ---
PATIENT K+ IS 2.9. WILL RELAY MESSAGE TO PRIMARY AND REPLETE. CONTINUE WITH PLAN OF CARE
[2020-06-17 09:02] VITALS: BP 106/71
[2020-06-17 09:16] LABS: % SATURATION 10 % (15-55); IRON 13 ug/dl (35-150); TOTAL IRON BIND CAPACITY 130 ug/dl (260-445); UNSAT IRON BIND CAPACITY 117 ug/dl (150-375)
[2020-06-17 09:44] LABS: FERRITIN 316 ng/mL (3-244)
[2020-06-17 11:51] VITALS: BP 114/75
--- NOTE | 2020-06-17 13:49 | NUR ---
RESITED PT IV TO RT FA, 20G 1 STICK, STARTED PT BLOOD. PT AND PT SPOUSE CONTINUED TO FALL ASLEEP WHEN SPEAKING WITH THEM AND EXPLAINING PROCESS. CONTINUE WITH RACHAEL OF CARE
[2020-06-17 15:01] VITALS: Ht 175.3 cm; Wt 70.8 kg
--- NOTE | 2020-06-17 17:39 | NUR ---
PT BLOOD COMPLETE, RESTARTED NS AND POTASSIUM. CONTINUE WITH PLAN OF CARE
[2020-06-17 17:50] VITALS: BP 121/64
[2020-06-17 18:02] LABS: BILIRUBIN NEGATIVE (NEGATIVE); KETONE NEGATIVE (NEGATIVE); NITRITE NEGATIVE (NEGATIVE); UROBILINOGEN NORMAL mg/dL (< 2)
--- NOTE | 2020-06-17 18:45 | NUR ---
I have reviewed this patient and I concur with the Shift Assessment completed by the Licensed Practical Nurse today this shift.
[2020-06-17 20:00] VITALS: BP 97/63
--- NOTE | 2020-06-17 20:00 | NUR ---
PATIENT RESTING IN BED ASLEEP WITH AT BEDSIDE. NO S/S OF ACUTE DISTRESS. NO C/O AT THIS TIME. PATIENT HAS RIGHT FOREARM, NORMAL SALINE @ 100 ML/HR. IV IS PATENT WITHOUT REDNESS, SWELLING, OR TENDERNESS. PATIENT HAS A PEG-TUBE. PATEINT HAS A WOUND VAC TO COCCYX. PATIENT HAS URINAL AT BEDSIDE. CALL LIGHT WITHIN REACH. WILL CONTINUE TO MONITOR.
[2020-06-18 04:00] VITALS: BP 113/71
--- NOTE | 2020-06-18 04:25 | NUR ---
I have reviewed this patient and I concur with the Shift Assessment completed by the Licensed Practical Nurse today this shift.
[2020-06-18 07:20] LABS: BASOPHILS 0.9 % (0-2); EOSINOPHILS 0.3 % (0-7); HEMATOCRIT 28.4 % (42.0-54.0); IMMATURE GRANULOCYTES 0.1 % (0-5); LYMPHOCYTES 23.7 % (15-50); MCH 24.8 pg (26.0-34.0); MEAN PLATELET VOLUME 9.3 fL (7.4-10.4); MONOCYTES 5.3 % (2-11); NEUTROPHILS 69.7 % (40-80); PLATELET COUNT 426 10x3/uL (130-400); RBC 3.55 10x6/uL (4.20-6.10); RDW 17.5 % (11.5-14.5); WBC 6.8 10x3/uL (4.8-10.8)
[2020-06-18 07:21] LABS: HEMOGLOBIN 8.8 g/dL (13.5-17.5)
[2020-06-18 07:22] LABS: ALBUMIN 2.2 g/dL (3.4-5.0); ANION GAP 12.4 mmol/L (8-16); BILIRUBIN - TOTAL 0.25 mg/dL (0.2-1.3); CALCIUM 9.2 mg/dL (8.5-10.1); CARBON DIOXIDE 23.9 mmol/L (21.0-32.0); CREATININE - SERUM 1.2 mg/dL (0.6-1.3); POTASSIUM - SERUM 3.3 mmol/L (3.5-5.1); PROTEIN - SERUM 6.5 g/dL (6.4-8.2)
[2020-06-18 09:03] VITALS: BP 112/64
--- NOTE | 2020-06-18 10:40 | NUR ---
WOUND VAC DRESSING CHANGE DATE: 06/18/20 WOUND LOCATION: sacrum/coccyx WOUND MEASUREMENTS: 12cm x 8cm x 2.5cm x 5cm from 12-3 oclock WOUND DESCRIPTION: Granulation noted MUSCLE, TENDON, OR BONE EXPOSED? no DRAINAGE AMOUNT/DESCRIPTION: small/sanguinous ODOR? no TYPE OF SPONGE USED AND AMOUNT: 2 black SETTINGS: -125mmhg low continuous TEACHING: types of sponges used/discussion with Pt tolerated well Pt also has an open area on elbow. It appears as an area where a scab was scratched off. It is being covered for protection.
--- NOTE | 2020-06-18 12:25 | NUR ---
OT NOTE: PT MORE ALERT TODAY AND VERBALLY RESPONSIVE, HOWEVER, STILL UNABLE TO OBTAIN INFO REGARDING THE LAST TIME PT USED PROSTHESIS. PT AND VERY VAGUE BUT APPARENTLY IT HAS BEEN GREATER THAN A FEW MONTHS. ASSISTED PT WITH SUPINE TO SIT WITH MAX ASSIST X 2; MIN ASSIST WITH SITTING BALANCE..PT ABLE TO PERFORM UE AROM EXS WITH ASSIST FOR BALANCE. LE EXS WITH INCREASED WEAKNESS NOTED IN L LE..TREMORS IN L THIGH DURING KNEE EXT EXS AND INABILITY TO OBTAIN FULL KNEE FLEX WITHOUT ASSIST. PERFORMED EXTENSIVE BED MOB INCLUDING ROLLING FROM SIDE TO SIDE WHILE CHANGING LINENS. COMMENTS THAT SHE DOES NOT THINK THE WOUND VAC IS WORKING BECAUSE NOTHING IS GOING INTO CANISTER. ASSURED HER THAT IT WAS WORKING BY THE WAY THE SPONGE IS SUCTIONED ONTO WOUND. ALSO SHOWED HER THE SYSTEM INDICATING THAT IT HAS A GOOD SEAL. TOLD HER THAT IT WOULD BE "BEEPING" CONTINUOUSLY IF NOT WORKING PROPERLY. EDUCATED PT TO PERFORM UE/LE EXS WHILE IN BED TO ASSIST WITH STRNEGHTENING. POSITIONED PT ON HIS R SIDE WITH PILLOW AND PLACED PILLOW BETWEEN KNEES TO PREVENT BREAKDOWN. JEISON HOUGH, OTR/L [id number]
[2020-06-18 13:59] VITALS: BP 87/55
--- NOTE | 2020-06-18 14:36 | NUR ---
NUTRITION F/U CHART REVIEWED, PT VISIT. FAMILY AT BEDSIDE ASSISTING WITH BREAKFAST. STATES HE HAS GOOD APPETITE, GOOD PO INTAKE. WILL CONTINUE TO PROVIDE CURRENT DIET, MONITOR PO INTAKE. RD FOLLOWING
--- NOTE | 2020-06-18 17:19 | NUR ---
OT NOTE: PT REQUIRED MOD A X2 FOR SUPINE TO SIT . PT COMPLETED EOB SITTING BALANCE WITH CGA/MIN A. PT COMPLETED UE AROM NEEDED FOR FUNCTIONAL TASKS. [id number] THANK YOU,CHI SINGLETON
[2020-06-18 17:24] VITALS: BP 101/61
--- NOTE | 2020-06-18 18:45 | NUR ---
I have reviewed this patient and I concur with the Shift Assessment completed by the Licensed Practical Nurse today this shift.
--- NOTE | 2020-06-18 20:00 | NUR ---
PATIENT RESTING IN BED WITH ASLEEP AT BEDSIDE. NO S/S OF ACUTE DISTRESS. NO C/O AT THIS TIME. PATIENT HAS RIGHT FOREARM, NORMAL SALINE @ 100 ML/HR. IV IS PATENT WITHOUT REDNESS, SWELLING, OR TENDERNESS. PATIENT HAS A PEG TUBE. PATIENT IS A BILATERAL BKA. PATIENT HAS A WOUND VAC TO COCCYX, DRESSING C/D/I. CALL LIGHT WITHIN REACH. WILL CONTINUE TO MONITOR.
[2020-06-18 20:24] VITALS: BP 103/64
[2020-06-19 01:10] VITALS: BP 102/63
--- NOTE | 2020-06-19 04:02 | NUR ---
I have reviewed this patient and I concur with the Shift Assessment completed by the Licensed Practical Nurse today this shift.
[2020-06-19 05:12] VITALS: BP 106/72
[2020-06-19 06:07] LABS: MCH 25.9 pg (26.0-34.0); MCHC 33.2 g/dL (31.0-37.0); RDW 18.3 % (11.5-14.5)
[2020-06-19 06:16] LABS: ALBUMIN 2.1 g/dL (3.4-5.0); ALKALINE PHOSPHATASE 86 U/L (30-120); BILIRUBIN - TOTAL 0.22 mg/dL (0.2-1.3); CALC OSMOLALITY 268 mosm/kg (275-300); CARBON DIOXIDE 21.5 mmol/L (21.0-32.0); CHLORIDE - SERUM 105 mmol/L (98-107); CREATININE - SERUM 0.9 mg/dL (0.6-1.3); GLUCOSE 96 mg/dL (74-106); PROTEIN - SERUM 6.6 g/dL (6.4-8.2); SODIUM 135 mmol/L (136-145); UREA NITROGEN 11 mg/dL (7-18); eGFR NON AFRICAN AMERICAN > 90 mL/min (90-120)
[2020-06-19 06:17] LABS: HEMATOCRIT 34.6 % (42.0-54.0); HEMOGLOBIN 11.5 g/dL (13.5-17.5); MCV 77.9 fL (80.0-100.0); PLATELET COUNT 266 10x3/uL (130-400); RBC 4.44 10x6/uL (4.20-6.10); WBC 2.7 10x3/uL (4.8-10.8)
[2020-06-19 06:18] LABS: POTASSIUM - SERUM 5.1 mmol/L (3.5-5.1)
[2020-06-19 06:19] LABS: ALT (SGPT) 8 U/L (10-68); CALCIUM 6.9 mg/dL (8.5-10.1)
[2020-06-19 08:00] VITALS: BP 119/71
--- NOTE | 2020-06-19 08:00 | NUR ---
ASSESSMENT PER FLOW SHEET. PATIENT IS WITHOUT DISRESS. WOUND VAC IN PLACE AND WORKING. FAMILY AT BEDSIDE.
[2020-06-19 08:15] LABS: LYMPHOCYTES 38 % (15-50); NEUTROPHILS 62 % (40-80); PLATELET ESTIMATE NORMAL
[2020-06-19 12:14] VITALS: BP 126/77
--- NOTE | 2020-06-19 17:39 | NUR ---
HAS HAD 5 LARGE WATERY STOOLS TODAY. WOUND VAC CHANGE BECAUSE LOOSE FROM STOOLS. CONT PLAN OF CARE
--- NOTE | 2020-06-19 19:05 | NUR ---
PATIENT ALERT AND ORIENTED. SPEECH CLEAR, BUT SOFT SPOKEN. PATIENT INCONTINENT OF BOWEL. ASSISTED IN BED CHANGE. PATIENT TOLERATED WELL. WOUND VAC TO BUTTOCKS AREA. CURRENTLY PULLING AT 50MMHQ. APPLIED TEGADERMS AND WOUND VAC NOT FUNCTIONING APPROPRIATELY AND SUCTIONING AT 150MMHQ. PATIENT TOLERATED WELL. IV TO RT FOREARM PATENT AND INFUSING PER ORDER. CALL LIGHT CLOSE. BED LOCKED AND LOWERED. CPOC.
--- NOTE | 2020-06-19 21:20 | NUR ---
INCOTINENT OF BOWEL. ASSISTED WITH CLEAN UP. WOUND VAC REMAINS PATENT AND SUCTIONING AT 150 MMHQ PER ORDER. CPOC.
[2020-06-19 21:35] VITALS: BP 117/77
[2020-06-20 01:23] VITALS: BP 127/72
[2020-06-20 05:31] VITALS: BP 130/81
[2020-06-20 07:12] LABS: BASOPHILS 0.3 % (0-2); EOSINOPHILS 0.2 % (0-7); HEMOGLOBIN 9.6 g/dL (13.5-17.5); IMMATURE GRANULOCYTES 0.3 % (0-5); LYMPHOCYTES 24.7 % (15-50); MCH 24.7 pg (26.0-34.0); MCV 79.7 fL (80.0-100.0); MEAN PLATELET VOLUME 9.8 fL (7.4-10.4); MONOCYTES 9.2 % (2-11); NEUTROPHILS 65.3 % (40-80); RBC 3.89 10x6/uL (4.20-6.10); RDW 17.4 % (11.5-14.5)
[2020-06-20 07:15] LABS: PLATELET COUNT 441 10x3/uL (130-400)
[2020-06-20 07:40] LABS: ALBUMIN 2.1 g/dL (3.4-5.0); ALKALINE PHOSPHATASE 83 U/L (30-120); CALC OSMOLALITY 267 mosm/kg (275-300); CALCIUM 8.3 mg/dL (8.5-10.1); CARBON DIOXIDE 23.5 mmol/L (21.0-32.0); CHLORIDE - SERUM 103 mmol/L (98-107); CREATININE - SERUM 0.9 mg/dL (0.6-1.3); GLUCOSE 101 mg/dL (74-106); MAGNESIUM - SERUM 1.3 mg/dL (1.8-2.4); PROTEIN - SERUM 6.8 g/dL (6.4-8.2); SODIUM 135 mmol/L (136-145); UREA NITROGEN 7 mg/dL (7-18); VALPROIC ACID (DEPAKOTE) 40.8 ug/mL (50.0-100.0); eGFR NON AFRICAN AMERICAN > 90 mL/min (90-120)
[2020-06-20 07:41] LABS: ALT (SGPT) 5 U/L (10-68); POTASSIUM - SERUM 2.7 mmol/L (3.5-5.1)
--- NOTE | 2020-06-20 08:00 | NUR ---
ASSESSMENT PER FLOW SHEET. PATIENT IS WITHOUT DISTRESS. AT BEDSIDE.CALL LIGHT IN REACH
[2020-06-20 08:36] VITALS: BP 114/73
--- NOTE | 2020-06-20 10:00 | NUR ---
WOUND VAC CHANGED,SOILED AND FALLING OFF.
--- NOTE | 2020-06-20 15:13 | NUR ---
PEG FLUSHED WITH 30CC OF WATER. SITE CLEANED AROUNG TUBE AND DRESSING PLACED
[2020-06-20 16:22] VITALS: BP 95/65
--- NOTE | 2020-06-20 18:38 | NUR ---
BED CHANGE ANOTHER SMALL BROWN STOOL
--- NOTE | 2020-06-20 19:00 | NUR ---
PATIENT ALERT AND ORIENTED WHEN ENTERING THE ROOM. PATIENT INCONTINENT OF BOWEL. ASSISTED WITH BED CHANGE. WOUND VAC DRIED AND REMAINS IN TACT SUCTIONING AT 150 MMHQ. ASSESSMENT PERFORMED. PATIENT DENIES NEEDS AT THIS TIME. CALL LIGHT CLOSE. AT BEDSIDE. CPOC.
--- NOTE | 2020-06-20 20:10 | NUR ---
INCONTINENT OF BOWEL. CHANGED PATIENT. WOUND VAC REMAINS IN TACT. PATIENT REQUESTS PRN PAIN MEDICINE FOR 10/10 PAIN TO BOTTOM.
--- NOTE | 2020-06-20 20:17 | NUR ---
ADMINISTERED NORCO FOR COMPAINTS OF PAIN. PATIENT TOLERATED WELL. CALL LIGHT CLOSE. CPOC.
[2020-06-20 21:08] VITALS: BP 132/94
[2020-06-21 01:22] VITALS: BP 125/73
--- NOTE | 2020-06-21 02:11 | NUR ---
TUBING CHANGED PER UNIT PROTOCAL
--- NOTE | 2020-06-21 04:37 | NUR ---
PATIENT TEARFUL THIS MORNING. TEARFUL DUE TO DECLINING HEALTH. SUPPORT PROVIDED. CPOC.
[2020-06-21 05:30] VITALS: BP 110/74
[2020-06-21 06:29] LABS: ALBUMIN 2.2 g/dL (3.4-5.0); ALKALINE PHOSPHATASE 86 U/L (30-120); ALT (SGPT) 6 U/L (10-68); BILIRUBIN - TOTAL 0.04 mg/dL (0.2-1.3); CALC OSMOLALITY 262 mosm/kg (275-300); CALCIUM 8.5 mg/dL (8.5-10.1); CARBON DIOXIDE 22.4 mmol/L (21.0-32.0); CHLORIDE - SERUM 104 mmol/L (98-107); CREATININE - SERUM 0.9 mg/dL (0.6-1.3); GLUCOSE 98 mg/dL (74-106); MAGNESIUM - SERUM 1.3 mg/dL (1.8-2.4); POTASSIUM - SERUM 3.3 mmol/L (3.5-5.1); PROTEIN - SERUM 6.3 g/dL (6.4-8.2); SODIUM 133 mmol/L (136-145); UREA NITROGEN 4 mg/dL (7-18); eGFR NON AFRICAN AMERICAN > 90 mL/min (90-120)
[2020-06-21 09:05] VITALS: BP 114/71
--- NOTE | 2020-06-21 10:00 | NUR ---
ASSESSMENT PER FLOW SHEET. PATIENT IS WITHOUT DISTRESS.CALL LIGHT IN REACH.
[2020-06-21 10:57] LABS: BASOPHILS 0.3 % (0-2); EOSINOPHILS 1.2 % (0-7); HEMOGLOBIN 9.8 g/dL (13.5-17.5); IMMATURE GRANULOCYTES 0.3 % (0-5); LYMPHOCYTES 34.8 % (15-50); MCH 24.5 pg (26.0-34.0); MCHC 30.6 g/dL (31.0-37.0); MEAN PLATELET VOLUME 8.9 fL (7.4-10.4); MONOCYTES 13.9 % (2-11); NEUTROPHILS 49.5 % (40-80); PLATELET COUNT 393 10x3/uL (130-400); RDW 17.2 % (11.5-14.5)
--- NOTE | 2020-06-21 12:52 | NUR ---
WOUND VAC DRESSING CHANGE DATE: 06/21/20 WOUND LOCATION: sacrum/coccyx WOUND MEASUREMENTS:12cm x 8cm x 2.5cm x 4.6cm from 12-6 oclock WOUND DESCRIPTION: undermining is less MUSCLE, TENDON, OR BONE EXPOSED? no DRAINAGE AMOUNT/DESCRIPTION: sanguinous moderate amount ODOR? no TYPE OF SPONGE USED AND AMOUNT: 2 black SETTINGS: -125mmhg low continuous TEACHING: skin preparation/protection Pt tolerated well.
--- NOTE | 2020-06-21 14:31 | NUR ---
Nutrition follow-up: Pt receiving a regular mechanical soft diet with gravy, thin liquids PO intake ~50% average of meals Labs reviewed Wt: 156# PO intake is fair at this time Will continue to provide food choices and honor all food preferences. RDN following.
[2020-06-21 15:00] VITALS: BP 114/66
[2020-06-21 20:41] VITALS: BP 121/72
--- NOTE | 2020-06-21 21:00 | NUR ---
PT SITTING UP IN BED WITHOUT DISTRESS, AOX4. TURNED PT TO LEFT SIDE. WOUND VAC IN PLACE, CDI. IV RIGHT FA INFUSING NS @ 100. TOOK HS MEDS WITHOUT DIFFICULTY. DENIES OTHER NEEDS. CL IN REACH, WILL CTM
[2020-06-22 00:29] VITALS: BP 125/77
[2020-06-22 04:00] VITALS: BP 122/80
[2020-06-22 06:45] LABS: BASOPHILS 0.5 % (0-2); EOSINOPHILS 0.2 % (0-7); HEMATOCRIT 32.2 % (42.0-54.0); HEMOGLOBIN 9.7 g/dL (13.5-17.5); IMMATURE GRANULOCYTES 0.8 % (0-5); LYMPHOCYTES 27.8 % (15-50); MCH 24.4 pg (26.0-34.0); MCHC 30.1 g/dL (31.0-37.0); MCV 81.1 fL (80.0-100.0); MEAN PLATELET VOLUME 9.9 fL (7.4-10.4); MONOCYTES 10.5 % (2-11); NEUTROPHILS 60.2 % (40-80); PLATELET COUNT 439 10x3/uL (130-400); RBC 3.97 10x6/uL (4.20-6.10); RDW 17.7 % (11.5-14.5); WBC 5.9 10x3/uL (4.8-10.8)
[2020-06-22 07:08] LABS: ALBUMIN 2.3 g/dL (3.4-5.0); ALKALINE PHOSPHATASE 92 U/L (30-120); ALT (SGPT) 6 U/L (10-68); CALC OSMOLALITY 265 mosm/kg (275-300); CALCIUM 8.8 mg/dL (8.5-10.1); CARBON DIOXIDE 23.7 mmol/L (21.0-32.0); CHLORIDE - SERUM 104 mmol/L (98-107); CREATININE - SERUM 0.9 mg/dL (0.6-1.3); GLUCOSE 108 mg/dL (74-106); MAGNESIUM - SERUM 1.3 mg/dL (1.8-2.4); POTASSIUM - SERUM 3.4 mmol/L (3.5-5.1); PROTEIN - SERUM 6.6 g/dL (6.4-8.2); SODIUM 134 mmol/L (136-145); UREA NITROGEN 4 mg/dL (7-18); eGFR NON AFRICAN AMERICAN > 90 mL/min (90-120)
[2020-06-22 07:09] LABS: BILIRUBIN - TOTAL 0.07 mg/dL (0.2-1.3)
--- NOTE | 2020-06-22 07:26 | NUR ---
PT LAYING ON RIGHT SIDE. IN BED LAYING ON HER LEFT SIDE. CL IN REACH. NO NEEDS AT THIS TIME. WCTM
[2020-06-22 08:23] VITALS: BP 101/63
[2020-06-22 11:54] VITALS: BP 127/76
--- NOTE | 2020-06-22 16:00 | NUR ---
OT NOTE: PT DOING MUCH BETTER TODAY. PT WAS MENTALLY MORE CLEAR THAN PREVIOUS DAYS, AND ALSO PHYSICALLY MUCH BETTER. PT ABLE TO PERFORM ROLLING SIDE TO SIDE WITHOUT ASSIST; SUPINE TO SIT WITH MOD ASSIST; GOOD STATIC SITTING BALANCE ON EOB. ABLE TO PERFORM UE AND LE EXS X 10 REPS X 2 SETS..C/O PAIN IN SACRAL AREA AND L ELBOW. BACK TO BED WITH MIN ASSIST FOR POSITIONING. EDUCATED PT ON IMPORTANCE OF ROLLING SIDE TO SIDE FREQUENTLY FOR PRESSURE RELIEF (NOW THAT HE CAN DO THIS INDEP)..WILL PROVIDE PT WITH THERABAND EXS TO USE WHILE IN BED. PT ALSO PERFORMED BICEP STRENGTHENING EXS WITH RESISTANCE PROVIDED BY THERAPISTS. PT REPORTS THAT HE WANTS TO GO TO REHAB OR HOME..STATES THAT HE CAN DO THERAPY WITH ASSIST FROM HIS NEPHEWS. ALSO REQUESTED FROM THAT SHE BRING PTS PROSTHESIS IN FROM CAR WHEN SHE CAN.. WANTED PT TO TRY THEM ON SINCE IT HAS BEEN OVER A MONTH SINCE HE HAS USED THEM. JEISON HOUGH, OTR/L [phone]
[2020-06-22 17:34] VITALS: BP 148/68
--- NOTE | 2020-06-22 20:30 | NUR ---
PT SITTING UP IN BED WITHOUT DISTRESS, REQUESTING PAIN MED FOR PAIN TO COCCYX. GAVE NORCO AND HS MEDS ORDERED. PT EYES RED AND IRRITATED, PROVIDED EYE DROPS. PT REPOSITIONED TO LEFT SIDE. DENIES OTHER NEEDS AT THIS TIME. CL IN REACH, WILL CTM
[2020-06-22 21:26] VITALS: BP 117/85
[2020-06-23] VITALS: BP 116/79
[2020-06-23 04:00] VITALS: BP 113/77
--- NOTE | 2020-06-23 06:00 | NUR ---
PT STATES PAIN 10/10 AND FEELING NAUSEOUS. GAVE NORCO AND ZOFRAN. DENIES OTHER NEEDS. CL IN REACH, WILL CTM
[2020-06-23 07:49] LABS: BASOPHILS 0.3 % (0-2); EOSINOPHILS 0.8 % (0-7); HEMATOCRIT 30.8 % (42.0-54.0); HEMOGLOBIN 9.5 g/dL (13.5-17.5); IMMATURE GRANULOCYTES 1.1 % (0-5); LYMPHOCYTES 34.8 % (15-50); MCH 24.8 pg (26.0-34.0); MCHC 30.8 g/dL (31.0-37.0); MCV 80.4 fL (80.0-100.0); MEAN PLATELET VOLUME 8.9 fL (7.4-10.4); MONOCYTES 10.7 % (2-11); NEUTROPHILS 52.3 % (40-80); PLATELET COUNT 427 10x3/uL (130-400); RBC 3.83 10x6/uL (4.20-6.10); RDW 17.8 % (11.5-14.5); WBC 6.6 10x3/uL (4.8-10.8)
[2020-06-23 08:06] LABS: ALBUMIN 2.3 g/dL (3.4-5.0); ALKALINE PHOSPHATASE 104 U/L (30-120); BILIRUBIN - TOTAL 0.12 mg/dL (0.2-1.3); CALCIUM 8.4 mg/dL (8.5-10.1); CARBON DIOXIDE 26.8 mmol/L (21.0-32.0); CHLORIDE - SERUM 104 mmol/L (98-107); CREATININE - SERUM 0.8 mg/dL (0.6-1.3); GLUCOSE 94 mg/dL (74-106); PHOSPHOROUS 1.9 mg/dL (2.5-4.9); POTASSIUM - SERUM 3.4 mmol/L (3.5-5.1); PROTEIN - SERUM 6.4 g/dL (6.4-8.2); SODIUM 135 mmol/L (136-145); eGFR NON AFRICAN AMERICAN > 90 mL/min (90-120)
[2020-06-23 08:07] LABS: ALT (SGPT) 9 U/L (10-68); CALC OSMOLALITY 265 mosm/kg (275-300); MAGNESIUM - SERUM 1.7 mg/dL (1.8-2.4); UREA NITROGEN 2 mg/dL (7-18)
--- NOTE | 2020-06-23 09:07 | NUR ---
SPOKE WITH PASTOR ABOUT PATIENT GETTING PICC LINE AT THIS TIME. IV IN RIGHT FA RED AND HARD. REMOVED WITH CATH INTACT. REFUSES TO HAVE PERIPHREAL RESTARTED. FAMILY AT BEDSIDE. CALL LIGHT WITHIN REACH.
--- NOTE | 2020-06-23 09:48 | NUR ---
Rehab Note- Acute Inpatient Rehab prescreen order received. Per physician's progress note the patient & are requesting [facility]. He has been in our IRU numerous times with the last stay being that he was verbally aggressive to staff and did not cooperate or participate in the required 3hrs/day of therapy. Discussed on 06/22 during IDT call. Thank you for this referral! Priscilla France RN Clinical Liaison, [facility] Re[facility]
[2020-06-23 09:54] VITALS: BP 138/92
--- NOTE | 2020-06-23 10:30 | NUR ---
RESTARTED IV IN LEFT WRIST. EXPLAINED TO PATIENT THAT IF HE WANTED NAUSEA MEDICINE AT THIS TIME I WOULD HAVE TO RESTART IV. VERBALIZED UNDERSTANDING. 22G X 1 STICK LEFT WRIST. TOLERATED WITH SMALL AMOUNT OF PAIN. FAMILY AT BEDSIDE. CALL LIGHT WITHIN REACH.
[2020-06-23 12:01] VITALS: BP 118/72
--- NOTE | 2020-06-23 12:32 | MORECARE ---
CASE MANAGEMENT DISCHARGE SUMMARY PATIENT: LYNETTE SHEETS JR UNIT: [id number] ADM DATE: 06/16/20 AGE: 49 : 72 SEX: M ROOM/BED: D.2220 AUTHOR: EDOUARD CHANEL PHYSICIAN: REFERRING PHYSICIAN: SANDRA BALDERRAMA MD DATE OF SERVICE: 06/23/20 Discharge Plan Patient Name: LYNETTE SHEETS Facility[facility] 1970 Planned Disposition: Home with Home Health Anticipated Discharge Date: Discharge Date: Expected LOS: Initial Reviewer: [email or web address] Initial Review Date: 06/16/2020 Generated: 06/23/20 1:31 pm Comments DCP- Discharge Planning Updated by HARJINDER: David Lockett on 06/20/20 3:[address] Late Entry for 1523: spoke with Britney, at [facility] regarding continued care. Britney stated that [facility] has evaluated the patient and he can still go to wound clinic and he can still will have access to Dr. Joseph. Britney further stated that the patient is a higher level of care than [facility] can take care of due to his previous state of failure to thrive, lack of eating, not taking medicine, somnolence, and PEG tube. Britney further indicated that Dr. Joseph desired that the patient be reviewed for Hospice or Inpatient Rehab. Will notify spouse and nursing staff. CM will continue to follow and will assist as needed with dc plans/needs. DCP- Discharge Planning Updated by [id number]: David Lockett on 06/20/20 3:[address] Late Entry for 1435: CM staff met with spouse of Patient, Vicki Sheets ([phone]). Patient sleeping at time of discussion. Vicki states that she and her are not in agreement with Hospice choice. CM staff informed spouse of her right of choice and what hospice care entails. CM staff further informed spouse that hospice care requires certain conditions to qualify and further evaluation with hospice staff would be needed. Spouse stated that her began care [facility] for his wound vac and she would like to continue with [facility]. Spouse further explained that her has a peg tube and provided photographic images of drainage around the PEG tube. Spouse would like for nursing staff to evaluate PEG. CM staff provided [facility] form and spouse signed for [facility]. CM staff notified nursing staff of PEG tube. CM will continue to follow and will assist as needed with dc plans/needs. DCP- Discharge Planning Updated by [id number]: David Lockett on 06/20/20 1:[address] Late Entry for 181106/19/20 Met with patient and spouse to discuss Hospice. Patient and spouse adamantly stated that Hospice is not a choice for them. Spouse stated that the previous discussion of Hospice with medical staff was less than cordial and consensus for Hospice was not met. Patient stated that he would like to stay in hospital and escalate his disagreement with hospice decision. CM informed patient that perhaps a clarification of choices could be made and that a secondary meeting with CM staff could possibly offer more options. Patient and spouse are in agreement with plan. Medical notes indicate that communication was delivered to Medical staff that home health agencies are not an option. CM documentation of this communication is not readily apparent. Will conference with staff for clarification and meet with patient to discuss patient's right of choice and alternative options for further care. CM will continue to follow and will assist as needed with dc plans/needs. Coverage Notice Reviewer: [id number] Maxx Boyce Notice Issued Date-Time: 06/23/2020 11:50 Notice Type: Patient Choice Letter Notice Delivered To: Family Member Relationship to Patient: Spouse Home Health Aid Name: VICKI Delivery Method: HAND - Hand Delivered Linh Days: Prior Verbal Notification: Recipient Understood Notice: Yes Recipient Signature: Yes Med Rec Note Co-signed by Attending: Coverage Notice Comment: [facility] TO CONTINUE HH WITH [facility] Reviewer: [email or web address] Maxx Boyce Notice Issued Date-Time: 06/23/2020 11:50 Notice Type: IM Discharge Notice Notice Delivered To: Family Member Relationship to Patient: Spouse Home Health Aid Name: [facility]I Delivery Method: HAND - Hand Delivered Linh Days: Prior Verbal Notification: Recipient Understood Notice: Yes Recipient Signature: Yes Med Rec Note Co-signed by Attending: Coverage Notice Comment: IMM explained, signed, copy given and original placed in medical record Patient Name: LYNETTE SHEETS Page [phone] at 1232 All edits/amendments must be made on the electronic document DICTATION DATE: 06/23/20 1231 RAIL CAR PAINTER/SANDBLASTER: SALAS 06/23/20 1231 RPT#: [id number] DC DATE: STATUS: ADM IN [facility] [address] [place] [address] END OF REPORT
--- NOTE | 2020-06-23 12:58 | MORECARE ---
CASE MANAGEMENT DISCHARGE SUMMARY PATIENT: LYNETTE SHEETS JR UNIT: [id number] ADM DATE: 06/16/20 AGE: 49 : 72 SEX: M ROOM/BED: D.2220 AUTHOR: EDOUARD CHANEL PHYSICIAN: REFERRING PHYSICIAN: SANDRA BALDERRAMA MD DATE OF SERVICE: 06/23/20 Discharge Plan Patient Name: LYNETTE SHEETS Facility: [facility]:[place] : 1970 Planned Disposition: Home with Home Health Anticipated Discharge Date: Discharge Date: Expected LOS: Initial Reviewer: [email or web address] Initial Review Date: 06/16/2020 Generated: 06/23/20 1:58 pm Comments DCP- Discharge Planning Updated by HARJINDER: David Lockett on 06/20/20 3:[address] Late Entry for 1523: spoke with Britney, at [facility] regarding continued care. Britney stated that [facility] has evaluated the patient and he can still go to wound clinic and he can still will have access to Dr. Joseph. Britney further stated that the patient is a higher level of care than [facility] can take care of due to his previous state of failure to thrive, lack of eating, not taking medicine, somnolence, and PEG tube. Britney further indicated that Dr. Joseph desired that the patient be reviewed for Hospice or Inpatient Rehab. Will notify spouse and nursing staff. CM will continue to follow and will assist as needed with dc plans/needs. DCP- Discharge Planning Updated by [id number]: David Lockett on 06/20/20 3:[address] Late Entry for 1435: CM staff met with spouse of Patient, Vicki Sheets ([phone]). Patient sleeping at time of discussion. Vicki states that she and her are not in agreement with Hospice choice. CM staff informed spouse of her right of choice and what hospice care entails. CM staff further informed spouse that hospice care requires certain conditions to qualify and further evaluation with hospice staff would be needed. Spouse stated that her began care [facility] for his wound vac and she would like to continue with [facility]. Spouse further explained that her has a peg tube and provided photographic images of drainage around the PEG tube. Spouse would like for nursing staff to evaluate PEG. CM staff provided [facility] form and spouse signed for [facility]. CM staff notified nursing staff of PEG tube. CM will continue to follow and will assist as needed with dc plans/needs. DCP- Discharge Planning Updated by [id number]: David Lockett on 06/20/20 1:[address] Late Entry for 181106/19/20 Met with patient and spouse to discuss Hospice. Patient and spouse adamantly stated that Hospice is not a choice for them. Spouse stated that the previous discussion of Hospice with medical staff was less than cordial and consensus for Hospice was not met. Patient stated that he would like to stay in hospital and escalate his disagreement with hospice decision. CM informed patient that perhaps a clarification of choices could be made and that a secondary meeting with CM staff could possibly offer more options. Patient and spouse are in agreement with plan. Medical notes indicate that communication was delivered to Medical staff that home health agencies are not an option. CM documentation of this communication is not readily apparent. Will conference with staff for clarification and meet with patient to discuss patient's right of choice and alternative options for further care. CM will continue to follow and will assist as needed with dc plans/needs. DCPIA - Discharge Planning Initial Assessment Updated by [id number]: Josefina Boyce on 06/23/20 12:54 pm * Is the patient Alert and Oriented? Yes * PCP [facility] * [facility] * Preadmission Environment Home with Family * ADLs Partial Dependent * Partial ADLs (Assistance needed) Ambulation Bathing Dressing Medication Management * Equipment Bedside Commode Rolling Walker Walker Wheelchair * Other Equipment PROSTHETICS WOUND VAC * List name and contact numbers for known caregivers / representatives who currently or will assist patient after discharge: VICKI SHEETS ( ) [phone] * Verbal permission to speak to the caregivers and representatives has been obtained from the patient. Yes * Community resources currently utilized Home Health * Please name any agencies selected above. HAD HOME HEALTH WITH [facility], THEY HAVE DISCHARGED HIM AND WILL NOT TAKE HIM BACK * Additional services required to return to the preadmission environment? Yes * Can the patient safely return to the preadmission environment? Yes * Has this patient been hospitalized within the prior 30 days at any hospital? Yes Coverage Notice Reviewer: [id number] - Josefina Boyce Notice Issued Date-Time: 06/23/2020 11:50 Notice Type: Patient Choice Letter Notice Delivered To: Family Member Relationship to Patient: Spouse Dry Cell Assembly Supervisor Name: VICKI Delivery Method: HAND - Hand Delivered Linh Days: Prior Verbal Notification: Recipient Understood Notice: Yes Recipient Signature: Yes Med Rec Note Co-signed by Attending: Coverage Notice Comment: [facility] TO CONTINUE HH WITH [facility] Reviewer: [id number] - Josefina Boyce Notice Issued Date-Time: 06/23/2020 11:50 Notice Type: IM Discharge Notice Notice Delivered To: Family Member Relationship to Patient: Spouse Dry Cell Assembly Supervisor Name: VICKI Delivery Method: HAND - Hand Delivered Linh Days: Prior Verbal Notification: Recipient Understood Notice: Yes Recipient Signature: Yes Med Rec Note Co-signed by Attending: Coverage Notice Comment: IMM explained, signed, copy given and original placed in medical record Last DP export: 06/23/20 11:31 a Patient Name: LYNETTE SHEETS Page [phone] at 1258 All edits/amendments must be made on the electronic document DICTATION DATE: 06/23/20 1258 PROJECTION PRINTER: SALAS 06/23/20 1258 RPT#: [id number] DC DATE: STATUS: ADM IN [facility] [address] [place] [address] END OF REPORT
--- NOTE | 2020-06-23 13:06 | MORECARE ---
CASE MANAGEMENT DISCHARGE SUMMARY PATIENT: LYNETTE SHEETS JR UNIT: [id number] ADM DATE: 06/16/20 AGE: 49 : 72 SEX: M ROOM/BED: D.2220 AUTHOR: EDOUARD CHANEL PHYSICIAN: REFERRING PHYSICIAN: SANDRA BALDERRAMA MD DATE OF SERVICE: 06/23/20 Discharge Plan Patient Name: LYNETTE SHEETS Facility: [facility]:[place] : 1970 Planned Disposition: Home with Home Health Anticipated Discharge Date: Discharge Date: Expected LOS: Initial Reviewer: [id number] Initial Review Date: 06/16/2020 Generated: 06/23/20 2:06 pm Comments DCP- Discharge Planning Updated by [id number]: Josefina Boyce on 06/23/20 12:[address] Patient Name: LYNETTE SHEETS Admission Status: ER Accout number: [id number] Admission Date: 06-16-2020 : 1970 Admission Diagnosis:EPILEPSY, UNSP, NOT INTRACTABLE, WITHOUT STATUS EPILEPT Attending: SANDRA BALDERRAMA Current LOS: 7 Anticipated DC Date: Planned Disposition: Home with Home Health Primary Insurance: MEDICARE A & B Discharge Planning Comments: CM met with patient to complete initial dc planning assessment. CM educated patient on the CM role and verbal consent given by patient to complete assessment. Patient lives at home with his . Where his helps care for him at home. At discharge patient plans to return home and feels this is a safe discharge. CM discussed availability of home health, rehab services, and medical equipment. He was current with [facility], but they have said that they will not take him back. I have asked Tyron Julien to call the patient and his to let them know that they will not be taken back. He said that he would have his office call. I encouraged them to consider inpatient rehab at [facility] and they wanted HH at home. The patient did walk 40 feet today with therapy. IMM served and explained. with patient & CM will continue to follow and will assist as needed with dc plans/needs. Logistics Research Engineer: Josefina Boyce DCP- Discharge Planning Updated by [id number]: David Lockett on 06/20/20 3:[address] Late Entry for 1523: CM spoke with Britney, at [facility] regarding continued care. Britney stated that [facility] has evaluated the patient and he can still go to wound clinic and he can still will have access to Dr. Joseph. Britney further stated that the patient is a higher level of care than [facility] can take care of due to his previous state of failure to thrive, lack of eating, not taking medicine, somnolence, and PEG tube. Britney further indicated that Dr. Joseph desired that the patient be reviewed for Hospice or Inpatient Rehab. Will notify spouse and nursing staff. CM will continue to follow and will assist as needed with dc plans/needs. DCP- Discharge Planning Updated by [id number]: David Lockett on 06/20/20 3:[address] Late Entry for 1434: CM staff met with spouse of Patient, Vicki Sheets ([phone]). Patient sleeping at time of discussion. Vicki states that she and her are not in agreement with Hospice choice. CM staff informed spouse of her right of choice and what hospice care entails. CM staff further informed spouse that hospice care requires certain conditions to qualify and further evaluation with hospice staff would be needed. Spouse stated that her began care [facility] for his wound vac and she would like to continue with [facility]. Spouse further explained that her has a peg tube and provided photographic images of drainage around the PEG tube. Spouse would like for nursing staff to evaluate PEG. CM staff provided [facility] form and spouse signed for [facility]. CM staff notified nursing staff of PEG tube. CM will continue to follow and will assist as needed with dc plans/needs. DCP- Discharge Planning Updated by [email or web address]: David Lockett on 06/20/20 1:[address] Late Entry for 181106/19/20 Met with patient and spouse to discuss Hospice. Patient and spouse adamantly stated that Hospice is not a choice for them. Spouse stated that the previous discussion of Hospice with medical staff was less than cordial and consensus for Hospice was not met. Patient stated that he would like to stay in hospital and escalate his disagreement with hospice decision. CM informed patient that perhaps a clarification of choices could be made and that a secondary meeting with CM staff could possibly offer more options. Patient and spouse are in agreement with plan. Medical notes indicate that communication was delivered to Medical staff that home health agencies are not an option. CM documentation of this communication is not readily apparent. Will conference with CM staff for clarification and meet with patient to discuss patient's right of choice and alternative options for further care. CM will continue to follow and will assist as needed with dc plans/needs. DCPIA - Discharge Planning Initial Assessment Updated by [id number]: Josefina Boyce on 06/23/20 12:54 pm * Is the patient Alert and Oriented? Yes * PCP [facility] * Pharmacy [facility] * Preadmission Environment Home with Family * ADLs Partial Dependent * Partial ADLs (Assistance needed) Ambulation Bathing Dressing Medication Management * Equipment Bedside Commode Rolling Walker Walker Wheelchair * Other Equipment PROSTHETICS WOUND VAC * List name and contact numbers for known caregivers / representatives who currently or will assist patient after discharge: VICKI SHEETS ( ) [phone] * Verbal permission to speak to the caregivers and representatives has been obtained from the patient. Yes * Community resources currently utilized Home Health * Please name any agencies selected above. HAD HOME HEALTH WITH [facility], THEY HAVE DISCHARGED HIM AND WILL NOT TAKE HIM BACK * Additional services required to return to the preadmission environment? Yes * Can the patient safely return to the preadmission environment? Yes * Has this patient been hospitalized within the prior 30 days at any hospital? Yes Coverage Notice Reviewer: [id number] Maxx Boyce Notice Issued Date-Time: 06/23/2020 11:50 Notice Type: Patient Choice Letter Notice Delivered To: Family Member Relationship to Patient: Spouse Supervisor Component Assembler Name: VICKI Delivery Method: HAND - Hand Delivered Linh Days: Prior Verbal Notification: Recipient Understood Notice: Yes Recipient Signature: Yes Med Rec Note Co-signed by Attending: Coverage Notice Comment: [facility] TO CONTINUE HH WITH [facility] Reviewer: [id number] Maxx Boyce Notice Issued Date-Time: 06/23/2020 11:50 Notice Type: IM Discharge Notice Notice Delivered To: Family Member Relationship to Patient: Spouse Supervisor Component Assembler Name: VICKI Delivery Method: HAND - Hand Delivered Linh Days: Prior Verbal Notification: Recipient Understood Notice: Yes Recipient Signature: Yes Med Rec Note Co-signed by Attending: Coverage Notice Comment: IMM explained, signed, copy given and original placed in medical record Last DP export: 06/23/20 11:58 a Patient Name: LYNETTE SHEETS Page [phone] at 1306 All edits/amendments must be made on the electronic document DICTATION DATE: 06/23/20 130 BEVELER: SALAS 06/23/20 1306 RPT#: [id number] DC DATE: STATUS: ADM IN [facility] [address] [place] [address] END OF REPORT
--- NOTE | 2020-06-23 14:08 | NUR ---
OT NOTE: PT DOING VERY WELL TODAY. SUPINE TO SIT ON EOB WITH MIN ASSIST. GOOD STATIC SITTING BALANCE. PT ABLE TO DORIE B LE PROSTHESIS WITH SET UP AND EXTENDED TIME. AFTER DONNING PROSTHESIS, PT WAS ABLE TO AMB WITH OT/PT AND MIN ASSIST WITH WALKER MGMT X APPROX 40 FT. PT PROVIDED WITH MOD RESISTIVE THERABAND AND WAS ABLE TO DEMONSTRATE UE STRENGTHENING EXS. INFORMED CM OF PT STATUS TODAY. JEISON HOUGH, OTR/L [phone]
--- NOTE | 2020-06-23 15:09 | NUR ---
WOUND VAC DRESSING CHANGE DATE: 06/23/20 WOUND LOCATION: sacrum/coccyx WOUND MEASUREMENTS: 11cm x 8cm x 2.2cm x 4cm from 9-3 oclock (improved) WOUND DESCRIPTION: granulation noted MUSCLE, TENDON, OR BONE EXPOSED? no DRAINAGE AMOUNT/DESCRIPTION: small serosanguinous ODOR? no odor TYPE OF SPONGE USED AND AMOUNT: white x 1 black x 1 SETTINGS: -125mmhg low continuous TEACHING: skin protection Pt tolerated well.
[2020-06-23 16:23] VITALS: BP 111/85
[2020-06-23 20:00] VITALS: BP 110/74
--- NOTE | 2020-06-23 20:00 | NUR ---
PT LYING IN BED WITHOUT DISTRESS, ASSISTED PT IN REPOSITIONING TO RIGHT SIDE. WOUND VAC IN PLACE, DRESSING CDI. IV LEFT WRIST SL. PLACED PILLOW BETWEEN KNEES. PT TOOK HS MEDS WITHOUT DIFFICULTY. HR 88 SR PER TELE. DENIES OTHER NEEDS AT THIS TIME. CL IN REACH, WILL CTM
--- NOTE | 2020-06-23 23:45 | NUR ---
PT STATES PAIN 10/10 TO [facility]. GAVE NORCO ORDERED. WILL CTM
[2020-06-24 04:00] VITALS: BP 113/89
[2020-06-24 05:03] LABS: BASOPHILS 0.3 % (0-2); EOSINOPHILS 0.3 % (0-7); HEMOGLOBIN 9.9 g/dL (13.5-17.5); IMMATURE GRANULOCYTES 0.7 % (0-5); LYMPHOCYTES 30.4 % (15-50); MCHC 30.9 g/dL (31.0-37.0); MCV 80.8 fL (80.0-100.0); MONOCYTES 9.2 % (2-11); NEUTROPHILS 59.1 % (40-80); PLATELET COUNT 414 10x3/uL (130-400); RBC 3.96 10x6/uL (4.20-6.10); RDW 18.3 % (11.5-14.5)
[2020-06-24 05:22] LABS: ALBUMIN 2.4 g/dL (3.4-5.0); ALKALINE PHOSPHATASE 114 U/L (30-120); ALT (SGPT) 9 U/L (10-68); BILIRUBIN - TOTAL 0.13 mg/dL (0.2-1.3); CALC OSMOLALITY 263 mosm/kg (275-300); CALCIUM 8.5 mg/dL (8.5-10.1); CARBON DIOXIDE 25.4 mmol/L (21.0-32.0); CHLORIDE - SERUM 103 mmol/L (98-107); CREATININE - SERUM 0.8 mg/dL (0.6-1.3); GLUCOSE 98 mg/dL (74-106); MAGNESIUM - SERUM 1.7 mg/dL (1.8-2.4); PROTEIN - SERUM 6.4 g/dL (6.4-8.2); SODIUM 134 mmol/L (136-145); UREA NITROGEN 2 mg/dL (7-18); eGFR NON AFRICAN AMERICAN > 90 mL/min (90-120)
[2020-06-24 05:30] LABS: PHOSPHOROUS 2.5 mg/dL (2.5-4.9)
[2020-06-24 09:22] VITALS: BP 118/75
--- NOTE | 2020-06-24 10:15 | NUR ---
ZITHROMAX STOPPED AT 1253 ON 06/16/20
[2020-06-24] MEDS ORDERED: DEPAKOTE500 MG PO (11:57)
[2020-06-24] MEDS ORDERED: MUCINEX600 MG PO (11:58)
[2020-06-24] MEDS ORDERED: TESSALON PERLE100 MG PO (11:58)
[2020-06-24] MEDS ORDERED: FLAGYL500 MG PO (11:59)
[2020-06-24] MEDS ORDERED: FLORAJEN3 CAPS460 MG PO (11:59)
[2020-06-24] MEDS ORDERED: FLOMAX0.4 MG PO (12:00)
[2020-06-24] MEDS ORDERED: QUESTRAN PACKET PO (12:00)
[2020-06-24] MEDS ORDERED: Levaquin PO (12:00)
[2020-06-24 13:19] VITALS: BP 117/73
--- NOTE | 2020-06-24 13:52 | NUR ---
OT NOTE: PT PERFORMED VERY WELL AGAIN TODAY. BED MOB WITH MIN ASSIST FOR SUPINE TO SIT; EOB SITTING WITH GOOD BALANCE; ABLE TO DORIE B LE PROSTHESIS WITH SET UP AND EXT TIME. AMB WITH WALKER AND MIN ASSIST AND ASSIST WITH WOUND VAC X APPROX 60 FT.. PT VERY FATIGUED UPON RETURN TO ROOM. AFTER SEVERAL MIN OF REST, PT PERFORMED UE STRENGTHENING EXS WITH MOD RESISTIVE THERABAND. JEISON HOUGH, OTR/L [phone]
--- NOTE | 2020-06-24 14:05 | MORECARE ---
CASE MANAGEMENT DISCHARGE SUMMARY PATIENT: LYNETTE SHEETS JR UNIT: [id number] ADM DATE: 06/16/20 AGE: 49 : 72 SEX: M ROOM/BED: D.2220 AUTHOR: EDOUARD CHANEL PHYSICIAN: REFERRING PHYSICIAN: SANDRA BALDERRAMA MD DATE OF SERVICE: 06/24/20 Discharge Plan Patient Name: LYNETTE SHEETS Facility: [facility]:[place] : 1970 Planned Disposition: Home with Home Health Anticipated Discharge Date: Discharge Date: Expected LOS: Initial Reviewer: [id number] Initial Review Date: 06/16/2020 Generated: 06/24/20 3:04 pm Comments DCP- Discharge Planning Updated by [id number]: Josefina Boyce on 06/24/20 1:[address] PATIENT HAS CHOOSEN [facility] SIGNED BY I HAVE SENT CLINICAL OVER DCP- Discharge Planning Updated by [id number]: Josefina Boyce on 06/23/20 12:[address] Patient Name: LYNETTE SHEETS Admission Status: ER Accout number: [id number] Admission Date: 06-16-2020 : 1970 Admission Diagnosis:EPILEPSY, UNSP, NOT INTRACTABLE, WITHOUT STATUS EPILEPT Attending: SANDRA BALDERRAMA Current LOS: 7 Anticipated DC Date: Planned Disposition: Home with Home Health Primary Insurance: MEDICARE A & B Discharge Planning Comments: CM met with patient to complete initial dc planning assessment. CM educated patient on the CM role and verbal consent given by patient to complete assessment. Patient lives at home with his . Where his helps care for him at home. At discharge patient plans to return home and feels this is a safe discharge. CM discussed availability of home health, rehab services, and medical equipment. He was current with [facility], but they have said that they will not take him back. I have asked Tyron Julien to call the patient and his to let them know that they will not be taken back. He said that he would have his office call. I encouraged them to consider inpatient rehab at [facility] and they wanted HH at home. The patient did walk 40 feet today with therapy. IMM served and explained. with patient & CM will continue to follow and will assist as needed with dc plans/needs. Dairy Helper: Josefina Boyce DCP- Discharge Planning Updated by [id number]: David Lockett on 06/20/20 3:[address] Late Entry for 1522: CM spoke with Britney, at [facility] regarding continued care. Britney stated that [facility] has evaluated the patient and he can still go to wound clinic and he can still will have access to Dr. Joseph. Britney further stated that the patient is a higher level of care than [facility] can take care of due to his previous state of failure to thrive, lack of eating, not taking medicine, somnolence, and PEG tube. Britney further indicated that Dr. Joseph desired that the patient be reviewed for Hospice or Inpatient Rehab. Will notify spouse and nursing staff. CM will continue to follow and will assist as needed with dc plans/needs. DCP- Discharge Planning Updated by [id number]: David oLckett on 06/20/20 3:[address] Late Entry for 143: CM staff met with spouse of Patient, Vicik Sheets ([phone]). Patient sleeping at time of discussion. Vicki states that she and her are not in agreement with Hospice choice. CM staff informed spouse of her right of choice and what hospice care entails. CM staff further informed spouse that hospice care requires certain conditions to qualify and further evaluation with hospice staff would be needed. Spouse stated that her began care [facility] for his wound vac and she would like to continue with [facility]. Spouse further explained that her has a peg tube and provided photographic images of drainage around the PEG tube. Spouse would like for nursing staff to evaluate PEG. CM staff provided [facility] form and spouse signed for [facility]. CM staff notified nursing staff of PEG tube. CM will continue to follow and will assist as needed with dc plans/needs. DCP- Discharge Planning Updated by [id number]: David Lockett on 06/20/20 1:[address] Late Entry for 181106/19/20 Met with patient and spouse to discuss Hospice. Patient and spouse adamantly stated that Hospice is not a choice for them. Spouse stated that the previous discussion of Hospice with medical staff was less than cordial and consensus for Hospice was not met. Patient stated that he would like to stay in hospital and escalate his disagreement with hospice decision. CM informed patient that perhaps a clarification of choices could be made and that a secondary meeting with CM staff could possibly offer more options. Patient and spouse are in agreement with plan. Medical notes indicate that communication was delivered to Medical staff that home health agencies are not an option. CM documentation of this communication is not readily apparent. Will conference with CM staff for clarification and meet with patient to discuss patient's right of choice and alternative options for further care. CM will continue to follow and will assist as needed with dc plans/needs. DCPIA - Discharge Planning Initial Assessment Updated by [id number]: Josefina Boyce on 06/23/20 12:54 pm * Is the patient Alert and Oriented? Yes * PCP [facility] * Pharmacy [facility] * Preadmission Environment Home with Family * ADLs Partial Dependent * Partial ADLs (Assistance needed) Ambulation Bathing Dressing Medication Management * Equipment Bedside Commode Rolling Walker Walker Wheelchair * Other Equipment PROSTHETICS WOUND VAC * List name and contact numbers for known caregivers / representatives who currently or will assist patient after discharge: VICKI SHEETS ( ) [phone] * Verbal permission to speak to the caregivers and representatives has been obtained from the patient. Yes * Community resources currently utilized Home Health * Please name any agencies selected above. HAD HOME HEALTH WITH [facility], THEY HAVE DISCHARGED HIM AND WILL NOT TAKE HIM BACK * Additional services required to return to the preadmission environment? Yes * Can the patient safely return to the preadmission environment? Yes * Has this patient been hospitalized within the prior 30 days at any hospital? Yes External Providers External Provider: [facility] Next Contact Date: Service Request Date: Service Type: Resolution: Reviewer: Comments: Coverage Notice Reviewer: [id number] Maxx Boyce Notice Issued Date-Time: 06/23/2020 11:50 Notice Type: Patient Choice Letter Notice Delivered To: Family Member Relationship to Patient: Spouse Ichthyology Teacher Name: VICKI Delivery Method: HAND - Hand Delivered Linh Days: Prior Verbal Notification: Recipient Understood Notice: Yes Recipient Signature: Yes Med Rec Note Co-signed by Attending: Coverage Notice Comment: [facility] TO CONTINUE HH WITH [facility] Reviewer: [id number] Maxx Boyce Notice Issued Date-Time: 06/23/2020 11:50 Notice Type: IM Discharge Notice Notice Delivered To: Family Member Relationship to Patient: Spouse Ichthyology Teacher Name: VICKI Delivery Method: HAND - Hand Delivered Linh Days: Prior Verbal Notification: Recipient Understood Notice: Yes Recipient Signature: Yes Med Rec Note Co-signed by Attending: Coverage Notice Comment: IMM explained, signed, copy given and original placed in medical record Reviewer: [id number] Maxx Boyce Notice Issued Date-Time: 06/24/2020 13:45 Notice Type: Patient Choice Letter Notice Delivered To: Family Member Relationship to Patient: Spouse Ichthyology Teacher Name: VICKI Delivery Method: HAND - Hand Delivered Linh Days: Prior Verbal Notification: Recipient Understood Notice: Yes Recipient Signature: Yes Med Rec Note Co-signed by Attending: Coverage Notice Comment: Last DP export: 06/23/20 12:06 p Patient Name: LYNETTE SHEETS Page [phone] at 1405 All edits/amendments must be made on the electronic document DICTATION DATE: 06/24/201403 SUPERVISOR LATHING: SALAS 06/24/20 1404 RPT#: [id number] DC DATE: STATUS: ADM IN [facility] [address] [place] [address] END OF REPORT
--- NOTE | 2020-06-24 15:26 | NUR ---
0700 BEDSIDE REPORT RECEIVED PT AND SPOUSE ASLEEP IN BED AWAKENS TO VOICE ASSESSMENT COMLETE
--- NOTE | 2020-06-24 15:53 | NUR ---
1030 AMBULATING IN HALLS WEARING BILATERAL PROTHESIS AND USING WALKER PT ASSIST X 2
--- NOTE | 2020-06-24 17:59 | NUR ---
2684 COMPLETE WRITTEN DISCHARGE INSTRUCTIONS GONE OVER WITH SPOUSE AND PATIENT RN ANSWERED ALL QUESTIONS TO PT SATISFACTION SPOUSE TRANSPORTED ALL BELONGING TO CAR AND CAME BACK UP FOR PT. DR RILEY VISITED PT IN ROOM AND REQUESTED PT RETURN OUTPATIENT FOR F/U CT WITHOUT CONTRAST VERBALIZED UNDERSTANDING
[2020-06-24 19:08] LABS: OVA + PARASITE EXAM Final report (())
--- NOTE | 2020-06-28 08:55 | MORECARE ---
CASE MANAGEMENT DISCHARGE SUMMARY PATIENT: LYNETTE SHEETS JR UNIT: [id number] ADM DATE: 06/16/20 AGE: 49 : 72 SEX: M ROOM/BED: D.2220 AUTHOR: EDOUARD CHANEL PHYSICIAN: REFERRING PHYSICIAN: SANDRA BALDERRAMA MD DATE OF SERVICE: 06/28/20 Discharge Plan Patient Name: LYNETTE SHEETS Facility: [facility]:[place] : 1970 Planned Disposition: Home with Home Health Anticipated Discharge Date: Discharge Date: 06/24/2020 Expected LOS: Initial Reviewer: [email or web address] Initial Review Date: 06/16/2020 Generated: 06/28/20 9:54 am Comments DCP- Discharge Planning Updated by [email or web address]: Josefina Boyce on 06/24/20 1:[address] PATIENT HAS CHOOSEN [facility] SIGNED BY I HAVE SENT CLINICAL OVER DCP- Discharge Planning Updated by [id number]: Josefina Boyce on 06/23/20 12:[address] Patient Name: LYNETTE SHEETS Admission Status: ER Accout number: [id number] Admission Date: 06-16-2020 : 1970 Admission Diagnosis:EPILEPSY, UNSP, NOT INTRACTABLE, WITHOUT STATUS EPILEPT Attending: SANDRA BALDERRAMA Current LOS: 7 Anticipated DC Date: Planned Disposition: Home with Home Health Primary Insurance: MEDICARE A & B Discharge Planning Comments: CM met with patient to complete initial dc planning assessment. CM educated patient on the CM role and verbal consent given by patient to complete assessment. Patient lives at home with his . Where his helps care for him at home. At discharge patient plans to return home and feels this is a safe discharge. CM discussed availability of home health, rehab services, and medical equipment. He was current with [facility], but they have said that they will not take him back. I have asked Tyron Julien to call the patient and his to let them know that they will not be taken back. He said that he would have his office call. I encouraged them to consider inpatient rehab at [facility] and they wanted HH at home. The patient did walk 40 feet today with therapy. IMM served and explained. with patient & CM will continue to follow and will assist as needed with dc plans/needs. Fly Fishing Guide: Josefina Boyce DCP- Discharge Planning Updated by [email or web address]: David Lockett on 06/20/20 3:[address] Late Entry for 1522: CM spoke with Britney, at [facility] regarding continued care. Britney stated that [facility] has evaluated the patient and he can still go to wound clinic and he can still will have access to Dr. Joseph. Britney further stated that the patient is a higher level of care than [facility] can take care of due to his previous state of failure to thrive, lack of eating, not taking medicine, somnolence, and PEG tube. Britney further indicated that Dr. Joseph desired that the patient be reviewed for Hospice or Inpatient Rehab. Will notify spouse and nursing staff. CM will continue to follow and will assist as needed with dc plans/needs. DCP- Discharge Planning Updated by [email or web address]: David Lockett on 06/20/20 3:[address] Late Entry for 1434: CM staff met with spouse of Patient, Vicki Sheets ([phone]). Patient sleeping at time of discussion. Vicki states that she and her are not in agreement with Hospice choice. CM staff informed spouse of her right of choice and what hospice care entails. CM staff further informed spouse that hospice care requires certain conditions to qualify and further evaluation with hospice staff would be needed. Spouse stated that her began care [facility] for his wound vac and she would like to continue with [facility]. Spouse further explained that her has a peg tube and provided photographic images of drainage around the PEG tube. Spouse would like for nursing staff to evaluate PEG. CM staff provided [facility] form and spouse signed for [facility]. CM staff notified nursing staff of PEG tube. CM will continue to follow and will assist as needed with dc plans/needs. DCP- Discharge Planning Updated by [id number]: David Lockett on 06/20/20 1:[address] Late Entry for 181106/19/20 Met with patient and spouse to discuss Hospice. Patient and spouse adamantly stated that Hospice is not a choice for them. Spouse stated that the previous discussion of Hospice with medical staff was less than cordial and consensus for Hospice was not met. Patient stated that he would like to stay in hospital and escalate his disagreement with hospice decision. CM informed patient that perhaps a clarification of choices could be made and that a secondary meeting with CM staff could possibly offer more options. Patient and spouse are in agreement with plan. Medical notes indicate that communication was delivered to Medical staff that home health agencies are not an option. CM documentation of this communication is not readily apparent. Will conference with CM staff for clarification and meet with patient to discuss patient's right of choice and alternative options for further care. CM will continue to follow and will assist as needed with dc plans/needs. DCPIA - Discharge Planning Initial Assessment Updated by [id number]: Josefina Boyce on 06/23/20 12:54 pm * Is the patient Alert and Oriented? Yes * PCP [facility] * [facility] * Preadmission Environment Home with Family * ADLs Partial Dependent * Partial ADLs (Assistance needed) Ambulation Bathing Dressing Medication Management * Equipment Bedside Commode Rolling Walker Walker Wheelchair * Other Equipment PROSTHETICS WOUND VAC * List name and contact numbers for known caregivers / representatives who currently or will assist patient after discharge: VICKI SHEETS ( ) [phone] * Verbal permission to speak to the caregivers and representatives has been obtained from the patient. Yes * Community resources currently utilized Home Health * Please name any agencies selected above. HAD HOME HEALTH WITH [facility], THEY HAVE DISCHARGED HIM AND WILL NOT TAKE HIM BACK * Additional services required to return to the preadmission environment? Yes * Can the patient safely return to the preadmission environment? Yes * Has this patient been hospitalized within the prior 30 days at any hospital? Yes Coverage Notice Reviewer: [id number] Maxx Boyce Notice Issued Date-Time: 06/23/2020 11:50 Notice Type: Patient Choice Letter Notice Delivered To: Family Member Relationship to Patient: Spouse Title 1 Tutor Name: VICKI Delivery Method: HAND - Hand Delivered Linh Days: Prior Verbal Notification: Recipient Understood Notice: Yes Recipient Signature: Yes Med Rec Note Co-signed by Attending: Coverage Notice Comment: [facility] TO CONTINUE HH WITH [facility] Reviewer: [id number] Maxx Boyce Notice Issued Date-Time: 06/23/2020 11:50 Notice Type: IM Discharge Notice Notice Delivered To: Family Member Relationship to Patient: Spouse Title 1 Tutor Name: VICKI Delivery Method: HAND - Hand Delivered Linh Days: Prior Verbal Notification: Recipient Understood Notice: Yes Recipient Signature: Yes Med Rec Note Co-signed by Attending: Coverage Notice Comment: IMM explained, signed, copy given and original placed in medical record Reviewer: [id number] Maxx Boyce Notice Issued Date-Time: 06/24/2020 13:45 Notice Type: Patient Choice Letter Notice Delivered To: Family Member Relationship to Patient: Spouse Title 1 Tutor Name: VICKI Delivery Method: HAND - Hand Delivered Linh Days: Prior Verbal Notification: Recipient Understood Notice: Yes Recipient Signature: Yes Med Rec Note Co-signed by Attending: Coverage Notice Comment: Last DP export: 06/24/20 1:05 p Patient Name: LYNETTE SHEETS Page [phone] at 0855 All edits/amendments must be made on the electronic document DICTATION DATE: 06/28/20853 AUTOMOBILE DESIGNER: SALAS 06/28/20853 RPT#: [id number] DC DATE:06/24/20 STATUS: DIS IN [facility] [address] [place] [address] END OF REPORT
== END 2020-06-24 17:25 | disposition home health service (06) | DRG 100 ==
LOC: D.ER 21:44 → D.MS 06-16 02:23 → D.EDHOLD 06-16 02:23 → D.MS 06-16 23:15
PROVIDERS: Family Medicine; Family Medicine Adult Medicine; ADMIT Family Medicine; ATTEND Family Medicine
DX: G40.909 Epilepsy, unspecified, not intractable, without status epilepticus (principal); G93.41 Metabolic encephalopathy; L89.154 Pressure ulcer of sacral region, stage 4; J18.9 Pneumonia, unspecified organism; N17.9 Acute kidney failure, unspecified; I69.391 Dysphagia following cerebral infarction; R13.10 Dysphagia, unspecified; J45.909 Unspecified asthma, uncomplicated; K21.9 Gastro-esophageal reflux disease without esophagitis; N40.0 Benign prostatic hyperplasia without lower urinary tract symptoms; M06.9 Rheumatoid arthritis, unspecified; F43.10 Post-traumatic stress disorder, unspecified; G89.29 Other chronic pain; R59.1 Generalized enlarged lymph nodes; I10 Essential (primary) hypertension; I25.119 Atherosclerotic heart disease of native coronary artery with unspecified angina pectoris; Z89.512 Acquired absence of left leg below knee; Z89.511 Acquired absence of right leg below knee

== ENCOUNTER → 2020-12-22 18:45 | Outpatient (CLI) | payer MEDICARE ==
[2020-06-17 15:01] VITALS: BMI 23.0
[~2020-12-22 18:45] MED LIST changes: +DEPAKOTE500 MG PO; +FLAGYL500 MG PO; +Levaquin PO; +MUCINEX600 MG PO; +QUESTRAN PACKET PO; +TESSALON PERLE100 MG PO
[2020-12-22 19:47] LABS: BILIRUBIN NEGATIVE (NEGATIVE); KETONE NEGATIVE (NEGATIVE); NITRITE NEGATIVE (NEGATIVE); UROBILINOGEN NORMAL mg/dL (< 2)
[2020-12-22 19:48] LABS: BACTERIA FEW HPF (NONE SEEN); WHITE CELLS - URINE 0-5 HPF (0-1)
== END | disposition home or self-care (01) ==
LOC: D.LABREF 18:45
PROVIDERS: ATTEND Emergency Medicine
DX: N39.0 Urinary tract infection, site not specified (principal)